=== PATIENT | female | born 1945 ===

== ENCOUNTER 2019-10-17 18:56 | Emergency (ER) | payer SELFPAY ==
--- NOTE | 2019-10-17 21:25 | XRay Report ---
LEFT FOOT 2 VIEWS 2028 INDICATION: pain, fall 15-20 days ago with history of fracture COMPARISON: None available. FINDINGS: The fracture dislocation at the ankle described on the tibia fibula study is noted. No roseann tional foot fractures are identified. Soft tissue swelling is seen diffusely in the foot and ankle. T arsal and ankle degenerative changes are seen. Moderate posterior and mild inferior calcaneal spurrin g are noted. Arterial calcifications are seen. Signer Name: Nikolai Steele MD Signed: 10/17/2019 9:20 PM Workstation Name: [id number]
--- NOTE | 2019-10-17 21:44 | Emergency Department Report ---
ED General Adult HPI - General Chief complaint: Extremity Injury, Lower Stated complaint: SLIP AND FALL X3 WEEKS AGO PUI?: No Time Seen by Provider: 10/17/19 21:02 Source: butcher meat Mode of arrival: Ambulatory Limitations: Language Barrier - History of Present Illness Initial comments: This is a 74-year-old female presents the ED complaining of lower leg, ankle pain x3 weeks now. Patient states that she had a accidental slip and fall while cleaning her toilet some 3 weeks ago. Patient states that she was cleaning the toilet she accidentally fell and hit her left ankle against the toilet. patient states that she was seen at a clinic where she was told that she had a fracture but was not placed in the cast and was told to take Tylenol [id number]. She stated she may have been given a referral to orthopedic whom she saw today and was told to come to the ER evaluation. Patient states that she went to another clinic. Patient states she is been experiencing pain in her leg for the past 2 to 3 weeks. Patient states that she has been using a wheelchair to get around the past 2 to 3 weeks - Related Data Previous Rx's Medication Instructions Recorded Last Taken Type HYDROcodone/APAP 5-325 [[place] 1 each PO Q6HR PRN #12 tablet 10/17/19 Unknown Rx 5/325] Ibuprofen [Motrin] 800 mg PO Q8HR #30 tablet 10/17/19 Unknown Rx Allergies Allergy/AdvReac Type Severity Reaction Status Date / Time No Known Allergies Allergy Unverified 10/17/19 19:57 ED Review of Systems ROS: Stated complaint: SLIP AND FALL X3 WEEKS AGO Other details as noted in HPI Comment: All other systems reviewed and negative ED Past Medical Hx - Past Medical History Hx Hypertension: Yes Hx Diabetes: Yes Hx Asthma: Yes - Surgical History Past Surgical History?: Yes Additional Surgical History: left leg - Social History Smoking Status: Never Smoker Substance Use Type: None - Medications Home Medications: Home Medications Medication Instructions Recorded Confirmed Last Taken Type HYDROcodone/APAP 5-325 [[place] 1 each PO Q6HR PRN #12 tablet 10/17/19 Unknown Rx 5/325] Ibuprofen [Motrin] 800 mg PO Q8HR #30 tablet 10/17/19 Unknown Rx ED Physical Exam - General Limitations: Language Barrier General appearance: alert, in no apparent distress - Head Head exam: Present: atraumatic, normocephalic - Eye Eye exam: Present: normal appearance - ENT ENT exam: Present: mucous membranes moist - Neck Neck exam: Present: normal inspection - Respiratory Respiratory exam: Present: normal lung sounds bilaterally. Absent: respiratory distress - Cardiovascular Cardiovascular Exam: Present: regular rate, normal rhythm. Absent: systolic murmur, diastolic murmur, rubs, gallop - GI/Abdominal GI/Abdominal exam: Present: soft, normal bowel sounds - Extremities Exam Extremities exam: Present: normal inspection, full ROM - Expanded Lower Extremity Exam Left Hip exam: Present: full ROM Upper Leg exam: Present: normal inspection, full ROM Knee exam: Present: normal inspection, full ROM Lower Leg exam: Present: normal inspection, full ROM, tenderness (Mild tender to palpation) Ankle exam: Present: full ROM (2. Flex), tenderness (To the lateral anterior aspect of the ankle), swelling (Around the ankle, nonpitting), deformity (Mild deformity to the left). Absent: crepidus Foot/Toe exam: Present: full ROM, tenderness (At the anterior aspect of the foot), swelling. Absent: abrasion, laceration Neuro vascular tendon exam: Present: no vascular compromise, abnormal cap refill. Absent: pulse deficit, sensory deficit Gait: Positive: unable to bear weight (Using a wheelchair) - Back Exam Back exam: Present: normal inspection - Neurological Exam Neurological exam: Present: alert, oriented X3 - Psychiatric Psychiatric exam: Present: normal affect, normal mood - Skin Skin exam: Present: warm, dry, intact, normal color. Absent: rash ED Course Vital Signs 10/17/19 19:32 Temperature 98.6 F Pulse Rate 108 H Respiratory 18 Rate Blood Pressure 105/55 O2 Sat by Pulse 98 Oximetry ED Medical Decision Making - Radiology Data Radiology results: report reviewed, image reviewed Fluoro Time In Minutes: LEFT TIBIA FIBULA 2 VIEWS 2033 INDICATION: pain, swelling, fell 15-20 days ago, history of fracture COMPARISON: None available. FINDINGS: A fracture dislocation at the ankle is noted. Comminuted oblique fracture of the distal fibula is seen from the distal diaphysis through the metaphysis with posterior angulation noted. A vertical fracture of the posterior malleolus of the tibia is seen with proximal displacement and posterior angulation. I do not clearly see a medial malleolar fracture on these images. The tibia is dislocated anteriorly with respect to the talus. No proximal acute fractures are identified. Surgical changes are seen in the femur. Degenerative changes are seen at the knee. Signer Name: Nikolai Steele MD Signed: 10/17/2019 10:40 PM Workstation Name: [id number] Transcribed By: GJ Dictated By: Nikolai Steele MD Electronically Authenticated By: Nikolai Steele MD Signed Date/Time: 10/17/19 0020 - Medical Decision Making This 74-year-old female who presented with fracture of the distal fibula. This initial fracture happened about 2 to 3 weeks ago. Pain medication given in ED. X-rays performed x-ray shows report as above Due to fracture already started healing patient needs to follow-up with the orthopedic doctor. As posterior Mckinley splint was placed in today and follow-up referrals for the orthopedic was given. Discussed with patient importance of following up with orthopedic as she may need to have screws placed. Patient understands instructions given to her. Florentin Cabezas acted as a rug cutter as the antiquer line was not working. All questions were answered patient showed understanding. Discussed case with Dr. Li orthopedic doctor application processor who states patient can be seen in office outpatient and schedule surgery as needed. Critical care attestation.: If time is entered above; I have spent that time in minutes in the direct care of this critically ill patient, excluding procedure time. ED Disposition Clinical Impression: Fracture of distal end of fibula, Ankle fracture, left, Tibia/fibula fracture Disposition: DC- TO HOME OR SELFCARE Is pt being admited?: No Does the pt Need Aspirin: No Condition: Stable Instructions: Ankle Fracture (ED), Leg Fracture (ED), Ankle Dislocation (ED) Additional Instructions: Make sure to follow up with the orthopedic doctor n as discussed. Take all your medications as you've been prescribed. If you have any worsening symptoms or develop new symptoms please return to ED immediately. Prescriptions: Ibuprofen [Motrin] 800 mg PO Q8HR #30 tablet HYDROcodone/APAP 5-325 [[place] 5/325] 1 each PO Q6HR PRN #12 tablet PRN Reason: Pain Referrals: POWER LI MD [Staff Physician] - 3-5 Days [facility] [Provider Group] - 3-5 Days [facility] [Provider Group] - 3-5 Days Forms: Accompanied Note, Work/School Release Form Time of Disposition: 22:49 Print Language: FAROESE
[2019-10-17] MEDS ORDERED: HYDROcodone/ACETAMINOPHEN 5-325 MG TAB PO ONE (21:48)
--- NOTE | 2019-10-17 22:45 | XRay Report ---
LEFT TIBIA FIBULA 2 VIEWS 2033 INDICATION: pain, swelling, fell 15-20 days ago, history of fracture COMPARISON: None available. FINDINGS: A fracture dislocation at the ankle is noted. Comminuted oblique fracture of the distal fib yuliana is seen from the distal diaphysis through the metaphysis with posterior angulation noted. A verti ap fracture of the posterior malleolus of the tibia is seen with proximal displacement and posterior angulation. I do not clearly see a medial malleolar fracture on these images. The tibia is dislocate d anteriorly with respect to the talus. No proximal acute fractures are identified. Surgical changes are seen in the femur. Degenerative changes are seen at the knee. Signer Name: Nikolai Steele MD Signed: 10/17/2019 10:40 PM Workstation Name: [id number]
[2019-10-17 23:56] VITALS: BP 104/59
== END 2019-10-18 00:21 | disposition home or self-care (01) ==
LOC: ED 18:56
DX: S82.892A Other fracture of left lower leg, initial encounter for closed fracture (principal); S82.202A Unspecified fracture of shaft of left tibia, initial encounter for closed fracture; S82.832A Other fracture of upper and lower end of left fibula, initial encounter for closed fracture; E11.9 Type 2 diabetes mellitus without complications; J45.909 Unspecified asthma, uncomplicated; Z79.899 Other long term (current) drug therapy; Z98.890 Other specified postprocedural states; W01.0XXA Fall on same level from slipping, tripping and stumbling without subsequent striking against object, initial encounter; Y93.89 Activity, other specified; Y92.89 Other specified places as the place of occurrence of the external cause; Y99.8 Other external cause status
CPT/HCPCS: 99283

== ENCOUNTER 2019-10-21 10:26 | Inpatient (IN) | payer OTHER ==
[2019-10-21] MEDS ORDERED: MORPHINE 4 MG/1 ML INJ IV ONE (11:21)
[2019-10-21] MEDS ORDERED: ONDANSETRON 4 MG/2 ML INJ IV ONE (11:21)
[2019-10-21] MEDS ORDERED: SODIUM CHLORIDE 0.9% 500 ML 500 ML IV ONE (11:21)
--- NOTE | 2019-10-21 11:22 | Emergency Department Report ---
ED General Adult HPI - General Chief complaint: Abdominal Pain Stated complaint: ABD PAIN PUI?: No Time Seen by Provider: 10/21/19 11:11 Source: patient, EMS ( EMS documentation not available at time of chart dictation ), RN notes reviewed, old records reviewed Mode of arrival: Stretcher Limitations: Language Barrier, Physical Limitation - History of Present Illness Initial comments: fabrication and assembly supervisor: Pamela Zuniga The patient is a 74-year-old female who is not known to myself previously. She does not have a local primary care doctor. She is visiting from [facility]. She endorses a history of diabetes, and only takes insulin. She presents to the ER with a complaint of lower abdominal pain. It started this morning. It is primarily in the left lower quadrant. It does not radiate anywhere. It increases with palpation. It decreases with rest. She denies fever, cough, headache, chest pain, urinary symptoms, she denies focal extremity weakness and or numbness. She has chronic left lower extremity pain from a mechanical fall a few days ago. -: Gradual, hour(s) Location: abdomen Radiation: non-radiation Quality: other Consistency: other Improves with: other Worsens with: other Associated Symptoms: other - Related Data Previous Rx's Medication Instructions Recorded Last Taken Type HYDROcodone/APAP 5-325 [[place] 1 each PO Q6HR PRN #12 tablet 10/17/19 Unknown Rx 5/325] Ibuprofen [Motrin] 800 mg PO Q8HR #30 tablet 10/17/19 Unknown Rx Allergies Allergy/AdvReac Type Severity Reaction Status Date / Time No Known Allergies Allergy Unverified 10/17/19 19:57 ED Review of Systems ROS: Stated complaint: ABD PAIN Other details as noted in HPI Constitutional: malaise. denies: fever Eyes: denies: eye discharge ENT: denies: congestion Respiratory: denies: wheezing Cardiovascular: denies: chest pain Gastrointestinal: abdominal pain. denies: vomiting Genitourinary: denies: dysuria Musculoskeletal: arthralgia Skin: as per HPI Neurological: weakness Psychiatric: as per HPI Hematological/Lymphatic: as per HPI ED Past Medical Hx - Past Medical History Hx Hypertension: Yes Hx Diabetes: Yes Hx Asthma: Yes - Surgical History Additional Surgical History: left leg - Social History Smoking Status: Never Smoker Substance Use Type: None - Medications Home Medications: Home Medications Medication Instructions Recorded Confirmed Last Taken Type HYDROcodone/APAP 5-325 [[place] 1 each PO Q6HR PRN #12 tablet 10/17/19 Unknown Rx 5/325] Ibuprofen [Motrin] 800 mg PO Q8HR #30 tablet 10/17/19 Unknown Rx ED Physical Exam - General Limitations: Language Barrier, Physical Limitation General appearance: alert, anxious, obese - Head Head exam: Present: atraumatic, normocephalic - Eye Eye exam: Present: normal appearance, EOMI. Absent: nystagmus - ENT ENT exam: Present: normal exam, mucous membranes dry, normal external ear exam - Neck Neck exam: Present: normal inspection, full ROM. Absent: tenderness, meningismus - Respiratory Respiratory exam: Present: normal lung sounds bilaterally. Absent: respiratory distress - Cardiovascular Cardiovascular Exam: Present: regular rate, normal rhythm, normal heart sounds. Absent: bradycardia, tachycardia, irregular rhythm, systolic murmur, diastolic murmur, rubs, gallop - GI/Abdominal GI/Abdominal exam: Present: soft, distended, tenderness, hernia (Reducible umbilical hernia noted). Absent: guarding, rebound, rigid, pulsatile mass - Extremities Exam Extremities exam: Present: normal inspection, full ROM, other (2+ pulses noted in the bilateral upper extremities and right lower extremity. Muscular compartments are soft. The pelvis is stable. Moving 4 extremities spontaneously. Left lower extremity in a splint.). Absent: calf tenderness - Back Exam Back exam: Present: normal inspection. Absent: tenderness, CVA tenderness (L), paraspinal tenderness - Neurological Exam Neurological exam: Present: alert, other (No facial droop. Tongue midline. Extraocular movements intact bilaterally. Facial sensation intact to light touch in V1, V2, V3 distribution bilaterally. 5 and a 5 strength in 4 extremities. Sensation intact to light touch in 4 extremities.) - Psychiatric Psychiatric exam: Present: anxious - Skin Skin exam: Present: warm, dry, intact, normal color. Absent: rash ED Course Vital Signs 10/21/19 10/21/19 10/21/19 12:15 13:00 13:01 Temperature 98.0 F Pulse Rate 86 92 H 91 H Respiratory 17 17 16 Rate Blood Pressure Blood Pressure 75/53 58/38 82/26 [Left] O2 Sat by Pulse 97 97 97 Oximetry 10/21/19 10/21/19 10/21/19 16:00 16:05 16:10 Temperature 96.6 F L Pulse Rate 84 85 83 Respiratory Rate Blood Pressure 80/54 101/34 109/68 Blood Pressure [Left] O2 Sat by Pulse 100 100 100 Oximetry 10/21/19 10/21/19 16:15 16:30 Temperature 96.6 F L Pulse Rate 80 80 Respiratory Rate Blood Pressure 112/60 61/35 Blood Pressure [Left] O2 Sat by Pulse 100 100 Oximetry - Reevaluation(s) Reevaluation #1: 10/21/19 12:08 Differential diagnosis, including but not limited to: Colitis, diverticulitis, renal colic, urinary tract infection, obstruction, perforated viscus Assessment and plan: 74-year-old female, diabetic, tender, with dry mucous membranes, with abdominal pain. Emergent laboratory studies ordered, emergent CT scan abdomen pelvis ordered, IV fluids ordered, pain medication ordered, we will reassess after data points have resulted. Reevaluation #2: 10/21/19 12:31 Patient found to be in acute renal insufficiency/failure, with lactic acidosis, metabolic acidosis. She is also found to be hypotensive. Additional IV fluids ordered. Code sepsis called overhead. Empiric antibiotics ordered. Hyperkalemia cocktail ordered. Nephrology consultation requested. I also contacted the CT scan department, and instructed them to emergently bring the patient over for CT scan of the abdomen pelvis noncontrast. I have also verbally instructed the patient's nurse to place another large-bore IV, for additional fluid resuscitation. We will withhold Kayexalate at this time, given concern for possible intra-abdominal process. Kayexalate is known to cause colonic perforation and concretions. Reevaluation #3: 10/21/19 13:47 Patient was given more than the recommended 30 cc/kg bolus of IV fluids, given hypotension, and renal insufficiency as well as lactic acidosis. Patient found to have perforated viscus. Emergent surgical consultation requested. Dr. Arambula of general surgery is at the bedside, and has consented the patient for emergent intervention. Dr. Borden of nephrology has called back, I have discussed the patient's history, physical, renal insufficiency, and hyperkalemia with him, we agree with administering hyperkalemia cocktail, oral and holding Kayexalate at this time. I have also requested emergent evaluation from nephrology. Discussed with critical care physician, Dr. Simpson, who will follow in consultation and agrees with placement into the intensive care unit. I have placed a page out to the hospital physician, and we are awaiting a call back to arrange admission. Nursing team only able to establish one IV in the right upper extremity, given obvious acuity, need for adequate IV access, anticipation for need for vasopressor support, patient gave verbal informed consent using the aforementioned fabrication and assembly supervisor for central line placement. A sterile ultraso und-guided right-sided internal jugular central line was placed with 1 attempt, with no obvious complications, and the patient tolerated the procedure adequately. Repeat lactic acid, repeat potassium/basic metabolic panel are ordered. Reevaluation #4: 10/21/19 14:38 Dr Janice Newman to admit - Central Line Placement Right IJ Consent Obtained: verbal consent, emergent situation Patient Placed on Monitor/Pulse Ox: Yes Prep: mask, gown, gloves Central Line Prep: Povidone-Iodine 1%, sterile drapes applied Local Anesthesia Used: Lidocaine 2%, with Epi Amount of Anesthesia Used (mls): 6 Ultrasound Used for Placement: Yes Central Line Lumen Inserted: triple Bloods Obtained for Lab: Yes Central Line Position: good blood return, all ports aspirated, flus, sutured in place with 2-0 Dressing Applied: Tegaderm Post Procedure X-Ray: tip of catheter in good p Patient Tolerated Procedure: well Complications: none ED Medical Decision Making - Lab Data Result diagrams: 10/21/19 17:09 10/21/19 17:09 Lab Results 10/21/19 10/21/19 Range/Units 11:33 11:33 WBC 14.8 H (4.5-11.0) K/mm3 RBC 3.05 L (3.65-5.03) M/mm3 Hgb 10.3 (10.1-14.3) gm/dl Hct 31.5 (30.3-42.9) % MCV 103 H (79-97) fl MCH 34 H (28-32) pg MCHC 33 (30-34) % RDW 16.7 H (13.2-15.2) % Plt Count 322 (140-440) K/mm3 PT 16.6 H (12.2-14.9) Sec. INR 1.33 H (0.87-1.13) Lab Results 10/21/19 10/21/19 Range/Units 11:33 11:33 WBC 14.8 H (4.5-11.0) K/mm3 RBC 3.05 L (3.65-5.03) M/mm3 Hgb 10.3 (10.1-14.3) gm/dl Hct 31.5 (30.3-42.9) % MCV 103 H (79-97) fl MCH 34 H (28-32) pg MCHC 33 (30-34) % RDW 16.7 H (13.2-15.2) % Plt Count 322 (140-440) K/mm3 PT 16.6 H (12.2-14.9) Sec. INR 1.33 H (0.87-1.13) Lab Results 10/21/19 10/21/19 10/21/19 Range/Units 11:33 11:33 11:33 WBC 14.8 H (4.5-11.0) K/mm3 RBC 3.05 L (3.65-5.03) M/mm3 Hgb 10.3 (10.1-14.3) gm/dl Hct 31.5 (30.3-42.9) % MCV 103 H (79-97) fl MCH 34 H (28-32) pg MCHC 33 (30-34) % RDW 16.7 H (13.2-15.2) % Plt Count 322 (140-440) K/mm3 PT 16.6 H (12.2-14.9) Sec. INR 1.33 H (0.87-1.13) Sodium 129 L (137-145) mmol/L Potassium 6.8 H* (3.6-5.0) mmol/L Chloride 89.4 L (98-107) mmol/L Carbon Dioxide 19 L (22-30) mmol/L Anion Gap 27 mmol/L BUN 56 H (7-17) mg/dL Creatinine 3.0 H (0.7-1.2) mg/dL Estimated GFR 15 ml/min BUN/Creatinine Ratio 19 % Glucose 69 (65-100) mg/dL Lactic Acid (0.7-2.0) mmol/L Calcium 8.2 L (8.4-10.2) mg/dL Magnesium 2.20 (1.7-2.3) mg/dL Total Bilirubin 0.70 (0.1-1.2) mg/dL Direct Bilirubin 0.3 H (0-0.2) mg/dL Indirect Bilirubin 0.4 mg/dL AST 40 (5-40) units/L ALT 21 (7-56) units/L Alkaline Phosphatase 159 H (35-129) units/L Total Protein 7.8 (6.3-8.2) g/dL Albumin 2.4 L (3.9-5) g/dL Albumin/Globulin Ratio 0.4 % Lipase 15 (13-60) units/L // Range/Units 11:33 WBC (4.5-11.0) K/mm3 RBC (3.65-5.03) M/mm3 Hgb (10.1-14.3) gm/dl Hct (30.3-42.9) % MCV (79-97) fl MCH (28-32) pg MCHC (30-34) % RDW (13.2-15.2) % Plt Count (140-440) K/mm3 PT (12.2-14.9) Sec. INR (0.87-1.13) Sodium (137-145) mmol/L Potassium (3.6-5.0) mmol/L Chloride (98-107) mmol/L Carbon Dioxide (22-30) mmol/L Anion Gap mmol/L BUN (7-17) mg/dL Creatinine (0.7-1.2) mg/dL Estimated GFR ml/min BUN/Creatinine Ratio % Glucose (65-100) mg/dL Lactic Acid 8.20 H* (0.7-2.0) mmol/L Calcium (8.4-10.2) mg/dL Magnesium (1.7-2.3) mg/dL Total Bilirubin (0.1-1.2) mg/dL Direct Bilirubin (0-0.2) mg/dL Indirect Bilirubin mg/dL AST (5-40) units/L ALT (7-56) units/L Alkaline Phosphatase (35-129) units/L Total Protein (6.3-8.2) g/dL Albumin (3.9-5) g/dL Albumin/Globulin Ratio % Lipase (13-60) units/L - EKG Data -: EKG Interpreted by Oh EKG shows normal: sinus rhythm Rate: normal - EKG Data When compared to previous EKG there are: previous EKG unavailable 10/21/19 12:05 Sinus rhythm, 86 bpm, left axis deviation, first-degree AV block, motion artifa ct, incomplete right bundle branch block, the EKG is abnormal, there is no prior for comparison, this EKG is not morphologically consistent with a STEMI - Radiology Data Radiology results: pending, report reviewed, image reviewed CT ABDOMEN AND PELVIS WITHOUT CONTRAST HISTORY: Left lower quadrant abdominal pain, sepsis. COMPARISON: None. TECHNIQUE: Helical CT images of the abdomen and pelvis were obtained without administration of intravenous contrast. Sagittal and coronal reformatted images were reviewed. All CT scans at this location are performed using CT dose reduction for ALARA by means of automated exposure control. FINDINGS: Abdomen/pelvis: A large amount of free air is identified along the anterior abdominal wall. To a lesser extent there are flecks of free air in the mesentery and lisha hepatis. Moderate indeterminant fluid in the abdomen as well. These findings are highly consistent with a visceral perforation although the site of perforation is not clearly evident on this exam. There is no evidence for bowel obstruction or focal bowel inflammation. I believe I see the appendix in the right lower quadrant which is unremarkable. The liver has a slightly nodular appearance consistent with mild cirrhosis. No obvious liver mass. The spleen is normal size and contour. The biliary system, pancreas, adrenal glands and left kidney are unremarkable. The right kidney is low lying and contains numerous small and large renal stones. A large staghorn calculus is also identified. There is no associated hydronephrosis. Hysterectomy changes are suspected. The bladder and distal ureters are unremarkable. Lungs/bones: The visualized lung bases are clear. Heart size is borderline. Moderate thoracolumbar spondylosis is noted. IMPRESSION: Large free air is essentially fluid in the abdomen is identified consistent with visceral perforation. The site of perforation is not clearly evident on this exam. Mild cirrhotic changes in the liver. Right nephrolithiasis as described. These findings were discussed with Dr. Marycarmen faye in the emergency department at the CT scanner at 1238 hours. These findings were also reviewed with Dr. Arambula of surgery at 1317 hours. Signer Name: Timothy Gilliam Jr, MD Signed: 10/21/2019 12:17 PM Workstation Name: [id number] CHEST 1 VIEW INDICATION: cv placement. COMPARISON: None FINDINGS: Support devices: A right IJ central line terminates in the mid to lower SVC. Heart: Within normal limits. Lungs/Pleura: No acute air space or interstitial disease. No pneumothorax. Additional findings: None. IMPRESSION: Right IJ central line as described. No pneumothorax. Signer Name: Timothy Gilliam Jr, MD Signed: 10/21/2019 12:50 PM Workstation Name: [id number] Critical Care Time: Yes Critical care time in (mins) excluding proc time.: 120 Critical care attestation.: If time is entered above; I have spent that time in minutes in the direct care of this critically ill patient, excluding procedure time. ED Disposition Clinical Impression: SIRS (systemic inflammatory response syndrome), KORY (acute kidney injury), Hyperkalemia, Metabolic acidosis, Perforated viscus Disposition: OP ADMIT IP TO THIS HOSP Is pt being admited?: Yes Condition: Critical
[2019-10-21 11:47] LABS: Hematocrit 31.5 % (30.3-42.9); Hemoglobin 10.3 gm/dl (10.1-14.3); Mean Corpuscular HGB Conc 33 % (30-34); Mean Corpuscular Volume 103 fl (79-97); Platelet Count 322 K/mm3 (140-440); Red Blood Count 3.05 M/mm3 (3.65-5.03); Red Cell Distribution Width 16.7 % (13.2-15.2)
[2019-10-21 12:02] LABS: INR 1.33 (0.87-1.13)
[2019-10-21 12:10] LABS: Albumin 2.4 g/dL (3.9-5); Bilirubin,Direct 0.3 mg/dL (0-0.2); Calcium 8.2 mg/dL (8.4-10.2)
[2019-10-21] MEDS ORDERED: PIPERACIL/TAZOBACTA 4.5/NS 100 4.5 GM/100 ML VIAL IV ONE (12:27)
[2019-10-21] MEDS ORDERED: SODIUM CHLORIDE 0.9% 1000 ML 1,000 ML IV ONE ×3 (12:27→14:13)
[2019-10-21] MEDS ORDERED: ALBUTEROL 2.5 MG/3 ML NEBU IH ONE (12:29)
[2019-10-21] MEDS ORDERED: DEXTROSE 50% IN WATER (25GM) 50 ML SYRINGE IV ONE ×2 (12:30→15:06)
[2019-10-21] MEDS ORDERED: SODIUM BICARB 8.4% 50 MEQ/50 ML SYRINGE IV ONE (12:30)
[2019-10-21] MEDS ORDERED: INSULIN REGULAR, HUMAN 100 UNITS/1 ML IV ONE (12:30)
[2019-10-21] MEDS ORDERED: CALCIUM GLUCONATE 1,000 MG in SODIUM CHLORIDE 0.9% 100 ML IV ONE (12:30)
[2019-10-21] MEDS ORDERED: metroNIDAZOLE/NS 500 MG/100 ML 500 MG/100 ML BAG IV ONE (13:04)
[2019-10-21] MEDS ORDERED: LIDOCAINE 1%/EPINEPHRINE 1:100,000 VIAL (20 ML) INFILTRATI ONE (13:09)
[2019-10-21] MEDS ORDERED: fentaNYL 100 MCG/2 ML INJ ONE ×2 (13:29→14:28)
[2019-10-21] MEDS ORDERED: fentaNYL 100 MCG/2 ML INJ IV ONE (13:31)
--- NOTE | 2019-10-21 13:38 | Consultation ---
History of Present Illness Consult date: 10/21/19 Reason for consult: abdominal pain Requesting physician: LAURYN MUNOZ Chief complaint: abdominal pain - History of present illness History of present illness: 74yo F, [place] speaking, who presents with acute onset of abdominal pain since last night. Pt found to be hypotensive in ED. Rapid work-up including CT scan showed evidence of pneumoperitoneum. General surgery was called urgently. Pt unable to give much information. Other than saying that the she is in pain, she would keep telling us to do what we think is right to help her. Past History Past Medical History: arthritis, diabetes, hypertension, other (asthma) Past Surgical History: Other (left leg) Social history: denies: smoking, alcohol abuse Family history: no significant family history Medications and Allergies Allergies Allergy/AdvReac Type Severity Reaction Status Date / Time No Known Allergies Allergy Unverified 10/17/19 19:57 Home Medications Medication Instructions Recorded Confirmed Last Taken Type HYDROcodone/APAP 5-325 [[place] 1 each PO Q6HR PRN #12 tablet 10/17/19 Unknown Rx 5/325] Ibuprofen [Motrin] 800 mg PO Q8HR #30 tablet 10/17/19 Unknown Rx Review of Systems ROS unobtainable: due to mental status Exam Vital Signs Temp Pulse Resp BP Pulse Ox 98.0 F 86 17 75/53 97 10/21/19 12:15 10/21/19 12:15 10/21/19 12:15 10/21/19 12:15 10/21/19 12:15 - General physical appearance Positive: moderate distress, obese - Eyes Positive: normal occular movement - Respiratory Positive: normal expansion, normal respiratory effort - Cardiovascular Rhythm: other (tachy) - Abdomen Abdomen: Present: soft, tender (diffusely), bowel sounds hypoactive, distended. Absent: rigid, surgical scars Hernia: umbilical - Integumentary no rash, no growths, no abnormal pigmentation - Psychiatric Psychiatric: cooperative Results - Labs 10/21/19 11:33 10/21/19 13:30 Abnormal lab results 10/21/19 10/21/19 10/21/19 Range/Units 11:33 11:33 11:33 WBC 14.8 H (4.5-11.0) K/mm3 RBC 3.05 L (3.65-5.03) M/mm3 MCV 103 H (79-97) fl MCH 34 H (28-32) pg RDW 16.7 H (13.2-15.2) % PT 16.6 H (12.2-14.9) Sec. INR 1.33 H (0.87-1.13) Sodium 129 L (137-145) mmol/L Potassium 6.8 H* (3.6-5.0) mmol/L Chloride 89.4 L (98-107) mmol/L Carbon Dioxide 19 L (22-30) mmol/L BUN 56 H (7-17) mg/dL Creatinine 3.0 H (0.7-1.2) mg/dL Lactic Acid (0.7-2.0) mmol/L Calcium 8.2 L (8.4-10.2) mg/dL Direct Bilirubin 0.3 H (0-0.2) mg/dL Alkaline Phosphatase 159 H (35-129) units/L Total Creatine Kinase 233 H (30-135) units/L Albumin 2.4 L (3.9-5) g/dL 10/21/19 Range/Units 11:33 WBC (4.5-11.0) K/mm3 RBC (3.65-5.03) M/mm3 MCV (79-97) fl MCH (28-32) pg RDW (13.2-15.2) % PT (12.2-14.9) Sec. INR (0.87-1.13) Sodium (137-145) mmol/L Potassium (3.6-5.0) mmol/L Chloride (98-107) mmol/L Carbon Dioxide (22-30) mmol/L BUN (7-17) mg/dL Creatinine (0.7-1.2) mg/dL Lactic Acid 8.20 H* (0.7-2.0) mmol/L Calcium (8.4-10.2) mg/dL Direct Bilirubin (0-0.2) mg/dL Alkaline Phosphatase (35-129) units/L Total Creatine Kinase (30-135) units/L Albumin (3.9-5) g/dL Diabetes panel 10/21/19 Range/Units 11:33 Sodium 129 L (137-145) mmol/L Potassium 6.8 H* (3.6-5.0) mmol/L Chloride 89.4 L (98-107) mmol/L Carbon Dioxide 19 L (22-30) mmol/L BUN 56 H (7-17) mg/dL Creatinine 3.0 H (0.7-1.2) mg/dL Glucose 69 (65-100) mg/dL Calcium 8.2 L (8.4-10.2) mg/dL AST 40 (5-40) units/L ALT 21 (7-56) units/L Alkaline Phosphatase 159 H (35-129) units/L Total Protein 7.8 (6.3-8.2) g/dL Albumin 2.4 L (3.9-5) g/dL Calcium panel 10/21/19 Range/Units 11:33 Calcium 8.2 L (8.4-10.2) mg/dL Albumin 2.4 L (3.9-5) g/dL Pituitary panel 10/21/19 Range/Units 11:33 Sodium 129 L (137-145) mmol/L Potassium 6.8 H* (3.6-5.0) mmol/L Chloride 89.4 L (98-107) mmol/L Carbon Dioxide 19 L (22-30) mmol/L BUN 56 H (7-17) mg/dL Creatinine 3.0 H (0.7-1.2) mg/dL Glucose 69 (65-100) mg/dL Calcium 8.2 L (8.4-10.2) mg/dL Adrenal panel 10/21/19 Range/Units 11:33 Sodium 129 L (137-145) mmol/L Potassium 6.8 H* (3.6-5.0) mmol/L Chloride 89.4 L (98-107) mmol/L Carbon Dioxide 19 L (22-30) mmol/L BUN 56 H (7-17) mg/dL Creatinine 3.0 H (0.7-1.2) mg/dL Glucose 69 (65-100) mg/dL Calcium 8.2 L (8.4-10.2) mg/dL Total Bilirubin 0.70 (0.1-1.2) mg/dL AST 40 (5-40) units/L ALT 21 (7-56) units/L Alkaline Phosphatase 159 H (35-129) units/L Total Protein 7.8 (6.3-8.2) g/dL Albumin 2.4 L (3.9-5) g/dL - Imaging CT scan - abdomen: report reviewed, image reviewed CT scan - pelvis: report reviewed, image reviewed Assessment and Plan - Patient Problems (1) Perforated viscus Current Visit: Yes Status: Acute Plan to address problem: Patient in critical condition. Has evidence of bowel perforation by CT scan. I reviewed the CT scan with Dr. Gilliam from radiology. There is a moderate amount of free air and fluid, but the source is unclear. Patient is septic with renal insufficiency. Preparations need to be made for emergent exploratory laparotomy. Procedure and rationale discussed with patient. Verbal consent was obtained. Witnessed by 5 staff members in the room. She kept repeating that we should do what ever we needed to in order to help her. She understood that we were going to surgery and she would get an exploratory laparotomy. Consent was obtained. This was done via a title insurance examiner. Recheck potassium stat Proceed to OR emergently. time=30min
[2019-10-21] MEDS ORDERED: LIDOCAINE 2%/EPINEPHRINE 1:100,000 VIAL (20 ML) INFILTRATI ONE (14:00)
[2019-10-21] MEDS ORDERED: HYDROmorphone 1 MG/1 ML INJ IV PRN ×2 (14:19→20:49)
[2019-10-21] MEDS ORDERED: ONDANSETRON 4 MG/2 ML INJ IV PRN (14:19)
--- NOTE | 2019-10-21 14:20 | Anesthesia Day of Surgery ---
Anesthesia Day of Surgery - Day of Surgery Patient Examined: Yes Patient H&P Reviewed: Yes Patient is NPO: Yes
--- NOTE | 2019-10-21 14:23 | Anesthesia Consultation ---
Anesthesia Consult and Med Hx Date of service: 10/21/19 - Airway Anesthetic Teeth Evaluation: Chipped ROM Head & Neck: Adequate Mental/Hyoid Distance: Adequate Mallampati Class: Class II Intubation Access Assessment: Good - Pre-Operative Health Status ASA Pre-Surgery Classification: ASA4, Emergency Proposed Anesthetic Plan: General - Pulmonary Hx Asthma: Yes - Cardiovascular System Hx Hypertension: Yes - Endocrine Hx Renal Disease: Yes Hx Non-Insulin Dependent Diabetes: Yes - Additional Comments Anesthesia Medical History Comments: Septic. k-6.8, Cr 3.0. hypotensive
[2019-10-21] MEDS ORDERED: LIDOCAINE (1%) 10 MG/1 ML VIAL 20 ML MDV ONE (14:25)
[2019-10-21] MEDS ORDERED: BUPIVACAINE/PF (0.25%) 2.5 MG/ML 30 ML VIAL INFILTRATI ONE (14:25)
[2019-10-21] MEDS ORDERED: ROCURONIUM 50 MG/5 ML INJ IV ONE (14:26)
[2019-10-21] MEDS ORDERED: ETOMIDATE 20 MG/10 ML INJ IV ONE (14:26)
[2019-10-21] MEDS ORDERED: LIDOCAINE MPF (2%) 20 MG/1 ML VIAL 5 ML ONE (14:27)
[2019-10-21 14:35] LABS: Band Neutrophils # (Manual) 6.2 K/mm3; Basophils % (Manual) 0 % (0.0-1.8); Eosinophils % (Manual) 0 % (0.0-4.3); Total Cells Counted 100
[2019-10-21] MEDS ORDERED: PHENYLEPHRINE/NS 1,000 MCG/10 ML SYRINGE (OR USE) IV ONE ×3 (14:35→16:43)
[2019-10-21 14:36] LABS: Anisocytosis 1+; Macrocytosis 1+; Platelet Clumps Rare; Platelet Estimate Consistent w Auto
[2019-10-21] MEDS ORDERED: CALCIUM CHLORIDE 1,000 MG/10 ML SYRINGE IV ONE (14:48)
[2019-10-21] MEDS ORDERED: ALBUMIN HUMAN 25% (25 GM/100 ML) INJ IV ONE ×2 (14:48→15:09)
[2019-10-21] MEDS ORDERED: SODIUM CHLORIDE 0.9% 1000 ML 1,000 ML ONE ×3 (14:54→15:55)
[2019-10-21] MEDS ORDERED: SODIUM CHLORIDE 0.9% IRR 1,500 ML BOTTLE IR ONE (15:00)
--- NOTE | 2019-10-21 15:26 | Event Note ---
Date: 10/21/19 Patient presented with bowel perforation, Hypotension, KORY and hyperkalemia. Came to see this pt, she was taken to the OR.
[2019-10-21] MEDS ORDERED: ePHEDrine SULFATE 50 MG/1 ML INJ ONE (15:39)
--- NOTE | 2019-10-21 15:43 | Post Operative Note ---
Date of procedure: 10/21/19 (dictation:[id number]) Pre-op diagnosis: abdominal free air Post-op diagnosis: other (as above. perforated peptic ulcer) Findings: 1cm hole in pyloric region. large amount of contamination Procedure: Ex Lap Taco Patch repair of perforated peptic ulcer IVF 2L 200cc 5% albumin UOP 120cc EBl ~100cc Anesthesia: GETA Surgeon: RADHA YE Art Therapy Specialist: ANAHI ANAYA Estimated blood loss: 50-100ml Pathology: none Condition: critical Disposition: PACU
[2019-10-21] MEDS ORDERED: SODIUM CHLORIDE 0.9% 1000 ML 1,000 ML IV SCH (15:45)
[2019-10-21] MEDS ORDERED: PHENYLEPHRINE 10 MG/1 ML INJ SDV ONE (16:41)
[2019-10-21] MEDS ORDERED: methylPREDNISolone Sod Succinate 40 MG/1 ML INJ ONE (16:42)
[2019-10-21] MEDS ORDERED: SODIUM CHLORIDE 0.9% 100 ML ONE (16:44)
[2019-10-21] MEDS: PHENYLEPHRINE 100 MG in SODIUM CHLORIDE 0.9% 90 ML IV SCH ×2 (17:05→21:43)
[2019-10-21] MEDS: HYDROmorphone 1 MG/1 ML INJ IV PRN ×2 (17:12→17:56)
[2019-10-21 17:24] LABS: Hematocrit 24.9 % (30.3-42.9); Hemoglobin 7.9 gm/dl (10.1-14.3); Mean Corpuscular HGB Conc 32 % (30-34); Mean Corpuscular Volume 107 fl (79-97); Platelet Count 235 K/mm3 (140-440); Red Blood Count 2.32 M/mm3 (3.65-5.03); Red Cell Distribution Width 17.2 % (13.2-15.2)
[2019-10-21 18:03] LABS: Albumin 2.6 g/dL (3.9-5); Calcium 7.2 mg/dL (8.4-10.2)
[2019-10-21] MEDS ORDERED: MIDAZOLAM 2 MG/2 ML INJ IV ONE (18:10)
--- NOTE | 2019-10-21 18:51 | Operative Report ---
PREOPERATIVE DIAGNOSIS: Pneumoperitoneum. POSTOPERATIVE DIAGNOSIS: Pneumoperitoneum, perforated peptic ulcer. ATTENDING PHYSICIAN: Celeste Arambula MD [employer] FR[employer] DESK ATTENDANT: Dr. Lema. ANESTHESIA: General. ESTIMATED BLOOD LOSS: Approximately, 100 mL. FLUIDS: 2 liters crystalloid, 200 mL 5% albumin. URINE OUTPUT: Approximately, 120 mL. FINDINGS: A 1-cm hole in the pyloric region. Large amount of contamination in the abdomen that was consistent with gastric fluid. Mild adhesions noted in the inferior midline. SPECIMEN: None. DRAINS: A 19-Latvian LOUIE drain. COMPLICATIONS: None. DISPOSITION: Stable to transport to PACU. INDICATIONS FOR PROCEDURE: This is a 74-year-old female who presented with a less than 24-hour history of sudden onset of severe abdominal pain that progressively worsened. In the Emergency Room, the patient was found to be septic. General Surgery consult was called immediately. Assessment was done. The patient assessed to be in need for exploratory laparotomy. CT scan was consistent with pneumoperitoneum and free fluid. Discussed situation with the patient. The patient acknowledged that we should do whatever we need to in order to help her. She was too weak to sign consent; however, the procedure was explained to her. She gave us verbal consent. This was witnessed by 5 other people in the room. Everybody was in agreement that she was giving us verbal consent to proceed. Plan was for exploratory laparotomy. OPERATIVE NOTE: The patient was brought to the operating room and placed on the table in supine position. After adequate general anesthesia was established, the patient was prepped and draped in usual sterile fashion. Antibiotics had already been started in the Emergency Room. SCDs were in place. The patient was hypotensive at the beginning of the case. My suspicion based on CT scan was that she may have some upper abdominal processes and we saw some dots of free air around the stomach. Upper midline incision was made. We entered the peritoneal cavity safely. We immediately encountered a large amount of fluid that appeared to be consistent with upper GI fluid. This was suctioned out. The liver was seen having cirrhotic type changes. I was able to quickly identify a 1-cm hole at the pylorus. We used 2-0 and 3-0 silk sutures to do a Taco patch repair. There was not a lot of omentum that was available; however, we did have some that was attached to the transverse colon that easily covered the hole. We used interrupted sutures taking bites of the omentum as well as bites of the edges of the ulcers so that we could hold the Taco patch down as well as close the perforation. The patch appeared to lay very well without any tension. Abdomen was thoroughly irrigated. A 19-Latvian drain was placed. The patient was noted to have a small umbilical fascial defect that we incorporated into our closure with a #1 looped PDS suture. Wound was irrigated, iodine strips were placed in the wound and the skin was closed with mattie. Skin was cleaned and dried, dressings were placed. The patient tolerated the procedure well. We brought a 19-Latvian drain out from the right side of the abdomen. I spoke with the grandson by phone. He spoke some [place] and we explained it as best as I could in simple terms. He seemed to understand when we repeated it. He asked that I call the other grandchild, Roland, as they would be better able to communicate with us. He was appreciative of the call. JOB# [id number] CLARICE/MADISON GASTON
--- NOTE | 2019-10-21 18:52 | Cat Scan Report ---
CT ABDOMEN AND PELVIS WITHOUT CONTRAST HISTORY: Left lower quadrant abdominal pain, sepsis. COMPARISON: None. TECHNIQUE: Helical CT images of the abdomen and pelvis were obtained without administration of intrav enous contrast. Sagittal and coronal reformatted images were reviewed. All CT scans at this location are performed using CT dose reduction for ALARA by means of automated exposure control. FINDINGS: Abdomen/pelvis: A large amount of free air is identified along the anterior abdominal wall. To a les ser extent there are flecks of free air in the mesentery and lisha hepatis. Moderate indeterminant fl uid in the abdomen as well. These findings are highly consistent with a visceral perforation although the site of perforation is not clearly evident on this exam. There is no evidence for bowel obstruct ion or focal bowel inflammation. I believe I see the appendix in the right lower quadrant which is un remarkable. The liver has a slightly nodular appearance consistent with mild cirrhosis. No obvious liver mass. Th e spleen is normal size and contour. The biliary system, pancreas, adrenal glands and left kidney are unremarkable. The right kidney is low lying and contains numerous small and large renal stones. A la rge staghorn calculus is also identified. There is no associated hydronephrosis. Hysterectomy changes are suspected. The bladder and distal ureters are unremarkable. Lungs/bones: The visualized lung bases are clear. Heart size is borderline. Moderate thoracolumbar s pondylosis is noted. IMPRESSION: Large free air is essentially fluid in the abdomen is identified consistent with visceral perforation . The site of perforation is not clearly evident on this exam. Mild cirrhotic changes in the liver. Right nephrolithiasis as described. These findings were discussed with Dr. Marycarmen faye in the emergency department at the CT scanner a t 1238 hours. These findings were also reviewed with Dr. Arambula of surgery at 1317 hours. Signer Name: Timothy Gilliam Jr, MD Signed: 10/21/2019 1:17 PM Workstation Name: [id number]
--- NOTE | 2019-10-21 18:52 | XRay Report ---
CHEST 1 VIEW INDICATION: cv placement. COMPARISON: None FINDINGS: Support devices: A right IJ central line terminates in the mid to lower SVC. Heart: Within normal limits. Lungs/Pleura: No acute air space or interstitial disease. No pneumothorax. Additional findings: None. IMPRESSION: Right IJ central line as described. No pneumothorax. Signer Name: Timothy Gilliam Jr, MD Signed: 10/21/2019 1:50 PM Workstation Name: [id number]
--- NOTE | 2019-10-21 18:53 | XRay Report ---
CHEST 1 VIEW INDICATION / CLINICAL INFORMATION: ET TUBE, NG TUBE. COMPARISON: 1342 hours FINDINGS: SUPPORT DEVICES: Central line remains on the right. Endotracheal tube is now been placed with the tip in good position above the mehrdad. NG tube is seen extending into the stomach. HEART / MEDIASTINUM: No significant abnormality. LUNGS / PLEURA: Right lung remains clear. There is now slight consolidation at the left base. No erick a or effusion. No pneumothorax. ADDITIONAL FINDINGS: No significant additional findings. IMPRESSION: 1 Endotracheal tube in good position. Signer Name: Jonas Trevizo MD Signed: 10/21/2019 6:07 PM Workstation Name: [id number]
--- NOTE | 2019-10-21 19:04 | Post Anesthesia Evaluation ---
- Post Anesthesia Evaluation Patient Participated: No Airway Patent: Yes Stable Respiratory Function: Yes Nausea/Vomiting: No Temp > 96.8F: Yes Pain Manageable: Yes Adequeate Hydration: Yes Anesthesia Complications: No Block Receding Appropriately: Not Applicable Patient on Ventilator: Yes
--- NOTE | 2019-10-21 19:51 | History and Physical Report ---
History of Present Illness Date of examination: 10/21/19 Date of admission: 10/21/19 13:52 Chief complaint: Abd pain 1 day History of present illness: 74-year-old female visiting from [facility] with Hx of diabetes on insulin presents to the ER with a complaint of lower abdominal pain. It started this morning. It is primarily in the left lower quadrant. It does not radiate anywhere. It increases with palpation. It decreases with rest. She denies fever, cough, headache, chest pain, urinary symptoms, she denies focal extremity weakness and or numbness. She has chronic left lower extremity pain from a mechanical fall a few days ago.Pain is 10/10. Nausea present.Pain is all over abdomen.No Nsaid intake or goody powder - Past Medical History Hypertension: Yes Diabetes: Yes Asthma: Yes - Surgical History Additional Surgical History: left leg - Social History Smoking Status: Never Smoker Substance Use Type: None - Medications Home Medications: Home Medications Medication Instructions Recorded Confirmed Last Taken Type HYDROcodone/APAP 5-325 [[place] 1 each PO Q6HR PRN #12 tablet 10/17/19 Unknown Rx 5/325] Ibuprofen [Motrin] 800 mg PO Q8HR #30 tablet 10/17/19 Unknown Rx Review of Systems ROS: Stated complaint: ABD PAIN Other details as noted in HPI Constitutional: malaise. denies: fever Eyes: denies: eye discharge ENT: denies: congestion Respiratory: denies: wheezing Cardiovascular: denies: chest pain Gastrointestinal: abdominal pain. denies: vomiting Genitourinary: denies: dysuria Musculoskeletal: arthralgia Skin: as per HPI Neurological: weakness Psychiatric: as per HPI Hematological/Lymphatic: as per HPI 0 [id number] Past History Past Medical History: arthritis, diabetes, hypertension, other (asthma) Past Surgical History: Other (left leg) Social history: denies: smoking, alcohol abuse Family history: no significant family history Medications and Allergies Allergies Allergy/AdvReac Type Severity Reaction Status Date / Time No Known Allergies Allergy Unverified 10/17/19 19:57 Home Medications Medication Instructions Recorded Confirmed Last Taken Type HYDROcodone/APAP 5-325 [[place] 1 each PO Q6HR PRN #12 tablet 10/17/19 Unknown Rx 5/325] Ibuprofen [Motrin] 800 mg PO Q8HR #30 tablet 10/17/19 Unknown Rx Active Meds: Active Medications Hydromorphone HCl (Dilaudid) 0.5 mg IV Q10MIN PRN PRN Reason: Pain , Severe (7-10) Hydromorphone HCl (Dilaudid) 0.25 mg IV Q10MIN PRN PRN Reason: Pain, Moderate (4-6) Stop: 10/22/19 17:12 Last Admin: 10/21/19 17:56 Dose: 0.25 mg Documented by: Sodium Chloride (Nacl 0.9% 1000 Ml) 1,000 mls @ 125 mls/hr IV DIRECT MICHI Piperacillin Sod/Tazobactam Sod (Zosyn/Ns 2.25 Gm/50ml) 2.25 gm in 50 mls @ 100 mls/hr IV Q8HR MICHI Phenylephrine HCl 100 mg/ (Sodium Chloride) 100 mls @ 3 mls/hr IV TITR MICHI; Protocol Last Titration: 10/21/19 17:30 Dose: 10 mcg/min, 0.6 mls/hr Documented by: Ondansetron HCl (Zofran) 4 mg IV ONCE PRN PRN Reason: Nausea And Vomiting Exam - Constitutional Vitals: Temp Pulse Resp BP Pulse Ox 98.2 F 81 16 102/85 100 10/21/19 18:45 10/21/19 19:45 10/21/19 13:01 10/21/19 19:45 10/21/19 19:45 General appearance: Present: severe distress, well-nourished - EENT Eyes: Present: PERRL ENT: hearing intact, clear oral mucosa - Neck Neck: Present: supple, normal ROM - Respiratory Respiratory effort: normal Respiratory: bilateral: CTA - Cardiovascular Heart rate: 98 Rhythm: regular Heart Sounds: Present: S1 & S2. Absent: rub, click - Extremities Extremities: no ischemia, pulses intact, pulses symmetrical, No edema Peripheral Pulses: within normal limits - Abdominal General gastrointestinal: Present: tender, non-distended, distended, hypoactive bowel sounds Localized gastrointestinal: tender: diffuse, guarding: diffuse, rebound: diffuse Female genitourinary: Present: normal - Rectal Rectal Exam: deferred - Integumentary Integumentary: Present: clear, warm, dry - Musculoskeletal Musculoskeletal: gait normal, strength equal bilaterally - Psychiatric Psychiatric: appropriate mood/affect, intact judgment & insight - Neurologic Neurologic: CNII-XII intact, moves all extremities - Allied Health Allied health notes reviewed: nursing, case management Results - Labs CBC & Chem 7: 10/22/19 05:10 10/22/19 05:10 Labs: Laboratory Last Values WBC 12.4 K/mm3 (4.5-11.0) H 10/21/19 17:09 RBC 2.32 M/mm3 (3.65-5.03) L 10/21/19 17:09 Hgb 7.9 gm/dl (10.1-14.3) L 10/21/19 17:09 Hct 24.9 % (30.3-42.9) L D 10/21/19 17:09 MCV 107 fl (79-97) H 10/21/19 17:09 MCH 34 pg (28-32) H 10/21/19 17:09 MCHC 32 % (30-34) 10/21/19 17:09 RDW 17.2 % (13.2-15.2) H 10/21/19 17:09 Plt Count 235 K/mm3 (140-440) 10/21/19 17:09 Add Manual Diff Complete 10/21/19 11:33 Total Counted 100 10/21/19 11:33 Seg Neuts % (Manual) 50.0 % (40.0-70.0) 10/21/19 11:33 Band Neutrophils % 42.0 % 10/21/19 11:33 Lymphocytes % (Manual) 3.0 % (13.4-35.0) L 10/21/19 11:33 Reactive Lymphs % (Man) 0 % 10/21/19 11:33 Monocytes % (Manual) 3.0 % (0.0-7.3) 10/21/19 11:33 Eosinophils % (Manual) 0 % (0.0-4.3) 10/21/19 11:33 Basophils % (Manual) 0 % (0.0-1.8) 10/21/19 11:33 Metamyelocytes % 2.0 % 10/21/19 11:33 Myelocytes % 0 % 10/21/19 11:33 Promyelocytes % 0 % 10/21/19 11:33 Blast Cells % 0 % 10/21/19 11:33 Nucleated RBC % Not Reportable 10/21/19 11:33 Seg Neutrophils # Man 7.4 K/mm3 (1.8-7.7) 10/21/19 11:33 Band Neutrophils # 6.2 K/mm3 10/21/19 11:33 Lymphocytes # (Manual) 0.4 K/mm3 (1.2-5.4) L 10/21/19 11:33 Abs React Lymphs (Man) 0.0 K/mm3 10/21/19 11:33 Monocytes # (Manual) 0.4 K/mm3 (0.0-0.8) 10/21/19 11:33 Eosinophils # (Manual) 0.0 K/mm3 (0.0-0.4) 10/21/19 11:33 Basophils # (Manual) 0.0 K/mm3 (0.0-0.1) 10/21/19 11:33 Metamyelocytes # 0.3 K/mm3 10/21/19 11:33 Myelocytes # 0.0 K/mm3 10/21/19 11:33 Promyelocytes # 0.0 K/mm3 10/21/19 11:33 Blast Cells # 0.0 K/mm3 10/21/19 11:33 WBC Morphology Not Reportable 10/21/19 11:33 Hypersegmented Neuts Not Reportable 10/21/19 11:33 Hyposegmented Neuts Not Reportable 10/21/19 11:33 Hypogranular Neuts Not Reportable 10/21/19 11:33 Smudge Cells Not Reportable 10/21/19 11:33 Toxic Granulation Not Reportable 10/21/19 11:33 Toxic Vacuolation Not Reportable 10/21/19 11:33 Dohle Bodies Not Reportable 10/21/19 11:33 Pelger-Huet Anomaly Not Reportable 10/21/19 11:33 Amanda Rods Not Reportable 10/21/19 11:33 Platelet Estimate Consistent w auto 10/21/19 11:33 Clumped Platelets Rare 10/21/19 11:33 Plt Clumps, EDTA Not Reportable 10/21/19 11:33 Large Platelets Not Reportable 10/21/19 11:33 Giant Platelets Not Reportable 10/21/19 11:33 Platelet Satelliting Not Reportable 10/21/19 11:33 Plt Morphology Comment Not Reportable 10/21/19 11:33 RBC Morphology Not Reportable 10/21/19 11:33 Dimorphic RBCs Not Reportable 10/21/19 11:33 Polychromasia Not Reportable 10/21/19 11:33 Hypochromasia Not Reportable 10/21/19 11:33 Poikilocytosis Not Reportable 10/21/19 11:33 Anisocytosis 1+ 10/21/19 11:33 Microcytosis Not Reportable 10/21/19 11:33 Macrocytosis 1+ 10/21/19 11:33 Spherocytes Not Reportable 10/21/19 11:33 Pappenheimer Bodies Not Reportable 10/21/19 11:33 Sickle Cells Not Reportable 10/21/19 11:33 Target Cells Not Reportable 10/21/19 11:33 Tear Drop Cells Not Reportable 10/21/19 11:33 Ovalocytes Not Reportable 10/21/19 11:33 Helmet Cells Not Reportable 10/21/19 11:33 [place] Bodies Not Reportable 10/21/19 11:33 Avery Rings Not Reportable 10/21/19 11:33 [place] Cells Not Reportable 10/21/19 11:33 Bite Cells Not Reportable 10/21/19 11:33 Crenated Cell Not Reportable 10/21/19 11:33 Elliptocytes Not Reportable 10/21/19 11:33 Acanthocytes (Spur) Not Reportable 10/21/19 11:33 Rouleaux Not Reportable 10/21/19 11:33 Hemoglobin C Crystals Not Reportable 10/21/19 11:33 Schistocytes Not Reportable 10/21/19 11:33 Malaria parasites Not Reportable 10/21/19 11:33 Ciro Bodies Not Reportable 10/21/19 11:33 Hem Pathologist Commnt No 10/21/19 11:33 PT 16.6 Sec. (12.2-14.9) H 10/21/19 11:33 INR 1.33 (0.87-1.13) H 10/21/19 11:33 Sodium 135 mmol/L (137-145) L 10/21/19 17:09 Potassium 5.0 mmol/L (3.6-5.0) D 10/21/19 17:09 Chloride 101.5 mmol/L (98-107) 10/21/19 17:09 Carbon Dioxide 15 mmol/L (22-30) L 10/21/19 17:09 Anion Gap 24 mmol/L 10/21/19 17:09 BUN 47 mg/dL (7-17) H 10/21/19 17:09 Creatinine 2.6 mg/dL (0.7-1.2) H 10/21/19 17:09 Estimated GFR 18 ml/min 10/21/19 17:09 BUN/Creatinine Ratio 18 % 10/21/19 17:09 Glucose 106 mg/dL (65-100) H 10/21/19 17:09 POC Glucose 131 (70-105) H 10/21/19 16:15 Lactic Acid 6.40 mmol/L (0.7-2.0) H* 10/21/19 17:09 Calcium 7.2 mg/dL (8.4-10.2) L 10/21/19 17:09 Magnesium 2.20 mg/dL (1.7-2.3) 10/21/19 11:33 Total Bilirubin 0.60 mg/dL (0.1-1.2) 10/21/19 17:09 Direct Bilirubin 0.3 mg/dL (0-0.2) H 10/21/19 11:33 Indirect Bilirubin 0.4 mg/dL 10/21/19 11:33 AST 53 units/L (5-40) H 10/21/19 17:09 ALT 24 units/L (7-56) 10/21/19 17:09 Alkaline Phosphatase 93 units/L (35-129) 10/21/19 17:09 Total Creatine Kinase 233 units/L (30-135) H 10/21/19 11:33 Total Protein 6.0 g/dL (6.3-8.2) L D 10/21/19 17:09 Albumin 2.6 g/dL (3.9-5) L 10/21/19 17:09 Albumin/Globulin Ratio 0.8 % 10/21/19 17:09 Lipase 15 units/L (13-60) 10/21/19 11:33 Short CBC 10/21/19 10/21/19 10/22/19 Range/Units 11:33 17:09 05:10 WBC 14.8 H 12.4 H 15.8 H (4.5-11.0) K/mm3 Hgb 10.3 7.9 L 8.5 L (10.1-14.3) gm/dl Hct 31.5 24.9 L D 27.0 L (30.3-42.9) % Plt Count 322 235 303 (140-440) K/mm3 BMP 10/21/19 10/21/19 10/21/19 11:33 13:30 17:09 Sodium 129 L 135 L Potassium 6.8 H* 6.3 H* 5.0 D Chloride 89.4 L 101.5 Carbon Dioxide 19 L 15 L BUN 56 H 47 H Creatinine 3.0 H 2.6 H Glucose 69 106 H Calcium 8.2 L 7.2 L 10/22/19 05:10 Sodium 138 Potassium 7.1 H* D Chloride 105.8 Carbon Dioxide 11 L BUN 47 H Creatinine 2.8 H Glucose 8 L* Calcium 6.7 L Cardiac Enzymes 10/21/19 Range/Units 11:33 Total Creatine Kinase 233 H (30-135) units/L Liver Function 10/21/19 10/21/19 10/22/19 Range/Units 11:33 17:09 05:10 Total Bilirubin 0.70 0.60 1.00 (0.1-1.2) mg/dL Direct Bilirubin 0.3 H (0-0.2) mg/dL AST 40 53 H 851 H (5-40) units/L ALT 21 24 350 H (7-56) units/L Alkaline Phosphatase 159 H 93 93 (35-129) units/L Albumin 2.4 L 2.6 L 2.5 L (3.9-5) g/dL Microbiology: Microbiology 10/21/19 13:30 Peripheral/Venous Blood Culture - Preliminary Culture in Progress 10/21/19 13:45 Peripheral/Venous Blood Culture - Preliminary Culture in Progress - Imaging and Cardiology EKG: report reviewed Chest x-ray: report reviewed Imaging and Cardiology: CT ABD IMPRESSION: Large free air is essentially fluid in the abdomen is identified consistent with visceral perforation. The site of perforation is not clearly evident on this exam. Mild cirrhotic changes in the liver. Right nephrolithiasis as described. These findings were discussed with Dr. Marycarmen faye in the emergency department at the CT scanner at 1238 hours. These findings were also reviewed with Dr. Arambula of surgery at 1317 hours. Assessment and Plan Assessment and plan: The high probability OF a clinically significant sudden or life-threatening deterioration of the cardiorespiratory system and endocrine system required my full and direct attention, intervention and postoperative management. The aggregate critical care time was 40 minutes. The time is in addition to time spent performing reported procedures but includes the followin: Data review and interpretation 2: Patient assessment and monitoring of vital signs 3: Documentation 4:: Medication orders and management Advance Directives: Yes (Full code) VTE prophylaxis?: Mechanical Plan of care discussed with patient/family: Yes - Patient Problems (1) Perforated viscus Current Visit: Yes Status: Acute Plan to address problem: Bewing taken to OR for emergent surgery Surgery help appreciated (2) Sepsis associated hypotension Current Visit: Yes Status: Acute Plan to address problem: Sec to abd perforation--PUD with 1 cm large perforatio IV Fluids Pressors as necessary IV abx Zosyn and Flagyl (3) KORY (acute kidney injury) Current Visit: Yes Status: Acute Plan to address problem: IV fluids for now (4) Hyperkalemia Current Visit: Yes Status: Acute Plan to address problem: Treat agressively Nephrology consult HD ifnecessary (5) T2DM (type 2 diabetes mellitus) Current Visit: Yes Status: Chronic Qualifiers: Diabetes mellitus intermodal owner operator truck driver insulin use: unspecified half-way insulin use status Plan to address problem: Coverage for now (6) DVT prophylaxis Current Visit: Yes Status: Acute Plan to address problem: On SCD's
[2019-10-21 21:18] LABS: ABG Base Excess -13.7 mmol/L (-2.0-3.0); ABG HCO3 14.8 mmol/L (20.0-26.0); ABG Methemoglobin 0.6 % (0.0-1.5); ABG Oxygen Saturation 99.6 % (95.0-99.0); ABG PCO2 46.6 mm Hg
[2019-10-21 21:21] LABS: ABG PH 7.121 pH Units (7.350-7.450); ABG PO2 481.5 mm Hg (80.0-90.0)
[2019-10-21] MEDS ORDERED: PIPERACIL/TAZOBACTA 4.5/NS 100 4.5 GM/100 ML VIAL IV SCH (22:00)
[2019-10-21] MEDS: metroNIDAZOLE/NS 500 MG/100 ML 500 MG/100 ML BAG IV SCH (22:27)
[2019-10-21] MEDS: PIPERACIL-TAZO 2.25 GM/50 ML 2.25 GM/50 ML BAG IV SCH (22:27)
[2019-10-22] MEDS: INSULIN LISPRO 100 UNIT/ML SUB-Q SCH ×4 (00:37→18:12)
[2019-10-22] MEDS: PHENYLEPHRINE 100 MG in SODIUM CHLORIDE 0.9% 90 ML IV SCH ×6 (01:46→22:51)
[2019-10-22] MEDS: PIPERACIL-TAZO 2.25 GM/50 ML 2.25 GM/50 ML BAG IV SCH (05:20)
[2019-10-22] MEDS: metroNIDAZOLE/NS 500 MG/100 ML 500 MG/100 ML BAG IV SCH (05:20)
[2019-10-22] MEDS ORDERED: DEXTROSE 50% IN WATER (25GM) 50 ML SYRINGE IV ONE ×6 (05:27→20:00)
[2019-10-22 05:38] LABS: Hemoglobin 8.5 gm/dl (10.1-14.3); Mean Corpuscular HGB Conc 32 % (30-34); Mean Corpuscular Volume 109 fl (79-97); Platelet Count 303 K/mm3 (140-440); Red Blood Count 2.49 M/mm3 (3.65-5.03); Red Cell Distribution Width 17.7 % (13.2-15.2)
[2019-10-22 05:58] LABS: Albumin 2.5 g/dL (3.9-5); Calcium 6.7 mg/dL (8.4-10.2)
[2019-10-22 06:16] LABS: ABG HCO3 10.3 mmol/L (20.0-26.0); ABG Methemoglobin 0.6 % (0.0-1.5); ABG Oxygen Saturation 97.4 % (95.0-99.0); ABG PCO2 34.3 mm Hg; ABG PO2 116.6 mm Hg (80.0-90.0)
[2019-10-22 06:19] LABS: ABG PH 7.096 pH Units (7.350-7.450)
[2019-10-22] MEDS ORDERED: CALCIUM CHLORIDE 1,000 MG/10 ML SDV IVP ONE (06:23)
[2019-10-22] MEDS ORDERED: SODIUM BICARB 8.4% 50 MEQ/50 ML SYRINGE IV ONE ×5 (06:25→13:00)
[2019-10-22 06:28] LABS: Band Neutrophils # (Manual) 6.2 K/mm3; Basophils % (Manual) 0 % (0.0-1.8); Eosinophils % (Manual) 0 % (0.0-4.3); Total Cells Counted 100
[2019-10-22 06:29] LABS: Burr Cells Rare; Ovalocytes Rare
[2019-10-22 06:30] LABS: Platelet Estimate Consistent w Auto
[2019-10-22] MEDS ORDERED: SODIUM CHLORIDE 0.9% 1000 ML 1,000 ML IV ONE ×2 (06:34→06:35)
[2019-10-22] MEDS ORDERED: CALCIUM CHLORIDE 1,000 MG/10 ML SYRINGE IV ONE (07:00)
[2019-10-22] MEDS: SODIUM BICARBONATE 75 MEQ in DEXTROSE 5% IN WATER 1,000 ML IV SCH ×3 (07:30→22:27)
[2019-10-22] MEDS: VASOPRESSIN 20 UNIT in SODIUM CHLORIDE 0.9% 100 ML IV SCH ×2 (07:49→17:59)
[2019-10-22] MEDS ORDERED: CALCIUM GLUCONATE 2,000 MG in SODIUM CHLORIDE 0.9% 100 ML IV ONE (08:30)
--- NOTE | 2019-10-22 09:08 | Consultation ---
History of Present Illness Consult date: 10/22/19 Requesting physician: LAURYN MUNOZ Reason for consult: other (Perforated Viscous) History of present illness: Patient intubated and so all history from chart. patient visiting her from [facility] and developed abdominal pain. Found to have perforated viscous and lactic acidosis with renal failure presumed acute and hypotension. Patient was taken to the OR, perforation repaired and transitioned to the unit. Currently on 40% but hypotensive. Renal failure has worsened and urine out put is minimal. Past History Past Medical History: arthritis, diabetes, hypertension, other (asthma) Past Surgical History: Other (left leg) Social history: denies: smoking, alcohol abuse Family history: no significant family history Medications and Allergies Allergies Allergy/AdvReac Type Severity Reaction Status Date / Time No Known Allergies Allergy Unverified 10/17/19 19:57 Home Medications Medication Instructions Recorded Confirmed Last Taken Type HYDROcodone/APAP 5-325 [[place] 1 each PO Q6HR PRN #12 tablet 10/17/19 Unknown Rx 5/325] Ibuprofen [Motrin] 800 mg PO Q8HR #30 tablet 10/17/19 Unknown Rx Active Meds: Active Medications Hydromorphone HCl (Dilaudid) 0.25 mg IV Q10MIN PRN PRN Reason: Pain, Moderate (4-6) Stop: 10/22/19 17:12 Last Admin: 10/21/19 17:56 Dose: 0.25 mg Documented by: Hydromorphone HCl (Dilaudid) 0.5 mg IV Q3H PRN PRN Reason: Pain , Severe (7-10) Last Admin: 10/21/19 23:05 Dose: 0.5 mg Documented by: Sodium Chloride (Nacl 0.9% 1000 Ml) 1,000 mls @ 125 mls/hr IV DIRECT MICHI Last Admin: 10/22/19 03:22 Dose: 125 mls/hr Documented by: Piperacillin Sod/Tazobactam Sod (Zosyn/Ns 2.25 Gm/50ml) 2.25 gm in 50 mls @ 100 mls/hr IV Q8HR MICHI Last Admin: 10/22/19 05:20 Dose: 100 mls/hr Documented by: Phenylephrine HCl 100 mg/ (Sodium Chloride) 100 mls @ 3 mls/hr IV TITR MICHI; Protocol Last Titration: 10/22/19 08:24 Dose: 400 mcg/min, 24 mls/hr Documented by: Sodium Bicarbonate 75 meq/ (Dextrose) 1,075 mls @ 150 mls/hr IV DIRECT MICHI Last Admin: 10/22/19 07:30 Dose: 150 mls/hr Documented by: Vasopressin 20 unit/ Sodium (Chloride) 101 mls @ 9.09 mls/hr IV TITR [facility]; Protocol Last Admin: 10/22/19 07:49 Dose: 0.03 units/min, 9.09 mls/hr Documented by: Insulin Human Lispro (Humalog) 0 unit SUB-Q Q6HR MICHI; Protocol Last Admin: 10/22/19 05:26 Dose: Not Given Documented by: Ondansetron HCl (Zofran) 4 mg IV ONCE PRN PRN Reason: Nausea And Vomiting Review of Systems ROS unobtainable: due to endotracheal tube Physical Examination Vital signs: Vital Signs Temp Pulse Resp BP Pulse Ox 98.0 F 86 17 75/53 97 10/21/19 12:15 10/21/19 12:15 10/21/19 12:15 10/21/19 12:15 10/21/19 12:15 General appearance: other (morbidly morbdily obese) Eyes: non-icteric ENT: other (orally intubated) Neck: supple, other (large in circumference) Effort: mildly labored Ascultation: Bilateral: diminished breath sounds (secondary to body habitus) Results - Laboratory Findings CBC and BMP: 10/23/19 04:00 10/23/19 04:00 ABG ABG pH 7.096 pH Units (7.350-7.450) L* 10/22/19 06:09 ABG pCO2 34.3 mm Hg 10/22/19 06:09 ABG pO2 116.6 mm Hg (80.0-90.0) H 10/22/19 06:09 ABG O2 Saturation 97.4 % (95.0-99.0) 10/22/19 06:09 PT/INR, D-dimer PT 16.6 Sec. (12.2-14.9) H 10/21/19 11:33 INR 1.33 (0.87-1.13) H 10/21/19 11:33 Abnormal lab findings: Abnormal Labs 10/21/19 10/21/19 10/21/19 05:10 11:33 11:33 WBC 14.8 H RBC 3.05 L Hgb Hct MCV 103 H MCH 34 H RDW 16.7 H Lymphocytes % (Manual) 3.0 L Monocytes % (Manual) Lymphocytes # (Manual) 0.4 L Monocytes # (Manual) PT 16.6 H INR 1.33 H ABG pH ABG pO2 ABG HCO3 ABG O2 Saturation ABG Base Excess ABG Hemoglobin Sodium Potassium Chloride Carbon Dioxide BUN Creatinine Glucose POC Glucose Lactic Acid 8.50 H* Calcium Phosphorus Direct Bilirubin AST ALT Alkaline Phosphatase Total Creatine Kinase Total Protein Albumin 10/21/19 10/21/19 10/21/19 11:33 11:33 13:30 WBC RBC Hgb Hct MCV MCH RDW Lymphocytes % (Manual) Monocytes % (Manual) Lymphocytes # (Manual) Monocytes # (Manual) PT INR ABG pH ABG pO2 ABG HCO3 ABG O2 Saturation ABG Base Excess ABG Hemoglobin Sodium 129 L Potassium 6.8 H* Chloride 89.4 L Carbon Dioxide 19 L BUN 56 H Creatinine 3.0 H Glucose POC Glucose Lactic Acid 8.20 H* 7.50 H* Calcium 8.2 L Phosphorus Direct Bilirubin 0.3 H AST ALT Alkaline Phosphatase 159 H Total Creatine Kinase 233 H Total Protein Albumin 2.4 L 10/21/19 10/21/19 10/21/19 13:30 15:05 16:15 WBC RBC Hgb Hct MCV MCH RDW Lymphocytes % (Manual) Monocytes % (Manual) Lymphocytes # (Manual) Monocytes # (Manual) PT INR ABG pH ABG pO2 ABG HCO3 ABG O2 Saturation ABG Base Excess ABG Hemoglobin Sodium Potassium 6.3 H* Chloride Carbon Dioxide BUN Creatinine Glucose POC Glucose 52 L 131 H Lactic Acid Calcium Phosphorus Direct Bilirubin AST ALT Alkaline Phosphatase Total Creatine Kinase Total Protein Albumin 10/21/19 10/21/19 10/21/19 17:09 17:09 17:09 WBC 12.4 H RBC 2.32 L Hgb 7.9 L Hct 24.9 L D MCV 107 H MCH 34 H RDW 17.2 H Lymphocytes % (Manual) Monocytes % (Manual) Lymphocytes # (Manual) Monocytes # (Manual) PT INR ABG pH ABG pO2 ABG HCO3 ABG O2 Saturation ABG Base Excess ABG Hemoglobin Sodium 135 L Potassium Chloride Carbon Dioxide 15 L BUN 47 H Creatinine 2.6 H Glucose 106 H POC Glucose Lactic Acid 6.40 H* Calcium 7.2 L Phosphorus Direct Bilirubin AST 53 H ALT Alkaline Phosphatase Total Creatine Kinase Total Protein 6.0 L D Albumin 2.6 L 10/21/19 10/22/19 10/22/19 21:05 05:10 05:10 WBC 15.8 H RBC 2.49 L Hgb 8.5 L Hct 27.0 L MCV 109 H MCH 34 H RDW 17.7 H Lymphocytes % (Manual) 6.0 L Monocytes % (Manual) 9.0 H Lymphocytes # (Manual) 0.9 L Monocytes # (Manual) 1.4 H PT INR ABG pH 7.121 L* ABG pO2 481.5 H ABG HCO3 14.8 L ABG O2 Saturation 99.6 H ABG Base Excess -13.7 L ABG Hemoglobin 8.4 L Sodium Potassium 7.1 H* D Chloride Carbon Dioxide 11 L BUN 47 H Creatinine 2.8 H Glucose 8 L* POC Glucose Lactic Acid Calcium 6.7 L Phosphorus 6.20 H Direct Bilirubin AST 851 H ALT 350 H Alkaline Phosphatase Total Creatine Kinase Total Protein Albumin 2.5 L 10/22/19 10/22/19 10/22/19 05:37 06:09 06:22 WBC RBC Hgb Hct MCV MCH RDW Lymphocytes % (Manual) Monocytes % (Manual) Lymphocytes # (Manual) Monocytes # (Manual) PT INR ABG pH 7.096 L* ABG pO2 116.6 H ABG HCO3 10.3 L ABG O2 Saturation ABG Base Excess -18.0 L ABG Hemoglobin 8.1 L Sodium Potassium Chloride Carbon Dioxide BUN Creatinine Glucose POC Glucose < 40 L 63 L Lactic Acid Calcium Phosphorus Direct Bilirubin AST ALT Alkaline Phosphatase Total Creatine Kinase Total Protein Albumin 10/22/19 08:11 WBC RBC Hgb Hct MCV MCH RDW Lymphocytes % (Manual) Monocytes % (Manual) Lymphocytes # (Manual) Monocytes # (Manual) PT INR ABG pH ABG pO2 ABG HCO3 ABG O2 Saturation ABG Base Excess ABG Hemoglobin Sodium Potassium Chloride Carbon Dioxide BUN Creatinine Glucose POC Glucose 155 H Lactic Acid Calcium Phosphorus Direct Bilirubin AST ALT Alkaline Phosphatase Total Creatine Kinase Total Protein Albumin - Diagnostic Findings Chest x-ray: image reviewed Additional studies: Reviewed reports of CT of abdomen/pelvis Assessment and Plan 74 y/o female with perforated viscous and presumed acute renal failure, now intubated with severe sepsis with shock and volume depletion. 1. Changed abx to Merrem Fluconazole after discussing with Pharmacy 2. Currently on Levophed, Vasopression and Neosynephrine 3. Will give several more boluses of saline, lactated ringer 4. Will give albumin as well 5. Most likely will need Dialysis given lack of urine output overnight and this am 6. No sedation, only PRN pain medication
[2019-10-22 09:30] LABS: Albumin 2.5 g/dL (3.9-5); Calcium 7.1 mg/dL (8.4-10.2)
--- NOTE | 2019-10-22 09:46 | Consultation ---
History of Present Illness - Reason for Consult Consult date: 10/22/19 acute renal failure, hyperkalemia, metabolic acidosis - History of Present Illness This is a 74 year old female patient who is visiting from [facility] who presented to the ER with complaints of lower abdominal pain with some nausea. She has pmh significant for arthritis, diabetes, hypertension, and asthma. Patient does not speak Mongolian and at time of consultation patient was also intubated. HPI derived from prior provider notes. She denied chest pain, fever, cough, shortness of breath, rash, chills, at time of ER visit. Also reported left lower extremity pain from recent fall with left leg wrapped in dressing and LYNDA bandage at time of consultation. Patient was ultimately diagnosed with perforated peptic ulcer. She underwent exploratory laparotomy with repair of perforated peptic ulcer upon admission with LOUIE drain now present to right side of abdomen post surgery. Unfortunately, patient suffered respiratory distress and was intubated and admitted to the ICU for close monitoring. At time of consultation, pt on multiple pressors, brewer catheter present, LOUIE drain, and intubated on vent. Despite multiple pressors pt remains hypotensive. Labs on admission significant for sodium 129, potassium 6.8, bicarb 19, BUN 56, creatinine 3.0, lactic acid 8.5, calcium 8.2, albumin 2.4. Labs at time of consultation significant for hgb 8.5, potassium 6.0, bicarb 12, BUN 43, creatinine 2.8, calcium 7.1, albumin 2.5, lactic acid 10.10, AST 2445, ALT 898. Nephrology consulted for further evaluation and treatment. Past History Past Medical History: arthritis, diabetes, hypertension, other (asthma) Past Surgical History: Other (left leg) Social history: denies: smoking, alcohol abuse Family history: no significant family history Medications and Allergies Allergies Allergy/AdvReac Type Severity Reaction Status Date / Time No Known Allergies Allergy Unverified 10/17/19 19:57 Home Medications Medication Instructions Recorded Confirmed Last Taken Type HYDROcodone/APAP 5-325 [[place] 1 each PO Q6HR PRN #12 tablet 10/17/19 Unknown Rx 5/325] Ibuprofen [Motrin] 800 mg PO Q8HR #30 tablet 10/17/19 Unknown Rx Active Meds: Active Medications Fentanyl (Sublimaze) 25 mcg IV Q2H PRN PRN Reason: Pain , Severe (7-10) Hydromorphone HCl (Dilaudid) 0.25 mg IV Q10MIN PRN PRN Reason: Pain, Moderate (4-6) Stop: 10/22/19 17:12 Last Admin: 10/21/19 17:56 Dose: 0.25 mg Documented by: Hydromorphone HCl (Dilaudid) 0.5 mg IV Q3H PRN PRN Reason: Pain , Severe (7-10) Last Admin: 10/21/19 23:05 Dose: 0.5 mg Documented by: Sodium Chloride (Nacl 0.9% 1000 Ml) 1,000 mls @ 125 mls/hr IV DIRECT MICHI Last Admin: 10/22/19 03:22 Dose: 125 mls/hr Documented by: Piperacillin Sod/Tazobactam Sod (Zosyn/Ns 2.25 Gm/50ml) 2.25 gm in 50 mls @ 100 mls/hr IV Q8HR MICHI Last Admin: 10/22/19 05:20 Dose: 100 mls/hr Documented by: Phenylephrine HCl 100 mg/ (Sodium Chloride) 100 mls @ 3 mls/hr IV TITR MICHI; Protocol Last Titration: 10/22/19 08:24 Dose: 400 mcg/min, 24 mls/hr Documented by: Sodium Bicarbonate 75 meq/ (Dextrose) 1,075 mls @ 150 mls/hr IV DIRECT MICHI Last Admin: 10/22/19 07:30 Dose: 150 mls/hr Documented by: Vasopressin 20 unit/ Sodium (Chloride) 101 mls @ 9.09 mls/hr IV TITR MICHI; Protocol Last Admin: 10/22/19 07:49 Dose: 0.03 units/min, 9.09 mls/hr Documented by: Norepinephrine (Levophed Drip 4 Mg/Ns 250 Ml) 4 mg in 250 mls @ 7.5 mls/hr IV T ITR MICHI; Protocol Insulin Human Lispro (Humalog) 0 unit SUB-Q Q6HR MICHI; Protocol Last Admin: 10/22/19 05:26 Dose: Not Given Documented by: Ondansetron HCl (Zofran) 4 mg IV ONCE PRN PRN Reason: Nausea And Vomiting Review of Systems ROS unobtainable: due to endotracheal tube, due to mental status Exam - Vital Signs Vital signs: Vital Signs Temp Pulse Resp BP Pulse Ox 98.0 F 86 17 75/53 97 10/21/19 12:15 10/21/19 12:15 10/21/19 12:15 10/21/19 12:15 10/21/19 12:15 - General Appearance General appearance: well-developed, appears stated age, obese, intubated, other (brewer catheter, LOUIE drain to R abdomen, OGT) EENT: PERRL, mucous membranes dry Neck: Present: neck supple, trachea midline Respiratory: Clear to Ascultation Heart: regular, tachycardia, S1S2, no murmurs Gastrointestinal: Present: normal, normoactive bowel sounds, distended (mildly), obese Integumentary: no rash, warm and dry Neurologic: other (unable to assess, intubated on vent) Musculoskeletal: Present: other (L lower extremity wrapped in dressing and LYNDA bandage) Psychiatric: other (unable to assess) Results - Lab Results 10/22/19 17:33 10/22/19 17:33 Most recent lab results ABG pH 7.096 pH Units (7.350-7.450) L* 10/22/19 06:09 ABG pCO2 34.3 mm Hg 10/22/19 06:09 ABG pO2 116.6 mm Hg (80.0-90.0) H 10/22/19 06:09 ABG HCO3 10.3 mmol/L (20.0-26.0) L 10/22/19 06:09 ABG O2 Saturation 97.4 % (95.0-99.0) 10/22/19 06:09 Calcium 7.1 mg/dL (8.4-10.2) L 10/22/19 09:00 Phosphorus 6.20 mg/dL (2.5-4.5) H 10/22/19 05:10 Magnesium 2.20 mg/dL (1.7-2.3) 10/21/19 11:33 Assessment and Plan 1. Acute kidney injury: Likely vasomotor KORY in the setting of septic shock. Unclear what patient baseline creatinine is. Creatinine was 3.0 on admission, now 2.8. CT abd/pelvis revealed low lying right kidney with multiple stones of varying sizes and a large staghorn calculus, negative for hydro. Continue IV fluids. Poor UOP, has brewer catheter. Monitor renal function. Avoid nephrotoxic agents. Meds dosage based on GFR. Dr. Borden spoke with family regarding need for HD when appropriate (see event note). 2. FEN: Hyperkalemia, multiple cocktails given remains elevated, HD needed, monitor K. Metabolic acidosis, s/p sodium bicarb, monitor. Hypocalcemia, monitor. Monitor lytes and volume status. 3. Perforated viscus: S/p emergency exploratory lap w/ repair. LOUIE drain to right side with serosanginous drainage. Large amount of contamination in abdomen. Concern now for generalized third spacing leaking into peritoneal cavity. Surgery following. 4. Septic shock: 2/2 peptic ulcer perforation. On IV abx. On IV fluids. S/p albumin. Persistent hypotension despite multiple pressors. Concern for shock liver 2/2 hypotension. 5. Acute respiratory failure: Currently intubated on vent. No sedation currently. Pulmonology following. 6. Type 2 diabetes: Monitor blood glucose. 7. H/o asthma: 8. Recent surgery to LLE:
[2019-10-22] MEDS ORDERED: NORepinephrine/NS 4 MG-250 ML 4 MG/250 ML BAG IV SCH (10:00)
[2019-10-22] MEDS ORDERED: LACTATED RINGERS 1,000 ML IV ONE ×3 (10:06→10:07)
--- NOTE | 2019-10-22 11:02 | Progress Note ---
Assessment and Plan - Patient Problems (1) Perforated viscus Current Visit: Yes Status: Acute Plan to address problem: Pt in critical condition. s/p ex lap and repair of perforated peptic ulcer - (10/20) - POD#1. Patient appears not fully resuscitated at this time. She is expected to lose a lot of volume from third spacing and peritoneal inflammation. She had a large amount of contamination in the abdomen. The appearance of the drainage fluid would suggest that she is no longer leaking from the perforation but from generalized third spacing into the peritoneal cavity. She will require a large volume resuscitation in order to try and stabilize her. Of note, the liver had a cirrhotic appearance when we are in the operating room. The significant elevations in LFTs may be reflective of a shock liver from her prolonged hypotension. Discussed case with Dr. Simpson. We will follow along. Please call with any questions. Time=15min Subjective Date of service: 10/22/19 Patient Reports: Positive: other (had blood pressure issues o/n.) Objective Vital Signs - 12hr 10/21/19 10/21/19 10/21/19 23:15 23:30 23:40 Temperature Pulse Rate 97 H 93 H 93 H Respiratory 14 11 L Rate Blood Pressure 148/126 148/126 146/119 O2 Sat by Pulse 100 100 100 Oximetry 10/21/19 10/21/19 10/22/19 23:42 23:46 00:00 Temperature 97.3 F L Pulse Rate 93 H 94 H 94 H Respiratory 9 L 9 L 18 Rate Blood Pressure 146/119 146/119 146/119 O2 Sat by Pulse 100 100 100 Oximetry 10/22/19 10/22/19 10/22/19 00:16 00:30 00:38 Temperature Pulse Rate 94 H 97 H Respiratory 10 L 18 16 Rate Blood Pressure 63/18 47/28 O2 Sat by Pulse 99 100 100 Oximetry 10/22/19 10/22/19 10/22/19 00:46 01:00 01:16 Temperature Pulse Rate 96 H 95 H 96 H Respiratory 10 L 9 L 10 L Rate Blood Pressure 137/100 137/100 120/98 O2 Sat by Pulse 100 100 100 Oximetry 10/22/19 10/22/19 10/22/19 01:30 01:45 02:00 Temperature Pulse Rate 95 H 96 H 97 H Respiratory 10 L 11 L 10 L Rate Blood Pressure 120/98 93/73 93/73 O2 Sat by Pulse 99 97 97 Oximetry 05/20/20 05/20/20 05/20/20 02:30 02:46 03:00 Temperature Pulse Rate 98 H 96 H 96 H Respiratory 13 12 11 L Rate Blood Pressure 108/78 108/78 126/102 O2 Sat by Pulse 98 98 97 Oximetry 05/20/20 05/20/20 05/20/20 03:16 03:30 03:46 Temperature Pulse Rate 96 H 95 H 93 H Respiratory 12 11 L 12 Rate Blood Pressure 67/20 107/33 90/35 O2 Sat by Pulse 100 100 100 Oximetry 05/20/20 05/20/20 05/20/20 04:00 04:05 04:16 Temperature Pulse Rate 92 H 92 H 92 H Respiratory 16 13 Rate Blood Pressure 105/33 90/35 96/31 O2 Sat by Pulse 100 100 100 Oximetry 05/20/20 05/20/20 05/20/20 04:30 04:31 04:46 Temperature Pulse Rate 93 H 92 H Respiratory 12 16 12 Rate Blood Pressure 96/31 94/28 O2 Sat by Pulse 100 100 100 Oximetry 05/20/20 05/20/20 05/20/20 05:00 05:15 05:30 Temperature Pulse Rate 92 H 91 H 91 H Respiratory 13 12 12 Rate Blood Pressure 97/37 80/35 100/39 O2 Sat by Pulse 100 100 100 Oximetry 05/20/20 05/20/20 05/20/20 05:45 06:00 06:16 Temperature Pulse Rate 86 80 81 Respiratory 12 12 12 Rate Blood Pressure 93/41 93/37 84/42 O2 Sat by Pulse 100 100 99 Oximetry 05/20/20 05/20/20 05/20/20 06:30 06:46 07:00 Temperature Pulse Rate 82 93 H 93 H Respiratory 12 14 12 Rate Blood Pressure 79/37 97/72 97/72 O2 Sat by Pulse 100 94 99 Oximetry 05/20/20 05/20/20 05/20/20 07:16 07:30 07:46 Temperature Pulse Rate 92 H 92 H 90 Respiratory 12 12 13 Rate Blood Pressure 112/51 108/61 108/61 O2 Sat by Pulse 95 95 99 Oximetry 05/20/20 05/20/20 05/20/20 08:00 08:16 08:40 Temperature 97.1 F L Pulse Rate 91 H 90 88 Respiratory 16 11 L Rate Blood Pressure 65/34 82/42 98/58 O2 Sat by Pulse 86 100 93 Oximetry - General physical appearance obese, other (intubated and sedated) - Abdomen soft, distended (mild), not rigid, surgical scars (dressing dry), other (LOUIE with serous drainage) - Integumentary no rash, no growths, no abnormal pigmentation - Labs 10/22/19 05:10 10/22/19 09:00 Diabetes panel 10/21/19 10/21/19 10/21/19 Range/Units 11:33 13:30 17:09 Sodium 129 L 135 L (137-145) mmol/L Potassium 6.8 H* 6.3 H* 5.0 D (3.6-5.0) mmol/L Chloride 89.4 L 101.5 (98-107) mmol/L Carbon Dioxide 19 L 15 L (22-30) mmol/L BUN 56 H 47 H (7-17) mg/dL Creatinine 3.0 H 2.6 H (0.7-1.2) mg/dL Glucose 69 106 H (65-100) mg/dL Calcium 8.2 L 7.2 L (8.4-10.2) mg/dL AST 40 53 H (5-40) units/L ALT 21 24 (7-56) units/L Alkaline Phosphatase 159 H 93 (35-129) units/L Total Protein 7.8 6.0 L D (6.3-8.2) g/dL Albumin 2.4 L 2.6 L (3.9-5) g/dL 10/22/19 10/22/19 Range/Units 05:10 09:00 Sodium 138 138 (137-145) mmol/L Potassium 7.1 H* D 6.0 H (3.6-5.0) mmol/L Chloride 105.8 106.8 (98-107) mmol/L Carbon Dioxide 11 L 12 L (22-30) mmol/L BUN 47 H 43 H (7-17) mg/dL Creatinine 2.8 H 2.8 H (0.7-1.2) mg/dL Glucose 8 L* 148 H (65-100) mg/dL Calcium 6.7 L 7.1 L (8.4-10.2) mg/dL AST 851 H 2445 H (5-40) units/L ALT 350 H 898 H (7-56) units/L Alkaline Phosphatase 93 94 (35-129) units/L Total Protein 6.3 5.3 L (6.3-8.2) g/dL Albumin 2.5 L 2.5 L (3.9-5) g/dL Calcium panel 10/21/19 10/21/19 10/22/19 Range/Units 11:33 17:09 05:10 Calcium 8.2 L 7.2 L 6.7 L (8.4-10.2) mg/dL Phosphorus 6.20 H (2.5-4.5) mg/dL Albumin 2.4 L 2.6 L 2.5 L (3.9-5) g/dL 10/22/19 Range/Units 09:00 Calcium 7.1 L (8.4-10.2) mg/dL Phosphorus (2.5-4.5) mg/dL Albumin 2.5 L (3.9-5) g/dL Pituitary panel 10/21/19 10/21/19 10/21/19 Range/Units 11:33 13:30 17:09 Sodium 129 L 135 L (137-145) mmol/L Potassium 6.8 H* 6.3 H* 5.0 D (3.6-5.0) mmol/L Chloride 89.4 L 101.5 (98-107) mmol/L Carbon Dioxide 19 L 15 L (22-30) mmol/L BUN 56 H 47 H (7-17) mg/dL Creatinine 3.0 H 2.6 H (0.7-1.2) mg/dL Glucose 69 106 H (65-100) mg/dL Calcium 8.2 L 7.2 L (8.4-10.2) mg/dL 10/22/19 10/22/19 Range/Units 05:10 09:00 Sodium 138 138 (137-145) mmol/L Potassium 7.1 H* D 6.0 H (3.6-5.0) mmol/L Chloride 105.8 106.8 (98-107) mmol/L Carbon Dioxide 11 L 12 L (22-30) mmol/L BUN 47 H 43 H (7-17) mg/dL Creatinine 2.8 H 2.8 H (0.7-1.2) mg/dL Glucose 8 L* 148 H (65-100) mg/dL Calcium 6.7 L 7.1 L (8.4-10.2) mg/dL Adrenal panel 10/21/19 10/21/19 10/21/19 Range/Units 11:33 13:30 17:09 Sodium 129 L 135 L (137-145) mmol/L Potassium 6.8 H* 6.3 H* 5.0 D (3.6-5.0) mmol/L Chloride 89.4 L 101.5 (98-107) mmol/L Carbon Dioxide 19 L 15 L (22-30) mmol/L BUN 56 H 47 H (7-17) mg/dL Creatinine 3.0 H 2.6 H (0.7-1.2) mg/dL Glucose 69 106 H (65-100) mg/dL Calcium 8.2 L 7.2 L (8.4-10.2) mg/dL Total Bilirubin 0.70 0.60 (0.1-1.2) mg/dL AST 40 53 H (5-40) units/L ALT 21 24 (7-56) units/L Alkaline Phosphatase 159 H 93 (35-129) units/L Total Protein 7.8 6.0 L D (6.3-8.2) g/dL Albumin 2.4 L 2.6 L (3.9-5) g/dL 10/22/19 10/22/19 Range/Units 05:10 09:00 Sodium 138 138 (137-145) mmol/L Potassium 7.1 H* D 6.0 H (3.6-5.0) mmol/L Chloride 105.8 106.8 (98-107) mmol/L Carbon Dioxide 11 L 12 L (22-30) mmol/L BUN 47 H 43 H (7-17) mg/dL Creatinine 2.8 H 2.8 H (0.7-1.2) mg/dL Glucose 8 L* 148 H (65-100) mg/dL Calcium 6.7 L 7.1 L (8.4-10.2) mg/dL Total Bilirubin 1.00 0.90 (0.1-1.2) mg/dL AST 851 H 2445 H (5-40) units/L ALT 350 H 898 H (7-56) units/L Alkaline Phosphatase 93 94 (35-129) units/L Total Protein 6.3 5.3 L (6.3-8.2) g/dL Albumin 2.5 L 2.5 L (3.9-5) g/dL
[2019-10-22] MEDS ORDERED: SODIUM CHLORIDE 0.9% 500 ML 500 ML IV ONE (12:00)
[2019-10-22] MEDS: NORepinephrine 8 MG in SODIUM CHLORIDE 0.9% 250ML 242 ML IV SCH ×3 (12:15→22:11)
[2019-10-22 12:57] LABS: Calcium 7.6 mg/dL (8.4-10.2)
[2019-10-22] MEDS: PANTOPRAZOLE 40 MG INJ IV SCH (13:00)
[2019-10-22] MEDS ORDERED: FLUCONAZOLE 400 MG 200 ML IV ONE (13:30)
[2019-10-22] MEDS: ALBUMIN HUMAN 25% (25 GM/100 ML) INJ IV SCH ×2 (13:44→22:53)
--- NOTE | 2019-10-22 14:06 | Progress Note ---
Assessment and Plan /Acute respiratory failure -Patient remained on ventilator following surgery -Continue to monitor at ICU, critical care consulted -Nebs and respiratory therapy as scheduled / Perforated peptic ulcer Status post emergent exploratory laparotomy and repair of perforated peptic ulcer by general surgeon POD 1, continue postop care by general surgery /Severe sepsis associated with bowel perforation Sec to GI perforation--PUD with 1 cm large perforation IV Fluids, continue pressors as necessary IV abx Zosyn and Flagyl / KORY (acute kidney injury) Likely due to ATN from severe hypotension IV fluids for now, follow electrolytes, renally dose medications Nephrology following, vascular consulted for Vas-Cath placement / Hyperkalemia Treat agressively with medications: Bicarbonate, insulin with D50, calcium gluconate Nephrology consulted, continue to monitor BMP / T2DM (type 2 diabetes mellitus) SSI coverage for now /History of asthma, nebs as needed and scheduled / DVT prophylaxis On SCD's -Full CODE STATUS -Very poor prognosis The high probability of a clinically significant, sudden or life threatening deterioration of the [respiratory, CVS, GI, renal] system(s) required my full and direct attention, intervention and personal management. The aggregate critical care time was [32] minutes. This time is in addition to time spent performing reported procedures but includes the following: [x] Data Review and interpretation [x] Patient assessment and monitoring of vital signs [x] Documentation [x] Medication orders and management Physical exam: General appearance: well-developed, appears stated age, obese, intubated, other (brewer catheter, LOUIE drain to R abdomen, OGT) EENT: PERRL, mucous membranes dry Neck: Present: neck supple, trachea midline Respiratory: Clear to Ascultation Heart: regular, tachycardia, S1S2, no murmurs Gastrointestinal: Present: normal, normoactive bowel sounds, distended (mildly), obese Integumentary: no rash, warm and dry Neurologic: other (unable to assess, intubated on vent) Musculoskeletal: Present: other (L lower extremity wrapped in dressing and LYNDA bandage) Psychiatric: other (unable to assess) Subjective Date of service: 10/22/19 Interval history: Patient seen and examined Patient remains on ventilator support and on 3 pressors Discussed with RN at the bedside also spoke with Dr. Borden Family was updated by Dr. Simpson with plant production manager Objective - Constitutional Vitals: Vital Signs - 12hr 05/20/20 05/20/20 05/20/20 02:30 02:46 03:00 Temperature Pulse Rate 98 H 96 H 96 H Pulse Rate [ From Monitor] Respiratory 13 12 11 L Rate Blood Pressure 108/78 108/78 126/102 O2 Sat by Pulse 98 98 97 Oximetry 05/20/20 05/20/20 05/20/20 03:16 03:30 03:46 Temperature Pulse Rate 96 H 95 H 93 H Pulse Rate [ From Monitor] Respiratory 12 11 L 12 Rate Blood Pressure 67/20 107/33 90/35 O2 Sat by Pulse 100 100 100 Oximetry 0520/20 05/20/20 05/20/20 04:00 04:05 04:16 Temperature Pulse Rate 92 H 92 H 92 H Pulse Rate [ From Monitor] Respiratory 16 13 Rate Blood Pressure 105/33 90/35 96/31 O2 Sat by Pulse 100 100 100 Oximetry 20/20 05/20/20 05/20/20 04:30 04:31 04:46 Temperature Pulse Rate 93 H 92 H Pulse Rate [ From Monitor] Respiratory 12 16 12 Rate Blood Pressure 96/31 94/28 O2 Sat by Pulse 100 100 100 Oximetry 0520/20 05/20/20 05/20/20 05:00 05:15 05:30 Temperature Pulse Rate 92 H 91 H 91 H Pulse Rate [ From Monitor] Respiratory 13 12 12 Rate Blood Pressure 97/37 80/35 100/39 O2 Sat by Pulse 100 100 100 Oximetry 0520/20 05/20/20 05/20/20 05:45 06:00 06:16 Temperature Pulse Rate 86 80 81 Pulse Rate [ From Monitor] Respiratory 12 12 12 Rate Blood Pressure 93/41 93/37 84/42 O2 Sat by Pulse 100 100 99 Oximetry 05/20/20 05/20/20 05/20/20 06:30 06:46 07:00 Temperature Pulse Rate 82 93 H 93 H Pulse Rate [ From Monitor] Respiratory 12 14 12 Rate Blood Pressure 79/37 97/72 97/72 O2 Sat by Pulse 100 94 99 Oximetry 05/20/20 05/20/20 05/20/20 07:16 07:30 07:46 Temperature Pulse Rate 92 H 92 H 90 Pulse Rate [ From Monitor] Respiratory 12 12 13 Rate Blood Pressure 112/51 108/61 108/61 O2 Sat by Pulse 95 95 99 Oximetry 05/20/20 05/20/20 05/20/20 08:00 08:16 08:30 Temperature 97.1 F L Pulse Rate 91 H 90 89 Pulse Rate [ 96 H From Monitor] Respiratory 16 11 L 14 Rate Blood Pressure 65/34 82/42 82/42 O2 Sat by Pulse 100 100 83 L Oximetry 10/22/19 10/22/19 10/22/19 08:40 08:45 09:00 Temperature Pulse Rate 88 88 86 Pulse Rate [ From Monitor] Respiratory 15 11 L Rate Blood Pressure 98/58 98/11 98/11 O2 Sat by Pulse 93 70 L 91 Oximetry 10/22/19 10/22/19 10/22/19 09:15 09:30 09:45 Temperature Pulse Rate 86 86 86 Pulse Rate [ From Monitor] Respiratory 17 19 20 Rate Blood Pressure 87/66 64/45 111/69 O2 Sat by Pulse 84 68 L 70 L Oximetry 10/22/19 10/22/19 10/22/19 10:00 10:16 10:30 Temperature Pulse Rate 85 87 85 Pulse Rate [ From Monitor] Respiratory 21 17 16 Rate Blood Pressure 111/69 111/69 119/101 O2 Sat by Pulse Oximetry 10/22/19 10/22/19 10/22/19 10:46 11:00 11:16 Temperature Pulse Rate 85 83 89 Pulse Rate [ From Monitor] Respiratory 20 14 13 Rate Blood Pressure 119/101 119/101 115/87 O2 Sat by Pulse 60 L 45 L Oximetry 10/22/19 10/22/19 10/22/19 11:30 11:46 12:00 Temperature Pulse Rate 95 H 97 H 102 H Pulse Rate [ 95 H From Monitor] Respiratory 12 12 14 Rate Blood Pressure 115/87 108/50 108/50 O2 Sat by Pulse 99 86 97 Oximetry 10/22/19 10/22/19 12:16 12:30 Temperature Pulse Rate 96 H 101 H Pulse Rate [ From Monitor] Respiratory 18 14 Rate Blood Pressure 70/49 70/49 O2 Sat by Pulse 94 Oximetry - Labs CBC & Chem 7: 10/23/19 04:00 10/23/19 04:00 Labs: Abnormal lab results 10/21/19 10/21/19 10/21/19 Range/Units 05:10 11:33 13:30 WBC (4.5-11.0) K/mm3 RBC (3.65-5.03) M/mm3 Hgb (10.1-14.3) gm/dl Hct (30.3-42.9) % MCV (79-97) fl MCH (28-32) pg RDW (13.2-15.2) % Lymphocytes % (Manual) 3.0 L (13.4-35.0) % Monocytes % (Manual) (0.0-7.3) % Lymphocytes # (Manual) 0.4 L (1.2-5.4) K/mm3 Monocytes # (Manual) (0.0-0.8) K/mm3 ABG pH (7.350-7.450) pH Units ABG pO2 (80.0-90.0) mm Hg ABG HCO3 (20.0-26.0) mmol/L ABG O2 Saturation (95.0-99.0) % ABG Base Excess (-2.0-3.0) mmol/L ABG Hemoglobin (12.0-16.0) gm/dl Sodium (137-145) mmol/L Potassium (3.6-5.0) mmol/L Carbon Dioxide (22-30) mmol/L BUN (7-17) mg/dL Creatinine (0.7-1.2) mg/dL Glucose (65-100) mg/dL POC Glucose (70-105) Lactic Acid 8.50 H* 7.50 H* (0.7-2.0) mmol/L Calcium (8.4-10.2) mg/dL Phosphorus (2.5-4.5) mg/dL AST (5-40) units/L ALT (7-56) units/L Total Protein (6.3-8.2) g/dL Albumin (3.9-5) g/dL Crossmatch 10/21/19 10/21/19 10/21/19 Range/Units 13:30 15:05 16:15 WBC (4.5-11.0) K/mm3 RBC (3.65-5.03) M/mm3 Hgb (10.1-14.3) gm/dl Hct (30.3-42.9) % MCV (79-97) fl MCH (28-32) pg RDW (13.2-15.2) % Lymphocytes % (Manual) (13.4-35.0) % Monocytes % (Manual) (0.0-7.3) % Lymphocytes # (Manual) (1.2-5.4) K/mm3 Monocytes # (Manual) (0.0-0.8) K/mm3 ABG pH (7.350-7.450) pH Units ABG pO2 (80.0-90.0) mm Hg ABG HCO3 (20.0-26.0) mmol/L ABG O2 Saturation (95.0-99.0) % ABG Base Excess (-2.0-3.0) mmol/L ABG Hemoglobin (12.0-16.0) gm/dl Sodium (137-145) mmol/L Potassium 6.3 H* (3.6-5.0) mmol/L Carbon Dioxide (22-30) mmol/L BUN (7-17) mg/dL Creatinine (0.7-1.2) mg/dL Glucose (65-100) mg/dL POC Glucose 52 L 131 H (70-105) Lactic Acid (0.7-2.0) mmol/L Calcium (8.4-10.2) mg/dL Phosphorus (2.5-4.5) mg/dL AST (5-40) units/L ALT (7-56) units/L Total Protein (6.3-8.2) g/dL Albumin (3.9-5) g/dL Crossmatch 10/21/19 10/21/19 10/21/19 Range/Units 17:09 17:09 17:09 WBC 12.4 H (4.5-11.0) K/mm3 RBC 2.32 L (3.65-5.03) M/mm3 Hgb 7.9 L (10.1-14.3) gm/dl Hct 24.9 L D (30.3-42.9) % MCV 107 H (79-97) fl MCH 34 H (28-32) pg RDW 17.2 H (13.2-15.2) % Lymphocytes % (Manual) (13.4-35.0) % Monocytes % (Manual) (0.0-7.3) % Lymphocytes # (Manual) (1.2-5.4) K/mm3 Monocytes # (Manual) (0.0-0.8) K/mm3 ABG pH (7.350-7.450) pH Units ABG pO2 (80.0-90.0) mm Hg ABG HCO3 (20.0-26.0) mmol/L ABG O2 Saturation (95.0-99.0) % ABG Base Excess (-2.0-3.0) mmol/L ABG Hemoglobin (12.0-16.0) gm/dl Sodium 135 L (137-145) mmol/L Potassium (3.6-5.0) mmol/L Carbon Dioxide 15 L (22-30) mmol/L BUN 47 H (7-17) mg/dL Creatinine 2.6 H (0.7-1.2) mg/dL Glucose 106 H (65-100) mg/dL POC Glucose (70-105) Lactic Acid 6.40 H* (0.7-2.0) mmol/L Calcium 7.2 L (8.4-10.2) mg/dL Phosphorus (2.5-4.5) mg/dL AST 53 H (5-40) units/L ALT (7-56) units/L Total Protein 6.0 L D (6.3-8.2) g/dL Albumin 2.6 L (3.9-5) g/dL Crossmatch 10/21/19 10/22/19 10/22/19 Range/Units 21:05 05:10 05:10 WBC 15.8 H (4.5-11.0) K/mm3 RBC 2.49 L (3.65-5.03) M/mm3 Hgb 8.5 L (10.1-14.3) gm/dl Hct 27.0 L (30.3-42.9) % MCV 109 H (79-97) fl MCH 34 H (28-32) pg RDW 17.7 H (13.2-15.2) % Lymphocytes % (Manual) 6.0 L (13.4-35.0) % Monocytes % (Manual) 9.0 H (0.0-7.3) % Lymphocytes # (Manual) 0.9 L (1.2-5.4) K/mm3 Monocytes # (Manual) 1.4 H (0.0-0.8) K/mm3 ABG pH 7.121 L* (7.350-7.450) pH Units ABG pO2 481.5 H (80.0-90.0) mm Hg ABG HCO3 14.8 L (20.0-26.0) mmol/L ABG O2 Saturation 99.6 H (95.0-99.0) % ABG Base Excess -13.7 L (-2.0-3.0) mmol/L ABG Hemoglobin 8.4 L (12.0-16.0) gm/dl Sodium (137-145) mmol/L Potassium 7.1 H* D (3.6-5.0) mmol/L Carbon Dioxide 11 L (22-30) mmol/L BUN 47 H (7-17) mg/dL Creatinine 2.8 H (0.7-1.2) mg/dL Glucose 8 L* (65-100) mg/dL POC Glucose (70-105) Lactic Acid (0.7-2.0) mmol/L Calcium 6.7 L (8.4-10.2) mg/dL Phosphorus 6.20 H (2.5-4.5) mg/dL AST 851 H (5-40) units/L ALT 350 H (7-56) units/L Total Protein (6.3-8.2) g/dL Albumin 2.5 L (3.9-5) g/dL Crossmatch 10/22/19 10/22/19 10/22/19 Range/Units 05:37 06:09 06:22 WBC (4.5-11.0) K/mm3 RBC (3.65-5.03) M/mm3 Hgb (10.1-14.3) gm/dl Hct (30.3-42.9) % MCV (79-97) fl MCH (28-32) pg RDW (13.2-15.2) % Lymphocytes % (Manual) (13.4-35.0) % Monocytes % (Manual) (0.0-7.3) % Lymphocytes # (Manual) (1.2-5.4) K/mm3 Monocytes # (Manual) (0.0-0.8) K/mm3 ABG pH 7.096 L* (7.350-7.450) pH Units ABG pO2 116.6 H (80.0-90.0) mm Hg ABG HCO3 10.3 L (20.0-26.0) mmol/L ABG O2 Saturation (95.0-99.0) % ABG Base Excess -18.0 L (-2.0-3.0) mmol/L ABG Hemoglobin 8.1 L (12.0-16.0) gm/dl Sodium (137-145) mmol/L Potassium (3.6-5.0) mmol/L Carbon Dioxide (22-30) mmol/L BUN (7-17) mg/dL Creatinine (0.7-1.2) mg/dL Glucose (65-100) mg/dL POC Glucose < 40 L 63 L (70-105) Lactic Acid (0.7-2.0) mmol/L Calcium (8.4-10.2) mg/dL Phosphorus (2.5-4.5) mg/dL AST (5-40) units/L ALT (7-56) units/L Total Protein (6.3-8.2) g/dL Albumin (3.9-5) g/dL Crossmatch 10/22/19 10/22/19 10/22/19 Range/Units 08:11 09:00 09:00 WBC (4.5-11.0) K/mm3 RBC (3.65-5.03) M/mm3 Hgb (10.1-14.3) gm/dl Hct (30.3-42.9) % MCV (79-97) fl MCH (28-32) pg RDW (13.2-15.2) % Lymphocytes % (Manual) (13.4-35.0) % Monocytes % (Manual) (0.0-7.3) % Lymphocytes # (Manual) (1.2-5.4) K/mm3 Monocytes # (Manual) (0.0-0.8) K/mm3 ABG pH (7.350-7.450) pH Units ABG pO2 (80.0-90.0) mm Hg ABG HCO3 (20.0-26.0) mmol/L ABG O2 Saturation (95.0-99.0) % ABG Base Excess (-2.0-3.0) mmol/L ABG Hemoglobin (12.0-16.0) gm/dl Sodium (137-145) mmol/L Potassium 6.0 H (3.6-5.0) mmol/L Carbon Dioxide 12 L (22-30) mmol/L BUN 43 H (7-17) mg/dL Creatinine 2.8 H (0.7-1.2) mg/dL Glucose 148 H (65-100) mg/dL POC Glucose 155 H (70-105) Lactic Acid 10.10 H* (0.7-2.0) mmol/L Calcium 7.1 L (8.4-10.2) mg/dL Phosphorus (2.5-4.5) mg/dL AST 2445 H (5-40) units/L ALT 898 H (7-56) units/L Total Protein 5.3 L (6.3-8.2) g/dL Albumin 2.5 L (3.9-5) g/dL Crossmatch 10/22/19 10/22/19 10/22/19 Range/Units 12:00 12:17 12:30 WBC (4.5-11.0) K/mm3 RBC (3.65-5.03) M/mm3 Hgb (10.1-14.3) gm/dl Hct (30.3-42.9) % MCV (79-97) fl MCH (28-32) pg RDW (13.2-15.2) % Lymphocytes % (Manual) (13.4-35.0) % Monocytes % (Manual) (0.0-7.3) % Lymphocytes # (Manual) (1.2-5.4) K/mm3 Monocytes # (Manual) (0.0-0.8) K/mm3 ABG pH (7.350-7.450) pH Units ABG pO2 (80.0-90.0) mm Hg ABG HCO3 (20.0-26.0) mmol/L ABG O2 Saturation (95.0-99.0) % ABG Base Excess (-2.0-3.0) mmol/L ABG Hemoglobin (12.0-16.0) gm/dl Sodium 136 L (137-145) mmol/L Potassium 6.3 H* (3.6-5.0) mmol/L Carbon Dioxide 11 L (22-30) mmol/L BUN 42 H (7-17) mg/dL Creatinine 2.8 H (0.7-1.2) mg/dL Glucose 116 H (65-100) mg/dL POC Glucose 115 H (70-105) Lactic Acid (0.7-2.0) mmol/L Calcium 7.6 L (8.4-10.2) mg/dL Phosphorus (2.5-4.5) mg/dL AST (5-40) units/L ALT (7-56) units/L Total Protein (6.3-8.2) g/dL Albumin (3.9-5) g/dL Crossmatch See Detail
[2019-10-22] MEDS ORDERED: HYDROCORTISONE SOD SUCC 100 MG/2 ML VIAL IV ONE (14:17)
--- NOTE | 2019-10-22 14:17 | Event Note ---
Date: 10/22/19 Spoke with Roland Haddad who states that she is the patient's Granddaughter. Her and Victoria Cornejo are sharing this phone number [phone]. They both speak good Vietnamese and the family has established them as the points of contacts. This just happened at about 1400 today. I also gave them the number of another family member who states that she is a granddaughter whom Victoria and Roland state that they do no know this person. For future consents, updates and changes in clinical condition, please call the above number.
[2019-10-22] MEDS: EPINEPHrine 1 MG/1 ML 16 MG in SODIUM CHLORIDE 0.9% 250ML 234 ML IV SCH (14:36)
[2019-10-22] MEDS: MEROPENEM/NS 1 GRAM/100 ML 1 GRAM/100 ML BAG IV SCH (14:50)
[2019-10-22] MEDS ORDERED: INSULIN REGULAR, HUMAN 100 UNITS/1 ML SUB-Q ONE (15:00)
[2019-10-22] MEDS ORDERED: CALCIUM GLUCONATE 1,000 MG in SODIUM CHLORIDE 0.9% 100 ML IV ONE ×2 (15:05→20:29)
[2019-10-22 16:09] LABS: Calcium 7.5 mg/dL (8.4-10.2)
--- NOTE | 2019-10-22 16:18 | Event Note ---
Date: 10/22/19 Patient remain intubated on vent. On multiple pressors currently 4 and remain hypotensive. S/p multiple IV fluid boluses. Condition remain critical. Spoke to her Grand daughter (POA) over the phone ([phone]). Explained that patient is not stable enough to do conventional hemodialysis at this time. Will consider hemodialysis if the BP improves. She voiced understanding. Gave consent to do hemodialysis when stable.
--- NOTE | 2019-10-22 17:37 | Operative Report ---
Operative Report Operative Report: Date of Procedure: 10/22/2019 Pre-operative Diagnosis: Acute Renal Failure With Hyperkalemia And Hypotension o n Multiple Pressors Post-operative Diagnosis: Same Procedure(s): 1. Ultrasound-Guided Access Right Internal Jugular Vein 2. Placement of 15 cm Pre-curved Vas-Cath 3. Ultrasound-Guided Access Right Radial Artery 4. Placement of 4 Irish Micropuncture Sheath and Right Radial Artery Surgeon: Adán Maya M.D. Park Landscape Architect: None Anesthesia: 1% Lidocaine EBL: Minimal Counts: Correct Complications: None Condition: Stable Findings: Both ports of Vas-Cath easily aspirated and flushed. Specimen: None Indication: The patient is a 74-year-old female with a history of a perforated viscus who underwent emergent exploratory laparotomy with repair who is now septic and in acute renal failure with hyperkalemia. She has been medically managed up to this point however she is now fluid overloaded with continued hyperkalemia and will likely require dialysis. In addition to the need for access for dialysis she is also on multiple pressors to support her blood pressure and because of her body habitus they are using a blood pressure cuff on her wrist that is far from reliable. She is in need of an invasive arterial pressure to assist with management of the pressors. Her granddaughter was given the risk, benefits, and alternative procedures and consented to the procedure. Description of Procedure: The procedure was performed at the patient's bedside in the intensive care unit. After informed consent was obtained ultrasound was used to identify the right internal jugular vein and confirm patency. Once patency was confirmed the patient's right neck and chest were prepped and draped in normal sterile fashion. 1% lidocaine was used to anesthetize the skin and overlying soft tissue. An 11 blade was used to make a small stab incision and an 18-gauge access needle was used with ultrasound guidance to enter the right internal jugular vein and a 0.038 J-wire was advanced through the needle and after removing the needle the tract was dilated and the Vas-Cath was advanced into the vein by Seldinger technique. Both ports were then aspirated and flushed with saline and then the catheter was primed with the appropriate amount of heparin. The catheter was secured to the neck and chest with 3-0 silk suture and then dressed with a sterile dressing. A portable chest x-ray is pending confirm position as well as rule out pneumothorax. I then turned my attention to placement of the arterial line. Ultrasound was used to identify the right radial artery and confirm patency. Once patency was confirmed the right wrist was prepped and draped in normal sterile fashion. 1% lidocaine was then used to anesthetize overlying skin and soft tissue. A 21- gauge micropuncture needle was used with ultrasound guidance to access the right radial artery and a 0.018 micropuncture wire was advanced into the artery. The needle was removed and a 4 Irish micropuncture sheath was advanced to the artery by Seldinger technique. The wire and inner cannula were removed and the micropuncture sheath was connected to the A-line set up for use of a continuous invasive arterial monitoring. The A-line was then secured in position with a Tegaderm. The patient tolerated the procedure well. All sponge, needle, and instrument counts were correct. The patient remained in the intensive care unit in critical but stable condition.
[2019-10-22 17:44] LABS: Hematocrit 24.8 % (30.3-42.9); Hemoglobin 7.6 gm/dl (10.1-14.3); Mean Corpuscular HGB Conc 31 % (30-34); Platelet Count 242 K/mm3 (140-440); Red Blood Count 2.21 M/mm3 (3.65-5.03); Red Cell Distribution Width 17.5 % (13.2-15.2)
[2019-10-22 17:45] LABS: Mean Corpuscular Volume 112 fl (79-97)
--- NOTE | 2019-10-22 17:57 | Event Note ---
Date: 10/29/19 pCXR was reviewed and Right Internal Jugular Vascath is in adequate position with distal tip at the cavoatrial junction without evidence of a pneumothorax.
[2019-10-22 18:01] LABS: Calcium 7.3 mg/dL (8.4-10.2)
--- NOTE | 2019-10-22 18:03 | XRay Report ---
CHEST 1 VIEW INDICATION / CLINICAL INFORMATION: s/p Right IJ Vascath Placement. COMPARISON: 10/21/2019 FINDINGS: SUPPORT DEVICES: Endotracheal tube, central line and NG tube all remain in place unchanged. A Vascath has been placed from a right jugular approach with the tip in the region of the superior vena cava a ppearing to be in good position. HEART / MEDIASTINUM: Minimally enlarged but stable. LUNGS / PLEURA: Only slight left basilar density is seen with the lungs otherwise clear No pneumothor ax. ADDITIONAL FINDINGS: No significant additional findings. IMPRESSION: 1 Vas-Cath placement without pneumothorax Signer Name: Jonas Trevizo MD Signed: 10/22/2019 5:58 PM Workstation Name: [id number]
[2019-10-22 18:14] LABS: Band Neutrophils # (Manual) 1.8 K/mm3; Basophils % (Manual) 0 % (0.0-1.8); Eosinophils % (Manual) 0 % (0.0-4.3); Total Cells Counted 100
[2019-10-22 18:15] LABS: Anisocytosis 1+; Macrocytosis 1+; Platelet Estimate Consistent w Auto
[2019-10-22] MEDS ORDERED: INSULIN REGULAR, HUMAN 100 UNITS/1 ML IV ONE (19:29)
[2019-10-22] MEDS ORDERED: LACTATED RINGERS 3,000 ML IV ONE (20:30)
[2019-10-22] MEDS: HYDROCORTISONE SOD SUCC 100 MG/2 ML VIAL IV SCH (21:15)
[2019-10-22] MEDS: fentaNYL 100 MCG/2 ML INJ IV PRN (22:22)
[2019-10-23] MEDS: fentaNYL 100 MCG/2 ML INJ IV PRN ×2 (01:50→03:51)
[2019-10-23 02:20] LABS: ABG HCO3 10.7 mmol/L (20.0-26.0); ABG Oxygen Saturation 98.4 % (95.0-99.0); ABG PCO2 41.4 mm Hg; ABG PO2 155.2 mm Hg (80.0-90.0)
[2019-10-23 02:21] LABS: ABG Methemoglobin 0.7 % (0.0-1.5)
[2019-10-23 02:23] LABS: ABG PH 7.028 pH Units (7.350-7.450)
[2019-10-23] MEDS: PHENYLEPHRINE 100 MG in SODIUM CHLORIDE 0.9% 90 ML IV SCH ×7 (02:46→22:59)
[2019-10-23] MEDS: NORepinephrine 8 MG in SODIUM CHLORIDE 0.9% 250ML 242 ML IV SCH ×6 (02:49→20:45)
[2019-10-23] MEDS: VASOPRESSIN 20 UNIT in SODIUM CHLORIDE 0.9% 100 ML IV SCH ×2 (03:33→12:20)
[2019-10-23] MEDS: INSULIN LISPRO 100 UNIT/ML SUB-Q SCH ×5 (04:20→18:33)
[2019-10-23] MEDS: MEROPENEM/NS 1 GRAM/100 ML 1 GRAM/100 ML BAG IV SCH ×2 (04:53→13:04)
[2019-10-23 05:09] LABS: Hematocrit 33.9 % (30.3-42.9); Hemoglobin 10.3 gm/dl (10.1-14.3); Mean Corpuscular HGB Conc 31 % (30-34); Mean Corpuscular Volume 103 fl (79-97); Platelet Count 195 K/mm3 (140-440); Red Blood Count 3.29 M/mm3 (3.65-5.03)
[2019-10-23 05:16] LABS: Red Cell Distribution Width 23.6 % (13.2-15.2)
[2019-10-23 05:26] LABS: Albumin 3.2 g/dL (3.9-5); Calcium 7.2 mg/dL (8.4-10.2)
[2019-10-23] MEDS ORDERED: SODIUM BICARB 8.4% 50 MEQ/50 ML SYRINGE IV ONE ×3 (05:35→06:05)
[2019-10-23] MEDS: SODIUM BICARBONATE 75 MEQ in DEXTROSE 5% IN WATER 1,000 ML IV SCH ×3 (05:53→18:31)
[2019-10-23] MEDS ORDERED: CALCIUM CHLORIDE 1,000 MG in SODIUM CHLORIDE 0.9% 100 ML IV ONE (06:06)
[2019-10-23] MEDS ORDERED: INSULIN REGULAR, HUMAN 100 UNITS/1 ML IV ONE ×2 (06:09→08:25)
[2019-10-23] MEDS ORDERED: SODIUM CHLORIDE 0.9% 1000 ML 1,000 ML IV ONE (06:10)
[2019-10-23] MEDS: HYDROCORTISONE SOD SUCC 100 MG/2 ML VIAL IV SCH ×3 (06:19→21:39)
[2019-10-23 06:36] LABS: Anisocytosis 2+; Band Neutrophils # (Manual) 6.6 K/mm3; Basophils % (Manual) 0 % (0.0-1.8); Burr Cells 1+; Eosinophils % (Manual) 0 % (0.0-4.3); Macrocytosis 1+; Total Cells Counted 100
[2019-10-23 06:37] LABS: Platelet Estimate Consistent w Auto
[2019-10-23] MEDS: ALBUMIN HUMAN 25% (25 GM/100 ML) INJ IV SCH ×3 (06:45→21:39)
[2019-10-23] MEDS ORDERED: DEXTROSE 50% IN WATER (25GM) 50 ML SYRINGE IV ONE ×2 (07:00→10:00)
[2019-10-23] MEDS ORDERED: DEXTROSE 50% IN WATER (25GM) 50 ML VIAL IV PRN (08:25)
--- NOTE | 2019-10-23 08:54 | Progress Note ---
Assessment and Plan - Patient Problems (1) Perforated viscus Current Visit: Yes Status: Acute Plan to address problem: Pt in critical condition. s/p ex lap and repair of perforated peptic ulcer - (10/20) - POD#2. Patient appears to be in multisystem organ failure. She is requiring increased pressors. Liver shock seems to have worsened. She has jamie al insufficiency. Her overall prognosis is grave at this point. She probably had chronic issues with multiple organs prior to this emergency. She may not have had the physiologic reserve needed to overcome such an emergency. Discussed case with Dr. Simpson. We will follow along. Please call with any questions. Time=10min Subjective Date of service: 10/23/19 Patient Reports: Positive: other (Patient is clinically deteriorating per the staff.) Objective Vital Signs - 12hr 10/22/19 10/22/19 10/22/19 21:00 21:16 21:30 Temperature Pulse Rate 99 H 100 H 99 H Respiratory 14 20 28 H Rate Blood Pressure 55/37 112/60 112/60 O2 Sat by Pulse 63 L 65 L Oximetry 10/22/19 10/22/19 10/22/19 21:40 21:46 22:00 Temperature 97.9 F Pulse Rate 95 H 95 H 98 H Respiratory 23 24 11 L Rate Blood Pressure 88/62 112/60 O2 Sat by Pulse 76 L 73 L 76 L Oximetry 10/22/19 10/22/19 10/22/19 22:16 22:30 22:46 Temperature Pulse Rate 95 H 90 98 H Respiratory 15 8 L 11 L Rate Blood Pressure O2 Sat by Pulse 91 Oximetry 10/22/19 10/22/19 10/22/19 22:58 23:00 23:16 Temperature Pulse Rate 95 H 93 H 94 H Respiratory 13 11 L 14 Rate Blood Pressure 98/81 98/81 O2 Sat by Pulse 91 Oximetry 10/22/19 10/22/19 10/23/19 23:30 23:46 00:00 Temperature Pulse Rate 91 H 95 H 97 H Respiratory 12 12 13 Rate Blood Pressure O2 Sat by Pulse Oximetry 10/23/19 10/23/19 10/23/19 00:16 00:30 00:46 Temperature Pulse Rate 97 H 98 H 95 H Respiratory 12 13 12 Rate Blood Pressure 89/71 O2 Sat by Pulse Oximetry 10/23/19 10/23/19 10/23/19 00:59 01:00 01:02 Temperature 94.5 F L Pulse Rate 97 H 98 H Respiratory 12 Rate Blood Pressure O2 Sat by Pulse 100 Oximetry 10/23/19 10/23/19 10/23/19 01:16 01:19 01:20 Temperature 97.7 F 94.3 F L Pulse Rate 98 H Respiratory 13 Rate Blood Pressure 89/71 O2 Sat by Pulse 94 Oximetry 10/23/19 10/23/19 10/23/19 01:30 01:46 02:00 Temperature Pulse Rate 101 H 102 H 94 H Respiratory 13 14 8 L Rate Blood Pressure 124/100 O2 Sat by Pulse 100 Oximetry 10/23/19 10/23/19 10/23/19 02:16 02:23 02:30 Temperature Pulse Rate 91 H 94 H 98 H Respiratory 8 L 11 L Rate Blood Pressure 132/96 O2 Sat by Pulse 62 L Oximetry 10/23/19 10/23/19 10/23/19 02:46 03:00 03:16 Temperature Pulse Rate 103 H 94 H 97 H Respiratory 9 L 8 L 16 Rate Blood Pressure O2 Sat by Pulse 60 L Oximetry 10/23/19 10/23/19 10/23/19 03:30 03:46 04:00 Temperature Pulse Rate 104 H 106 H 102 H Respiratory 15 13 15 Rate Blood Pressure 98/77 98/77 O2 Sat by Pulse 81 L 91 Oximetry 10/23/19 10/23/19 10/23/19 04:16 04:30 04:46 Temperature Pulse Rate 99 H 98 H 105 H Respiratory 16 22 12 Rate Blood Pressure 98/77 98/77 103/83 O2 Sat by Pulse 100 68 L Oximetry 10/23/19 10/23/19 10/23/19 05:00 05:16 05:30 Temperature 97.7 F Pulse Rate 108 H 106 H 108 H Respiratory 18 14 17 Rate Blood Pressure 103/83 115/94 115/94 O2 Sat by Pulse 87 100 Oximetry 10/23/19 10/23/19 10/23/19 05:46 06:00 06:16 Temperature Pulse Rate 115 H 108 H 114 H Respiratory 21 16 9 L Rate Blood Pressure 158/46 158/46 113/22 O2 Sat by Pulse 100 89 Oximetry 10/23/19 10/23/19 10/23/19 06:30 06:46 07:00 Temperature Pulse Rate 113 H 120 H 115 H Respiratory 12 14 13 Rate Blood Pressure 113/22 113/22 83/61 O2 Sat by Pulse 88 Oximetry 10/23/19 10/23/19 10/23/19 07:16 07:30 07:46 Temperature Pulse Rate 113 H 120 H 121 H Respiratory 12 14 14 Rate Blood Pressure 97/84 97/84 97/84 O2 Sat by Pulse 100 100 99 Oximetry 10/23/19 08:45 Temperature Pulse Rate 117 H Respiratory Rate Blood Pressure O2 Sat by Pulse 92 Oximetry - General physical appearance obese, other (markedly swollen. intubated, sedated) - ENT other (ETT in place. bilious drainage from NGT) - Respiratory normal expansion, normal respiratory effort - Abdomen soft, distended (mild), other (LOUIE with serous drainage) - Labs 10/23/19 04:00 10/23/19 04:00 Diabetes panel 10/22/19 10/22/19 10/22/19 Range/Units 09:00 12:00 15:00 Sodium 138 136 L 138 (137-145) mmol/L Potassium 6.0 H 6.3 H* 5.9 H (3.6-5.0) mmol/L Chloride 106.8 104.7 101.3 (98-107) mmol/L Carbon Dioxide 12 L 11 L 13 L (22-30) mmol/L BUN 43 H 42 H 42 H (7-17) mg/dL Creatinine 2.8 H 2.8 H 2.7 H (0.7-1.2) mg/dL Glucose 148 H 116 H 303 H (65-100) mg/dL Calcium 7.1 L 7.6 L 7.5 L (8.4-10.2) mg/dL AST 2445 H (5-40) units/L ALT 898 H (7-56) units/L Alkaline Phosphatase 94 (35-129) units/L Total Protein 5.3 L (6.3-8.2) g/dL Albumin 2.5 L (3.9-5) g/dL 10/22/19 10/23/19 Range/Units 17:33 04:00 Sodium 138 134 L (137-145) mmol/L Potassium 6.0 H 6.3 H* (3.6-5.0) mmol/L Chloride 101.0 95.8 L (98-107) mmol/L Carbon Dioxide 13 L 8 L* (22-30) mmol/L BUN 41 H 38 H (7-17) mg/dL Creatinine 2.9 H 2.6 H (0.7-1.2) mg/dL Glucose 239 H 288 H (65-100) mg/dL Calcium 7.3 L 7.2 L (8.4-10.2) mg/dL AST 64588 H (5-40) units/L ALT 2979 H (7-56) units/L Alkaline Phosphatase 425 H (35-129) units/L Total Protein 6.3 (6.3-8.2) g/dL Albumin 3.2 L (3.9-5) g/dL Calcium panel 10/22/19 10/22/19 10/22/19 Range/Units 09:00 12:00 15:00 Calcium 7.1 L 7.6 L 7.5 L (8.4-10.2) mg/dL Albumin 2.5 L (3.9-5) g/dL 10/22/19 10/23/19 Range/Units 17:33 04:00 Calcium 7.3 L 7.2 L (8.4-10.2) mg/dL Albumin 3.2 L (3.9-5) g/dL Pituitary panel 10/22/19 10/22/19 10/22/19 Range/Units 09:00 12:00 15:00 Sodium 138 136 L 138 (137-145) mmol/L Potassium 6.0 H 6.3 H* 5.9 H (3.6-5.0) mmol/L Chloride 106.8 104.7 101.3 (98-107) mmol/L Carbon Dioxide 12 L 11 L 13 L (22-30) mmol/L BUN 43 H 42 H 42 H (7-17) mg/dL Creatinine 2.8 H 2.8 H 2.7 H (0.7-1.2) mg/dL Glucose 148 H 116 H 303 H (65-100) mg/dL Calcium 7.1 L 7.6 L 7.5 L (8.4-10.2) mg/dL 10/22/19 10/23/19 Range/Units 17:33 04:00 Sodium 138 134 L (137-145) mmol/L Potassium 6.0 H 6.3 H* (3.6-5.0) mmol/L Chloride 101.0 95.8 L (98-107) mmol/L Carbon Dioxide 13 L 8 L* (22-30) mmol/L BUN 41 H 38 H (7-17) mg/dL Creatinine 2.9 H 2.6 H (0.7-1.2) mg/dL Glucose 239 H 288 H (65-100) mg/dL Calcium 7.3 L 7.2 L (8.4-10.2) mg/dL Adrenal panel 10/22/19 10/22/19 10/22/19 Range/Units 09:00 12:00 15:00 Sodium 138 136 L 138 (137-145) mmol/L Potassium 6.0 H 6.3 H* 5.9 H (3.6-5.0) mmol/L Chloride 106.8 104.7 101.3 (98-107) mmol/L Carbon Dioxide 12 L 11 L 13 L (22-30) mmol/L BUN 43 H 42 H 42 H (7-17) mg/dL Creatinine 2.8 H 2.8 H 2.7 H (0.7-1.2) mg/dL Glucose 148 H 116 H 303 H (65-100) mg/dL Calcium 7.1 L 7.6 L 7.5 L (8.4-10.2) mg/dL Total Bilirubin 0.90 (0.1-1.2) mg/dL AST 2445 H (5-40) units/L ALT 898 H (7-56) units/L Alkaline Phosphatase 94 (35-129) units/L Total Protein 5.3 L (6.3-8.2) g/dL Albumin 2.5 L (3.9-5) g/dL 10/22/19 10/23/19 Range/Units 17:33 04:00 Sodium 138 134 L (137-145) mmol/L Potassium 6.0 H 6.3 H* (3.6-5.0) mmol/L Chloride 101.0 95.8 L (98-107) mmol/L Carbon Dioxide 13 L 8 L* (22-30) mmol/L BUN 41 H 38 H (7-17) mg/dL Creatinine 2.9 H 2.6 H (0.7-1.2) mg/dL Glucose 239 H 288 H (65-100) mg/dL Calcium 7.3 L 7.2 L (8.4-10.2) mg/dL Total Bilirubin 3.10 H (0.1-1.2) mg/dL AST 22394 H (5-40) units/L ALT 2979 H (7-56) units/L Alkaline Phosphatase 425 H (35-129) units/L Total Protein 6.3 (6.3-8.2) g/dL Albumin 3.2 L (3.9-5) g/dL
[2019-10-23] MEDS ORDERED: INSULIN LISPRO 100 UNIT/ML SUB-Q ONE ×2 (09:00→11:00)
[2019-10-23] MEDS ORDERED: CALCIUM GLUCONATE 2,000 MG in SODIUM CHLORIDE 0.9% 100 ML IV ONE (09:00)
[2019-10-23] MEDS: PANTOPRAZOLE 40 MG INJ IV SCH (09:05)
--- NOTE | 2019-10-23 09:14 | Progress Note ---
Assessment and Plan 1. Acute kidney injury: Likely vasomotor KORY in the setting of septic shock. Unclear what patient baseline creatinine is. Creatinine was 3.0 on admission, now 2.[address] abd/pelvis revealed low lying right kidney with multiple stones of varying sizes and a large staghorn calculus, negative for hydro. Continue IV fluids. Poor UOP, has brewer catheter. Monitor renal function. Avoid nephrotoxic agents. Meds dosage based on GFR. Family is aware pt's condition is quite grave and we are currently unable to safely initiate HD at this time. 2. FEN: Hyperkalemia, multiple cocktails given remains elevated, unable to do HD due to severe shock (4 pressors), cocktail given again for 6.3 this am. Metabolic acidosis, s/p sodium bicarb, monitor. Hypocalcemia, monitor. Monitor lytes and volume status. 3. Perforated viscus: S/p emergency exploratory lap w/ repair. LOUIE drain to right side with serosanginous drainage. Large amount of contamination in abdomen. Concern now for generalized third spacing leaking into peritoneal cavity. Surgery following. 4. Septic shock: 2/2 peptic ulcer perforation. On IV abx. On IV fluids. S/p albumin. Persistent hypotension despite multiple pressors. Concern for shock liver 2/2 hypotension. 5. Acute respiratory failure: Currently intubated on vent. No sedation currently. Pulmonology following. 6. Type 2 diabetes: Monitor blood glucose. 7. H/o asthma: 8. Recent surgery to LLE: Subjective Date of service: 10/23/19 Interval history: Patient was seen and examined at the bedside. She remains in very critical condition. Still on 4 pressors with persistent hypotension. Objective - Exam Narrative Exam: General appearance: well-developed, appears stated age, obese, intubated, other (brewer catheter, LOUIE drain to R abdomen, OGT), significant increase in generalized swelling EENT: PERRL, mucous membranes dry Neck: Present: neck supple, trachea midline Respiratory: Clear to Ascultation Heart: regular, tachycardia, S1S2, no murmurs Gastrointestinal: Present: normal, normoactive bowel sounds, distended (mildly), obese Integumentary: no rash, warm and dry Neurologic: other (unable to assess, intubated on vent) Musculoskeletal: Present: other (L lower extremity wrapped in dressing and LYNDA bandage) Psychiatric: other (unable to assess) - Vital Signs Vital signs: Vital Signs - 12hr 10/22/19 10/22/19 10/22/19 21:16 21:30 21:40 Temperature 97.9 F Pulse Rate 100 H 99 H 95 H Respiratory 20 28 H 23 Rate Blood Pressure 112/60 112/60 88/62 O2 Sat by Pulse 65 L 76 L Oximetry 10/22/19 10/22/19 10/22/19 21:46 22:00 22:16 Temperature Pulse Rate 95 H 98 H 95 H Respiratory 24 11 L 15 Rate Blood Pressure 112/60 O2 Sat by Pulse 73 L 76 L Oximetry 10/22/19 10/22/19 10/22/19 22:30 22:46 22:58 Temperature Pulse Rate 90 98 H 95 H Respiratory 8 L 11 L 13 Rate Blood Pressure 98/81 O2 Sat by Pulse 91 Oximetry 10/22/19 10/22/19 10/22/19 23:00 23:16 23:30 Temperature Pulse Rate 93 H 94 H 91 H Respiratory 11 L 14 12 Rate Blood Pressure 98/81 O2 Sat by Pulse 91 Oximetry 10/22/19 10/23/19 10/23/19 23:46 00:00 00:16 Temperature Pulse Rate 95 H 97 H 97 H Respiratory 12 13 12 Rate Blood Pressure 89/71 O2 Sat by Pulse Oximetry 10/23/19 10/23/19 10/23/19 00:30 00:46 00:59 Temperature Pulse Rate 98 H 95 H 97 H Respiratory 13 12 Rate Blood Pressure O2 Sat by Pulse 100 Oximetry 10/23/19 10/23/19 10/23/19 01:00 01:02 01:16 Temperature 94.5 F L Pulse Rate 98 H 98 H Respiratory 12 13 Rate Blood Pressure 89/71 O2 Sat by Pulse 94 Oximetry 10/23/19 10/23/19 10/23/19 01:19 01:20 01:30 Temperature 97.7 F 94.3 F L Pulse Rate 101 H Respiratory 13 Rate Blood Pressure 124/100 O2 Sat by Pulse Oximetry 10/23/19 10/23/19 10/23/19 01:46 02:00 02:16 Temperature Pulse Rate 102 H 94 H 91 H Respiratory 14 8 L 8 L Rate Blood Pressure O2 Sat by Pulse 100 62 L Oximetry 10/23/19 10/23/19 10/23/19 02:23 02:30 02:46 Temperature Pulse Rate 94 H 98 H 103 H Respiratory 11 L 9 L Rate Blood Pressure 132/96 O2 Sat by Pulse Oximetry 10/23/19 10/23/19 10/23/19 03:00 03:16 03:30 Temperature Pulse Rate 94 H 97 H 104 H Respiratory 8 L 16 15 Rate Blood Pressure 98/77 O2 Sat by Pulse 60 L 81 L Oximetry 10/23/19 10/23/19 10/23/19 03:46 04:00 04:16 Temperature Pulse Rate 106 H 102 H 99 H Respiratory 13 15 16 Rate Blood Pressure 98/77 98/77 O2 Sat by Pulse 91 Oximetry 10/23/19 10/23/19 10/23/19 04:30 04:46 05:00 Temperature 97.7 F Pulse Rate 98 H 105 H 108 H Respiratory 22 12 18 Rate Blood Pressure 98/77 103/83 103/83 O2 Sat by Pulse 100 68 L 87 Oximetry 10/23/19 10/23/19 10/23/19 05:16 05:30 05:46 Temperature Pulse Rate 106 H 108 H 115 H Respiratory 14 17 21 Rate Blood Pressure 115/94 115/94 158/46 O2 Sat by Pulse 100 100 Oximetry 10/23/19 10/23/19 10/23/19 06:00 06:16 06:30 Temperature Pulse Rate 108 H 114 H 113 H Respiratory 16 9 L 12 Rate Blood Pressure 158/46 113/22 113/22 O2 Sat by Pulse 89 Oximetry 10/23/19 10/23/19 10/23/19 06:46 07:00 07:16 Temperature Pulse Rate 120 H 115 H 113 H Respiratory 14 13 12 Rate Blood Pressure 113/22 83/61 97/84 O2 Sat by Pulse 88 100 Oximetry 10/23/19 10/23/19 10/23/19 07:30 07:46 08:45 Temperature Pulse Rate 120 H 121 H 117 H Respiratory 14 14 Rate Blood Pressure 97/84 97/84 O2 Sat by Pulse 100 99 92 Oximetry - Lab 10/23/19 04:00 10/23/19 04:00 Most recent lab results ABG pH 7.028 pH Units (7.350-7.450) L* 10/23/19 01:55 ABG pCO2 41.4 mm Hg 10/23/19 01:55 ABG pO2 155.2 mm Hg (80.0-90.0) H 10/23/19 01:55 ABG HCO3 10.7 mmol/L (20.0-26.0) L 10/23/19 01:55 ABG O2 Saturation 98.4 % (95.0-99.0) 10/23/19 01:55 Calcium 7.2 mg/dL (8.4-10.2) L 10/23/19 04:00 Phosphorus 6.20 mg/dL (2.5-4.5) H 10/22/19 05:10 Magnesium 2.20 mg/dL (1.7-2.3) 10/21/19 11:33 Medications & Allergies - Medications Allergies/Adverse Reactions: Allergies No Known Allergies Allergy (Unverified 10/17/19 19:57) Home Medications: Home Medications Medication Instructions Recorded Confirmed Last Taken Type HYDROcodone/APAP 5-325 [[place] 1 each PO Q6HR PRN #12 tablet 10/17/19 Unknown Rx 5/325] Ibuprofen [Motrin] 800 mg PO Q8HR #30 tablet 10/17/19 Unknown Rx Active Medications: Generic Name Dose Route Start Last Admin Trade Name Freq PRN Reason Stop Dose Admin Albumin Human 25 gm 10/22/19 14:00 10/23/19 06:45 Alburx 25% (Albumin) IV 25 gm Q8HR MICHI Administration Dextrose 50 gm 10/23/19 08:25 D50w (25gm) Vial IV Q30MIN PRN Hypoglycemia Protocol Dextrose 50 gm 10/23/19 09:11 D50w (25gm) Vial IV 10/23/19 09:12 ONCE ONE Protocol Fentanyl 25 mcg 10/22/19 09:18 10/23/19 03:51 Sublimaze IV 25 mcg Q2H PRN Administration Pain , Severe (7-10) Hydrocortisone Sodium Succinate 100 mg 10/22/19 22:00 10/23/19 06:19 Solu-Cortef IV 100 mg Q8H MICHI Administration Sodium Chloride 1,000 mls @ 125 mls/hr 10/21/19 15:45 10/22/19 03:22 Nacl 0.9% 1000 Ml IV 125 mls/hr DIRECT MICHI Administration Phenylephrine HCl 100 mg/ 100 mls @ 3 mls/hr 10/21/19 17:00 10/23/19 06:26 Sodium Chloride IV 400 mcg/min TITR MICHI 24 mls/hr Administration Protocol 50 MCG/MIN Vasopressin 20 unit/ Sodium 101 mls @ 9.09 mls/hr 10/22/19 07:00 10/23/19 03:33 Chloride IV 0.03 units/min TITR MICHI 9.09 mls/hr Administration Protocol 0.03 UNITS/MIN Norepinephrine 8 mg/ Sodium 250 mls @ 3.75 mls/hr 10/22/19 12:00 10/23/19 07:23 Chloride IV 30 mcg/min TITR MICHI 56.25 mls/hr Administration Protocol 2 MCG/MIN Fluconazole 200 mg in 100 mls @ 100 mls/hr 10/23/19 10:00 10/23/19 09:05 Diflucan IV 100 mls/hr Q24HR MICHI Administration Protocol MEROPENEM/NS 1 GRAM/100 ML 1 gram in 100 mls @ 100 mls/hr 10/22/19 14:00 10/23/19 04:53 Merrem/Ns 1 Gram/100 Ml IV 100 mls/hr Q12H MICHI Administration Epinephrine 16 mg/ Sodium 250 mls @ 1.875 mls/hr 10/22/19 15:00 10/23/19 07:19 Chloride IV 10 mcg/min TITR MICHI 9.375 mls/hr Titration Protocol 2 MCG/MIN Sodium Bicarbonate 75 meq/ 1,075 mls @ 200 mls/hr 10/22/19 20:39 10/23/19 05:53 Dextrose IV 200 mls/hr DIRECT MICHI Administration Insulin Human Lispro 0 unit 10/22/19 18:00 10/23/19 06:31 Humalog SUB-Q 2 unit Q6HR MICHI Administration Protocol Ondansetron HCl 4 mg 10/21/19 14:19 Zofran IV ONCE PRN Nausea And Vomiting Pantoprazole Sodium 40 mg 10/22/19 12:00 10/23/19 09:05 Protonix IV 40 mg QDAY MICHI Administration
[2019-10-23] MEDS ORDERED: FLUCONAZOLE 200 MG 200 MG/100 ML BAG IV SCH (10:00)
--- NOTE | 2019-10-23 12:31 | Progress Note ---
Assessment and Plan 74 y/o female with perforated viscous and presumed acute renal failure, now intubated with severe sepsis with shock and volume depletion, now in cardiovascular collapse 1. Overall prognosis is poor. Patient will likely have cardiac arrest today and given the amount of current support, she will likely not be able to achieve ROSC. We will continue all supportive measures as previously discussed. Family aware of worsening clinical state. CCT 31 minutes. Subjective Date of service: 10/23/19 Interval history: Unfortunately, clinical status worsened. Got HD catheter but became too unstable to have. No urine output despite liters and liters of fluid, albumin a nd blood. Bicarb is 8 this AM on bicarb drip. Started on stress dose steroids as well, which have not helped. Mental status now is unresponsive but still with some involuntary movements. Objective Vital Signs - 12hr 10/23/19 10/23/19 10/23/19 00:30 00:46 00:59 Temperature Pulse Rate 98 H 95 H 97 H Respiratory 13 12 Rate Blood Pressure O2 Sat by Pulse 100 Oximetry 10/23/19 10/23/19 10/23/19 01:00 01:02 01:16 Temperature 94.5 F L Pulse Rate 98 H 98 H Respiratory 12 13 Rate Blood Pressure 89/71 O2 Sat by Pulse 94 Oximetry 10/23/19 10/23/19 10/23/19 01:19 01:20 01:30 Temperature 97.7 F 94.3 F L Pulse Rate 101 H Respiratory 13 Rate Blood Pressure 124/100 O2 Sat by Pulse Oximetry 10/23/19 10/23/19 10/23/19 01:46 02:00 02:16 Temperature Pulse Rate 102 H 94 H 91 H Respiratory 14 8 L 8 L Rate Blood Pressure O2 Sat by Pulse 100 62 L Oximetry 10/23/19 10/23/19 10/23/19 02:23 02:30 02:46 Temperature Pulse Rate 94 H 98 H 103 H Respiratory 11 L 9 L Rate Blood Pressure 132/96 O2 Sat by Pulse Oximetry 10/23/19 10/23/19 10/23/19 03:00 03:16 03:30 Temperature Pulse Rate 94 H 97 H 104 H Respiratory 8 L 16 15 Rate Blood Pressure 98/77 O2 Sat by Pulse 60 L 81 L Oximetry 10/23/19 10/23/19 10/23/19 03:46 04:00 04:16 Temperature Pulse Rate 106 H 102 H 99 H Respiratory 13 15 16 Rate Blood Pressure 98/77 98/77 O2 Sat by Pulse 91 Oximetry 10/23/19 10/23/19 10/23/19 04:30 04:46 05:00 Temperature 97.7 F Pulse Rate 98 H 105 H 108 H Respiratory 22 12 18 Rate Blood Pressure 98/77 103/83 103/83 O2 Sat by Pulse 100 68 L 87 Oximetry 10/23/19 10/23/19 10/23/19 05:16 05:30 05:46 Temperature Pulse Rate 106 H 108 H 115 H Respiratory 14 17 21 Rate Blood Pressure 115/94 115/94 158/46 O2 Sat by Pulse 100 100 Oximetry 10/23/19 10/23/19 10/23/19 06:00 06:16 06:30 Temperature Pulse Rate 108 H 114 H 113 H Respiratory 16 9 L 12 Rate Blood Pressure 158/46 113/22 113/22 O2 Sat by Pulse 89 Oximetry 10/23/19 10/23/19 10/23/19 06:46 07:00 07:16 Temperature Pulse Rate 120 H 115 H 113 H Respiratory 14 13 12 Rate Blood Pressure 113/22 83/61 97/84 O2 Sat by Pulse 88 100 Oximetry 10/23/19 10/23/19 10/23/19 07:30 07:46 08:00 Temperature Pulse Rate 120 H 121 H 121 H Respiratory 14 14 15 Rate Blood Pressure 97/84 97/84 97/84 O2 Sat by Pulse 100 99 92 Oximetry 10/23/19 10/23/19 10/23/19 08:16 08:30 08:45 Temperature Pulse Rate 114 H 119 H 117 H Respiratory 14 14 Rate Blood Pressure 97/84 97/84 O2 Sat by Pulse 99 92 92 Oximetry 10/23/19 10/23/19 10/23/19 08:46 09:00 09:16 Temperature Pulse Rate 117 H 117 H 115 H Respiratory 14 16 13 Rate Blood Pressure 97/84 97/84 97/84 O2 Sat by Pulse 65 L Oximetry 10/23/19 10/23/19 10/23/19 09:30 09:46 10:00 Temperature Pulse Rate 112 H 111 H 112 H Respiratory 14 15 14 Rate Blood Pressure 114/87 115/76 115/76 O2 Sat by Pulse 96 Oximetry 10/23/19 10/23/19 10/23/19 10:16 10:30 10:46 Temperature Pulse Rate 111 H 113 H 114 H Respiratory 14 15 12 Rate Blood Pressure 115/76 115/76 52/33 O2 Sat by Pulse 41 L Oximetry 10/23/19 10/23/19 11:00 11:22 Temperature Pulse Rate 110 H 111 H Respiratory 15 Rate Blood Pressure 52/33 O2 Sat by Pulse 100 Oximetry Constitutional: other (morbidly morbdily obese) Eyes: non-icteric ENT: other (orally intubated) Neck: supple, other (large in circumference) Effort: mildly labored Ascultation: Bilateral: diminished breath sounds (secondary to body habitus) CBC and BMP: 10/23/19 04:00 10/23/19 04:00 ABG, PT/INR, D-dimer: ABG ABG pH 7.028 pH Units (7.350-7.450) L* 10/23/19 01:55 ABG pCO2 41.4 mm Hg 10/23/19 01:55 ABG pO2 155.2 mm Hg (80.0-90.0) H 10/23/19 01:55 ABG O2 Saturation 98.4 % (95.0-99.0) 10/23/19 01:55 PT/INR, D-dimer PT 16.6 Sec. (12.2-14.9) H 10/21/19 11:33 INR 1.33 (0.87-1.13) H 10/21/19 11:33 Abnormal lab findings: Abnormal Labs 10/21/19 10/21/19 10/21/19 05:10 11:33 11:33 WBC 14.8 H RBC 3.05 L Hgb Hct MCV 103 H MCH 34 H RDW 16.7 H Seg Neuts % (Manual) Lymphocytes % (Manual) 3.0 L Monocytes % (Manual) Nucleated RBC % Seg Neutrophils # Man Lymphocytes # (Manual) 0.4 L Monocytes # (Manual) PT 16.6 H INR 1.33 H ABG pH ABG pO2 ABG HCO3 ABG O2 Saturation ABG Base Excess ABG Hemoglobin Sodium Potassium Chloride Carbon Dioxide BUN Creatinine Glucose POC Glucose Lactic Acid 8.50 H* Calcium Phosphorus Total Bilirubin Direct Bilirubin AST ALT Alkaline Phosphatase Total Creatine Kinase Total Protein Albumin Crossmatch 10/21/19 10/21/19 10/21/19 11:33 11:33 13:30 WBC RBC Hgb Hct MCV MCH RDW Seg Neuts % (Manual) Lymphocytes % (Manual) Monocytes % (Manual) Nucleated RBC % Seg Neutrophils # Man Lymphocytes # (Manual) Monocytes # (Manual) PT INR ABG pH ABG pO2 ABG HCO3 ABG O2 Saturation ABG Base Excess ABG Hemoglobin Sodium 129 L Potassium 6.8 H* Chloride 89.4 L Carbon Dioxide 19 L BUN 56 H Creatinine 3.0 H Glucose POC Glucose Lactic Acid 8.20 H* 7.50 H* Calcium 8.2 L Phosphorus Total Bilirubin Direct Bilirubin 0.3 H AST ALT Alkaline Phosphatase 159 H Total Creatine Kinase 233 H Total Protein Albumin 2.4 L Crossmatch 10/21/19 10/21/19 10/21/19 13:30 15:05 16:15 WBC RBC Hgb Hct MCV MCH RDW Seg Neuts % (Manual) Lymphocytes % (Manual) Monocytes % (Manual) Nucleated RBC % Seg Neutrophils # Man Lymphocytes # (Manual) Monocytes # (Manual) PT INR ABG pH ABG pO2 ABG HCO3 ABG O2 Saturation ABG Base Excess ABG Hemoglobin Sodium Potassium 6.3 H* Chloride Carbon Dioxide BUN Creatinine Glucose POC Glucose 52 L 131 H Lactic Acid Calcium Phosphorus Total Bilirubin Direct Bilirubin AST ALT Alkaline Phosphatase Total Creatine Kinase Total Protein Albumin Crossmatch 10/21/19 10/21/19 10/21/19 17:09 17:09 17:09 WBC 12.4 H RBC 2.32 L Hgb 7.9 L Hct 24.9 L D MCV 107 H MCH 34 H RDW 17.2 H Seg Neuts % (Manual) Lymphocytes % (Manual) Monocytes % (Manual) Nucleated RBC % Seg Neutrophils # Man Lymphocytes # (Manual) Monocytes # (Manual) PT INR ABG pH ABG pO2 ABG HCO3 ABG O2 Saturation ABG Base Excess ABG Hemoglobin Sodium 135 L Potassium Chloride Carbon Dioxide 15 L BUN 47 H Creatinine 2.6 H Glucose 106 H POC Glucose Lactic Acid 6.40 H* Calcium 7.2 L Phosphorus Total Bilirubin Direct Bilirubin AST 53 H ALT Alkaline Phosphatase Total Creatine Kinase Total Protein 6.0 L D Albumin 2.6 L Crossmatch 10/21/19 10/22/19 10/22/19 21:05 05:10 05:10 WBC 15.8 H RBC 2.49 L Hgb 8.5 L Hct 27.0 L MCV 109 H MCH 34 H RDW 17.7 H Seg Neuts % (Manual) Lymphocytes % (Manual) 6.0 L Monocytes % (Manual) 9.0 H Nucleated RBC % Seg Neutrophils # Man Lymphocytes # (Manual) 0.9 L Monocytes # (Manual) 1.4 H PT INR ABG pH 7.121 L* ABG pO2 481.5 H ABG HCO3 14.8 L ABG O2 Saturation 99.6 H ABG Base Excess -13.7 L ABG Hemoglobin 8.4 L Sodium Potassium 7.1 H* D Chloride Carbon Dioxide 11 L BUN 47 H Creatinine 2.8 H Glucose 8 L* POC Glucose Lactic Acid Calcium 6.7 L Phosphorus 6.20 H Total Bilirubin Direct Bilirubin AST 851 H ALT 350 H Alkaline Phosphatase Total Creatine Kinase Total Protein Albumin 2.5 L Crossmatch 10/22/19 10/22/19 10/22/19 05:37 06:09 06:22 WBC RBC Hgb Hct MCV MCH RDW Seg Neuts % (Manual) Lymphocytes % (Manual) Monocytes % (Manual) Nucleated RBC % Seg Neutrophils # Man Lymphocytes # (Manual) Monocytes # (Manual) PT INR ABG pH 7.096 L* ABG pO2 116.6 H ABG HCO3 10.3 L ABG O2 Saturation ABG Base Excess -18.0 L ABG Hemoglobin 8.1 L Sodium Potassium Chloride Carbon Dioxide BUN Creatinine Glucose POC Glucose < 40 L 63 L Lactic Acid Calcium Phosphorus Total Bilirubin Direct Bilirubin AST ALT Alkaline Phosphatase Total Creatine Kinase Total Protein Albumin Crossmatch 10/22/19 10/22/19 10/22/19 08:11 09:00 09:00 WBC RBC Hgb Hct MCV MCH RDW Seg Neuts % (Manual) Lymphocytes % (Manual) Monocytes % (Manual) Nucleated RBC % Seg Neutrophils # Man Lymphocytes # (Manual) Monocytes # (Manual) PT INR ABG pH ABG pO2 ABG HCO3 ABG O2 Saturation ABG Base Excess ABG Hemoglobin Sodium Potassium 6.0 H Chloride Carbon Dioxide 12 L BUN 43 H Creatinine 2.8 H Glucose 148 H POC Glucose 155 H Lactic Acid 10.10 H* Calcium 7.1 L Phosphorus Total Bilirubin Direct Bilirubin AST 2445 H ALT 898 H Alkaline Phosphatase Total Creatine Kinase Total Protein 5.3 L Albumin 2.5 L Crossmatch 10/22/19 10/22/19 10/22/19 12:00 12:17 12:30 WBC RBC Hgb Hct MCV MCH RDW Seg Neuts % (Manual) Lymphocytes % (Manual) Monocytes % (Manual) Nucleated RBC % Seg Neutrophils # Man Lymphocytes # (Manual) Monocytes # (Manual) PT INR ABG pH ABG pO2 ABG HCO3 ABG O2 Saturation ABG Base Excess ABG Hemoglobin Sodium 136 L Potassium 6.3 H* Chloride Carbon Dioxide 11 L BUN 42 H Creatinine 2.8 H Glucose 116 H POC Glucose 115 H Lactic Acid Calcium 7.6 L Phosphorus Total Bilirubin Direct Bilirubin AST ALT Alkaline Phosphatase Total Creatine Kinase Total Protein Albumin Crossmatch See Detail 10/22/19 10/22/19 10/22/19 15:00 15:00 17:12 WBC RBC Hgb Hct MCV MCH RDW Seg Neuts % (Manual) Lymphocytes % (Manual) Monocytes % (Manual) Nucleated RBC % Seg Neutrophils # Man Lymphocytes # (Manual) Monocytes # (Manual) PT INR ABG pH ABG pO2 ABG HCO3 ABG O2 Saturation ABG Base Excess ABG Hemoglobin Sodium Potassium 5.9 H Chloride Carbon Dioxide 13 L BUN 42 H Creatinine 2.7 H Glucose 303 H POC Glucose 224 H Lactic Acid 12.80 H* Calcium 7.5 L Phosphorus Total Bilirubin Direct Bilirubin AST ALT Alkaline Phosphatase Total Creatine Kinase Total Protein Albumin Crossmatch 10/22/19 10/22/19 10/22/19 17:33 17:33 21:40 WBC 18.2 H RBC 2.21 L Hgb 7.6 L Hct 24.8 L MCV 112 H MCH 34 H RDW 17.5 H Seg Neuts % (Manual) 72.0 H Lymphocytes % (Manual) 4.0 L Monocytes % (Manual) 14.0 H Nucleated RBC % Seg Neutrophils # Man 13.1 H Lymphocytes # (Manual) 0.7 L Monocytes # (Manual) 2.5 H PT INR ABG pH ABG pO2 ABG HCO3 ABG O2 Saturation ABG Base Excess ABG Hemoglobin Sodium Potassium 6.0 H Chloride Carbon Dioxide 13 L BUN 41 H Creatinine 2.9 H Glucose 239 H POC Glucose 284 H Lactic Acid Calcium 7.3 L Phosphorus Total Bilirubin Direct Bilirubin AST ALT Alkaline Phosphatase Total Creatine Kinase Total Protein Albumin Crossmatch 10/23/19 10/23/19 10/23/19 01:55 04:00 04:00 WBC 17.4 H RBC 3.29 L Hgb Hct MCV 103 H MCH RDW 23.6 H Seg Neuts % (Manual) Lymphocytes % (Manual) 1.0 L Monocytes % (Manual) Nucleated RBC % 1.0 H Seg Neutrophils # Man 9.6 H Lymphocytes # (Manual) 0.2 L Monocytes # (Manual) 1.0 H PT INR ABG pH 7.028 L* ABG pO2 155.2 H ABG HCO3 10.7 L ABG O2 Saturation ABG Base Excess -19.0 L ABG Hemoglobin 8.7 L Sodium 134 L Potassium 6.3 H* Chloride 95.8 L Carbon Dioxide 8 L* BUN 38 H Creatinine 2.6 H Glucose 288 H POC Glucose Lactic Acid Calcium 7.2 L Phosphorus Total Bilirubin 3.10 H Direct Bilirubin AST 17905 H ALT 2979 H Alkaline Phosphatase 425 H Total Creatine Kinase Total Protein Albumin 3.2 L Crossmatch 10/23/19 10/23/19 10/23/19 05:55 08:15 11:02 WBC RBC Hgb Hct MCV MCH RDW Seg Neuts % (Manual) Lymphocytes % (Manual) Monocytes % (Manual) Nucleated RBC % Seg Neutrophils # Man Lymphocytes # (Manual) Monocytes # (Manual) PT INR ABG pH ABG pO2 ABG HCO3 ABG O2 Saturation ABG Base Excess ABG Hemoglobin Sodium Potassium Chloride Carbon Dioxide BUN Creatinine Glucose POC Glucose 241 H 310 H 294 H Lactic Acid Calcium Phosphorus Total Bilirubin Direct Bilirubin AST ALT Alkaline Phosphatase Total Creatine Kinase Total Protein Albumin Crossmatch 10/23/19 11:58 WBC RBC Hgb Hct MCV MCH RDW Seg Neuts % (Manual) Lymphocytes % (Manual) Monocytes % (Manual) Nucleated RBC % Seg Neutrophils # Man Lymphocytes # (Manual) Monocytes # (Manual) PT INR ABG pH ABG pO2 ABG HCO3 ABG O2 Saturation ABG Base Excess ABG Hemoglobin Sodium Potassium Chloride Carbon Dioxide BUN Creatinine Glucose POC Glucose 332 H Lactic Acid Calcium Phosphorus Total Bilirubin Direct Bilirubin AST ALT Alkaline Phosphatase Total Creatine Kinase Total Protein Albumin Crossmatch
--- NOTE | 2019-10-23 14:40 | Progress Note ---
Assessment and Plan /Acute respiratory failure -Patient remained on ventilator following surgery -Continue to monitor at ICU, critical care consulted -Nebs and respiratory therapy as scheduled / Perforated peptic ulcer Status post emergent exploratory laparotomy and repair of perforated peptic ulcer by general surgeon POD 2, continue postop care by general surgery /Severe sepsis associated with bowel perforation Sec to GI perforation--PUD with 1 cm large perforation IV Fluids, continue pressors as necessary IV abx Zosyn and Flagyl /Severe septic shock - on 4 pressors, wean off pressors as tolerated / KORY (acute kidney injury) Likely due to ATN from severe hypotension IV fluids for now, follow electrolytes, renally dose medications Nephrology following, vascular consulted for Vas-Cath placement /Severe metabolic acidosis, from renal failure - cont bicarbonate drip, follow bmp / Hyperkalemia Treat agressively with medications: Bicarbonate, insulin with D50, calcium gluconate Nephrology consulted, continue to monitor BMP / T2DM (type 2 diabetes mellitus) SSI coverage for now /History of asthma, nebs as needed and scheduled / DVT prophylaxis On SCD's -Full CODE STATUS -Very poor prognosis, discussed with family at bedside with six sigma project manager The high probability of a clinically significant, sudden or life threatening deterioration of the [respiratory, CVS, GI, renal] system(s) required my full and direct attention, intervention and personal management. The aggregate critical care time was [32] minutes. This time is in addition to time spent performing reported procedures but includes the following: [x] Data Review and interpretation [x] Patient assessment and monitoring of vital signs [x] Documentation [x] Medication orders and management Physical exam: General appearance: well-developed, appears stated age, obese, intubated, other (brewer catheter, LOUIE drain to R abdomen, OGT) EENT: PERRL, mucous membranes dry Neck: Present: neck supple, trachea midline Respiratory: Clear to Ascultation Heart: regular, tachycardia, S1S2, no murmurs Gastrointestinal: Present: normal, normoactive bowel sounds, distended (mildly), obese Integumentary: no rash, warm and dry Neurologic: other (unable to assess, intubated on vent) Musculoskeletal: Present: other (L lower extremity wrapped in dressing and LYNDA bandage) Psychiatric: other (unable to assess) Subjective Date of service: 10/23/19 Interval history: Patient seen and examined Patient remains on ventilator support and on 4 pressors Discussed with RN at the bedside, also spoke with family Family was updated at bedside with broke beater Objective - Constitutional Vitals: Vital Signs - 12hr 10/23/19 10/23/19 10/23/19 02:46 03:00 03:16 Temperature Pulse Rate 103 H 94 H 97 H Pulse Rate [ From Monitor] Respiratory 9 L 8 L 16 Rate Blood Pressure O2 Sat by Pulse 60 L Oximetry 10/23/19 10/23/19 10/23/19 03:30 03:46 04:00 Temperature Pulse Rate 104 H 106 H 102 H Pulse Rate [ From Monitor] Respiratory 15 13 15 Rate Blood Pressure 98/77 98/77 O2 Sat by Pulse 81 L 91 Oximetry 10/23/19 10/23/19 10/23/19 04:16 04:30 04:46 Temperature Pulse Rate 99 H 98 H 105 H Pulse Rate [ From Monitor] Respiratory 16 22 12 Rate Blood Pressure 98/77 98/77 103/83 O2 Sat by Pulse 100 68 L Oximetry 10/23/19 10/23/19 10/23/19 05:00 05:16 05:30 Temperature 97.7 F Pulse Rate 108 H 106 H 108 H Pulse Rate [ From Monitor] Respiratory 18 14 17 Rate Blood Pressure 103/83 115/94 115/94 O2 Sat by Pulse 87 100 Oximetry 10/23/19 10/23/19 10/23/19 05:46 06:00 06:16 Temperature Pulse Rate 115 H 108 H 114 H Pulse Rate [ From Monitor] Respiratory 21 16 9 L Rate Blood Pressure 158/46 158/46 113/22 O2 Sat by Pulse 100 89 Oximetry 10/23/19 10/23/19 10/23/19 06:30 06:46 07:00 Temperature Pulse Rate 113 H 120 H 115 H Pulse Rate [ From Monitor] Respiratory 12 14 13 Rate Blood Pressure 113/22 113/22 83/61 O2 Sat by Pulse 88 Oximetry 10/23/19 10/23/19 10/23/19 07:16 07:30 07:46 Temperature Pulse Rate 113 H 120 H 121 H Pulse Rate [ From Monitor] Respiratory 12 14 14 Rate Blood Pressure 97/84 97/84 97/84 O2 Sat by Pulse 100 100 99 Oximetry 10/23/19 10/23/19 10/23/19 08:00 08:16 08:30 Temperature Pulse Rate 121 H 114 H 119 H Pulse Rate [ From Monitor] Respiratory 15 14 14 Rate Blood Pressure 97/84 97/84 97/84 O2 Sat by Pulse 92 99 92 Oximetry 10/23/19 10/23/19 10/23/19 08:45 08:46 09:00 Temperature Pulse Rate 117 H 117 H 117 H Pulse Rate [ From Monitor] Respiratory 14 16 Rate Blood Pressure 97/84 97/84 O2 Sat by Pulse 92 65 L Oximetry 10/23/19 10/23/19 10/23/19 09:16 09:30 09:46 Temperature Pulse Rate 115 H 112 H 111 H Pulse Rate [ From Monitor] Respiratory 13 14 15 Rate Blood Pressure 97/84 114/87 115/76 O2 Sat by Pulse 96 Oximetry 10/23/19 10/23/19 10/23/19 10:00 10:16 10:30 Temperature Pulse Rate 112 H 111 H 113 H Pulse Rate [ From Monitor] Respiratory 14 14 15 Rate Blood Pressure 115/76 115/76 115/76 O2 Sat by Pulse 41 L Oximetry 10/23/19 10/23/19 10/23/19 10:46 11:00 11:16 Temperature Pulse Rate 114 H 110 H 111 H Pulse Rate [ From Monitor] Respiratory 12 15 17 Rate Blood Pressure 52/33 52/33 106/24 O2 Sat by Pulse 94 Oximetry 10/23/19 10/23/19 10/23/19 11:22 11:30 11:46 Temperature Pulse Rate 111 H 111 H 113 H Pulse Rate [ From Monitor] Respiratory 19 19 Rate Blood Pressure 106/24 83/54 O2 Sat by Pulse 100 84 Oximetry 10/23/19 10/23/19 10/23/19 12:00 12:16 12:30 Temperature Pulse Rate 110 H 110 H 111 H Pulse Rate [ 111 H From Monitor] Respiratory 14 13 16 Rate Blood Pressure 117/98 104/76 83/54 O2 Sat by Pulse 17 L 100 Oximetry 10/23/19 10/23/19 10/23/19 12:45 13:00 13:16 Temperature Pulse Rate 112 H 112 H 105 H Pulse Rate [ From Monitor] Respiratory 15 17 14 Rate Blood Pressure 102/48 118/67 109/55 O2 Sat by Pulse 88 91 Oximetry - Labs CBC & Chem 7: 10/23/19 04:00 10/23/19 15:30 Labs: Abnormal lab results 10/22/19 10/22/19 10/22/19 Range/Units 12:30 15:00 15:00 WBC (4.5-11.0) K/mm3 RBC (3.65-5.03) M/mm3 Hgb (10.1-14.3) gm/dl Hct (30.3-42.9) % MCV (79-97) fl MCH (28-32) pg RDW (13.2-15.2) % Seg Neuts % (Manual) (40.0-70.0) % Lymphocytes % (Manual) (13.4-35.0) % Monocytes % (Manual) (0.0-7.3) % Nucleated RBC % (0.0-0.9) % Seg Neutrophils # Man (1.8-7.7) K/mm3 Lymphocytes # (Manual) (1.2-5.4) K/mm3 Monocytes # (Manual) (0.0-0.8) K/mm3 ABG pH (7.350-7.450) pH Units ABG pO2 (80.0-90.0) mm Hg ABG HCO3 (20.0-26.0) mmol/L ABG Base Excess (-2.0-3.0) mmol/L ABG Hemoglobin (12.0-16.0) gm/dl Sodium (137-145) mmol/L Potassium 5.9 H (3.6-5.0) mmol/L Chloride (98-107) mmol/L Carbon Dioxide 13 L (22-30) mmol/L BUN 42 H (7-17) mg/dL Creatinine 2.7 H (0.7-1.2) mg/dL Glucose 303 H (65-100) mg/dL POC Glucose (70-105) Lactic Acid 12.80 H* (0.7-2.0) mmol/L Calcium 7.5 L (8.4-10.2) mg/dL Total Bilirubin (0.1-1.2) mg/dL AST (5-40) units/L ALT (7-56) units/L Alkaline Phosphatase (35-129) units/L Albumin (3.9-5) g/dL Crossmatch See Detail 10/22/19 10/22/19 10/22/19 Range/Units 17:12 17:33 17:33 WBC 18.2 H (4.5-11.0) K/mm3 RBC 2.21 L (3.65-5.03) M/mm3 Hgb 7.6 L (10.1-14.3) gm/dl Hct 24.8 L (30.3-42.9) % MCV 112 H (79-97) fl MCH 34 H (28-32) pg RDW 17.5 H (13.2-15.2) % Seg Neuts % (Manual) 72.0 H (40.0-70.0) % Lymphocytes % (Manual) 4.0 L (13.4-35.0) % Monocytes % (Manual) 14.0 H (0.0-7.3) % Nucleated RBC % (0.0-0.9) % Seg Neutrophils # Man 13.1 H (1.8-7.7) K/mm3 Lymphocytes # (Manual) 0.7 L (1.2-5.4) K/mm3 Monocytes # (Manual) 2.5 H (0.0-0.8) K/mm3 ABG pH (7.350-7.450) pH Units ABG pO2 (80.0-90.0) mm Hg ABG HCO3 (20.0-26.0) mmol/L ABG Base Excess (-2.0-3.0) mmol/L ABG Hemoglobin (12.0-16.0) gm/dl Sodium (137-145) mmol/L Potassium 6.0 H (3.6-5.0) mmol/L Chloride (98-107) mmol/L Carbon Dioxide 13 L (22-30) mmol/L BUN 41 H (7-17) mg/dL Creatinine 2.9 H (0.7-1.2) mg/dL Glucose 239 H (65-100) mg/dL POC Glucose 224 H (70-105) Lactic Acid (0.7-2.0) mmol/L Calcium 7.3 L (8.4-10.2) mg/dL Total Bilirubin (0.1-1.2) mg/dL AST (5-40) units/L ALT (7-56) units/L Alkaline Phosphatase (35-129) units/L Albumin (3.9-5) g/dL Crossmatch 10/22/19 10/23/19 10/23/19 Range/Units 21:40 01:55 04:00 WBC 17.4 H (4.5-11.0) K/mm3 RBC 3.29 L (3.65-5.03) M/mm3 Hgb (10.1-14.3) gm/dl Hct (30.3-42.9) % MCV 103 H (79-97) fl MCH (28-32) pg RDW 23.6 H (13.2-15.2) % Seg Neuts % (Manual) (40.0-70.0) % Lymphocytes % (Manual) 1.0 L (13.4-35.0) % Monocytes % (Manual) (0.0-7.3) % Nucleated RBC % 1.0 H (0.0-0.9) % Seg Neutrophils # Man 9.6 H (1.8-7.7) K/mm3 Lymphocytes # (Manual) 0.2 L (1.2-5.4) K/mm3 Monocytes # (Manual) 1.0 H (0.0-0.8) K/mm3 ABG pH 7.028 L* (7.350-7.450) pH Units ABG pO2 155.2 H (80.0-90.0) mm Hg ABG HCO3 10.7 L (20.0-26.0) mmol/L ABG Base Excess -19.0 L (-2.0-3.0) mmol/L ABG Hemoglobin 8.7 L (12.0-16.0) gm/dl Sodium (137-145) mmol/L Potassium (3.6-5.0) mmol/L Chloride (98-107) mmol/L Carbon Dioxide (22-30) mmol/L BUN (7-17) mg/dL Creatinine (0.7-1.2) mg/dL Glucose (65-100) mg/dL POC Glucose 284 H (70-105) Lactic Acid (0.7-2.0) mmol/L Calcium (8.4-10.2) mg/dL Total Bilirubin (0.1-1.2) mg/dL AST (5-40) units/L ALT (7-56) units/L Alkaline Phosphatase (35-129) units/L Albumin (3.9-5) g/dL Crossmatch 10/23/19 10/23/19 10/23/19 Range/Units 04:00 05:55 08:15 WBC (4.5-11.0) K/mm3 RBC (3.65-5.03) M/mm3 Hgb (10.1-14.3) gm/dl Hct (30.3-42.9) % MCV (79-97) fl MCH (28-32) pg RDW (13.2-15.2) % Seg Neuts % (Manual) (40.0-70.0) % Lymphocytes % (Manual) (13.4-35.0) % Monocytes % (Manual) (0.0-7.3) % Nucleated RBC % (0.0-0.9) % Seg Neutrophils # Man (1.8-7.7) K/mm3 Lymphocytes # (Manual) (1.2-5.4) K/mm3 Monocytes # (Manual) (0.0-0.8) K/mm3 ABG pH (7.350-7.450) pH Units ABG pO2 (80.0-90.0) mm Hg ABG HCO3 (20.0-26.0) mmol/L ABG Base Excess (-2.0-3.0) mmol/L ABG Hemoglobin (12.0-16.0) gm/dl Sodium 134 L (137-145) mmol/L Potassium 6.3 H* (3.6-5.0) mmol/L Chloride 95.8 L (98-107) mmol/L Carbon Dioxide 8 L* (22-30) mmol/L BUN 38 H (7-17) mg/dL Creatinine 2.6 H (0.7-1.2) mg/dL Glucose 288 H (65-100) mg/dL POC Glucose 241 H 310 H (70-105) Lactic Acid (0.7-2.0) mmol/L Calcium 7.2 L (8.4-10.2) mg/dL Total Bilirubin 3.10 H (0.1-1.2) mg/dL AST 08366 H (5-40) units/L ALT 2979 H (7-56) units/L Alkaline Phosphatase 425 H (35-129) units/L Albumin 3.2 L (3.9-5) g/dL Crossmatch 10/23/19 10/23/19 Range/Units 11:02 11:58 WBC (4.5-11.0) K/mm3 RBC (3.65-5.03) M/mm3 Hgb (10.1-14.3) gm/dl Hct (30.3-42.9) % MCV (79-97) fl MCH (28-32) pg RDW (13.2-15.2) % Seg Neuts % (Manual) (40.0-70.0) % Lymphocytes % (Manual) (13.4-35.0) % Monocytes % (Manual) (0.0-7.3) % Nucleated RBC % (0.0-0.9) % Seg Neutrophils # Man (1.8-7.7) K/mm3 Lymphocytes # (Manual) (1.2-5.4) K/mm3 Monocytes # (Manual) (0.0-0.8) K/mm3 ABG pH (7.350-7.450) pH Units ABG pO2 (80.0-90.0) mm Hg ABG HCO3 (20.0-26.0) mmol/L ABG Base Excess (-2.0-3.0) mmol/L ABG Hemoglobin (12.0-16.0) gm/dl Sodium (137-145) mmol/L Potassium (3.6-5.0) mmol/L Chloride (98-107) mmol/L Carbon Dioxide (22-30) mmol/L BUN (7-17) mg/dL Creatinine (0.7-1.2) mg/dL Glucose (65-100) mg/dL POC Glucose 294 H 332 H (70-105) Lactic Acid (0.7-2.0) mmol/L Calcium (8.4-10.2) mg/dL Total Bilirubin (0.1-1.2) mg/dL AST (5-40) units/L ALT (7-56) units/L Alkaline Phosphatase (35-129) units/L Albumin (3.9-5) g/dL Crossmatch
[2019-10-23 16:08] LABS: Calcium 7.7 mg/dL (8.4-10.2)
[2019-10-23] MEDS: EPINEPHrine 1 MG/1 ML 16 MG in SODIUM CHLORIDE 0.9% 250ML 234 ML IV SCH (20:50)
[2019-10-23] MEDS ORDERED: INSULIN REGULAR, HUMAN 100 UNITS/1 ML SUB-Q ONE (21:24)
[2019-10-24] MEDS: SODIUM BICARBONATE 75 MEQ in DEXTROSE 5% IN WATER 1,000 ML IV SCH ×4 (00:46→18:39)
[2019-10-24] MEDS: NORepinephrine 8 MG in SODIUM CHLORIDE 0.9% 250ML 242 ML IV SCH ×3 (00:46→23:14)
[2019-10-24] MEDS: INSULIN LISPRO 100 UNIT/ML SUB-Q SCH ×4 (00:51→18:40)
[2019-10-24] MEDS ORDERED: SODIUM CHLORIDE 0.9% P/F 10 ML VIAL ONE (01:24)
[2019-10-24] MEDS ORDERED: HEPARIN 10,000 UNIT/1 ML VIAL ONE (01:24)
[2019-10-24] MEDS ORDERED: LIDOCAINE (1%) 10 MG/1 ML VIAL 20 ML MDV ONE (01:24)
[2019-10-24] MEDS: MEROPENEM/NS 1 GRAM/100 ML 1 GRAM/100 ML BAG IV SCH ×2 (02:38→13:34)
[2019-10-24] MEDS: VASOPRESSIN 20 UNIT in SODIUM CHLORIDE 0.9% 100 ML IV SCH ×2 (03:09→12:23)
[2019-10-24] MEDS: PHENYLEPHRINE 100 MG in SODIUM CHLORIDE 0.9% 90 ML IV SCH ×2 (03:53→12:00)
[2019-10-24 05:17] LABS: Hematocrit 27.4 % (30.3-42.9); Hemoglobin 8.8 gm/dl (10.1-14.3); Mean Corpuscular HGB Conc 32 % (30-34); Mean Corpuscular Volume 98 fl (79-97); Platelet Count 100 K/mm3 (140-440); Red Blood Count 2.79 M/mm3 (3.65-5.03)
[2019-10-24 05:22] LABS: Red Cell Distribution Width 23.7 % (13.2-15.2)
[2019-10-24] MEDS: ALBUMIN HUMAN 25% (25 GM/100 ML) INJ IV SCH ×3 (05:35→22:20)
[2019-10-24] MEDS: HYDROCORTISONE SOD SUCC 100 MG/2 ML VIAL IV SCH ×3 (05:36→22:20)
[2019-10-24 05:45] LABS: Albumin 3.3 g/dL (3.9-5); Calcium 7.1 mg/dL (8.4-10.2)
[2019-10-24 06:11] LABS: Bilirubin,Urine NEG (Negative); Blood,Urine LG (Negative); Color,Urine Amber (Yellow); Urobilinogen,Urine < 2.0 mg/dL (<2.0)
[2019-10-24 06:12] LABS: Protein,Urine >500 mg/dL (Negative); RBC,Urine > 182.0 /HPF (0.0-6.0); WBC,Urine > 182.0 /HPF (0.0-6.0)
[2019-10-24 06:30] LABS: Band Neutrophils # (Manual) 0.5 K/mm3; Basophils % (Manual) 0 % (0.0-1.8); Eosinophils % (Manual) 0 % (0.0-4.3); Total Cells Counted 100
[2019-10-24 06:31] LABS: Anisocytosis 2+; Burr Cells 1+; Macrocytosis 1+; Ovalocytes Few
[2019-10-24 06:32] LABS: Platelet Estimate Consistent w Auto
--- NOTE | 2019-10-24 08:46 | Progress Note ---
Assessment and Plan 1. Acute kidney injury: Likely vasomotor KORY in the setting of septic shock. Unclear what patient baseline creatinine is. Creatinine was 3.0 on admission, now 2.9 from [address] abd/pelvis revealed low lying right kidney with multiple stones of varying sizes and a large staghorn calculus, negative for hydro. Continue IV fluids. Poor UOP, has brewer catheter. Monitor renal function. Avoid nephrotoxic agents. Meds dosage based on GFR. Given improvement in electrolytes on recent lab, currently no definitive indication for conventional HD at this time. Will continue to monitor pt condition and recent labs. 2. FEN: Hyperkalemia, most recent value 5.0, improving with cocktails, monitor. Metabolic acidosis, s/p sodium bicarb, monitor. Hypocalcemia, replete ap, monitor. Monitor lytes and volume status. 3. Perforated viscus: S/p emergency exploratory lap w/ repair. LOUIE drain to right side with serosanginous drainage. Large amount of contamination in abdomen. Large amount of generalized swelling. Surgery following. 4. Septic shock: 2/2 peptic ulcer perforation. On IV abx. On IV fluids. S/p albumin. Hypotension is showing improvement and pressors being weaned today. Concern for shock liver 2/2 hypotension. 5. Acute respiratory failure: Currently intubated on vent. No sedation currently. Pulmonology following. 6. Type 2 diabetes: Monitor blood glucose. 7. H/o asthma: 8. Recent surgery to LLE: Subjective Date of service: 10/24/19 Interval history: Patient was seen and examined at the bedside. She remains in very critical condition. She has had some small improvements overnight as evidenced by BP and labs. Plan of care discussed with primary RN. Objective - Exam Narrative Exam: General appearance: well-developed, appears stated age, obese, intubated, other (brewer catheter, LOUIE drain to R abdomen, OGT), significant increase in generalize d swelling EENT: PERRL, mucous membranes dry Neck: Present: neck supple, trachea midline Respiratory: expiratory wheezes noted upper lung butterfield bilaterally, other lung butterfield clear to auscultation Heart: regular, tachycardia, S1S2, no murmurs Gastrointestinal: Present: normal, normoactive bowel sounds, distended (mildly), obese Integumentary: no rash, warm and dry, vascath present R chest Neurologic: other (unable to assess, intubated on vent) Musculoskeletal: Present: other (L lower extremity wrapped in dressing and LYNDA bandage) Psychiatric: other (unable to assess) - Vital Signs Vital signs: Vital Signs - 12hr 10/23/19 10/23/19 10/23/19 21:00 21:15 21:30 Temperature Pulse Rate 111 H 112 H 110 H Pulse Rate [ From Monitor] Respiratory 23 23 21 Rate Blood Pressure 127/20 120/33 124/38 O2 Sat by Pulse 100 99 85 Oximetry 10/23/19 10/23/19 10/23/19 21:46 22:00 22:16 Temperature Pulse Rate 111 H 111 H 112 H Pulse Rate [ From Monitor] Respiratory 18 22 20 Rate Blood Pressure 145/75 137/36 135/30 O2 Sat by Pulse 100 Oximetry 10/23/19 10/23/19 10/23/19 22:30 22:46 23:00 Temperature Pulse Rate 111 H 113 H 111 H Pulse Rate [ From Monitor] Respiratory 20 25 H 21 Rate Blood Pressure 159/45 139/21 135/28 O2 Sat by Pulse 100 99 100 Oximetry 10/23/19 10/23/19 10/23/19 23:15 23:18 23:30 Temperature 99.9 F H Pulse Rate 110 H 112 H Pulse Rate [ From Monitor] Respiratory 22 26 H Rate Blood Pressure 152/39 146/54 O2 Sat by Pulse 100 86 Oximetry 10/23/19 10/24/19 10/24/19 23:45 00:00 00:15 Temperature Pulse Rate 109 H 113 H 105 H Pulse Rate [ 112 H From Monitor] Respiratory 25 H 29 H 15 Rate Blood Pressure 148/51 149/46 167/36 O2 Sat by Pulse 99 100 100 Oximetry 10/24/19 10/24/19 10/24/19 00:30 00:46 01:00 Temperature Pulse Rate 102 H 103 H 105 H Pulse Rate [ From Monitor] Respiratory 22 21 19 Rate Blood Pressure 167/36 124/16 216/54 O2 Sat by Pulse 95 100 Oximetry 10/24/19 10/24/19 10/24/19 01:15 01:30 01:46 Temperature Pulse Rate 112 H 113 H 111 H Pulse Rate [ From Monitor] Respiratory 21 22 23 Rate Blood Pressure 227/152 227/152 253/31 O2 Sat by Pulse 42 L 99 100 Oximetry 10/24/19 10/24/19 10/24/19 02:00 02:15 02:30 Temperature Pulse Rate 112 H 108 H 110 H Pulse Rate [ From Monitor] Respiratory 27 H 18 24 Rate Blood Pressure 253/31 183/67 183/67 O2 Sat by Pulse 100 100 100 Oximetry 10/24/19 10/24/19 10/24/19 02:46 03:00 03:15 Temperature Pulse Rate 112 H 112 H 111 H Pulse Rate [ From Monitor] Respiratory 17 22 20 Rate Blood Pressure 151/58 142/59 133/77 O2 Sat by Pulse 99 99 83 L Oximetry 10/24/19 10/24/19 10/24/19 03:30 03:38 03:45 Temperature 98.8 F Pulse Rate 111 H 110 H Pulse Rate [ From Monitor] Respiratory 23 21 Rate Blood Pressure 133/77 138/69 O2 Sat by Pulse 100 Oximetry 10/24/19 10/24/19 10/24/19 04:00 04:16 04:30 Temperature Pulse Rate 107 H 112 H 109 H Pulse Rate [ 107 H From Monitor] Respiratory 23 23 14 Rate Blood Pressure 130/66 130/66 127/70 O2 Sat by Pulse 100 100 100 Oximetry 10/24/19 10/24/19 10/24/19 04:46 05:00 05:15 Temperature Pulse Rate 111 H 108 H 111 H Pulse Rate [ From Monitor] Respiratory 18 24 25 H Rate Blood Pressure 147/42 122/32 134/41 O2 Sat by Pulse 100 100 100 Oximetry 10/24/19 10/24/19 10/24/19 05:30 05:45 06:00 Temperature Pulse Rate 107 H 110 H 109 H Pulse Rate [ From Monitor] Respiratory 21 17 17 Rate Blood Pressure 148/49 146/52 146/52 O2 Sat by Pulse 100 100 100 Oximetry 10/24/19 10/24/19 10/24/19 06:16 06:30 06:45 Temperature Pulse Rate 107 H 111 H 110 H Pulse Rate [ From Monitor] Respiratory 21 13 15 Rate Blood Pressure 131/47 156/57 134/48 O2 Sat by Pulse 100 100 100 Oximetry 10/24/19 10/24/19 10/24/19 07:00 07:15 07:30 Temperature Pulse Rate 107 H 109 H 110 H Pulse Rate [ From Monitor] Respiratory 16 13 16 Rate Blood Pressure 153/33 156/32 140/35 O2 Sat by Pulse 100 100 100 Oximetry 10/24/19 10/24/19 10/24/19 07:46 08:00 08:10 Temperature 98.6 F Pulse Rate 111 H 108 H 108 H Pulse Rate [ From Monitor] Respiratory 21 16 Rate Blood Pressure 129/33 154/62 154/62 O2 Sat by Pulse 100 100 100 Oximetry - Lab 10/24/19 04:50 10/24/19 04:50 Most recent lab results ABG pH 7.028 pH Units (7.350-7.450) L* 10/23/19 01:55 ABG pCO2 41.4 mm Hg 10/23/19 01:55 ABG pO2 155.2 mm Hg (80.0-90.0) H 10/23/19 01:55 ABG HCO3 10.7 mmol/L (20.0-26.0) L 10/23/19 01:55 ABG O2 Saturation 98.4 % (95.0-99.0) 10/23/19 01:55 Calcium 7.1 mg/dL (8.4-10.2) L 10/24/19 04:50 Phosphorus 6.20 mg/dL (2.5-4.5) H 10/22/19 05:10 Magnesium 2.20 mg/dL (1.7-2.3) 10/21/19 11:33 Urine Creatinine 15.0 mg/dL (0.1-20.0) 10/24/19 05:40 Urine Sodium 124 mmol/L 10/24/19 05:40 Medications & Allergies - Medications Allergies/Adverse Reactions: Allergies No Known Allergies Allergy (Unverified 10/17/19 19:57) Home Medications: Home Medications Medication Instructions Recorded Confirmed Last Taken Type HYDROcodone/APAP 5-325 [Mexia 1 each PO Q6HR PRN #12 tablet 10/17/19 Unknown Rx 5/325] Ibuprofen [Motrin] 800 mg PO Q8HR #30 tablet 10/17/19 Unknown Rx Active Medications: Generic Name Dose Route Start Last Admin Trade Name Freq PRN Reason Stop Dose Admin Albumin Human 25 gm 10/22/19 14:00 10/24/19 05:35 Alburx 25% (Albumin) IV 25 gm Q8HR MICHI Administration Dextrose 50 gm 05/21/20 08:25 D50w (25gm) Vial IV Q30MIN PRN Hypoglycemia Protocol Fentanyl 25 mcg 10/22/19 09:18 10/23/19 03:51 Sublimaze IV 25 mcg Q2H PRN Administration Pain , Severe (7-10) Heparin Sodium (Porcine) 5,000 unit 10/24/19 10:00 Heparin SUB-Q Q12HR MICHI Hydrocortisone Sodium Succinate 100 mg 10/22/19 22:00 10/24/19 05:36 Solu-Cortef IV 100 mg Q8H MICHI Administration Sodium Chloride 1,000 mls @ 125 mls/hr 10/21/19 15:45 10/22/19 03:22 Nacl 0.9% 1000 Ml IV 125 mls/hr DIRECT MICHI Administration Phenylephrine HCl 100 mg/ 100 mls @ 3 mls/hr 10/21/19 17:00 10/24/19 07:30 Sodium Chloride IV 200 mcg/min TITR MICHI 12 mls/hr Titration Protocol 50 MCG/MIN Vasopressin 20 unit/ Sodium 101 mls @ 9.09 mls/hr 10/22/19 07:00 10/24/19 03:09 Chloride IV 0.03 units/min TITR MICHI 9.09 mls/hr Administration Protocol 0.03 UNITS/MIN Norepinephrine 8 mg/ Sodium 250 mls @ 3.75 mls/hr 10/22/19 12:00 10/24/19 07:27 Chloride IV Infused TITR MICHI Titration Protocol 2 MCG/MIN MEROPENEM/NS 1 GRAM/100 ML 1 gram in 100 mls @ 100 mls/hr 10/22/19 14:00 10/24/19 02:38 Merrem/Ns 1 Gram/100 Ml IV 100 mls/hr Q12H MICHI Administration Epinephrine 16 mg/ Sodium 250 mls @ 1.875 mls/hr 10/22/19 15:00 10/24/19 07:28 Chloride IV 4 mcg/min TITR MICHI 3.75 mls/hr Titration Protocol 2 MCG/MIN Sodium Bicarbonate 75 meq/ 1,075 mls @ 200 mls/hr 10/22/19 20:39 10/24/19 06:19 Dextrose IV 200 mls/hr DIRECT MICHI Administration Insulin Human Lispro 0 unit 10/22/19 18:00 10/24/19 06:10 Humalog SUB-Q 4 unit Q6HR MICHI Administration Protocol Ondansetron HCl 4 mg 10/21/19 14:19 Zofran IV ONCE PRN Nausea And Vomiting Pantoprazole Sodium 40 mg 10/22/19 12:00 10/23/19 09:05 Protonix IV 40 mg QDAY MICHI Administration
[2019-10-24] MEDS ORDERED: CALCIUM GLUCONATE 2,000 MG in SODIUM CHLORIDE 0.9% 100 ML IV ONE (10:00)
[2019-10-24] MEDS: PANTOPRAZOLE 40 MG INJ IV SCH (10:18)
[2019-10-24] MEDS: HEPARIN 5,000 UNIT/1 ML VIAL SUB-Q SCH ×2 (10:18→22:20)
--- NOTE | 2019-10-24 11:07 | Progress Note ---
Assessment and Plan 74 y/o female with perforated viscous and presumed acute renal failure, now intubated with severe sepsis with shock and volume depletion, now in cardiovascular collapse 1. Continue abx. stopped antifungal given liver disease, although numbers improving today 2. Wean Epi off first for MAPs> 65. Maybe if pressor requirement goes down, can get HD, but doesn't necessarily need volume off, just help with acidemia 3. Prognosis is still very guarded to poor. Continue all supportive measures. Patient remains full code. CCT 31 minutes. Subjective Date of service: 10/24/19 Interval history: Patient still with adequate BP. 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 Mental status is unchanged. Objective Vital Signs - 12hr 10/23/19 10/23/19 10/23/19 23:15 23:18 23:30 Temperature 99.9 F H Pulse Rate 110 H 112 H Pulse Rate [ From Monitor] Respiratory 22 26 H Rate Blood Pressure 152/39 146/54 O2 Sat by Pulse 100 86 Oximetry 10/23/19 10/24/19 10/24/19 23:45 00:00 00:15 Temperature Pulse Rate 109 H 113 H 105 H Pulse Rate [ 112 H From Monitor] Respiratory 25 H 29 H 15 Rate Blood Pressure 148/51 149/46 167/36 O2 Sat by Pulse 99 100 100 Oximetry 10/24/19 10/24/19 10/24/19 00:30 00:46 01:00 Temperature Pulse Rate 102 H 103 H 105 H Pulse Rate [ From Monitor] Respiratory 22 21 19 Rate Blood Pressure 167/36 124/16 216/54 O2 Sat by Pulse 95 100 Oximetry 10/24/19 10/24/19 10/24/19 01:15 01:30 01:46 Temperature Pulse Rate 112 H 113 H 111 H Pulse Rate [ From Monitor] Respiratory 21 22 23 Rate Blood Pressure 227/152 227/152 253/31 O2 Sat by Pulse 42 L 99 100 Oximetry 10/24/19 10/24/19 10/24/19 02:00 02:15 02:30 Temperature Pulse Rate 112 H 108 H 110 H Pulse Rate [ From Monitor] Respiratory 27 H 18 24 Rate Blood Pressure 253/31 183/67 183/67 O2 Sat by Pulse 100 100 100 Oximetry 10/24/19 10/24/19 10/24/19 02:46 03:00 03:15 Temperature Pulse Rate 112 H 112 H 111 H Pulse Rate [ From Monitor] Respiratory 17 22 20 Rate Blood Pressure 151/58 142/59 133/77 O2 Sat by Pulse 99 99 83 L Oximetry 10/24/19 10/24/19 10/24/19 03:30 03:38 03:45 Temperature 98.8 F Pulse Rate 111 H 110 H Pulse Rate [ From Monitor] Respiratory 23 21 Rate Blood Pressure 133/77 138/69 O2 Sat by Pulse 100 Oximetry 10/24/19 10/24/19 10/24/19 04:00 04:16 04:30 Temperature Pulse Rate 107 H 112 H 109 H Pulse Rate [ 107 H From Monitor] Respiratory 23 23 14 Rate Blood Pressure 130/66 130/66 127/70 O2 Sat by Pulse 100 100 100 Oximetry 10/24/19 10/24/19 10/24/19 04:46 05:00 05:15 Temperature Pulse Rate 111 H 108 H 111 H Pulse Rate [ From Monitor] Respiratory 18 24 25 H Rate Blood Pressure 147/42 122/32 134/41 O2 Sat by Pulse 100 100 100 Oximetry 10/24/19 10/24/19 10/24/19 05:30 05:45 06:00 Temperature Pulse Rate 107 H 110 H 109 H Pulse Rate [ From Monitor] Respiratory 21 17 17 Rate Blood Pressure 148/49 146/52 146/52 O2 Sat by Pulse 100 100 100 Oximetry 10/24/19 10/24/19 10/24/19 06:16 06:30 06:45 Temperature Pulse Rate 107 H 111 H 110 H Pulse Rate [ From Monitor] Respiratory 21 13 15 Rate Blood Pressure 131/47 156/57 134/48 O2 Sat by Pulse 100 100 100 Oximetry 10/24/19 10/24/19 10/24/19 07:00 07:15 07:30 Temperature Pulse Rate 107 H 109 H 110 H Pulse Rate [ From Monitor] Respiratory 16 13 16 Rate Blood Pressure 153/33 156/32 140/35 O2 Sat by Pulse 100 100 100 Oximetry 10/24/19 10/24/19 10/24/19 07:46 08:00 08:10 Temperature 98.6 F Pulse Rate 111 H 108 H 108 H Pulse Rate [ From Monitor] Respiratory 21 16 Rate Blood Pressure 129/33 154/62 154/62 O2 Sat by Pulse 100 100 100 Oximetry 10/24/19 10/24/19 10/24/19 08:16 08:30 08:45 Temperature Pulse Rate 108 H 111 H 107 H Pulse Rate [ From Monitor] Respiratory 21 17 13 Rate Blood Pressure 139/66 139/66 164/41 O2 Sat by Pulse 98 100 99 Oximetry 10/24/19 10/24/19 10/24/19 09:00 09:15 09:30 Temperature Pulse Rate 106 H 108 H 102 H Pulse Rate [ From Monitor] Respiratory 12 16 15 Rate Blood Pressure 164/41 140/114 166/46 O2 Sat by Pulse 100 100 100 Oximetry Constitutional: other (morbidly morbdily obese) Eyes: non-icteric ENT: other (orally intubated) Neck: supple, other (large in circumference) Effort: mildly labored Ascultation: Bilateral: diminished breath sounds (secondary to body habitus) CBC and BMP: 10/24/19 04:50 10/24/19 04:50 ABG, PT/INR, D-dimer: ABG ABG pH 7.028 pH Units (7.350-7.450) L* 10/23/19 01:55 ABG pCO2 41.4 mm Hg 10/23/19 01:55 ABG pO2 155.2 mm Hg (80.0-90.0) H 10/23/19 01:55 ABG O2 Saturation 98.4 % (95.0-99.0) 10/23/19 01:55 PT/INR, D-dimer PT 16.6 Sec. (12.2-14.9) H 10/21/19 11:33 INR 1.33 (0.87-1.13) H 10/21/19 11:33 Abnormal lab findings: Abnormal Labs 10/21/19 10/21/19 10/21/19 05:10 11:33 11:33 WBC 14.8 H RBC 3.05 L Hgb Hct MCV 103 H MCH 34 H RDW 16.7 H Plt Count Seg Neuts % (Manual) Lymphocytes % (Manual) 3.0 L Monocytes % (Manual) Nucleated RBC % Seg Neutrophils # Man Lymphocytes # (Manual) 0.4 L Monocytes # (Manual) PT 16.6 H INR 1.33 H ABG pH ABG pO2 ABG HCO3 ABG O2 Saturation ABG Base Excess ABG Hemoglobin Sodium Potassium Chloride Carbon Dioxide BUN Creatinine Glucose POC Glucose Lactic Acid 8.50 H* Calcium Phosphorus Total Bilirubin Direct Bilirubin AST ALT Alkaline Phosphatase Total Creatine Kinase Total Protein Albumin Urine WBC (Auto) Crossmatch 10/21/19 10/21/19 10/21/19 11:33 11:33 13:30 WBC RBC Hgb Hct MCV MCH RDW Plt Count Seg Neuts % (Manual) Lymphocytes % (Manual) Monocytes % (Manual) Nucleated RBC % Seg Neutrophils # Man Lymphocytes # (Manual) Monocytes # (Manual) PT INR ABG pH ABG pO2 ABG HCO3 ABG O2 Saturation ABG Base Excess ABG Hemoglobin Sodium 129 L Potassium 6.8 H* Chloride 89.4 L Carbon Dioxide 19 L BUN 56 H Creatinine 3.0 H Glucose POC Glucose Lactic Acid 8.20 H* 7.50 H* Calcium 8.2 L Phosphorus Total Bilirubin Direct Bilirubin 0.3 H AST ALT Alkaline Phosphatase 159 H Total Creatine Kinase 233 H Total Protein Albumin 2.4 L Urine WBC (Auto) Crossmatch 10/21/19 10/21/19 10/21/19 13:30 15:05 16:15 WBC RBC Hgb Hct MCV MCH RDW Plt Count Seg Neuts % (Manual) Lymphocytes % (Manual) Monocytes % (Manual) Nucleated RBC % Seg Neutrophils # Man Lymphocytes # (Manual) Monocytes # (Manual) PT INR ABG pH ABG pO2 ABG HCO3 ABG O2 Saturation ABG Base Excess ABG Hemoglobin Sodium Potassium 6.3 H* Chloride Carbon Dioxide BUN Creatinine Glucose POC Glucose 52 L 131 H Lactic Acid Calcium Phosphorus Total Bilirubin Direct Bilirubin AST ALT Alkaline Phosphatase Total Creatine Kinase Total Protein Albumin Urine WBC (Auto) Crossmatch 10/21/19 10/21/19 10/21/19 17:09 17:09 17:09 WBC 12.4 H RBC 2.32 L Hgb 7.9 L Hct 24.9 L D MCV 107 H MCH 34 H RDW 17.2 H Plt Count Seg Neuts % (Manual) Lymphocytes % (Manual) Monocytes % (Manual) Nucleated RBC % Seg Neutrophils # Man Lymphocytes # (Manual) Monocytes # (Manual) PT INR ABG pH ABG pO2 ABG HCO3 ABG O2 Saturation ABG Base Excess ABG Hemoglobin Sodium 135 L Potassium Chloride Carbon Dioxide 15 L BUN 47 H Creatinine 2.6 H Glucose 106 H POC Glucose Lactic Acid 6.40 H* Calcium 7.2 L Phosphorus Total Bilirubin Direct Bilirubin AST 53 H ALT Alkaline Phosphatase Total Creatine Kinase Total Protein 6.0 L D Albumin 2.6 L Urine WBC (Auto) Crossmatch 10/21/19 10/22/19 10/22/19 21:05 05:10 05:10 WBC 15.8 H RBC 2.49 L Hgb 8.5 L Hct 27.0 L MCV 109 H MCH 34 H RDW 17.7 H Plt Count Seg Neuts % (Manual) Lymphocytes % (Manual) 6.0 L Monocytes % (Manual) 9.0 H Nucleated RBC % Seg Neutrophils # Man Lymphocytes # (Manual) 0.9 L Monocytes # (Manual) 1.4 H PT INR ABG pH 7.121 L* ABG pO2 481.5 H ABG HCO3 14.8 L ABG O2 Saturation 99.6 H ABG Base Excess -13.7 L ABG Hemoglobin 8.4 L Sodium Potassium 7.1 H* D Chloride Carbon Dioxide 11 L BUN 47 H Creatinine 2.8 H Glucose 8 L* POC Glucose Lactic Acid Calcium 6.7 L Phosphorus 6.20 H Total Bilirubin Direct Bilirubin AST 851 H ALT 350 H Alkaline Phosphatase Total Creatine Kinase Total Protein Albumin 2.5 L Urine WBC (Auto) Crossmatch 10/22/19 10/22/19 10/22/19 05:37 06:09 06:22 WBC RBC Hgb Hct MCV MCH RDW Plt Count Seg Neuts % (Manual) Lymphocytes % (Manual) Monocytes % (Manual) Nucleated RBC % Seg Neutrophils # Man Lymphocytes # (Manual) Monocytes # (Manual) PT INR ABG pH 7.096 L* ABG pO2 116.6 H ABG HCO3 10.3 L ABG O2 Saturation ABG Base Excess -18.0 L ABG Hemoglobin 8.1 L Sodium Potassium Chloride Carbon Dioxide BUN Creatinine Glucose POC Glucose < 40 L 63 L Lactic Acid Calcium Phosphorus Total Bilirubin Direct Bilirubin AST ALT Alkaline Phosphatase Total Creatine Kinase Total Protein Albumin Urine WBC (Auto) Crossmatch 10/22/19 10/22/19 10/22/19 08:11 09:00 09:00 WBC RBC Hgb Hct MCV MCH RDW Plt Count Seg Neuts % (Manual) Lymphocytes % (Manual) Monocytes % (Manual) Nucleated RBC % Seg Neutrophils # Man Lymphocytes # (Manual) Monocytes # (Manual) PT INR ABG pH ABG pO2 ABG HCO3 ABG O2 Saturation ABG Base Excess ABG Hemoglobin Sodium Potassium 6.0 H Chloride Carbon Dioxide 12 L BUN 43 H Creatinine 2.8 H Glucose 148 H POC Glucose 155 H Lactic Acid 10.10 H* Calcium 7.1 L Phosphorus Total Bilirubin Direct Bilirubin AST 2445 H ALT 898 H Alkaline Phosphatase Total Creatine Kinase Total Protein 5.3 L Albumin 2.5 L Urine WBC (Auto) Crossmatch 10/22/19 10/22/19 10/22/19 12:00 12:17 12:30 WBC RBC Hgb Hct MCV MCH RDW Plt Count Seg Neuts % (Manual) Lymphocytes % (Manual) Monocytes % (Manual) Nucleated RBC % Seg Neutrophils # Man Lymphocytes # (Manual) Monocytes # (Manual) PT INR ABG pH ABG pO2 ABG HCO3 ABG O2 Saturation ABG Base Excess ABG Hemoglobin Sodium 136 L Potassium 6.3 H* Chloride Carbon Dioxide 11 L BUN 42 H Creatinine 2.8 H Glucose 116 H POC Glucose 115 H Lactic Acid Calcium 7.6 L Phosphorus Total Bilirubin Direct Bilirubin AST ALT Alkaline Phosphatase Total Creatine Kinase Total Protein Albumin Urine WBC (Auto) Crossmatch See Detail 10/22/19 10/22/19 10/22/19 15:00 15:00 17:12 WBC RBC Hgb Hct MCV MCH RDW Plt Count Seg Neuts % (Manual) Lymphocytes % (Manual) Monocytes % (Manual) Nucleated RBC % Seg Neutrophils # Man Lymphocytes # (Manual) Monocytes # (Manual) PT INR ABG pH ABG pO2 ABG HCO3 ABG O2 Saturation ABG Base Excess ABG Hemoglobin Sodium Potassium 5.9 H Chloride Carbon Dioxide 13 L BUN 42 H Creatinine 2.7 H Glucose 303 H POC Glucose 224 H Lactic Acid 12.80 H* Calcium 7.5 L Phosphorus Total Bilirubin Direct Bilirubin AST ALT Alkaline Phosphatase Total Creatine Kinase Total Protein Albumin Urine WBC (Auto) Crossmatch 10/22/19 10/22/19 10/22/19 17:33 17:33 21:40 WBC 18.2 H RBC 2.21 L Hgb 7.6 L Hct 24.8 L MCV 112 H MCH 34 H RDW 17.5 H Plt Count Seg Neuts % (Manual) 72.0 H Lymphocytes % (Manual) 4.0 L Monocytes % (Manual) 14.0 H Nucleated RBC % Seg Neutrophils # Man 13.1 H Lymphocytes # (Manual) 0.7 L Monocytes # (Manual) 2.5 H PT INR ABG pH ABG pO2 ABG HCO3 ABG O2 Saturation ABG Base Excess ABG Hemoglobin Sodium Potassium 6.0 H Chloride Carbon Dioxide 13 L BUN 41 H Creatinine 2.9 H Glucose 239 H POC Glucose 284 H Lactic Acid Calcium 7.3 L Phosphorus Total Bilirubin Direct Bilirubin AST ALT Alkaline Phosphatase Total Creatine Kinase Total Protein Albumin Urine WBC (Auto) Crossmatch 10/23/19 10/23/19 10/23/19 01:55 04:00 04:00 WBC 17.4 H RBC 3.29 L Hgb Hct MCV 103 H MCH RDW 23.6 H Plt Count Seg Neuts % (Manual) Lymphocytes % (Manual) 1.0 L Monocytes % (Manual) Nucleated RBC % 1.0 H Seg Neutrophils # Man 9.6 H Lymphocytes # (Manual) 0.2 L Monocytes # (Manual) 1.0 H PT INR ABG pH 7.028 L* ABG pO2 155.2 H ABG HCO3 10.7 L ABG O2 Saturation ABG Base Excess -19.0 L ABG Hemoglobin 8.7 L Sodium 134 L Potassium 6.3 H* Chloride 95.8 L Carbon Dioxide 8 L* BUN 38 H Creatinine 2.6 H Glucose 288 H POC Glucose Lactic Acid Calcium 7.2 L Phosphorus Total Bilirubin 3.10 H Direct Bilirubin AST 64261 H ALT 2979 H Alkaline Phosphatase 425 H Total Creatine Kinase Total Protein Albumin 3.2 L Urine WBC (Auto) Crossmatch 10/23/19 10/23/19 10/23/19 05:55 08:15 11:02 WBC RBC Hgb Hct MCV MCH RDW Plt Count Seg Neuts % (Manual) Lymphocytes % (Manual) Monocytes % (Manual) Nucleated RBC % Seg Neutrophils # Man Lymphocytes # (Manual) Monocytes # (Manual) PT INR ABG pH ABG pO2 ABG HCO3 ABG O2 Saturation ABG Base Excess ABG Hemoglobin Sodium Potassium Chloride Carbon Dioxide BUN Creatinine Glucose POC Glucose 241 H 310 H 294 H Lactic Acid Calcium Phosphorus Total Bilirubin Direct Bilirubin AST ALT Alkaline Phosphatase Total Creatine Kinase Total Protein Albumin Urine WBC (Auto) Crossmatch 10/23/19 10/23/19 10/23/19 11:58 15:30 18:03 WBC RBC Hgb Hct MCV MCH RDW Plt Count Seg Neuts % (Manual) Lymphocytes % (Manual) Monocytes % (Manual) Nucleated RBC % Seg Neutrophils # Man Lymphocytes # (Manual) Monocytes # (Manual) PT INR ABG pH ABG pO2 ABG HCO3 ABG O2 Saturation ABG Base Excess ABG Hemoglobin Sodium Potassium 5.6 H Chloride 96.6 L Carbon Dioxide 15 L D BUN 36 H Creatinine 3.0 H Glucose 331 H POC Glucose 332 H 313 H Lactic Acid Calcium 7.7 L Phosphorus Total Bilirubin Direct Bilirubin AST ALT Alkaline Phosphatase Total Creatine Kinase Total Protein Albumin Urine WBC (Auto) Crossmatch 10/23/19 10/24/19 10/24/19 22:06 00:22 04:50 WBC 16.8 H RBC 2.79 L Hgb 8.8 L Hct 27.4 L D MCV 98 H MCH RDW 23.7 H Plt Count 100 L Seg Neuts % (Manual) 82.0 H Lymphocytes % (Manual) 7.0 L Monocytes % (Manual) 8.0 H Nucleated RBC % Seg Neutrophils # Man 13.8 H Lymphocytes # (Manual) Monocytes # (Manual) 1.3 H PT INR ABG pH ABG pO2 ABG HCO3 ABG O2 Saturation ABG Base Excess ABG Hemoglobin Sodium Potassium Chloride Carbon Dioxide BUN Creatinine Glucose POC Glucose 344 H 307 H Lactic Acid Calcium Phosphorus Total Bilirubin Direct Bilirubin AST ALT Alkaline Phosphatase Total Creatine Kinase Total Protein Albumin Urine WBC (Auto) Crossmatch 10/24/19 10/24/19 10/24/19 04:50 05:40 06:01 WBC RBC Hgb Hct MCV MCH RDW Plt Count Seg Neuts % (Manual) Lymphocytes % (Manual) Monocytes % (Manual) Nucleated RBC % Seg Neutrophils # Man Lymphocytes # (Manual) Monocytes # (Manual) PT INR ABG pH ABG pO2 ABG HCO3 ABG O2 Saturation ABG Base Excess ABG Hemoglobin Sodium Potassium Chloride 94.8 L Carbon Dioxide 16 L BUN 36 H Creatinine 2.9 H Glucose 298 H POC Glucose 318 H Lactic Acid Calcium 7.1 L Phosphorus Total Bilirubin 5.60 H Direct Bilirubin AST 5223 H ALT 2211 H Alkaline Phosphatase 477 H Total Creatine Kinase Total Protein 5.6 L Albumin 3.3 L Urine WBC (Auto) > 182.0 H Crossmatch
--- NOTE | 2019-10-24 11:41 | Progress Note ---
Assessment and Plan - Patient Problems (1) Perforated viscus Current Visit: Yes Status: Acute Plan to address problem: Pt in critical condition. s/p ex lap and repair of perforated peptic ulcer - (10/20) - POD#3. Patient appears to be in multisystem organ failure. Seems to be showing some small improvements. Her overall prognosis is still grave at this point. She probably had chronic issues with multiple organs prior to this emergency. She may not have had the physiologic reserve needed to overcome such an emergency. The question of compartment syndrome has been brought up. It is reasonable consideration. In general, issues of renal insufficiency/failure, worsening pulmonary status, hypotension generally begin after the abdominal compartment syndrome develops. In this case, she had all of these issues prior to surgery. She is definitely at risk for compartment syndrome based on the needed resuscitation. It is difficult by exam to determine the true extent of her abdominal distention. Part of it is affected by the generalized edema of the abdominal wall. If we wanted to pursue and rule out this diagnosis, I would recommend that we do the followin. Temporarily paralyze the patient 2. Evaluate for changes in airway pressures 3. Check bladder pressures. If after the patient is adequately paralyzed the bladder pressure is above 12 (area of intra-abdominal hypertension), then it may be worthwhile to consider opening the abdomen. We have to keep in mind that there is a fair amount of morbidity in keeping the abdomen open. We will follow along. Please call with any questions. Time=10min Subjective Date of service: 10/24/19 Patient Reports: Positive: other (showing some signs of improvement) Objective Vital Signs - 12hr 10/23/19 10/24/19 10/24/19 23:45 00:00 00:15 Temperature Pulse Rate 109 H 113 H 105 H Pulse Rate [ 112 H From Monitor] Respiratory 25 H 29 H 15 Rate Blood Pressure 148/51 149/46 167/36 O2 Sat by Pulse 99 100 100 Oximetry 10/24/19 10/24/19 10/24/19 00:30 00:46 01:00 Temperature Pulse Rate 102 H 103 H 105 H Pulse Rate [ From Monitor] Respiratory 22 21 19 Rate Blood Pressure 167/36 124/16 216/54 O2 Sat by Pulse 95 100 Oximetry 10/24/19 10/24/19 10/24/19 01:15 01:30 01:46 Temperature Pulse Rate 112 H 113 H 111 H Pulse Rate [ From Monitor] Respiratory 21 22 23 Rate Blood Pressure 227/152 227/152 253/31 O2 Sat by Pulse 42 L 99 100 Oximetry 10/24/19 10/24/19 10/24/19 02:00 02:15 02:30 Temperature Pulse Rate 112 H 108 H 110 H Pulse Rate [ From Monitor] Respiratory 27 H 18 24 Rate Blood Pressure 253/31 183/67 183/67 O2 Sat by Pulse 100 100 100 Oximetry 10/24/19 10/24/19 10/24/19 02:46 03:00 03:15 Temperature Pulse Rate 112 H 112 H 111 H Pulse Rate [ From Monitor] Respiratory 17 22 20 Rate Blood Pressure 151/58 142/59 133/77 O2 Sat by Pulse 99 99 83 L Oximetry 10/24/19 10/24/19 10/24/19 03:30 03:38 03:45 Temperature 98.8 F Pulse Rate 111 H 110 H Pulse Rate [ From Monitor] Respiratory 23 21 Rate Blood Pressure 133/77 138/69 O2 Sat by Pulse 100 Oximetry 10/24/19 10/24/19 10/24/19 04:00 04:16 04:30 Temperature Pulse Rate 107 H 112 H 109 H Pulse Rate [ 107 H From Monitor] Respiratory 23 23 14 Rate Blood Pressure 130/66 130/66 127/70 O2 Sat by Pulse 100 100 100 Oximetry 10/24/19 10/24/19 10/24/19 04:46 05:00 05:15 Temperature Pulse Rate 111 H 108 H 111 H Pulse Rate [ From Monitor] Respiratory 18 24 25 H Rate Blood Pressure 147/42 122/32 134/41 O2 Sat by Pulse 100 100 100 Oximetry 10/24/19 10/24/19 10/24/19 05:30 05:45 06:00 Temperature Pulse Rate 107 H 110 H 109 H Pulse Rate [ From Monitor] Respiratory 21 17 17 Rate Blood Pressure 148/49 146/52 146/52 O2 Sat by Pulse 100 100 100 Oximetry 10/24/19 10/24/19 10/24/19 06:16 06:30 06:45 Temperature Pulse Rate 107 H 111 H 110 H Pulse Rate [ From Monitor] Respiratory 21 13 15 Rate Blood Pressure 131/47 156/57 134/48 O2 Sat by Pulse 100 100 100 Oximetry 10/24/19 10/24/19 10/24/19 07:00 07:15 07:30 Temperature Pulse Rate 107 H 109 H 110 H Pulse Rate [ From Monitor] Respiratory 16 13 16 Rate Blood Pressure 153/33 156/32 140/35 O2 Sat by Pulse 100 100 100 Oximetry 10/24/19 10/24/19 10/24/19 07:46 08:00 08:10 Temperature 98.6 F Pulse Rate 111 H 111 H 108 H Pulse Rate [ From Monitor] Respiratory 21 16 Rate Blood Pressure 129/33 154/62 154/62 O2 Sat by Pulse 100 100 100 Oximetry 10/24/19 10/24/19 10/24/19 08:16 08:30 08:45 Temperature Pulse Rate 108 H 111 H 107 H Pulse Rate [ From Monitor] Respiratory 21 17 13 Rate Blood Pressure 139/66 139/66 164/41 O2 Sat by Pulse 98 100 99 Oximetry 10/24/19 10/24/19 10/24/19 09:00 09:15 09:30 Temperature Pulse Rate 106 H 108 H 102 H Pulse Rate [ From Monitor] Respiratory 12 16 15 Rate Blood Pressure 164/41 140/114 166/46 O2 Sat by Pulse 100 100 100 Oximetry 10/24/19 10/24/19 10/24/19 09:46 10:00 10:15 Temperature Pulse Rate 109 H 110 H 107 H Pulse Rate [ From Monitor] Respiratory 18 20 14 Rate Blood Pressure 169/37 158/92 164/47 O2 Sat by Pulse 99 100 100 Oximetry 10/24/19 10/24/19 10/24/19 10:30 10:45 11:00 Temperature Pulse Rate 105 H 108 H 110 H Pulse Rate [ From Monitor] Respiratory 16 12 14 Rate Blood Pressure 180/42 157/29 157/29 O2 Sat by Pulse 100 99 100 Oximetry 10/24/19 11:16 Temperature Pulse Rate 108 H Pulse Rate [ From Monitor] Respiratory 13 Rate Blood Pressure 159/27 O2 Sat by Pulse 98 Oximetry - General physical appearance no distress, no pain, obese, other (edematous. mild agitation) - ENT other (ETT in place) - Respiratory normal expansion - Abdomen soft, other (swollen abdomen. Incision is clean. Drain with serous fluid) - Integumentary no rash, no growths, no abnormal pigmentation - Labs 10/24/19 04:50 10/24/19 04:50 Diabetes panel 10/23/19 10/24/19 Range/Units 15:30 04:50 Sodium 137 138 (137-145) mmol/L Potassium 5.6 H 5.0 (3.6-5.0) mmol/L Chloride 96.6 L 94.8 L (98-107) mmol/L Carbon Dioxide 15 L D 16 L (22-30) mmol/L BUN 36 H 36 H (7-17) mg/dL Creatinine 3.0 H 2.9 H (0.7-1.2) mg/dL Glucose 331 H 298 H (65-100) mg/dL Calcium 7.7 L 7.1 L (8.4-10.2) mg/dL AST 5223 H (5-40) units/L ALT 2211 H (7-56) units/L Alkaline Phosphatase 477 H (35-129) units/L Total Protein 5.6 L (6.3-8.2) g/dL Albumin 3.3 L (3.9-5) g/dL Calcium panel 10/23/19 10/24/19 Range/Units 15:30 04:50 Calcium 7.7 L 7.1 L (8.4-10.2) mg/dL Albumin 3.3 L (3.9-5) g/dL Pituitary panel 10/23/19 10/24/19 Range/Units 15:30 04:50 Sodium 137 138 (137-145) mmol/L Potassium 5.6 H 5.0 (3.6-5.0) mmol/L Chloride 96.6 L 94.8 L (98-107) mmol/L Carbon Dioxide 15 L D 16 L (22-30) mmol/L BUN 36 H 36 H (7-17) mg/dL Creatinine 3.0 H 2.9 H (0.7-1.2) mg/dL Glucose 331 H 298 H (65-100) mg/dL Calcium 7.7 L 7.1 L (8.4-10.2) mg/dL Adrenal panel 10/23/19 10/24/19 Range/Units 15:30 04:50 Sodium 137 138 (137-145) mmol/L Potassium 5.6 H 5.0 (3.6-5.0) mmol/L Chloride 96.6 L 94.8 L (98-107) mmol/L Carbon Dioxide 15 L D 16 L (22-30) mmol/L BUN 36 H 36 H (7-17) mg/dL Creatinine 3.0 H 2.9 H (0.7-1.2) mg/dL Glucose 331 H 298 H (65-100) mg/dL Calcium 7.7 L 7.1 L (8.4-10.2) mg/dL Total Bilirubin 5.60 H (0.1-1.2) mg/dL AST 5223 H (5-40) units/L ALT 2211 H (7-56) units/L Alkaline Phosphatase 477 H (35-129) units/L Total Protein 5.6 L (6.3-8.2) g/dL Albumin 3.3 L (3.9-5) g/dL
--- NOTE | 2019-10-24 18:34 | Progress Note ---
Assessment and Plan Assessment and plan: The high probability of a clinically significant, sudden or life threatening deterioration of the [] system(s) required my full and direct attention, intervention and personal management. The aggregate critical care time was [] minutes. This time is in addition to time spent performing reported procedures but includes the following: [x] Data Review and interpretation [x] Patient assessment and monitoring of vital signs [x]x Documentation [x] Medication orders and management Total Time Spent with Patient (Minutes): 31 - Patient Problems (1) Acute respiratory failure Current Visit: Yes Status: Acute Plan to address problem: Patient remains vent dependent weaning parameters per pulmonology. Remains intubated unresponsive. Continue nebs prednisone. (2) Perforated viscus Current Visit: Yes Status: Acute Plan to address problem: Perforated viscus status post exploratory lap postop day 3. Surgery following. No new changes. Continue electrolyte supportive care. (3) SIRS (systemic inflammatory response syndrome) Current Visit: Yes Status: Acute Plan to address problem: Patient septic secondary to bowel perforation. Supportive care continue Zosyn Flagyl. (4) T2DM (type 2 diabetes mellitus) Current Visit: Yes Status: Chronic Qualifiers: Diabetes mellitus chcf insulin use: unspecified chcf insulin use status Plan to address problem: Continue alternate means of nutrition cover with sliding scale insulin only for now. History Interval history: Patient remains intubated remains critically ill today. Patient some improvement has wean from 4 pressors to 2 pressors. Otherwise hospital course essentially unchanged. Patient remains septic vent dependent. Unresponsive at this time. Hospitalist Physical - Constitutional Vitals: Temp Pulse Resp BP Pulse Ox 98.9 F 104 H 15 90/71 98 10/24/19 16:00 10/24/19 17:45 10/24/19 17:45 10/24/19 17:45 10/24/19 17:45 General appearance: Present: severe distress, well-nourished - Respiratory Respiratory: bilateral: diminished, rhonchi, wheezing - Cardiovascular Rhythm: other (Tachycardic) - Extremities Extremities: no ischemia, normal temperature, normal color Extremity abnormal: edema Peripheral Pulses: within normal limits - Abdominal General gastrointestinal: other (Patient banded status post perforated ulcer with exploratory lap postop day 3.) - Integumentary Integumentary: Present: clear, warm, dry Results - Labs CBC & Chem 7: 10/24/19 04:50 05/22/20 04:50 Labs: Laboratory Last Values WBC 16.8 K/mm3 (4.5-11.0) H 10/24/19 04:50 RBC 2.79 M/mm3 (3.65-5.03) L 10/24/19 04:50 Hgb 8.8 gm/dl (10.1-14.3) L 10/24/19 04:50 Hct 27.4 % (30.3-42.9) L D 10/24/19 04:50 MCV 98 fl (79-97) H 10/24/19 04:50 MCH 32 pg (28-32) 10/24/19 04:50 MCHC 32 % (30-34) 10/24/19 04:50 RDW 23.7 % (13.2-15.2) H 10/24/19 04:50 Plt Count 100 K/mm3 (140-440) L 10/24/19 04:50 Add Manual Diff Complete 10/24/19 04:50 Total Counted 100 10/24/19 04:50 Seg Neuts % (Manual) 82.0 % (40.0-70.0) H 10/24/19 04:50 Band Neutrophils % 3.0 % 10/24/19 04:50 Lymphocytes % (Manual) 7.0 % (13.4-35.0) L 10/24/19 04:50 Reactive Lymphs % (Man) 0 % 10/24/19 04:50 Monocytes % (Manual) 8.0 % (0.0-7.3) H 10/24/19 04:50 Eosinophils % (Manual) 0 % (0.0-4.3) 10/24/19 04:50 Basophils % (Manual) 0 % (0.0-1.8) 10/24/19 04:50 Metamyelocytes % 0 % 10/24/19 04:50 Myelocytes % 0 % 10/24/19 04:50 Promyelocytes % 0 % 10/24/19 04:50 Blast Cells % 0 % 10/24/19 04:50 Nucleated RBC % Not Reportable 10/24/19 04:50 Seg Neutrophils # Man 13.8 K/mm3 (1.8-7.7) H 10/24/19 04:50 Band Neutrophils # 0.5 K/mm3 10/24/19 04:50 Lymphocytes # (Manual) 1.2 K/mm3 (1.2-5.4) 10/24/19 04:50 Abs React Lymphs (Man) 0.0 K/mm3 10/24/19 04:50 Monocytes # (Manual) 1.3 K/mm3 (0.0-0.8) H 10/24/19 04:50 Eosinophils # (Manual) 0.0 K/mm3 (0.0-0.4) 10/24/19 04:50 Basophils # (Manual) 0.0 K/mm3 (0.0-0.1) 10/24/19 04:50 Metamyelocytes # 0.0 K/mm3 10/24/19 04:50 Myelocytes # 0.0 K/mm3 10/24/19 04:50 Promyelocytes # 0.0 K/mm3 10/24/19 04:50 Blast Cells # 0.0 K/mm3 10/24/19 04:50 WBC Morphology Not Reportable 10/24/19 04:50 Hypersegmented Neuts Not Reportable 10/24/19 04:50 Hyposegmented Neuts Not Reportable 10/24/19 04:50 Hypogranular Neuts Not Reportable 10/24/19 04:50 Smudge Cells Not Reportable 10/24/19 04:50 Toxic Granulation Not Reportable 10/24/19 04:50 Toxic Vacuolation Not Reportable 10/24/19 04:50 Dohle Bodies Not Reportable 10/24/19 04:50 Pelger-Huet Anomaly Not Reportable 10/24/19 04:50 Amanda Rods Not Reportable 10/24/19 04:50 Platelet Estimate Consistent w auto 10/24/19 04:50 Clumped Platelets Not Reportable 10/24/19 04:50 Plt Clumps, EDTA Not Reportable 10/24/19 04:50 Large Platelets Not Reportable 10/24/19 04:50 Giant Platelets Not Reportable 10/24/19 04:50 Platelet Satelliting Not Reportable 10/24/19 04:50 Plt Morphology Comment Not Reportable 10/24/19 04:50 RBC Morphology Not Reportable 10/24/19 04:50 Dimorphic RBCs Not Reportable 10/24/19 04:50 Polychromasia Not Reportable 10/24/19 04:50 Hypochromasia Not Reportable 10/24/19 04:50 Poikilocytosis Not Reportable 10/24/19 04:50 Anisocytosis 2+ 10/24/19 04:50 Microcytosis Not Reportable 10/24/19 04:50 Macrocytosis 1+ 10/24/19 04:50 Spherocytes Not Reportable 10/24/19 04:50 Pappenheimer Bodies Not Reportable 10/24/19 04:50 Sickle Cells Not Reportable 10/24/19 04:50 Target Cells Not Reportable 10/24/19 04:50 Tear Drop Cells Not Reportable 10/24/19 04:50 Ovalocytes Few 10/24/19 04:50 Helmet Cells Not Reportable 10/24/19 04:50 [place] Bodies Not Reportable 10/24/19 04:50 [place] Rings Not Reportable 10/24/19 04:50 Carisa Cells 1+ 10/24/19 04:50 Bite Cells Not Reportable 10/24/19 04:50 Crenated Cell Not Reportable 10/24/19 04:50 Elliptocytes Not Reportable 10/24/19 04:50 Acanthocytes (Spur) Not Reportable 10/24/19 04:50 Rouleaux Not Reportable 10/24/19 04:50 Hemoglobin C Crystals Not Reportable 10/24/19 04:50 Schistocytes Not Reportable 10/24/19 04:50 Malaria parasites Not Reportable 10/24/19 04:50 Ciro Bodies Not Reportable 10/24/19 04:50 Hem Pathologist Commnt No 10/24/19 04:50 PT 16.6 Sec. (12.2-14.9) H 10/21/19 11:33 INR 1.33 (0.87-1.13) H 10/21/19 11:33 ABG pH 7.028 pH Units (7.350-7.450) L* 10/23/19 01:55 ABG pCO2 41.4 mm Hg 10/23/19 01:55 ABG pO2 155.2 mm Hg (80.0-90.0) H 10/23/19 01:55 ABG HCO3 10.7 mmol/L (20.0-26.0) L 10/23/19 01:55 ABG O2 Saturation 98.4 % (95.0-99.0) 10/23/19 01:55 ABG O2 Content 11.1 (0.0-44) 10/22/19 06:09 ABG Base Excess -19.0 mmol/L (-2.0-3.0) L 10/23/19 01:55 ABG Hemoglobin 8.7 gm/dl (12.0-16.0) L 10/23/19 01:55 ABG Carboxyhemoglobin 1.7 % (0.0-5.0) 10/23/19 01:55 ABG Methemoglobin 0.7 % (0.0-1.5) 10/23/19 01:55 Oxyhemoglobin 96.1 % (95.0-99.0) 10/23/19 01:55 FiO2 50 % 10/23/19 01:55 Sodium 138 mmol/L (137-145) 10/24/19 04:50 Potassium 5.0 mmol/L (3.6-5.0) 10/24/19 04:50 Chloride 94.8 mmol/L (98-107) L 10/24/19 04:50 Carbon Dioxide 16 mmol/L (22-30) L 10/24/19 04:50 Anion Gap 32 mmol/L 10/24/19 04:50 BUN 36 mg/dL (7-17) H 10/24/19 04:50 Creatinine 2.9 mg/dL (0.7-1.2) H 10/24/19 04:50 Estimated GFR 16 ml/min 10/24/19 04:50 BUN/Creatinine Ratio 12 % 10/24/19 04:50 Glucose 298 mg/dL (65-100) H 10/24/19 04:50 POC Glucose 280 (70-105) H 10/24/19 17:36 Lactic Acid 12.80 mmol/L (0.7-2.0) H* 10/22/19 15:00 Calcium 7.1 mg/dL (8.4-10.2) L 10/24/19 04:50 Phosphorus 6.20 mg/dL (2.5-4.5) H 10/22/19 05:10 Magnesium 2.20 mg/dL (1.7-2.3) 10/21/19 11:33 Total Bilirubin 5.60 mg/dL (0.1-1.2) H 10/24/19 04:50 Direct Bilirubin 0.3 mg/dL (0-0.2) H 10/21/19 11:33 Indirect Bilirubin 0.4 mg/dL 10/21/19 11:33 AST 5223 units/L (5-40) H 10/24/19 04:50 ALT 2211 units/L (7-56) H 10/24/19 04:50 Alkaline Phosphatase 477 units/L (35-129) H 10/24/19 04:50 Total Creatine Kinase 233 units/L (30-135) H 10/21/19 11:33 Total Protein 5.6 g/dL (6.3-8.2) L 10/24/19 04:50 Albumin 3.3 g/dL (3.9-5) L 10/24/19 04:50 Albumin/Globulin Ratio 1.4 % 10/24/19 04:50 Lipase 15 units/L (13-60) 10/21/19 11:33 Urine Color Taya (Yellow) 10/24/19 05:40 Urine Turbidity Cloudy (Clear) 10/24/19 05:40 Urine pH 7.0 (5.0-7.0) 10/24/19 05:40 Ur Specific [place] 1.015 (1.003-1.030) 10/24/19 05:40 Urine Protein >500 mg/dL (Negative) 10/24/19 05:40 Urine Glucose (UA) >=500 mg/dL (Negative) 10/24/19 05:40 Urine Ketones Neg mg/dL (Negative) 10/24/19 05:40 Urine Blood Lg (Negative) 10/24/19 05:40 Urine Nitrite Neg (Negative) 10/24/19 05:40 Urine Bilirubin Neg (Negative) 10/24/19 05:40 Urine Urobilinogen < 2.0 mg/dL (<2.0) 10/24/19 05:40 Ur Leukocyte Esterase Lg (Negative) 10/24/19 05:40 Urine WBC (Auto) > 182.0 /HPF (0.0-6.0) H 10/24/19 05:40 Urine RBC (Auto) > 182.0 /HPF (0.0-6.0) 10/24/19 05:40 U Epithel Cells (Auto) 2.0 /HPF (0-13.0) 10/24/19 05:40 Urine WBC Clumps 3+ /HPF 10/24/19 05:40 Urine Eosinophils None seen (None Seen) 10/24/19 05:40 Urine Creatinine 15.0 mg/dL (0.1-20.0) 10/24/19 05:40 Urine Sodium 124 mmol/L 10/24/19 05:40 Blood Type A POSITIVE 10/24/19 03:44 Antibody Screen Negative 10/24/19 03:44 Crossmatch See Detail 10/22/19 12:30 Microbiology: Microbiology 10/22/19 Unknown Tracheal Aspirate Sputum Culture - Preliminary 10/21/19 13:30 Peripheral/Venous Blood Culture - Preliminary NO GROWTH AFTER 72 HOURS 10/21/19 13:45 Peripheral/Venous Blood Culture - Preliminary NO GROWTH AFTER 72 HOURS Gottlieb/IV: Voiding Method Indwelling Catheter IV Catheter Type [Right NECK] Triple Lumen Cath IV Catheter Type [Right INT / Saline Lock Antecubital] IV Catheter Type [Right VAS Cath Internal Jugular] Active Medications - Current Medications Current Medications: Generic Name Dose Route Start Last Admin Trade Name Freq PRN Reason Stop Dose Admin Albumin Human 25 gm 10/22/19 14:00 10/24/19 13:00 Alburx 25% (Albumin) IV 25 gm Q8HR MICHI Administration Dextrose 50 gm 10/23/19 08:25 D50w (25gm) Vial IV Q30MIN PRN Hypoglycemia Protocol Fentanyl 25 mcg 10/22/19 09:18 10/23/19 03:51 Sublimaze IV 25 mcg Q2H PRN Administration Pain , Severe (7-10) Heparin Sodium (Porcine) 5,000 unit 10/24/19 10:00 10/24/19 10:18 Heparin SUB-Q 5,000 unit Q12HR MICHI Administration Hydrocortisone Sodium Succinate 100 mg 10/22/19 22:00 10/24/19 13:00 Solu-Cortef IV 100 mg Q8H MICHI Administration Sodium Chloride 1,000 mls @ 125 mls/hr 10/21/19 15:45 10/22/19 03:22 Nacl 0.9% 1000 Ml IV 125 mls/hr DIRECT MICHI Administration Phenylephrine HCl 100 mg/ 100 mls @ 3 mls/hr 10/21/19 17:00 10/24/19 17:00 Sodium Chloride IV 40 mcg/min TITR MICHI 2.4 mls/hr Titration Protocol 50 MCG/MIN Vasopressin 20 unit/ Sodium 101 mls @ 9.09 mls/hr 10/22/19 07:00 10/24/19 12:23 Chloride IV 0.03 units/min TITR MICHI 9.09 mls/hr Administration Protocol 0.03 UNITS/MIN Norepinephrine 8 mg/ Sodium 250 mls @ 3.75 mls/hr 10/22/19 12:00 10/24/19 1 7:30 Chloride IV 12 mcg/min TITR MICHI 22.5 mls/hr Titration Protocol 2 MCG/MIN MEROPENEM/NS 1 GRAM/100 ML 1 gram in 100 mls @ 100 mls/hr 10/22/19 14:00 10/24/19 13:34 Merrem/Ns 1 Gram/100 Ml IV 100 mls/hr Q12H MICHI Administration Epinephrine 16 mg/ Sodium 250 mls @ 1.875 mls/hr 10/22/19 15:00 10/24/19 10:15 Chloride IV 0 mcg/min TITR MICHI 0 mls/hr Titration Protocol 2 MCG/MIN Sodium Bicarbonate 75 meq/ 1,075 mls @ 200 mls/hr 10/22/19 20:39 10/24/19 10:18 Dextrose IV 200 mls/hr DIRECT MICHI Administration Insulin Human Lispro 0 unit 10/22/19 18:00 10/24/19 12:59 Humalog SUB-Q 4 unit Q6HR MICHI Administration Protocol Ondansetron HCl 4 mg 10/21/19 14:19 Zofran IV ONCE PRN Nausea And Vomiting Pantoprazole Sodium 40 mg 10/22/19 12:00 10/24/19 10:18 Protonix IV 40 mg QDAY MICHI Administration
[2019-10-25] MEDS: SODIUM BICARBONATE 75 MEQ in DEXTROSE 5% IN WATER 1,000 ML IV SCH ×2 (01:37→06:04)
[2019-10-25] MEDS: MEROPENEM/NS 1 GRAM/100 ML 1 GRAM/100 ML BAG IV SCH ×2 (03:55→14:40)
[2019-10-25] MEDS: VASOPRESSIN 20 UNIT in SODIUM CHLORIDE 0.9% 100 ML IV SCH (03:55)
[2019-10-25 05:10] LABS: ABG HCO3 23.3 mmol/L (20.0-26.0); ABG Methemoglobin 0.6 % (0.0-1.5); ABG PCO2 47.8 mm Hg; ABG PH 7.306 pH Units (7.350-7.450); ABG PO2 118.1 mm Hg (80.0-90.0)
[2019-10-25] MEDS: HYDROCORTISONE SOD SUCC 100 MG/2 ML VIAL IV SCH ×3 (06:04→22:02)
[2019-10-25] MEDS: ALBUMIN HUMAN 25% (25 GM/100 ML) INJ IV SCH ×3 (06:04→22:02)
[2019-10-25] MEDS: INSULIN LISPRO 100 UNIT/ML SUB-Q SCH ×3 (06:06→18:33)
--- NOTE | 2019-10-25 07:47 | Progress Note ---
Assessment and Plan 1. Acute kidney injury: Likely vasomotor KORY in the setting of septic shock. Unclear what patient baseline creatinine is. Creatinine was 3.0 on admission, now 3.2 from 2.9 from 2[address] abd/pelvis revealed low lying right kidney with multiple stones of varying sizes and a large staghorn calculus, negative for hydro. Continue IV fluids. Poor UOP, has brewer catheter. Monitor renal function. Renal prognosis is guarded. Avoid nephrotoxic agents. Meds dosage based on GFR. Given improvement in electrolytes on recent lab, currently no acute indication for HD at this time. Will continue to monitor pt condition and recent labs. 2. FEN: Hyperkalemia, most recent value 4.6, monitor. Metabolic acidosis, on sodium bicarb drip, monitor. Hypocalcemia, replete ap as needed, monitor. Monitor lytes and volume status. 3. Perforated viscus: S/p emergency exploratory lap w/ repair. LOUIE drain to right side with serosanginous drainage. Large amount of contamination in abdomen. Large amount of generalized swelling. Surgery following. 4. Septic shock: On IV abx, IV fluids and IV pressors. S/p albumin. 5. Acute respiratory failure: Currently intubated on vent. Pulmonology following. 6. Shock Liver. 7. Type 2 diabetes: Monitor blood glucose. 8. Anemia, POA. 9. H/o asthma. 10. Recent surgery to LLE. Overall prognosis remains slim. Subjective Patient was seen and examined at the bedside. She remains in critical condition. No acute evnets reported overnight. Heart rate between 140 and 160 at the time of my evaluation. Objective - Exam Narrative Exam: General appearance: well-developed, appears stated age, obese, intubated, on vent, anasarca HEENT: facial plethora noted Neck: trachea midline Respiratory: mechanical vent sounds Heart: irrregular, tachycardia, S1S2, no murmurs Gastrointestinal: obese, distended, LOUIE drain, dressing noted Integumentary: no rash, warm and dry Neurologic: other (unable to assess, intubated on vent) Ext: L lower extremity wrapped in dressing and LYNDA bandage, bilateral LE edema noted : brewer catheter Hemodialysis access: R IJ temp catheter Psychiatric: unable to assess Subjective Date of service: 10/25/19 Objective - Vital Signs Vital signs: Vital Signs - 12hr 05/22/20 05/22/20 05/22/20 20:00 20:15 20:30 Temperature 98.6 F Pulse Rate 103 H 104 H 105 H Pulse Rate [ 105 H From Monitor] Respiratory 16 20 19 Rate Blood Pressure 127/52 152/63 141/57 O2 Sat by Pulse 99 100 100 Oximetry 10/24/19 10/24/19 10/24/19 20:45 21:00 21:15 Temperature Pulse Rate 103 H 104 H 103 H Pulse Rate [ From Monitor] Respiratory 16 13 15 Rate Blood Pressure 162/66 163/51 168/54 O2 Sat by Pulse 99 100 100 Oximetry 10/24/19 10/24/19 10/24/19 21:30 21:46 22:00 Temperature Pulse Rate 105 H 102 H 104 H Pulse Rate [ From Monitor] Respiratory 18 14 15 Rate Blood Pressure 188/53 149/47 140/56 O2 Sat by Pulse 100 100 99 Oximetry 10/24/19 10/24/19 10/24/19 22:15 22:30 22:46 Temperature Pulse Rate 102 H 106 H 106 H Pulse Rate [ From Monitor] Respiratory 19 18 14 Rate Blood Pressure 145/53 139/57 162/57 O2 Sat by Pulse 100 99 100 Oximetry 10/24/19 10/24/19 10/24/19 23:00 23:15 23:30 Temperature Pulse Rate 103 H 98 H 97 H Pulse Rate [ From Monitor] Respiratory 17 12 13 Rate Blood Pressure 164/62 141/51 110/41 O2 Sat by Pulse 100 100 100 Oximetry 10/24/19 10/25/19 10/25/19 23:45 00:00 00:15 Temperature Pulse Rate 94 H 94 H 88 Pulse Rate [ 91 H From Monitor] Respiratory 12 12 12 Rate Blood Pressure 112/41 112/42 111/45 O2 Sat by Pulse 100 100 100 Oximetry 10/25/19 10/25/19 10/25/19 00:30 00:33 00:45 Temperature 97.7 F Pulse Rate 88 88 Pulse Rate [ From Monitor] Respiratory 12 12 Rate Blood Pressure 115/48 125/54 O2 Sat by Pulse 100 100 Oximetry 10/25/19 10/25/19 10/25/19 01:00 01:16 01:30 Temperature Pulse Rate 88 95 H 94 H Pulse Rate [ From Monitor] Respiratory 12 13 15 Rate Blood Pressure 126/54 129/64 129/64 O2 Sat by Pulse 99 99 100 Oximetry 10/25/19 10/25/19 10/25/19 01:45 02:00 02:15 Temperature Pulse Rate 106 H 105 H 105 H Pulse Rate [ From Monitor] Respiratory 21 23 21 Rate Blood Pressure 134/68 152/57 131/63 O2 Sat by Pulse 99 100 Oximetry 10/25/19 10/25/19 10/25/19 02:30 02:45 03:00 Temperature Pulse Rate 102 H 106 H 105 H Pulse Rate [ From Monitor] Respiratory 18 22 22 Rate Blood Pressure 148/54 157/62 144/66 O2 Sat by Pulse 99 99 100 Oximetry 10/25/19 10/25/19 10/25/19 03:15 03:30 03:45 Temperature Pulse Rate 104 H 96 H 104 H Pulse Rate [ From Monitor] Respiratory 17 19 20 Rate Blood Pressure 158/68 150/61 149/68 O2 Sat by Pulse 99 99 99 Oximetry 10/25/19 10/25/19 10/25/19 04:00 04:15 04:30 Temperature 97.3 F L Pulse Rate 103 H 96 H 95 H Pulse Rate [ 92 H From Monitor] Respiratory 23 19 21 Rate Blood Pressure 154/72 152/77 147/62 O2 Sat by Pulse 100 99 99 Oximetry 10/25/19 10/25/19 10/25/19 04:45 04:47 05:00 Temperature Pulse Rate 95 H 97 H 107 H Pulse Rate [ From Monitor] Respiratory 18 19 Rate Blood Pressure 163/65 161/62 161/62 O2 Sat by Pulse 99 100 100 Oximetry 10/25/19 10/25/19 10/25/19 05:15 05:30 05:45 Temperature Pulse Rate 98 H 97 H 103 H Pulse Rate [ From Monitor] Respiratory 19 15 19 Rate Blood Pressure 156/60 143/62 150/66 O2 Sat by Pulse 98 98 97 Oximetry 10/25/19 06:00 Temperature Pulse Rate 96 H Pulse Rate [ From Monitor] Respiratory 16 Rate Blood Pressure 142/59 O2 Sat by Pulse 98 Oximetry - Lab 10/24/19 04:50 10/25/19 04:30 Most recent lab results ABG pH 7.306 pH Units (7.350-7.450) L 10/25/19 05:00 ABG pCO2 47.8 mm Hg 10/25/19 05:00 ABG pO2 118.1 mm Hg (80.0-90.0) H 10/25/19 05:00 ABG HCO3 23.3 mmol/L (20.0-26.0) 10/25/19 05:00 ABG O2 Saturation 98.0 % (95.0-99.0) 10/25/19 05:00 Calcium 7.0 mg/dL (8.4-10.2) L 10/25/19 04:30 Phosphorus 4.70 mg/dL (2.5-4.5) H 10/25/19 04:30 Magnesium 2.20 mg/dL (1.7-2.3) 10/21/19 11:33 Urine Creatinine 15.0 mg/dL (0.1-20.0) 10/24/19 05:40 Urine Sodium 124 mmol/L 10/24/19 05:40 Medications & Allergies - Medications Allergies/Adverse Reactions: Allergies No Known Allergies Allergy (Unverified 10/17/19 19:57) Home Medications: Home Medications Medication Instructions Recorded Confirmed Last Taken Type HYDROcodone/APAP 5-325 [[place] 1 each PO Q6HR PRN #12 tablet 10/17/19 Unknown Rx 5/325] Ibuprofen [Motrin] 800 mg PO Q8HR #30 tablet 10/17/19 Unknown Rx Active Medications: Generic Name Dose Route Start Last Admin Trade Name Freq PRN Reason Stop Dose Admin Albumin Human 25 gm 10/22/19 14:00 10/25/19 06:04 Alburx 25% (Albumin) IV 25 gm Q8HR MICHI Administration Dextrose 50 gm 10/23/19 08:25 D50w (25gm) Vial IV Q30MIN PRN Hypoglycemia Protocol Fentanyl 25 mcg 10/22/19 09:18 10/23/19 03:51 Sublimaze IV 25 mcg Q2H PRN Administration Pain , Severe (7-10) Heparin Sodium (Porcine) 5,000 unit 10/24/19 10:00 10/24/19 22:20 Heparin SUB-Q 5,000 unit Q12HR MICHI Administration Hydrocortisone Sodium Succinate 100 mg 10/22/19 22:00 10/25/19 06:04 Solu-Cortef IV 100 mg Q8H MICHI Administration Sodium Chloride 1,000 mls @ 125 mls/hr 10/21/19 15:45 10/22/19 03:22 Nacl 0.9% 1000 Ml IV 125 mls/hr DIRECT MICHI Administration Phenylephrine HCl 100 mg/ 100 mls @ 3 mls/hr 10/21/19 17:00 10/24/19 23:13 Sodium Chloride IV 0 mcg/min TITR MICHI 0 mls/hr Titration Protocol 50 MCG/MIN Vasopressin 20 unit/ Sodium 101 mls @ 9.09 mls/hr 10/22/19 07:00 10/25/19 06:11 Chloride IV 0 units/min TITR MICHI 0 mls/hr Titration Protocol 0.03 UNITS/MIN Norepinephrine 8 mg/ Sodium 250 mls @ 3.75 mls/hr 10/22/19 12:00 10/25/19 01:34 Chloride IV 5 mcg/min TITR MICHI 9.375 mls/hr Titration Protocol 2 MCG/MIN MEROPENEM/NS 1 GRAM/100 ML 1 gram in 100 mls @ 100 mls/hr 10/22/19 14:00 10/25/19 03:55 Merrem/Ns 1 Gram/100 Ml IV 100 mls/hr Q12H MICHI Administration Epinephrine 16 mg/ Sodium 250 mls @ 1.875 mls/hr 10/22/19 15:00 10/24/19 10:15 Chloride IV 0 mcg/min TITR MICHI 0 mls/hr Titration Protocol 2 MCG/MIN Sodium Bicarbonate 75 meq/ 1,075 mls @ 200 mls/hr 10/22/19 20:39 10/25/19 0 6:04 Dextrose IV 200 mls/hr DIRECT MICHI Administration Insulin Human Lispro 0 unit 10/22/19 18:00 10/25/19 06:06 Humalog SUB-Q 5 unit Q6HR MICHI Administration Protocol Ondansetron HCl 4 mg 10/21/19 14:19 Zofran IV ONCE PRN Nausea And Vomiting Pantoprazole Sodium 40 mg 10/22/19 12:00 10/24/19 10:18 Protonix IV 40 mg QDAY MICHI Administration
[2019-10-25] MEDS ORDERED: FUROSEMIDE 100 MG/10 ML INJ IV ONE (08:15)
--- NOTE | 2019-10-25 10:18 | XRay Report ---
CHEST 1 VIEW INDICATION / CLINICAL INFORMATION: R/O Pneumothorax/ett placement. COMPARISON: 10/22/2019 FINDINGS: SUPPORT DEVICES: Unchanged HEART / MEDIASTINUM: No significant abnormality. LUNGS / PLEURA: Mild interstitial pulmonary edema with bilateral pleural effusions No pneumothorax. ADDITIONAL FINDINGS: No significant additional findings. IMPRESSION: Mild interstitial pulmonary edema has developed with bilateral pleural effusions. Signer Name: Hardy Blake MD [email or web address] Signed: 10/25/2019 10:13 AM Workstation Name: [id number]
--- NOTE | 2019-10-25 10:19 | XRay Report ---
ABDOMEN ONE VIEW INDICATION / CLINICAL INFORMATION: Abdominal distention. COMPARISON: None available. FINDINGS: Nonspecific bowel gas pattern. No definite evidence of obstruction Signer Name: Hardy Blake MD FACR Signed: 10/25/2019 10:14 AM Workstation Name: [id number]
[2019-10-25] MEDS: PANTOPRAZOLE 40 MG INJ IV SCH (10:35)
[2019-10-25] MEDS: HEPARIN 5,000 UNIT/1 ML VIAL SUB-Q SCH ×2 (10:35→22:02)
[2019-10-25 10:53] LABS: ABG Base Excess -1.6 mmol/L (-2.0-3.0); ABG HCO3 23.4 mmol/L (20.0-26.0); ABG Methemoglobin 0.4 % (0.0-1.5); ABG Oxygen Saturation 97.3 % (95.0-99.0); ABG PCO2 40.8 mm Hg; ABG PH 7.376 pH Units (7.350-7.450); ABG PO2 94.9 mm Hg (80.0-90.0)
--- NOTE | 2019-10-25 11:00 | Progress Note ---
Assessment and Plan 74 y/o female with perforated viscous and presumed acute renal failure, now intubated with severe sepsis with shock and volume depletion, now in cardiovascular collapse 1. Agree with renal in trying to remove fluid. Hopeful lasix will work, but now that only on one pressor, may need to consider HD. Know this is risky but if lasix doesn't work, maybe our only option. Will defer to renal but can likely stop bicarb drip now. 2. Increase in PEAK pressures this am. I think this is more related to stiff lung and decrease compliance from pulmonary edema and volume overload. Patient's abdomen is large at baseline but even larger now given retained fluids from third spacing. Increased PEEP to see if this would help. Oxygenation is stable. 3. Prognosis is still very guarded to poor. Continue all supportive measures. Patient remains full code. CCT 31 minutes. Subjective Date of service: 10/25/19 Interval history: Had elevations in peak pressures this am. Abdomen is tight but patient is grossly volume overloaded and in renal failure. ABG was adequate. Objective Vital Signs - 12hr 10/24/19 10/24/19 10/24/19 23:00 23:15 23:30 Temperature Pulse Rate 103 H 98 H 97 H Pulse Rate [ From Monitor] Respiratory 17 12 13 Rate Blood Pressure 164/62 141/51 110/41 O2 Sat by Pulse 100 100 100 Oximetry 10/24/19 10/25/19 10/25/19 23:45 00:00 00:15 Temperature Pulse Rate 94 H 94 H 88 Pulse Rate [ 91 H From Monitor] Respiratory 12 12 12 Rate Blood Pressure 112/41 112/42 111/45 O2 Sat by Pulse 100 100 100 Oximetry 10/25/19 10/25/19 10/25/19 00:30 00:33 00:45 Temperature 97.7 F Pulse Rate 88 88 Pulse Rate [ From Monitor] Respiratory 12 12 Rate Blood Pressure 115/48 125/54 O2 Sat by Pulse 100 100 Oximetry 10/25/19 10/25/19 10/25/19 01:00 01:16 01:30 Temperature Pulse Rate 88 95 H 94 H Pulse Rate [ From Monitor] Respiratory 12 13 15 Rate Blood Pressure 126/54 129/64 129/64 O2 Sat by Pulse 99 99 100 Oximetry 10/25/19 10/25/19 10/25/19 01:45 02:00 02:15 Temperature Pulse Rate 106 H 105 H 105 H Pulse Rate [ From Monitor] Respiratory 21 23 21 Rate Blood Pressure 134/68 152/57 131/63 O2 Sat by Pulse 99 100 Oximetry 10/25/19 10/25/19 10/25/19 02:30 02:45 03:00 Temperature Pulse Rate 102 H 106 H 105 H Pulse Rate [ From Monitor] Respiratory 18 22 22 Rate Blood Pressure 148/54 157/62 144/66 O2 Sat by Pulse 99 99 100 Oximetry 10/25/19 10/25/19 10/25/19 03:15 03:30 03:45 Temperature Pulse Rate 104 H 96 H 104 H Pulse Rate [ From Monitor] Respiratory 17 19 20 Rate Blood Pressure 158/68 150/61 149/68 O2 Sat by Pulse 99 99 99 Oximetry 10/25/19 10/25/19 10/25/19 04:00 04:15 04:30 Temperature 97.3 F L Pulse Rate 103 H 96 H 95 H Pulse Rate [ 92 H From Monitor] Respiratory 23 19 21 Rate Blood Pressure 154/72 152/77 147/62 O2 Sat by Pulse 100 99 99 Oximetry 10/25/19 10/25/19 10/25/19 04:45 04:47 05:00 Temperature Pulse Rate 95 H 97 H 107 H Pulse Rate [ From Monitor] Respiratory 18 19 Rate Blood Pressure 163/65 161/62 161/62 O2 Sat by Pulse 99 100 100 Oximetry 10/25/19 10/25/19 10/25/19 05:15 05:30 05:45 Temperature Pulse Rate 98 H 97 H 103 H Pulse Rate [ From Monitor] Respiratory 19 15 19 Rate Blood Pressure 156/60 143/62 150/66 O2 Sat by Pulse 98 98 97 Oximetry 10/25/19 10/25/19 10/25/19 06:00 06:15 06:30 Temperature Pulse Rate 96 H 108 H 97 H Pulse Rate [ From Monitor] Respiratory 16 17 14 Rate Blood Pressure 142/59 155/63 138/53 O2 Sat by Pulse 98 96 98 Oximetry 10/25/19 10/25/19 10/25/19 06:45 07:00 07:15 Temperature Pulse Rate 105 H 105 H 100 H Pulse Rate [ From Monitor] Respiratory 20 19 21 Rate Blood Pressure 130/88 138/61 128/56 O2 Sat by Pulse 98 98 99 Oximetry 0510/25/19 10/25/19 07:30 07:45 08:00 Temperature 97.8 F Pulse Rate 104 H 151 H 149 H Pulse Rate [ From Monitor] Respiratory 18 18 25 H Rate Blood Pressure 134/53 125/59 123/68 O2 Sat by Pulse 98 99 100 Oximetry 10/25/19 10/25/19 10/25/19 08:16 08:30 08:46 Temperature Pulse Rate 164 H 147 H 158 H Pulse Rate [ From Monitor] Respiratory 13 16 19 Rate Blood Pressure 130/59 134/53 132/61 O2 Sat by Pulse 98 98 Oximetry 10/25/19 10/25/19 10/25/19 09:00 09:16 09:30 Temperature Pulse Rate 142 H 139 H 148 H Pulse Rate [ From Monitor] Respiratory 19 17 20 Rate Blood Pressure 155/51 132/51 132/51 O2 Sat by Pulse 95 96 96 Oximetry 10/25/19 10/25/19 10/25/19 09:45 10:00 10:16 Temperature Pulse Rate 140 H 128 H 128 H Pulse Rate [ From Monitor] Respiratory 18 25 H 24 Rate Blood Pressure 126/43 126/43 86/14 O2 Sat by Pulse 100 100 100 Oximetry 10/25/19 10:30 Temperature Pulse Rate 125 H Pulse Rate [ From Monitor] Respiratory 24 Rate Blood Pressure 86/14 O2 Sat by Pulse 100 Oximetry Constitutional: comatose, other (morbidly morbdily obese) Eyes: non-icteric ENT: other (orally intubated) Neck: supple, other (large in circumference) Effort: mildly labored Ascultation: Bilateral: diminished breath sounds (secondary to body habitus) CBC and BMP: 10/24/19 04:50 10/25/19 04:30 ABG, PT/INR, D-dimer: ABG ABG pH 7.376 pH Units (7.350-7.450) 10/25/19 10:30 ABG pCO2 40.8 mm Hg 10/25/19 10:30 ABG pO2 94.9 mm Hg (80.0-90.0) H 10/25/19 10:30 ABG O2 Saturation 97.3 % (95.0-99.0) 10/25/19 10:30 PT/INR, D-dimer PT 16.6 Sec. (12.2-14.9) H 10/21/19 11:33 INR 1.33 (0.87-1.13) H 10/21/19 11:33 Abnormal lab findings: Abnormal Labs 10/21/19 10/21/19 10/21/19 05:10 11:33 11:33 WBC 14.8 H RBC 3.05 L Hgb Hct MCV 103 H MCH 34 H RDW 16.7 H Plt Count Seg Neuts % (Manual) Lymphocytes % (Manual) 3.0 L Monocytes % (Manual) Nucleated RBC % Seg Neutrophils # Man Lymphocytes # (Manual) 0.4 L Monocytes # (Manual) PT 16.6 H INR 1.33 H ABG pH ABG pO2 ABG HCO3 ABG O2 Saturation ABG Base Excess ABG Hemoglobin Sodium Potassium Chloride Carbon Dioxide BUN Creatinine Glucose POC Glucose Lactic Acid 8.50 H* Calcium Phosphorus Total Bilirubin Direct Bilirubin AST ALT Alkaline Phosphatase Total Creatine Kinase Total Protein Albumin Urine WBC (Auto) Crossmatch 10/21/19 10/21/19 10/21/19 11:33 11:33 13:30 WBC RBC Hgb Hct MCV MCH RDW Plt Count Seg Neuts % (Manual) Lymphocytes % (Manual) Monocytes % (Manual) Nucleated RBC % Seg Neutrophils # Man Lymphocytes # (Manual) Monocytes # (Manual) PT INR ABG pH ABG pO2 ABG HCO3 ABG O2 Saturation ABG Base Excess ABG Hemoglobin Sodium 129 L Potassium 6.8 H* Chloride 89.4 L Carbon Dioxide 19 L BUN 56 H Creatinine 3.0 H Glucose POC Glucose Lactic Acid 8.20 H* 7.50 H* Calcium 8.2 L Phosphorus Total Bilirubin Direct Bilirubin 0.3 H AST ALT Alkaline Phosphatase 159 H Total Creatine Kinase 233 H Total Protein Albumin 2.4 L Urine WBC (Auto) Crossmatch 10/21/19 10/21/19 10/21/19 13:30 15:05 16:15 WBC RBC Hgb Hct MCV MCH RDW Plt Count Seg Neuts % (Manual) Lymphocytes % (Manual) Monocytes % (Manual) Nucleated RBC % Seg Neutrophils # Man Lymphocytes # (Manual) Monocytes # (Manual) PT INR ABG pH ABG pO2 ABG HCO3 ABG O2 Saturation ABG Base Excess ABG Hemoglobin Sodium Potassium 6.3 H* Chloride Carbon Dioxide BUN Creatinine Glucose POC Glucose 52 L 131 H Lactic Acid Calcium Phosphorus Total Bilirubin Direct Bilirubin AST ALT Alkaline Phosphatase Total Creatine Kinase Total Protein Albumin Urine WBC (Auto) Crossmatch 10/21/19 10/21/19 10/21/19 17:09 17:09 17:09 WBC 12.4 H RBC 2.32 L Hgb 7.9 L Hct 24.9 L D MCV 107 H MCH 34 H RDW 17.2 H Plt Count Seg Neuts % (Manual) Lymphocytes % (Manual) Monocytes % (Manual) Nucleated RBC % Seg Neutrophils # Man Lymphocytes # (Manual) Monocytes # (Manual) PT INR ABG pH ABG pO2 ABG HCO3 ABG O2 Saturation ABG Base Excess ABG Hemoglobin Sodium 135 L Potassium Chloride Carbon Dioxide 15 L BUN 47 H Creatinine 2.6 H Glucose 106 H POC Glucose Lactic Acid 6.40 H* Calcium 7.2 L Phosphorus Total Bilirubin Direct Bilirubin AST 53 H ALT Alkaline Phosphatase Total Creatine Kinase Total Protein 6.0 L D Albumin 2.6 L Urine WBC (Auto) Crossmatch 10/21/19 10/22/19 10/22/19 21:05 05:10 05:10 WBC 15.8 H RBC 2.49 L Hgb 8.5 L Hct 27.0 L MCV 109 H MCH 34 H RDW 17.7 H Plt Count Seg Neuts % (Manual) Lymphocytes % (Manual) 6.0 L Monocytes % (Manual) 9.0 H Nucleated RBC % Seg Neutrophils # Man Lymphocytes # (Manual) 0.9 L Monocytes # (Manual) 1.4 H PT INR ABG pH 7.121 L* ABG pO2 481.5 H ABG HCO3 14.8 L ABG O2 Saturation 99.6 H ABG Base Excess -13.7 L ABG Hemoglobin 8.4 L Sodium Potassium 7.1 H* D Chloride Carbon Dioxide 11 L BUN 47 H Creatinine 2.8 H Glucose 8 L* POC Glucose Lactic Acid Calcium 6.7 L Phosphorus 6.20 H Total Bilirubin Direct Bilirubin AST 851 H ALT 350 H Alkaline Phosphatase Total Creatine Kinase Total Protein Albumin 2.5 L Urine WBC (Auto) Crossmatch 10/22/19 10/22/19 10/22/19 05:37 06:09 06:22 WBC RBC Hgb Hct MCV MCH RDW Plt Count Seg Neuts % (Manual) Lymphocytes % (Manual) Monocytes % (Manual) Nucleated RBC % Seg Neutrophils # Man Lymphocytes # (Manual) Monocytes # (Manual) PT INR ABG pH 7.096 L* ABG pO2 116.6 H ABG HCO3 10.3 L ABG O2 Saturation ABG Base Excess -18.0 L ABG Hemoglobin 8.1 L Sodium Potassium Chloride Carbon Dioxide BUN Creatinine Glucose POC Glucose < 40 L 63 L Lactic Acid Calcium Phosphorus Total Bilirubin Direct Bilirubin AST ALT Alkaline Phosphatase Total Creatine Kinase Total Protein Albumin Urine WBC (Auto) Crossmatch 10/22/19 10/22/19 10/22/19 08:11 09:00 09:00 WBC RBC Hgb Hct MCV MCH RDW Plt Count Seg Neuts % (Manual) Lymphocytes % (Manual) Monocytes % (Manual) Nucleated RBC % Seg Neutrophils # Man Lymphocytes # (Manual) Monocytes # (Manual) PT INR ABG pH ABG pO2 ABG HCO3 ABG O2 Saturation ABG Base Excess ABG Hemoglobin Sodium Potassium 6.0 H Chloride Carbon Dioxide 12 L BUN 43 H Creatinine 2.8 H Glucose 148 H POC Glucose 155 H Lactic Acid 10.10 H* Calcium 7.1 L Phosphorus Total Bilirubin Direct Bilirubin AST 2445 H ALT 898 H Alkaline Phosphatase Total Creatine Kinase Total Protein 5.3 L Albumin 2.5 L Urine WBC (Auto) Crossmatch 10/22/19 10/22/19 10/22/19 12:00 12:17 12:30 WBC RBC Hgb Hct MCV MCH RDW Plt Count Seg Neuts % (Manual) Lymphocytes % (Manual) Monocytes % (Manual) Nucleated RBC % Seg Neutrophils # Man Lymphocytes # (Manual) Monocytes # (Manual) PT INR ABG pH ABG pO2 ABG HCO3 ABG O2 Saturation ABG Base Excess ABG Hemoglobin Sodium 136 L Potassium 6.3 H* Chloride Carbon Dioxide 11 L BUN 42 H Creatinine 2.8 H Glucose 116 H POC Glucose 115 H Lactic Acid Calcium 7.6 L Phosphorus Total Bilirubin Direct Bilirubin AST ALT Alkaline Phosphatase Total Creatine Kinase Total Protein Albumin Urine WBC (Auto) Crossmatch See Detail 10/22/19 10/22/19 10/22/19 15:00 15:00 17:12 WBC RBC Hgb Hct MCV MCH RDW Plt Count Seg Neuts % (Manual) Lymphocytes % (Manual) Monocytes % (Manual) Nucleated RBC % Seg Neutrophils # Man Lymphocytes # (Manual) Monocytes # (Manual) PT INR ABG pH ABG pO2 ABG HCO3 ABG O2 Saturation ABG Base Excess ABG Hemoglobin Sodium Potassium 5.9 H Chloride Carbon Dioxide 13 L BUN 42 H Creatinine 2.7 H Glucose 303 H POC Glucose 224 H Lactic Acid 12.80 H* Calcium 7.5 L Phosphorus Total Bilirubin Direct Bilirubin AST ALT Alkaline Phosphatase Total Creatine Kinase Total Protein Albumin Urine WBC (Auto) Crossmatch 10/22/19 10/22/19 10/22/19 17:33 17:33 21:40 WBC 18.2 H RBC 2.21 L Hgb 7.6 L Hct 24.8 L MCV 112 H MCH 34 H RDW 17.5 H Plt Count Seg Neuts % (Manual) 72.0 H Lymphocytes % (Manual) 4.0 L Monocytes % (Manual) 14.0 H Nucleated RBC % Seg Neutrophils # Man 13.1 H Lymphocytes # (Manual) 0.7 L Monocytes # (Manual) 2.5 H PT INR ABG pH ABG pO2 ABG HCO3 ABG O2 Saturation ABG Base Excess ABG Hemoglobin Sodium Potassium 6.0 H Chloride Carbon Dioxide 13 L BUN 41 H Creatinine 2.9 H Glucose 239 H POC Glucose 284 H Lactic Acid Calcium 7.3 L Phosphorus Total Bilirubin Direct Bilirubin AST ALT Alkaline Phosphatase Total Creatine Kinase Total Protein Albumin Urine WBC (Auto) Crossmatch 10/23/19 10/23/19 10/23/19 01:55 04:00 04:00 WBC 17.4 H RBC 3.29 L Hgb Hct MCV 103 H MCH RDW 23.6 H Plt Count Seg Neuts % (Manual) Lymphocytes % (Manual) 1.0 L Monocytes % (Manual) Nucleated RBC % 1.0 H Seg Neutrophils # Man 9.6 H Lymphocytes # (Manual) 0.2 L Monocytes # (Manual) 1.0 H PT INR ABG pH 7.028 L* ABG pO2 155.2 H ABG HCO3 10.7 L ABG O2 Saturation ABG Base Excess -19.0 L ABG Hemoglobin 8.7 L Sodium 134 L Potassium 6.3 H* Chloride 95.8 L Carbon Dioxide 8 L* BUN 38 H Creatinine 2.6 H Glucose 288 H POC Glucose Lactic Acid Calcium 7.2 L Phosphorus Total Bilirubin 3.10 H Direct Bilirubin AST 69272 H ALT 2979 H Alkaline Phosphatase 425 H Total Creatine Kinase Total Protein Albumin 3.2 L Urine WBC (Auto) Crossmatch 10/23/19 10/23/19 10/23/19 05:55 08:15 11:02 WBC RBC Hgb Hct MCV MCH RDW Plt Count Seg Neuts % (Manual) Lymphocytes % (Manual) Monocytes % (Manual) Nucleated RBC % Seg Neutrophils # Man Lymphocytes # (Manual) Monocytes # (Manual) PT INR ABG pH ABG pO2 ABG HCO3 ABG O2 Saturation ABG Base Excess ABG Hemoglobin Sodium Potassium Chloride Carbon Dioxide BUN Creatinine Glucose POC Glucose 241 H 310 H 294 H Lactic Acid Calcium Phosphorus Total Bilirubin Direct Bilirubin AST ALT Alkaline Phosphatase Total Creatine Kinase Total Protein Albumin Urine WBC (Auto) Crossmatch 10/23/19 10/23/19 10/23/19 11:58 15:30 18:03 WBC RBC Hgb Hct MCV MCH RDW Plt Count Seg Neuts % (Manual) Lymphocytes % (Manual) Monocytes % (Manual) Nucleated RBC % Seg Neutrophils # Man Lymphocytes # (Manual) Monocytes # (Manual) PT INR ABG pH ABG pO2 ABG HCO3 ABG O2 Saturation ABG Base Excess ABG Hemoglobin Sodium Potassium 5.6 H Chloride 96.6 L Carbon Dioxide 15 L D BUN 36 H Creatinine 3.0 H Glucose 331 H POC Glucose 332 H 313 H Lactic Acid Calcium 7.7 L Phosphorus Total Bilirubin Direct Bilirubin AST ALT Alkaline Phosphatase Total Creatine Kinase Total Protein Albumin Urine WBC (Auto) Crossmatch 10/23/19 10/24/19 10/24/19 22:06 00:22 04:50 WBC 16.8 H RBC 2.79 L Hgb 8.8 L Hct 27.4 L D MCV 98 H MCH RDW 23.7 H Plt Count 100 L Seg Neuts % (Manual) 82.0 H Lymphocytes % (Manual) 7.0 L Monocytes % (Manual) 8.0 H Nucleated RBC % Seg Neutrophils # Man 13.8 H Lymphocytes # (Manual) Monocytes # (Manual) 1.3 H PT INR ABG pH ABG pO2 ABG HCO3 ABG O2 Saturation ABG Base Excess ABG Hemoglobin Sodium Potassium Chloride Carbon Dioxide BUN Creatinine Glucose POC Glucose 344 H 307 H Lactic Acid Calcium Phosphorus Total Bilirubin Direct Bilirubin AST ALT Alkaline Phosphatase Total Creatine Kinase Total Protein Albumin Urine WBC (Auto) Crossmatch 10/24/19 10/24/19 10/24/19 04:50 05:40 06:01 WBC RBC Hgb Hct MCV MCH RDW Plt Count Seg Neuts % (Manual) Lymphocytes % (Manual) Monocytes % (Manual) Nucleated RBC % Seg Neutrophils # Man Lymphocytes # (Manual) Monocytes # (Manual) PT INR ABG pH ABG pO2 ABG HCO3 ABG O2 Saturation ABG Base Excess ABG Hemoglobin Sodium Potassium Chloride 94.8 L Carbon Dioxide 16 L BUN 36 H Creatinine 2.9 H Glucose 298 H POC Glucose 318 H Lactic Acid Calcium 7.1 L Phosphorus Total Bilirubin 5.60 H Direct Bilirubin AST 5223 H ALT 2211 H Alkaline Phosphatase 477 H Total Creatine Kinase Total Protein 5.6 L Albumin 3.3 L Urine WBC (Auto) > 182.0 H Crossmatch 10/24/19 10/24/19 10/25/19 11:37 17:36 00:10 WBC RBC Hgb Hct MCV MCH RDW Plt Count Seg Neuts % (Manual) Lymphocytes % (Manual) Monocytes % (Manual) Nucleated RBC % Seg Neutrophils # Man Lymphocytes # (Manual) Monocytes # (Manual) PT INR ABG pH ABG pO2 ABG HCO3 ABG O2 Saturation ABG Base Excess ABG Hemoglobin Sodium Potassium Chloride Carbon Dioxide BUN Creatinine Glucose POC Glucose 317 H 280 H 297 H Lactic Acid Calcium Phosphorus Total Bilirubin Direct Bilirubin AST ALT Alkaline Phosphatase Total Creatine Kinase Total Protein Albumin Urine WBC (Auto) Crossmatch 10/25/19 10/25/19 10/25/19 04:30 05:00 05:39 WBC RBC Hgb Hct MCV MCH RDW Plt Count Seg Neuts % (Manual) Lymphocytes % (Manual) Monocytes % (Manual) Nucleated RBC % Seg Neutrophils # Man Lymphocytes # (Manual) Monocytes # (Manual) PT INR ABG pH 7.306 L ABG pO2 118.1 H ABG HCO3 ABG O2 Saturation ABG Base Excess -3.0 L ABG Hemoglobin 8.3 L Sodium 131 L D Potassium Chloride 87.8 L Carbon Dioxide BUN 37 H Creatinine 3.2 H Glucose 303 H POC Glucose 374 H Lactic Acid Calcium 7.0 L Phosphorus 4.70 H Total Bilirubin Direct Bilirubin AST ALT Alkaline Phosphatase Total Creatine Kinase Total Protein Albumin Urine WBC (Auto) Crossmatch 10/25/19 10:30 WBC RBC Hgb Hct MCV MCH RDW Plt Count Seg Neuts % (Manual) Lymphocytes % (Manual) Monocytes % (Manual) Nucleated RBC % Seg Neutrophils # Man Lymphocytes # (Manual) Monocytes # (Manual) PT INR ABG pH ABG pO2 94.9 H ABG HCO3 ABG O2 Saturation ABG Base Excess ABG Hemoglobin 8.7 L Sodium Potassium Chloride Carbon Dioxide BUN Creatinine Glucose POC Glucose Lactic Acid Calcium Phosphorus Total Bilirubin Direct Bilirubin AST ALT Alkaline Phosphatase Total Creatine Kinase Total Protein Albumin Urine WBC (Auto) Crossmatch
--- NOTE | 2019-10-25 13:38 | Progress Note ---
Assessment and Plan - Patient Problems (1) Perforated viscus Current Visit: Yes Status: Acute Plan to address problem: Pt in critical condition. s/p ex lap and repair of perforated peptic ulcer - (10/20) - POD#4. Patient appears to be in multisystem organ failure. Patient is showing some improvement in that she is weaned down to 1 pressor. Her overall prognosis is still grave at this point. She probably had chronic issues with multiple organs prior to this emergency. She may not have had the physiologic reserve needed to overcome such an emergency. The question of compartment syndrome has been brought up. It is reasonable con sideration. In general, issues of renal insufficiency/failure, worsening pulmonary status, hypotension generally begin after the abdominal compartment syndrome develops. In this case, she had all of these issues prior to surgery. She is definitely at risk for compartment syndrome based on the needed resuscitation. It is difficult by exam to determine the true extent of her abdominal distention. Part of it is affected by the generalized edema of the abdominal wall. If we wanted to pursue and rule out this diagnosis, I would recommend that we do the followin. Temporarily paralyze the patient 2. Evaluate for changes in airway pressures 3. Check bladder pressures. If after the patient is adequately paralyzed the bladder pressure is above 12 (area of intra-abdominal hypertension), then it may be worthwhile to consider opening the abdomen. We have to keep in mind that there is a fair amount of morbidity in keeping the abdomen open. Today, it was noted that the fluid color on the dressing and in the drain is more yellowish and darker. We have to worry if this could be related to a leak at the repair site. However, I am more suspicious that this is bilirubin in her body fluid. Her last bilirubin level on the was 5.6. I have asked the nurse to go ahead and replace the NG tube to decompress the stomach in case there is any excess pressure on the repair site. If she was leaking from the repair site, I would not expect her to have an improved blood gas and decreasing pressor requirement. She should be getting worse. We will follow along. Please call with any questions. Time=10min Subjective Date of service: 10/25/19 Patient Reports: Positive: other (weaned down to 1 pressor) Objective Vital Signs - 12hr 10/25/19 10/25/19 10/25/19 01:45 02:00 02:15 Temperature Pulse Rate 106 H 105 H 105 H Pulse Rate [ From Monitor] Respiratory 21 23 21 Rate Blood Pressure 134/68 152/57 131/63 O2 Sat by Pulse 99 100 Oximetry 10/25/19 10/25/19 10/25/19 02:30 02:45 03:00 Temperature Pulse Rate 102 H 106 H 105 H Pulse Rate [ From Monitor] Respiratory 18 22 22 Rate Blood Pressure 148/54 157/62 144/66 O2 Sat by Pulse 99 99 100 Oximetry 10/25/19 10/25/19 10/25/19 03:15 03:30 03:45 Temperature Pulse Rate 104 H 96 H 104 H Pulse Rate [ From Monitor] Respiratory 17 19 20 Rate Blood Pressure 158/68 150/61 149/68 O2 Sat by Pulse 99 99 99 Oximetry 10/25/19 10/25/19 10/25/19 04:00 04:15 04:30 Temperature 97.3 F L Pulse Rate 103 H 96 H 95 H Pulse Rate [ 92 H From Monitor] Respiratory 23 19 21 Rate Blood Pressure 154/72 152/77 147/62 O2 Sat by Pulse 100 99 99 Oximetry 10/25/19 10/25/19 10/25/19 04:45 04:47 05:00 Temperature Pulse Rate 95 H 97 H 107 H Pulse Rate [ From Monitor] Respiratory 18 19 Rate Blood Pressure 163/65 161/62 161/62 O2 Sat by Pulse 99 100 100 Oximetry 10/25/19 10/25/19 10/25/19 05:15 05:30 05:45 Temperature Pulse Rate 98 H 97 H 103 H Pulse Rate [ From Monitor] Respiratory 19 15 19 Rate Blood Pressure 156/60 143/62 150/66 O2 Sat by Pulse 98 98 97 Oximetry 10/25/19 10/25/19 10/25/19 06:00 06:15 06:30 Temperature Pulse Rate 96 H 108 H 97 H Pulse Rate [ From Monitor] Respiratory 16 17 14 Rate Blood Pressure 142/59 155/63 138/53 O2 Sat by Pulse 98 96 98 Oximetry 10/25/19 10/25/19 10/25/19 06:45 07:00 07:15 Temperature Pulse Rate 105 H 105 H 100 H Pulse Rate [ From Monitor] Respiratory 20 19 21 Rate Blood Pressure 130/88 138/61 128/56 O2 Sat by Pulse 98 98 99 Oximetry 10/25/19 10/25/19 10/25/19 07:30 07:45 08:00 Temperature 97.8 F Pulse Rate 104 H 151 H 149 H Pulse Rate [ From Monitor] Respiratory 18 18 25 H Rate Blood Pressure 134/53 125/59 123/68 O2 Sat by Pulse 98 99 100 Oximetry 10/25/19 10/25/19 10/25/19 08:16 08:30 08:46 Temperature Pulse Rate 164 H 147 H 158 H Pulse Rate [ From Monitor] Respiratory 13 16 19 Rate Blood Pressure 130/59 134/53 132/61 O2 Sat by Pulse 98 98 Oximetry 10/25/19 10/25/19 10/25/19 09:00 09:16 09:30 Temperature Pulse Rate 142 H 139 H 148 H Pulse Rate [ From Monitor] Respiratory 19 17 20 Rate Blood Pressure 155/51 132/51 132/51 O2 Sat by Pulse 95 96 96 Oximetry 10/25/19 10/25/19 10/25/19 09:45 10:00 10:16 Temperature Pulse Rate 140 H 128 H 128 H Pulse Rate [ From Monitor] Respiratory 18 25 H 24 Rate Blood Pressure 126/43 126/43 86/14 O2 Sat by Pulse 100 100 100 Oximetry 10/25/19 10/25/19 10:30 11:56 Temperature Pulse Rate 125 H 135 H Pulse Rate [ From Monitor] Respiratory 24 Rate Blood Pressure 86/14 131/46 O2 Sat by Pulse 100 100 Oximetry - General physical appearance no distress, no pain, obese, other (very swollen) - Abdomen soft, distended, other (yellow fluid on dressings. Slightly darker thin fluid in LOUIE. Abd wall and surrounding tissue markedly edematous) - Labs 10/24/19 04:50 10/25/19 04:30 Diabetes panel 10/25/19 Range/Units 04:30 Sodium 131 L D (137-145) mmol/L Potassium 4.6 (3.6-5.0) mmol/L Chloride 87.8 L (98-107) mmol/L Carbon Dioxide 24 D (22-30) mmol/L BUN 37 H (7-17) mg/dL Creatinine 3.2 H (0.7-1.2) mg/dL Glucose 303 H (65-100) mg/dL Calcium 7.0 L (8.4-10.2) mg/dL Calcium panel 10/25/19 Range/Units 04:30 Calcium 7.0 L (8.4-10.2) mg/dL Phosphorus 4.70 H (2.5-4.5) mg/dL Pituitary panel 10/25/19 Range/Units 04:30 Sodium 131 L D (137-145) mmol/L Potassium 4.6 (3.6-5.0) mmol/L Chloride 87.8 L (98-107) mmol/L Carbon Dioxide 24 D (22-30) mmol/L BUN 37 H (7-17) mg/dL Creatinine 3.2 H (0.7-1.2) mg/dL Glucose 303 H (65-100) mg/dL Calcium 7.0 L (8.4-10.2) mg/dL Adrenal panel 10/25/19 Range/Units 04:30 Sodium 131 L D (137-145) mmol/L Potassium 4.6 (3.6-5.0) mmol/L Chloride 87.8 L (98-107) mmol/L Carbon Dioxide 24 D (22-30) mmol/L BUN 37 H (7-17) mg/dL Creatinine 3.2 H (0.7-1.2) mg/dL Glucose 303 H (65-100) mg/dL Calcium 7.0 L (8.4-10.2) mg/dL
--- NOTE | 2019-10-25 14:40 | Progress Note ---
Assessment and Plan Assessment and plan: The high probability of a clinically significant, sudden or life threatening deterioration of the [] system(s) required my full and direct attention, intervention and personal management. The aggregate critical care time was [] minutes. This time is in addition to time spent performing reported procedures but includes the following: [x] Data Review and interpretation [x] Patient assessment and monitoring of vital signs [x]x Documentation [x] Medication orders and management - Patient Problems (1) Acute respiratory failure Current Visit: Yes Status: Acute Plan to address problem: Patient remains vent dependent weaning parameters per pulmonology. Remains intubated unresponsive. Continue nebs prednisone. Spoke with pulmonology plan explained in detail. (2) Perforated viscus Current Visit: Yes Status: Acute Plan to address problem: Perforated viscus status post exploratory lap postop day 3. Surgery following. No new changes. Continue electrolyte supportive care. Patient currently with LOUIE drain serosanguineous drainage. (3) SIRS (systemic inflammatory response syndrome) Current Visit: Yes Status: Acute Plan to address problem: Patient septic secondary to bowel perforation. Supportive care continue Zosyn Flagyl. 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 (5) Septic shock Current Visit: Yes Status: Acute Plan to address problem: Patient on epi and levo fed. Able to wean down to 2 pressors that is evidence of improvement however physically patient has marked ascites facial ascites lower extremity ascites with extensive abdominal wound. Continue present antibiotic coverage. Patient also has yeast will add Diflucan. History Interval history: Patient remains intubated remains critically ill today. Patient some improvement has wean pressor support otherwise hospital course essentially unchanged. Patient remains septic vent dependent. Unresponsive at this time. Patient overall prognosis remains poor Hospitalist Physical - Constitutional Vitals: Temp Pulse Resp BP Pulse Ox 97.8 F 155 H 18 125/78 96 10/25/19 08:00 10/25/19 13:46 10/25/19 13:46 10/25/19 13:46 10/25/19 13:46 General appearance: Present: mild distress, well-nourished, obese, other (Intubated) - EENT ENT: other (Ascites facial edema) - Respiratory Respiratory: bilateral: diminished, rhonchi - Cardiovascular Rhythm: other (Tachycardia) - Extremities Extremity abnormal: edema, pulses diminished Peripheral Pulses: within normal limits - Abdominal General gastrointestinal: soft, non-distended, other (Obese), no hepatomegaly, no splenomegaly - Psychiatric Psychiatric: other (Patient intubated sedated on pressor support.) Results - Labs CBC & Chem 7: 10/24/19 04:50 10/25/19 04:30 Labs: Laboratory Last Values WBC 16.8 K/mm3 (4.5-11.0) H 10/24/19 04:50 RBC 2.79 M/mm3 (3.65-5.03) L 10/24/19 04:50 Hgb 8.8 gm/dl (10.1-14.3) L 10/24/19 04:50 Hct 27.4 % (30.3-42.9) L D 10/24/19 04:50 MCV 98 fl (79-97) H 10/24/19 04:50 MCH 32 pg (28-32) 10/24/19 04:50 MCHC 32 % (30-34) 10/24/19 04:50 RDW 23.7 % (13.2-15.2) H 10/24/19 04:50 Plt Count 100 K/mm3 (140-440) L 10/24/19 04:50 Add Manual Diff Complete 10/24/19 04:50 Total Counted 100 10/24/19 04:50 Seg Neuts % (Manual) 82.0 % (40.0-70.0) H 10/24/19 04:50 Band Neutrophils % 3.0 % 10/24/19 04:50 Lymphocytes % (Manual) 7.0 % (13.4-35.0) L 10/24/19 04:50 Reactive Lymphs % (Man) 0 % 10/24/19 04:50 Monocytes % (Manual) 8.0 % (0.0-7.3) H 10/24/19 04:50 Eosinophils % (Manual) 0 % (0.0-4.3) 10/24/19 04:50 Basophils % (Manual) 0 % (0.0-1.8) 10/24/19 04:50 Metamyelocytes % 0 % 10/24/19 04:50 Myelocytes % 0 % 05/22/20 04:50 Promyelocytes % 0 % 10/24/19 04:50 Blast Cells % 0 % 10/24/19 04:50 Nucleated RBC % Not Reportable 10/24/19 04:50 Seg Neutrophils # Man 13.8 K/mm3 (1.8-7.7) H 10/24/19 04:50 Band Neutrophils # 0.5 K/mm3 10/24/19 04:50 Lymphocytes # (Manual) 1.2 K/mm3 (1.2-5.4) 10/24/19 04:50 Abs React Lymphs (Man) 0.0 K/mm3 10/24/19 04:50 Monocytes # (Manual) 1.3 K/mm3 (0.0-0.8) H 10/24/19 04:50 Eosinophils # (Manual) 0.0 K/mm3 (0.0-0.4) 10/24/19 04:50 Basophils # (Manual) 0.0 K/mm3 (0.0-0.1) 10/24/19 04:50 Metamyelocytes # 0.0 K/mm3 10/24/19 04:50 Myelocytes # 0.0 K/mm3 10/24/19 04:50 Promyelocytes # 0.0 K/mm3 10/24/19 04:50 Blast Cells # 0.0 K/mm3 10/24/19 04:50 WBC Morphology Not Reportable 10/24/19 04:50 Hypersegmented Neuts Not Reportable 10/24/19 04:50 Hyposegmented Neuts Not Reportable 10/24/19 04:50 Hypogranular Neuts Not Reportable 10/24/19 04:50 Smudge Cells Not Reportable 10/24/19 04:50 Toxic Granulation Not Reportable 10/24/19 04:50 Toxic Vacuolation Not Reportable 10/24/19 04:50 Dohle Bodies Not Reportable 10/24/19 04:50 Pelger-Huet Anomaly Not Reportable 10/24/19 04:50 Amanda Rods Not Reportable 10/24/19 04:50 Platelet Estimate Consistent w auto 10/24/19 04:50 Clumped Platelets Not Reportable 10/24/19 04:50 Plt Clumps, EDTA Not Reportable 10/24/19 04:50 Large Platelets Not Reportable 10/24/19 04:50 Giant Platelets Not Reportable 10/24/19 04:50 Platelet Satelliting Not Reportable 10/24/19 04:50 Plt Morphology Comment Not Reportable 10/24/19 04:50 RBC Morphology Not Reportable 10/24/19 04:50 Dimorphic RBCs Not Reportable 10/24/19 04:50 Polychromasia Not Reportable 10/24/19 04:50 Hypochromasia Not Reportable 10/24/19 04:50 Poikilocytosis Not Reportable 10/24/19 04:50 Anisocytosis 2+ 10/24/19 04:50 Microcytosis Not Reportable 10/24/19 04:50 Macrocytosis 1+ 10/24/19 04:50 Spherocytes Not Reportable 10/24/19 04:50 Pappenheimer Bodies Not Reportable 10/24/19 04:50 Sickle Cells Not Reportable 10/24/19 04:50 Target Cells Not Reportable 10/24/19 04:50 Tear Drop Cells Not Reportable 10/24/19 04:50 Ovalocytes Few 10/24/19 04:50 Helmet Cells Not Reportable 10/24/19 04:50 [place] Bodies Not Reportable 10/24/19 04:50 [place] Rings Not Reportable 10/24/19 04:50 Belle Cells 1+ 10/24/19 04:50 Bite Cells Not Reportable 10/24/19 04:50 Crenated Cell Not Reportable 10/24/19 04:50 Elliptocytes Not Reportable 10/24/19 04:50 Acanthocytes (Spur) Not Reportable 10/24/19 04:50 Rouleaux Not Reportable 10/24/19 04:50 Hemoglobin C Crystals Not Reportable 10/24/19 04:50 Schistocytes Not Reportable 10/24/19 04:50 Malaria parasites Not Reportable 10/24/19 04:50 Ciro Bodies Not Reportable 10/24/19 04:50 Hem Pathologist Commnt No 10/24/19 04:50 PT 16.6 Sec. (12.2-14.9) H 10/21/19 11:33 INR 1.33 (0.87-1.13) H 10/21/19 11:33 ABG pH 7.376 pH Units (7.350-7.450) 10/25/19 10:30 ABG pCO2 40.8 mm Hg 10/25/19 10:30 ABG pO2 94.9 mm Hg (80.0-90.0) H 10/25/19 10:30 ABG HCO3 23.4 mmol/L (20.0-26.0) 10/25/19 10:30 ABG O2 Saturation 97.3 % (95.0-99.0) 10/25/19 10:30 ABG O2 Content 11.8 (0.0-44) 10/25/19 10:30 ABG Base Excess -1.6 mmol/L (-2.0-3.0) 10/25/19 10:30 ABG Hemoglobin 8.7 gm/dl (12.0-16.0) L 10/25/19 10:30 ABG Carboxyhemoglobin 1.6 % (0.0-5.0) 10/25/19 10:30 ABG Methemoglobin 0.4 % (0.0-1.5) 10/25/19 10:30 Oxyhemoglobin 95.3 % (95.0-99.0) 10/25/19 10:30 FiO2 40 % 10/25/19 10:30 Sodium 131 mmol/L (137-145) L D 10/25/19 04:30 Potassium 4.6 mmol/L (3.6-5.0) 10/25/19 04:30 Chloride 87.8 mmol/L (98-107) L 10/25/19 04:30 Carbon Dioxide 24 mmol/L (22-30) D 10/25/19 04:30 Anion Gap 24 mmol/L 10/25/19 04:30 BUN 37 mg/dL (7-17) H 10/25/19 04:30 Creatinine 3.2 mg/dL (0.7-1.2) H 10/25/19 04:30 Estimated GFR 14 ml/min 10/25/19 04:30 BUN/Creatinine Ratio 12 % 10/25/19 04:30 Glucose 303 mg/dL (65-100) H 10/25/19 04:30 POC Glucose 374 (70-105) H 10/25/19 05:39 Lactic Acid 12.80 mmol/L (0.7-2.0) H* 10/22/19 15:00 Calcium 7.0 mg/dL (8.4-10.2) L 10/25/19 04:30 Phosphorus 4.70 mg/dL (2.5-4.5) H 10/25/19 04:30 Magnesium 2.20 mg/dL (1.7-2.3) 10/21/19 11:33 Total Bilirubin 5.60 mg/dL (0.1-1.2) H 10/24/19 04:50 Direct Bilirubin 0.3 mg/dL (0-0.2) H 10/21/19 11:33 Indirect Bilirubin 0.4 mg/dL 10/21/19 11:33 AST 5223 units/L (5-40) H 10/24/19 04:50 ALT 2211 units/L (7-56) H 10/24/19 04:50 Alkaline Phosphatase 477 units/L (35-129) H 10/24/19 04:50 Total Creatine Kinase 233 units/L (30-135) H 10/21/19 11:33 Total Protein 5.6 g/dL (6.3-8.2) L 10/24/19 04:50 Albumin 3.3 g/dL (3.9-5) L 10/24/19 04:50 Albumin/Globulin Ratio 1.4 % 10/24/19 04:50 Lipase 15 units/L (13-60) 10/21/19 11:33 Urine Color Taya (Yellow) 10/24/19 05:40 Urine Turbidity Cloudy (Clear) 10/24/19 05:40 Urine pH 7.0 (5.0-7.0) 10/24/19 05:40 Ur Specific [place] 1.015 (1.003-1.030) 10/24/19 05:40 Urine Protein >500 mg/dL (Negative) 10/24/19 05:40 Urine Glucose (UA) >=500 mg/dL (Negative) 10/24/19 05:40 Urine Ketones Neg mg/dL (Negative) 10/24/19 05:40 Urine Blood Lg (Negative) 10/24/19 05:40 Urine Nitrite Neg (Negative) 10/24/19 05:40 Urine Bilirubin Neg (Negative) 10/24/19 05:40 Urine Urobilinogen < 2.0 mg/dL (<2.0) 10/24/19 05:40 Ur Leukocyte Esterase Lg (Negative) 10/24/19 05:40 Urine WBC (Auto) > 182.0 /HPF (0.0-6.0) H 10/24/19 05:40 Urine RBC (Auto) > 182.0 /HPF (0.0-6.0) 10/24/19 05:40 U Epithel Cells (Auto) 2.0 /HPF (0-13.0) 10/24/19 05:40 Urine WBC Clumps 3+ /HPF 10/24/19 05:40 Urine Eosinophils None seen (None Seen) 10/24/19 05:40 Urine Creatinine 15.0 mg/dL (0.1-20.0) 10/24/19 05:40 Urine Sodium 124 mmol/L 10/24/19 05:40 Blood Type A POSITIVE 10/24/19 03:44 Antibody Screen Negative 10/24/19 03:44 Crossmatch See Detail 10/22/19 12:30 Microbiology: Microbiology 10/21/19 13:30 Peripheral/Venous Blood Culture - Preliminary NO GROWTH AFTER 4 DAYS 10/21/19 13:45 Peripheral/Venous Blood Culture - Preliminary NO GROWTH AFTER 4 DAYS 10/22/19 Unknown Tracheal Aspirate Sputum Culture - Final Monica Albicans Gottlieb/IV: Voiding Method Indwelling Catheter IV Catheter Type [Right NECK] Triple Lumen Cath IV Catheter Type [Right INT / Saline Lock Antecubital] IV Catheter Type [Right VAS Cath Internal Jugular] Active Medications - Current Medications Current Medications: Generic Name Dose Route Start Last Admin Trade Name Freq PRN Reason Stop Dose Admin Albumin Human 25 gm 10/22/19 14:00 10/25/19 06:04 Alburx 25% (Albumin) IV 25 gm Q8HR MICHI Administration Dextrose 50 gm 10/23/19 08:25 D50w (25gm) Vial IV Q30MIN PRN Hypoglycemia Protocol Fentanyl 25 mcg 10/22/19 09:18 10/23/19 03:51 Sublimaze IV 25 mcg Q2H PRN Administration Pain , Severe (7-10) Heparin Sodium (Porcine) 5,000 unit 10/24/19 10:00 10/25/19 10:35 Heparin SUB-Q 5,000 unit Q12HR MICHI Administration Hydrocortisone Sodium Succinate 100 mg 10/22/19 22:00 10/25/19 06:04 Solu-Cortef IV 100 mg Q8H MICHI Administration Sodium Chloride 1,000 mls @ 125 mls/hr 10/21/19 15:45 10/22/19 03:22 Nacl 0.9% 1000 Ml IV 125 mls/hr DIRECT MICHI Administration Phenylephrine HCl 100 mg/ 100 mls @ 3 mls/hr 10/21/19 17:00 10/24/19 23:13 Sodium Chloride IV 0 mcg/min TITR MICHI 0 mls/hr Titration Protocol 50 MCG/MIN Vasopressin 20 unit/ Sodium 101 mls @ 9.09 mls/hr 10/22/19 07:00 10/25/19 06:11 Chloride IV 0 units/min TITR MICHI 0 mls/hr Titration Protocol 0.03 UNITS/MIN Norepinephrine 8 mg/ Sodium 250 mls @ 3.75 mls/hr 10/22/19 12:00 10/25/19 11:45 Chloride IV 7 mcg/min TITR MICHI 13.125 mls/hr Titration Protocol 2 MCG/MIN MEROPENEM/NS 1 GRAM/100 ML 1 gram in 100 mls @ 100 mls/hr 10/22/19 14:00 10/25/19 03:55 Merrem/Ns 1 Gram/100 Ml IV 100 mls/hr Q12H MICHI Administration Epinephrine 16 mg/ Sodium 250 mls @ 1.875 mls/hr 10/22/19 15:00 10/24/19 10:15 Chloride IV 0 mcg/min TITR MICHI 0 mls/hr Titration Protocol 2 MCG/MIN Sodium Bicarbonate 75 meq/ 1,075 mls @ 50 mls/hr 10/22/19 20:39 10/25/19 06:04 Dextrose IV 200 mls/hr DIRECT MICHI Administration Insulin Human Lispro 0 unit 10/22/19 18:00 10/25/19 13:28 Humalog SUB-Q 4 unit Q6HR MICHI Administration Protocol Ondansetron HCl 4 mg 10/21/19 14:19 Zofran IV ONCE PRN Nausea And Vomiting Pantoprazole Sodium 40 mg 10/22/19 12:00 10/25/19 10:35 Protonix IV 40 mg QDAY MICHI Administration
[2019-10-25] MEDS ORDERED: FLUCONAZOLE 200 MG 200 MG/100 ML BAG IV ONE (14:41)
[2019-10-26] MEDS: MEROPENEM/NS 1 GRAM/100 ML 1 GRAM/100 ML BAG IV SCH (02:33)
[2019-10-26] MEDS: fentaNYL 100 MCG/2 ML INJ IV PRN ×4 (03:29→21:16)
[2019-10-26 04:21] LABS: Albumin 3.6 g/dL (3.9-5); Calcium 7.4 mg/dL (8.4-10.2)
[2019-10-26 04:58] LABS: ABG Base Excess -0.9 mmol/L (-2.0-3.0); ABG HCO3 23.9 mmol/L (20.0-26.0); ABG Methemoglobin 0.5 % (0.0-1.5); ABG Oxygen Saturation 94.9 % (95.0-99.0); ABG PCO2 40.2 mm Hg; ABG PH 7.393 pH Units (7.350-7.450); ABG PO2 69.6 mm Hg (80.0-90.0)
[2019-10-26] MEDS: ALBUMIN HUMAN 25% (25 GM/100 ML) INJ IV SCH ×2 (06:13→15:21)
[2019-10-26] MEDS: HYDROCORTISONE SOD SUCC 100 MG/2 ML VIAL IV SCH ×3 (06:13→21:15)
[2019-10-26 06:36] LABS: Hematocrit 26.7 % (30.3-42.9); Hemoglobin 8.8 gm/dl (10.1-14.3); Mean Corpuscular HGB Conc 33 % (30-34); Mean Corpuscular Volume 95 fl (79-97); Red Blood Count 2.82 M/mm3 (3.65-5.03)
[2019-10-26 06:42] LABS: Platelet Count 45 K/mm3 (140-440); Red Cell Distribution Width 20.5 % (13.2-15.2)
[2019-10-26] MEDS: PANTOPRAZOLE 40 MG INJ IV SCH (09:19)
[2019-10-26] MEDS ORDERED: DESMOPRESSIN 4 MCG/ML VIAL SUB-Q ONE (10:00)
[2019-10-26 10:49] LABS: Anisocytosis 1+; Band Neutrophils # (Manual) 0.1 K/mm3; Basophils % (Manual) 0 % (0.0-1.8); Eosinophils % (Manual) 0 % (0.0-4.3); Total Cells Counted 100
[2019-10-26 10:50] LABS: Macrocytosis 1+; Platelet Estimate Consistent w Auto
--- NOTE | 2019-10-26 11:15 | Progress Note ---
Assessment and Plan 74 y/o female with perforated viscous and presumed acute renal failure, now intubated with severe sepsis with shock and volume depletion, now in cardiovascular collapse 1. Off all pressors now. will speak with renal about possibility of dialysis 2. Continue vent at current settings 3. Gave a one time dose of DDAVP given lower platelets and oozing after sticks. Need to send HIT panel Guarded prognosis. CCT 31 minutes. Subjective Date of service: 10/26/19 Interval history: No acute events. Lasix did not improve urine output. EKG was done yesterday showing afib but looks like sinus this morning. Still with elevated peak pressures but slightly better with increased peep. Objective Vital Signs - 12hr 10/25/19 10/25/19 10/25/19 23:15 23:30 23:45 Temperature Pulse Rate 94 H 92 H 93 H Pulse Rate [ From Monitor] Respiratory 21 22 23 Rate Blood Pressure 151/65 155/71 162/62 O2 Sat by Pulse 96 96 96 Oximetry 10/25/19 10/26/19 10/26/19 23:56 00:00 00:15 Temperature 97.3 F L Pulse Rate 92 H 92 H Pulse Rate [ 90 From Monitor] Respiratory 18 19 Rate Blood Pressure 170/70 164/71 O2 Sat by Pulse 96 96 Oximetry 10/26/19 10/26/19 10/26/19 00:21 00:30 00:45 Temperature Pulse Rate 93 H 91 H 93 H Pulse Rate [ From Monitor] Respiratory 17 18 Rate Blood Pressure 164/71 140/74 160/67 O2 Sat by Pulse 96 96 96 Oximetry 10/26/19 10/26/19 10/26/19 01:00 01:15 01:30 Temperature Pulse Rate 92 H 93 H 89 Pulse Rate [ From Monitor] Respiratory 18 17 19 Rate Blood Pressure 143/55 139/54 142/67 O2 Sat by Pulse 96 96 96 Oximetry 10/26/19 10/26/19 10/26/19 01:45 02:00 02:15 Temperature Pulse Rate 90 89 91 H Pulse Rate [ From Monitor] Respiratory 12 21 21 Rate Blood Pressure 149/60 133/66 131/60 O2 Sat by Pulse 96 95 97 Oximetry 10/26/19 10/26/19 10/26/19 02:30 02:45 03:00 Temperature Pulse Rate 87 88 95 H Pulse Rate [ From Monitor] Respiratory 17 16 18 Rate Blood Pressure 120/57 112/55 112/55 O2 Sat by Pulse 96 97 97 Oximetry 10/26/19 10/26/19 10/26/19 03:16 03:29 03:30 Temperature Pulse Rate 94 H 88 Pulse Rate [ From Monitor] Respiratory 12 25 H 25 H Rate Blood Pressure 176/61 146/62 O2 Sat by Pulse 97 97 Oximetry 10/26/19 10/26/19 10/26/19 03:45 04:00 04:15 Temperature 97.3 F L Pulse Rate 90 88 89 Pulse Rate [ 92 H From Monitor] Respiratory 25 H 26 H 25 H Rate Blood Pressure 118/43 120/57 141/63 O2 Sat by Pulse 97 98 99 Oximetry 10/26/19 10/26/19 10/26/19 04:30 04:45 05:00 Temperature Pulse Rate 95 H 96 H 90 Pulse Rate [ From Monitor] Respiratory 22 17 23 Rate Blood Pressure 164/67 141/66 141/66 O2 Sat by Pulse 100 97 98 Oximetry 10/26/19 10/26/19 10/26/19 05:15 05:30 05:46 Temperature Pulse Rate 165 H 144 H 88 Pulse Rate [ From Monitor] Respiratory 15 19 13 Rate Blood Pressure 169/122 169/122 145/80 O2 Sat by Pulse 92 96 99 Oximetry 10/26/19 10/26/19 10/26/19 06:00 06:15 06:30 Temperature Pulse Rate 97 H 90 84 Pulse Rate [ From Monitor] Respiratory 20 22 21 Rate Blood Pressure 145/48 158/57 158/57 O2 Sat by Pulse 95 95 Oximetry 10/26/19 10/26/19 10/26/19 06:45 07:00 07:15 Temperature Pulse Rate 87 86 84 Pulse Rate [ From Monitor] Respiratory 19 21 18 Rate Blood Pressure 164/58 164/58 170/63 O2 Sat by Pulse 97 96 98 Oximetry 10/26/19 10/26/19 10/26/19 07:31 07:45 08:00 Temperature 97.4 F L Pulse Rate 84 84 86 Pulse Rate [ 86 From Monitor] Respiratory 13 18 21 Rate Blood Pressure 193/48 191/62 168/66 O2 Sat by Pulse 96 96 96 Oximetry 10/26/19 10/26/19 10/26/19 08:15 08:31 08:43 Temperature Pulse Rate 82 82 83 Pulse Rate [ From Monitor] Respiratory 17 14 Rate Blood Pressure 191/62 161/41 136/51 O2 Sat by Pulse 99 98 100 Oximetry 10/26/19 10/26/19 10/26/19 08:45 09:01 09:15 Temperature Pulse Rate 83 87 87 Pulse Rate [ From Monitor] Respiratory 15 26 H 16 Rate Blood Pressure 136/51 186/62 184/69 O2 Sat by Pulse 100 97 95 Oximetry 10/26/19 10/26/19 10/26/19 09:30 09:45 10:00 Temperature Pulse Rate 96 H 83 81 Pulse Rate [ From Monitor] Respiratory 22 25 H 20 Rate Blood Pressure 204/76 103/38 102/44 O2 Sat by Pulse 96 99 100 Oximetry 10/26/19 10:15 Temperature Pulse Rate 83 Pulse Rate [ From Monitor] Respiratory 26 H Rate Blood Pressure 115/51 O2 Sat by Pulse 99 Oximetry Constitutional: comatose, other (morbidly morbdily obese) Eyes: non-icteric ENT: other (orally intubated) Neck: supple, other (large in circumference) Effort: mildly labored Ascultation: Bilateral: diminished breath sounds (secondary to body habitus) CBC and BMP: 10/26/19 06:25 10/26/19 04:00 ABG, PT/INR, D-dimer: ABG ABG pH 7.393 pH Units (7.350-7.450) 10/26/19 04:33 ABG pCO2 40.2 mm Hg 10/26/19 04:33 ABG pO2 69.6 mm Hg (80.0-90.0) L 10/26/19 04:33 ABG O2 Saturation 94.9 % (95.0-99.0) L 10/26/19 04:33 PT/INR, D-dimer PT 16.6 Sec. (12.2-14.9) H 10/21/19 11:33 INR 1.33 (0.87-1.13) H 10/21/19 11:33 Abnormal lab findings: Abnormal Labs 10/21/19 10/21/19 10/21/19 05:10 11:33 11:33 WBC 14.8 H RBC 3.05 L Hgb Hct MCV 103 H MCH 34 H RDW 16.7 H Plt Count Seg Neuts % (Manual) Lymphocytes % (Manual) 3.0 L Monocytes % (Manual) Nucleated RBC % Seg Neutrophils # Man Lymphocytes # (Manual) 0.4 L Monocytes # (Manual) PT 16.6 H INR 1.33 H ABG pH ABG pO2 ABG HCO3 ABG O2 Saturation ABG Base Excess ABG Hemoglobin Oxyhemoglobin Sodium Potassium Chloride Carbon Dioxide BUN Creatinine Glucose POC Glucose Lactic Acid 8.50 H* Calcium Phosphorus Total Bilirubin Direct Bilirubin AST ALT Alkaline Phosphatase Total Creatine Kinase Total Protein Albumin Urine WBC (Auto) Crossmatch 10/21/19 10/21/19 10/21/19 11:33 11:33 13:30 WBC RBC Hgb Hct MCV MCH RDW Plt Count Seg Neuts % (Manual) Lymphocytes % (Manual) Monocytes % (Manual) Nucleated RBC % Seg Neutrophils # Man Lymphocytes # (Manual) Monocytes # (Manual) PT INR ABG pH ABG pO2 ABG HCO3 ABG O2 Saturation ABG Base Excess ABG Hemoglobin Oxyhemoglobin Sodium 129 L Potassium 6.8 H* Chloride 89.4 L Carbon Dioxide 19 L BUN 56 H Creatinine 3.0 H Glucose POC Glucose Lactic Acid 8.20 H* 7.50 H* Calcium 8.2 L Phosphorus Total Bilirubin Direct Bilirubin 0.3 H AST ALT Alkaline Phosphatase 159 H Total Creatine Kinase 233 H Total Protein Albumin 2.4 L Urine WBC (Auto) Crossmatch 10/21/19 10/21/19 10/21/19 13:30 15:05 16:15 WBC RBC Hgb Hct MCV MCH RDW Plt Count Seg Neuts % (Manual) Lymphocytes % (Manual) Monocytes % (Manual) Nucleated RBC % Seg Neutrophils # Man Lymphocytes # (Manual) Monocytes # (Manual) PT INR ABG pH ABG pO2 ABG HCO3 ABG O2 Saturation ABG Base Excess ABG Hemoglobin Oxyhemoglobin Sodium Potassium 6.3 H* Chloride Carbon Dioxide BUN Creatinine Glucose POC Glucose 52 L 131 H Lactic Acid Calcium Phosphorus Total Bilirubin Direct Bilirubin AST ALT Alkaline Phosphatase Total Creatine Kinase Total Protein Albumin Urine WBC (Auto) Crossmatch 10/21/19 10/21/19 10/21/19 17:09 17:09 17:09 WBC 12.4 H RBC 2.32 L Hgb 7.9 L Hct 24.9 L D MCV 107 H MCH 34 H RDW 17.2 H Plt Count Seg Neuts % (Manual) Lymphocytes % (Manual) Monocytes % (Manual) Nucleated RBC % Seg Neutrophils # Man Lymphocytes # (Manual) Monocytes # (Manual) PT INR ABG pH ABG pO2 ABG HCO3 ABG O2 Saturation ABG Base Excess ABG Hemoglobin Oxyhemoglobin Sodium 135 L Potassium Chloride Carbon Dioxide 15 L BUN 47 H Creatinine 2.6 H Glucose 106 H POC Glucose Lactic Acid 6.40 H* Calcium 7.2 L Phosphorus Total Bilirubin Direct Bilirubin AST 53 H ALT Alkaline Phosphatase Total Creatine Kinase Total Protein 6.0 L D Albumin 2.6 L Urine WBC (Auto) Crossmatch 10/21/19 10/22/19 10/22/19 21:05 05:10 05:10 WBC 15.8 H RBC 2.49 L Hgb 8.5 L Hct 27.0 L MCV 109 H MCH 34 H RDW 17.7 H Plt Count Seg Neuts % (Manual) Lymphocytes % (Manual) 6.0 L Monocytes % (Manual) 9.0 H Nucleated RBC % Seg Neutrophils # Man Lymphocytes # (Manual) 0.9 L Monocytes # (Manual) 1.4 H PT INR ABG pH 7.121 L* ABG pO2 481.5 H ABG HCO3 14.8 L ABG O2 Saturation 99.6 H ABG Base Excess -13.7 L ABG Hemoglobin 8.4 L Oxyhemoglobin Sodium Potassium 7.1 H* D Chloride Carbon Dioxide 11 L BUN 47 H Creatinine 2.8 H Glucose 8 L* POC Glucose Lactic Acid Calcium 6.7 L Phosphorus 6.20 H Total Bilirubin Direct Bilirubin AST 851 H ALT 350 H Alkaline Phosphatase Total Creatine Kinase Total Protein Albumin 2.5 L Urine WBC (Auto) Crossmatch 10/22/19 10/22/19 10/22/19 05:37 06:09 06:22 WBC RBC Hgb Hct MCV MCH RDW Plt Count Seg Neuts % (Manual) Lymphocytes % (Manual) Monocytes % (Manual) Nucleated RBC % Seg Neutrophils # Man Lymphocytes # (Manual) Monocytes # (Manual) PT INR ABG pH 7.096 L* ABG pO2 116.6 H ABG HCO3 10.3 L ABG O2 Saturation ABG Base Excess -18.0 L ABG Hemoglobin 8.1 L Oxyhemoglobin Sodium Potassium Chloride Carbon Dioxide BUN Creatinine Glucose POC Glucose < 40 L 63 L Lactic Acid Calcium Phosphorus Total Bilirubin Direct Bilirubin AST ALT Alkaline Phosphatase Total Creatine Kinase Total Protein Albumin Urine WBC (Auto) Crossmatch 10/22/19 10/22/1910/21/20 08:11 09:00 09:00 WBC RBC Hgb Hct MCV MCH RDW Plt Count Seg Neuts % (Manual) Lymphocytes % (Manual) Monocytes % (Manual) Nucleated RBC % Seg Neutrophils # Man Lymphocytes # (Manual) Monocytes # (Manual) PT INR ABG pH ABG pO2 ABG HCO3 ABG O2 Saturation ABG Base Excess ABG Hemoglobin Oxyhemoglobin Sodium Potassium 6.0 H Chloride Carbon Dioxide 12 L BUN 43 H Creatinine 2.8 H Glucose 148 H POC Glucose 155 H Lactic Acid 10.10 H* Calcium 7.1 L Phosphorus Total Bilirubin Direct Bilirubin AST 2445 H ALT 898 H Alkaline Phosphatase Total Creatine Kinase Total Protein 5.3 L Albumin 2.5 L Urine WBC (Auto) Crossmatch 10/22/19 10/22/19 10/22/19 12:00 12:17 12:30 WBC RBC Hgb Hct MCV MCH RDW Plt Count Seg Neuts % (Manual) Lymphocytes % (Manual) Monocytes % (Manual) Nucleated RBC % Seg Neutrophils # Man Lymphocytes # (Manual) Monocytes # (Manual) PT INR ABG pH ABG pO2 ABG HCO3 ABG O2 Saturation ABG Base Excess ABG Hemoglobin Oxyhemoglobin Sodium 136 L Potassium 6.3 H* Chloride Carbon Dioxide 11 L BUN 42 H Creatinine 2.8 H Glucose 116 H POC Glucose 115 H Lactic Acid Calcium 7.6 L Phosphorus Total Bilirubin Direct Bilirubin AST ALT Alkaline Phosphatase Total Creatine Kinase Total Protein Albumin Urine WBC (Auto) Crossmatch See Detail 10/22/19 10/22/19 10/22/19 15:00 15:00 17:12 WBC RBC Hgb Hct MCV MCH RDW Plt Count Seg Neuts % (Manual) Lymphocytes % (Manual) Monocytes % (Manual) Nucleated RBC % Seg Neutrophils # Man Lymphocytes # (Manual) Monocytes # (Manual) PT INR ABG pH ABG pO2 ABG HCO3 ABG O2 Saturation ABG Base Excess ABG Hemoglobin Oxyhemoglobin Sodium Potassium 5.9 H Chloride Carbon Dioxide 13 L BUN 42 H Creatinine 2.7 H Glucose 303 H POC Glucose 224 H Lactic Acid 12.80 H* Calcium 7.5 L Phosphorus Total Bilirubin Direct Bilirubin AST ALT Alkaline Phosphatase Total Creatine Kinase Total Protein Albumin Urine WBC (Auto) Crossmatch 10/22/19 10/22/19 10/22/19 17:33 17:33 21:40 WBC 18.2 H RBC 2.21 L Hgb 7.6 L Hct 24.8 L MCV 112 H MCH 34 H RDW 17.5 H Plt Count Seg Neuts % (Manual) 72.0 H Lymphocytes % (Manual) 4.0 L Monocytes % (Manual) 14.0 H Nucleated RBC % Seg Neutrophils # Man 13.1 H Lymphocytes # (Manual) 0.7 L Monocytes # (Manual) 2.5 H PT INR ABG pH ABG pO2 ABG HCO3 ABG O2 Saturation ABG Base Excess ABG Hemoglobin Oxyhemoglobin Sodium Potassium 6.0 H Chloride Carbon Dioxide 13 L BUN 41 H Creatinine 2.9 H Glucose 239 H POC Glucose 284 H Lactic Acid Calcium 7.3 L Phosphorus Total Bilirubin Direct Bilirubin AST ALT Alkaline Phosphatase Total Creatine Kinase Total Protein Albumin Urine WBC (Auto) Crossmatch 10/23/19 10/23/19 10/23/19 01:55 04:00 04:00 WBC 17.4 H RBC 3.29 L Hgb Hct MCV 103 H MCH RDW 23.6 H Plt Count Seg Neuts % (Manual) Lymphocytes % (Manual) 1.0 L Monocytes % (Manual) Nucleated RBC % 1.0 H Seg Neutrophils # Man 9.6 H Lymphocytes # (Manual) 0.2 L Monocytes # (Manual) 1.0 H PT INR ABG pH 7.028 L* ABG pO2 155.2 H ABG HCO3 10.7 L ABG O2 Saturation ABG Base Excess -19.0 L ABG Hemoglobin 8.7 L Oxyhemoglobin Sodium 134 L Potassium 6.3 H* Chloride 95.8 L Carbon Dioxide 8 L* BUN 38 H Creatinine 2.6 H Glucose 288 H POC Glucose Lactic Acid Calcium 7.2 L Phosphorus Total Bilirubin 3.10 H Direct Bilirubin AST 28169 H ALT 2979 H Alkaline Phosphatase 425 H Total Creatine Kinase Total Protein Albumin 3.2 L Urine WBC (Auto) Crossmatch 10/23/19 10/23/19 10/23/19 05:55 08:15 11:02 WBC RBC Hgb Hct MCV MCH RDW Plt Count Seg Neuts % (Manual) Lymphocytes % (Manual) Monocytes % (Manual) Nucleated RBC % Seg Neutrophils # Man Lymphocytes # (Manual) Monocytes # (Manual) PT INR ABG pH ABG pO2 ABG HCO3 ABG O2 Saturation ABG Base Excess ABG Hemoglobin Oxyhemoglobin Sodium Potassium Chloride Carbon Dioxide BUN Creatinine Glucose POC Glucose 241 H 310 H 294 H Lactic Acid Calcium Phosphorus Total Bilirubin Direct Bilirubin AST ALT Alkaline Phosphatase Total Creatine Kinase Total Protein Albumin Urine WBC (Auto) Crossmatch 10/23/19 10/23/19 10/23/19 11:58 15:30 18:03 WBC RBC Hgb Hct MCV MCH RDW Plt Count Seg Neuts % (Manual) Lymphocytes % (Manual) Monocytes % (Manual) Nucleated RBC % Seg Neutrophils # Man Lymphocytes # (Manual) Monocytes # (Manual) PT INR ABG pH ABG pO2 ABG HCO3 ABG O2 Saturation ABG Base Excess ABG Hemoglobin Oxyhemoglobin Sodium Potassium 5.6 H Chloride 96.6 L Carbon Dioxide 15 L D BUN 36 H Creatinine 3.0 H Glucose 331 H POC Glucose 332 H 313 H Lactic Acid Calcium 7.7 L Phosphorus Total Bilirubin Direct Bilirubin AST ALT Alkaline Phosphatase Total Creatine Kinase Total Protein Albumin Urine WBC (Auto) Crossmatch 10/23/19 10/24/19 10/24/19 22:06 00:22 04:50 WBC 16.8 H RBC 2.79 L Hgb 8.8 L Hct 27.4 L D MCV 98 H MCH RDW 23.7 H Plt Count 100 L Seg Neuts % (Manual) 82.0 H Lymphocytes % (Manual) 7.0 L Monocytes % (Manual) 8.0 H Nucleated RBC % Seg Neutrophils # Man 13.8 H Lymphocytes # (Manual) Monocytes # (Manual) 1.3 H PT INR ABG pH ABG pO2 ABG HCO3 ABG O2 Saturation ABG Base Excess ABG Hemoglobin Oxyhemoglobin Sodium Potassium Chloride Carbon Dioxide BUN Creatinine Glucose POC Glucose 344 H 307 H Lactic Acid Calcium Phosphorus Total Bilirubin Direct Bilirubin AST ALT Alkaline Phosphatase Total Creatine Kinase Total Protein Albumin Urine WBC (Auto) Crossmatch 10/24/19 10/24/19 10/24/19 04:50 05:40 06:01 WBC RBC Hgb Hct MCV MCH RDW Plt Count Seg Neuts % (Manual) Lymphocytes % (Manual) Monocytes % (Manual) Nucleated RBC % Seg Neutrophils # Man Lymphocytes # (Manual) Monocytes # (Manual) PT INR ABG pH ABG pO2 ABG HCO3 ABG O2 Saturation ABG Base Excess ABG Hemoglobin Oxyhemoglobin Sodium Potassium Chloride 94.8 L Carbon Dioxide 16 L BUN 36 H Creatinine 2.9 H Glucose 298 H POC Glucose 318 H Lactic Acid Calcium 7.1 L Phosphorus Total Bilirubin 5.60 H Direct Bilirubin AST 5223 H ALT 2211 H Alkaline Phosphatase 477 H Total Creatine Kinase Total Protein 5.6 L Albumin 3.3 L Urine WBC (Auto) > 182.0 H Crossmatch 10/24/19 10/24/19 10/25/19 11:37 17:36 00:10 WBC RBC Hgb Hct MCV MCH RDW Plt Count Seg Neuts % (Manual) Lymphocytes % (Manual) Monocytes % (Manual) Nucleated RBC % Seg Neutrophils # Man Lymphocytes # (Manual) Monocytes # (Manual) PT INR ABG pH ABG pO2 ABG HCO3 ABG O2 Saturation ABG Base Excess ABG Hemoglobin Oxyhemoglobin Sodium Potassium Chloride Carbon Dioxide BUN Creatinine Glucose POC Glucose 317 H 280 H 297 H Lactic Acid Calcium Phosphorus Total Bilirubin Direct Bilirubin AST ALT Alkaline Phosphatase Total Creatine Kinase Total Protein Albumin Urine WBC (Auto) Crossmatch 10/25/19 10/25/19 10/25/19 04:30 05:00 05:39 WBC RBC Hgb Hct MCV MCH RDW Plt Count Seg Neuts % (Manual) Lymphocytes % (Manual) Monocytes % (Manual) Nucleated RBC % Seg Neutrophils # Man Lymphocytes # (Manual) Monocytes # (Manual) PT INR ABG pH 7.306 L ABG pO2 118.1 H ABG HCO3 ABG O2 Saturation ABG Base Excess -3.0 L ABG Hemoglobin 8.3 L Oxyhemoglobin Sodium 131 L D Potassium Chloride 87.8 L Carbon Dioxide BUN 37 H Creatinine 3.2 H Glucose 303 H POC Glucose 374 H Lactic Acid Calcium 7.0 L Phosphorus 4.70 H Total Bilirubin Direct Bilirubin AST ALT Alkaline Phosphatase Total Creatine Kinase Total Protein Albumin Urine WBC (Auto) Crossmatch 10/25/19 10/25/19 10/25/19 10:30 12:04 18:01 WBC RBC Hgb Hct MCV MCH RDW Plt Count Seg Neuts % (Manual) Lymphocytes % (Manual) Monocytes % (Manual) Nucleated RBC % Seg Neutrophils # Man Lymphocytes # (Manual) Monocytes # (Manual) PT INR ABG pH ABG pO2 94.9 H ABG HCO3 ABG O2 Saturation ABG Base Excess ABG Hemoglobin 8.7 L Oxyhemoglobin Sodium Potassium Chloride Carbon Dioxide BUN Creatinine Glucose POC Glucose 316 H 254 H Lactic Acid Calcium Phosphorus Total Bilirubin Direct Bilirubin AST ALT Alkaline Phosphatase Total Creatine Kinase Total Protein Albumin Urine WBC (Auto) Crossmatch 10/25/19 10/26/19 10/26/19 23:34 04:00 04:33 WBC RBC Hgb Hct MCV MCH RDW Plt Count Seg Neuts % (Manual) Lymphocytes % (Manual) Monocytes % (Manual) Nucleated RBC % Seg Neutrophils # Man Lymphocytes # (Manual) Monocytes # (Manual) PT INR ABG pH ABG pO2 69.6 L ABG HCO3 ABG O2 Saturation 94.9 L ABG Base Excess ABG Hemoglobin 8.5 L Oxyhemoglobin 93.0 L Sodium 131 L Potassium Chloride 88.4 L Carbon Dioxide BUN 41 H Creatinine 3.9 H Glucose 186 H POC Glucose 207 H Lactic Acid Calcium 7.4 L Phosphorus Total Bilirubin 7.60 H Direct Bilirubin AST 660 H ALT 765 H Alkaline Phosphatase 314 H Total Creatine Kinase Total Protein 4.8 L Albumin 3.6 L Urine WBC (Auto) Crossmatch 10/26/19 10/26/19 06:25 06:33 WBC 12.1 H RBC 2.82 L Hgb 8.8 L Hct 26.7 L MCV MCH RDW 20.5 H Plt Count 45 L Seg Neuts % (Manual) 88.0 H Lymphocytes % (Manual) 4.0 L Monocytes % (Manual) Nucleated RBC % 1.0 H Seg Neutrophils # Man 10.6 H Lymphocytes # (Manual) 0.5 L Monocytes # (Manual) PT INR ABG pH ABG pO2 ABG HCO3 ABG O2 Saturation ABG Base Excess ABG Hemoglobin Oxyhemoglobin Sodium Potassium Chloride Carbon Dioxide BUN Creatinine Glucose POC Glucose 180 H Lactic Acid Calcium Phosphorus Total Bilirubin Direct Bilirubin AST ALT Alkaline Phosphatase Total Creatine Kinase Total Protein Albumin Urine WBC (Auto) Crossmatch
[2019-10-26] MEDS: MEROPENEM/NS 500 MG/50 ML 500 MG/50 ML BAG IV SCH ×2 (11:25→21:15)
--- NOTE | 2019-10-26 11:43 | Progress Note ---
Assessment and Plan 1. Acute kidney injury: Likely vasomotor KORY in the setting of septic shock. Unclear what patient baseline creatinine is. Creatinine is 3.9 from 3.2 from 2.9 from 2[address] abd/pelvis revealed low lying right kidney with multiple stones of varying sizes and a large staghorn calculus, negative for hydro. Continue IV fluids. Patient is anuric / oliguric. Monitor renal function. Renal prognosis is guarded. Avoid nephrotoxic agents. Meds dosage based on GFR. Plan for hemodialysis tomorrow. D/w . 2. FEN: Hyperkalemia, improved, monitor. Metabolic acidosis, on sodium bicarb drip, monitor. Hypocalcemia, replete ap as needed, monitor. Anasarca. Monitor lytes and volume status. 3. Perforated viscus: S/p emergency exploratory lap w/ repair. Large amount of contamination in abdomen. Surgery following. 4. Septic shock: On IV abx, IV fluids and IV pressors. S/p albumin. 5. Acute respiratory failure: Currently intubated on vent. Pulmonology following. 6. Shock Liver. 7. Type 2 diabetes: Monitor blood glucose. 8. Anemia, POA. 9. H/o asthma. 10. Recent surgery to LLE. Overall prognosis remains slim. Subjective Patient was seen and examined at the bedside. She remains in critical condition. Objective - Exam Narrative Exam: General appearance: well-developed, appears stated age, obese, intubated, on vent, anasarca HEENT: facial plethora noted Neck: trachea midline Respiratory: mechanical vent sounds Heart: regular, S1S2, no murmurs Gastrointestinal: obese, distended, LOUIE drain, dressing noted Integumentary: no rash, warm and dry Neurologic: sedated, intubated on vent) Ext: L lower extremity wrapped in dressing and LYNDA bandage, bilateral LE edema noted : brewer catheter Hemodialysis access: R IJ temp catheter Psychiatric: unable to assess Subjective Date of service: 10/26/19 Objective - Vital Signs Vital signs: Vital Signs - 12hr 10/25/19 10/25/19 10/26/19 23:45 23:56 00:00 Temperature 97.3 F L Pulse Rate 93 H 92 H Pulse Rate [ 90 From Monitor] Respiratory 23 18 Rate Blood Pressure 162/62 170/70 O2 Sat by Pulse 96 96 Oximetry 10/26/19 10/26/19 10/26/19 00:15 00:21 00:30 Temperature Pulse Rate 92 H 93 H 91 H Pulse Rate [ From Monitor] Respiratory 19 17 Rate Blood Pressure 164/71 164/71 140/74 O2 Sat by Pulse 96 96 96 Oximetry 10/26/19 10/26/19 10/26/19 00:45 01:00 01:15 Temperature Pulse Rate 93 H 92 H 93 H Pulse Rate [ From Monitor] Respiratory 18 18 17 Rate Blood Pressure 160/67 143/55 139/54 O2 Sat by Pulse 96 96 96 Oximetry 10/26/19 10/26/19 10/26/19 01:30 01:45 02:00 Temperature Pulse Rate 89 90 89 Pulse Rate [ From Monitor] Respiratory 19 12 21 Rate Blood Pressure 142/67 149/60 133/66 O2 Sat by Pulse 96 96 95 Oximetry 10/26/19 10/26/19 10/26/19 02:15 02:30 02:45 Temperature Pulse Rate 91 H 87 88 Pulse Rate [ From Monitor] Respiratory 21 17 16 Rate Blood Pressure 131/60 120/57 112/55 O2 Sat by Pulse 97 96 97 Oximetry 10/26/19 10/26/19 10/26/19 03:00 03:16 03:29 Temperature Pulse Rate 95 H 94 H Pulse Rate [ From Monitor] Respiratory 18 12 25 H Rate Blood Pressure 112/55 176/61 O2 Sat by Pulse 97 97 Oximetry 10/26/19 10/26/19 10/26/19 03:30 03:45 04:00 Temperature 97.3 F L Pulse Rate 88 90 88 Pulse Rate [ 92 H From Monitor] Respiratory 25 H 25 H 26 H Rate Blood Pressure 146/62 118/43 120/57 O2 Sat by Pulse 97 97 98 Oximetry 10/26/19 10/26/19 10/26/19 04:15 04:30 04:45 Temperature Pulse Rate 89 95 H 96 H Pulse Rate [ From Monitor] Respiratory 25 H 22 17 Rate Blood Pressure 141/63 164/67 141/66 O2 Sat by Pulse 99 100 97 Oximetry 10/26/19 10/26/19 10/26/19 05:00 05:15 05:30 Temperature Pulse Rate 90 165 H 144 H Pulse Rate [ From Monitor] Respiratory 23 15 19 Rate Blood Pressure 141/66 169/122 169/122 O2 Sat by Pulse 98 92 96 Oximetry 10/26/19 10/26/19 10/26/19 05:46 06:00 06:15 Temperature Pulse Rate 88 97 H 90 Pulse Rate [ From Monitor] Respiratory 13 20 22 Rate Blood Pressure 145/80 145/48 158/57 O2 Sat by Pulse 99 95 Oximetry 10/26/19 10/26/19 10/26/19 06:30 06:45 07:00 Temperature Pulse Rate 84 87 86 Pulse Rate [ From Monitor] Respiratory 21 19 21 Rate Blood Pressure 158/57 164/58 164/58 O2 Sat by Pulse 95 97 96 Oximetry 10/26/19 10/26/19 10/26/19 07:15 07:31 07:45 Temperature Pulse Rate 84 84 84 Pulse Rate [ From Monitor] Respiratory 18 13 18 Rate Blood Pressure 170/63 193/48 191/62 O2 Sat by Pulse 98 96 96 Oximetry 10/26/19 10/26/19 10/26/19 08:00 08:15 08:31 Temperature 97.4 F L Pulse Rate 86 82 82 Pulse Rate [ 86 From Monitor] Respiratory 21 17 14 Rate Blood Pressure 168/66 191/62 161/41 O2 Sat by Pulse 96 99 98 Oximetry 10/26/19 10/26/19 10/26/19 08:43 08:45 09:01 Temperature Pulse Rate 83 83 87 Pulse Rate [ From Monitor] Respiratory 15 26 H Rate Blood Pressure 136/51 136/51 186/62 O2 Sat by Pulse 100 100 97 Oximetry 10/26/19 10/26/19 10/26/19 09:15 09:30 09:45 Temperature Pulse Rate 87 96 H 83 Pulse Rate [ From Monitor] Respiratory 16 22 25 H Rate Blood Pressure 184/69 204/76 103/38 O2 Sat by Pulse 95 96 99 Oximetry 10/26/19 10/26/19 10:00 10:15 Temperature Pulse Rate 81 83 Pulse Rate [ From Monitor] Respiratory 20 26 H Rate Blood Pressure 102/44 115/51 O2 Sat by Pulse 100 99 Oximetry - Lab 10/26/19 16:30 10/26/19 04:00 Most recent lab results ABG pH 7.393 pH Units (7.350-7.450) 10/26/19 04:33 ABG pCO2 40.2 mm Hg 10/26/19 04:33 ABG pO2 69.6 mm Hg (80.0-90.0) L 10/26/19 04:33 ABG HCO3 23.9 mmol/L (20.0-26.0) 10/26/19 04:33 ABG O2 Saturation 94.9 % (95.0-99.0) L 10/26/19 04:33 Calcium 7.4 mg/dL (8.4-10.2) L 10/26/19 04:00 Phosphorus 4.70 mg/dL (2.5-4.5) H 10/25/19 04:30 Magnesium 2.20 mg/dL (1.7-2.3) 10/21/19 11:33 Urine Creatinine 15.0 mg/dL (0.1-20.0) 10/24/19 05:40 Urine Sodium 124 mmol/L 10/24/19 05:40 Medications & Allergies - Medications Allergies/Adverse Reactions: Allergies No Known Allergies Allergy (Unverified 10/17/19 19:57) Home Medications: Home Medications Medication Instructions Recorded Confirmed Last Taken Type HYDROcodone/APAP 5-325 [Lyman 1 each PO Q6HR PRN #12 tablet 10/17/19 Unknown Rx 5/325] Ibuprofen [Motrin] 800 mg PO Q8HR #30 tablet 10/17/19 Unknown Rx Active Medications: Generic Name Dose Route Start Last Admin Trade Name Freq PRN Reason Stop Dose Admin Albumin Human 25 gm 10/22/19 14:00 10/26/19 06:13 Alburx 25% (Albumin) IV 25 gm Q8HR MICHI Administration Dextrose 50 gm 10/23/19 08:25 D50w (25gm) Vial IV Q30MIN PRN Hypoglycemia Protocol Fentanyl 25 mcg 10/22/19 09:18 10/26/19 03:29 Sublimaze IV 25 mcg Q2H PRN Administration Pain , Severe (7-10) Hydrocortisone Sodium Succinate 100 mg 10/22/19 22:00 10/26/19 06:13 Solu-Cortef IV 100 mg Q8H MICHI Administration Sodium Chloride 1,000 mls @ 125 mls/hr 10/21/19 15:45 10/22/19 03:22 Nacl 0.9% 1000 Ml IV 125 mls/hr DIRECT MICHI Administration Phenylephrine HCl 100 mg/ 100 mls @ 3 mls/hr 10/21/19 17:00 10/24/19 23:13 Sodium Chloride IV 0 mcg/min TITR MICHI 0 mls/hr Titration Protocol 50 MCG/MIN Vasopressin 20 unit/ Sodium 101 mls @ 9.09 mls/hr 10/22/19 07:00 10/25/19 06:11 Chloride IV 0 units/min TITR MICHI 0 mls/hr Titration Protocol 0.03 UNITS/MIN Norepinephrine 8 mg/ Sodium 250 mls @ 3.75 mls/hr 10/22/19 12:00 10/25/19 15:30 Chloride IV 0 mcg/min TITR MICHI 0 mls/hr Titration Protocol 2 MCG/MIN Epinephrine 16 mg/ Sodium 250 mls @ 1.875 mls/hr 10/22/19 15:00 10/24/19 10:15 Chloride IV 0 mcg/min TITR MICHI 0 mls/hr Titration Protocol 2 MCG/MIN Sodium Bicarbonate 75 meq/ 1,075 mls @ 50 mls/hr 10/22/19 20:39 10/26/19 07:19 Dextrose IV Infused DIRECT MICHI Infusion Meropenem 500 mg in 50 mls @ 50 mls/hr 10/26/19 12:00 10/26/19 11:25 Merrem/Ns 500 Mg/50 Ml IV 50 mls/hr Q12HR MICHI Administration Insulin Human Lispro 0 unit 10/22/19 18:00 10/25/19 18:33 Humalog SUB-Q 3 unit Q6HR MICHI Administration Protocol Ondansetron HCl 4 mg 10/21/19 14:19 Zofran IV ONCE PRN Nausea And Vomiting Pantoprazole Sodium 40 mg 10/22/19 12:00 10/26/19 09:19 Protonix IV 40 mg QDAY MICHI Administration
--- NOTE | 2019-10-26 13:24 | Progress Note ---
Assessment and Plan Assessment and plan: The high probability of a clinically significant, sudden or life threatening deterioration of the [] system(s) required my full and direct attention, intervention and personal management. The aggregate critical care time was [] minutes. This time is in addition to time spent performing reported procedures but includes the following: [x] Data Review and interpretation [x] Patient assessment and monitoring of vital signs [x]x Documentation [x] Medication orders and management - Patient Problems (1) Acute respiratory failure Current Visit: Yes Status: Acute Plan to address problem: Patient remains vent dependent weaning parameters per pulmonology. Remains intubated unresponsive. Continue nebs prednisone. Spoke with pulmonology plan explained in detail. (2) Perforated viscus Current Visit: Yes Status: Acute Plan to address problem: Perforated viscus status post exploratory lap postop day 3. Surgery following. No new changes. Continue electrolyte supportive care. Patient currently with LOUIE drain serosanguineous drainage. (3) SIRS (systemic inflammatory response syndrome) Current Visit: Yes Status: Acute Plan to address problem: Patient septic secondary to bowel perforation. Supportive care continue Zosyn Flagyl. (4) T2DM (type 2 diabetes mellitus) Current Visit: Yes Status: Chronic Qualifiers: Diabetes mellitus emt intermediate insulin use: unspecified emt intermediate insulin use status Plan to address problem: Hyperglycemia most likely secondary to continue steroids. Patient requires them. Will treat with sliding scale insulin today. (5) Septic shock Current Visit: Yes Status: Acute Plan to address problem: Patient on epi and levo fed. Able to wean down to 2 pressors that is evidence of improvement however physically patient has marked ascites facial ascites lower extremity ascites with extensive abdominal wound. Continue present antibiotic coverage. Patient also has yeast will add Diflucan. (6) Thrombocytopenia Current Visit: Yes Status: Acute Plan to address problem: Platelets down to 45. No new episodes of bleeding at this time. Heparin disc ontinued yesterday. Patient received 1 dose DD VAP this a.m. Follow-up labs. History Interval history: 73 years old female with perforated viscus status post exploratory lap, sepsis septic shock now multiorgan failure. Patient remains intubated remains critically ill today. As showed some improvement although minimal pressor support has been weaned off.. Patient remains septic vent dependent. Unresponsive at this time. Patient overall prognosis remains poor Hospitalist Physical - Constitutional Vitals: Temp Pulse Resp BP Pulse Ox 98.1 F 85 26 H 135/54 99 10/26/19 11:57 10/26/19 12:02 10/26/19 10:15 10/26/19 12:02 10/26/19 12:02 General appearance: Present: mild distress, well-nourished, obese, other (Intubated) - Respiratory Respiratory: bilateral: diminished, rhonchi - Cardiovascular Rhythm: regular - Extremities Extremity abnormal: edema, other (Ascites) Peripheral Pulses: abnormal - Abdominal General gastrointestinal: other (Ascites surgical drainage serosanguineous fluid) - Psychiatric Psychiatric: other (Intubated sedated) Results - Labs CBC & Chem 7: 10/26/19 06:25 10/26/19 04:00 Labs: Laboratory Last Values WBC 12.1 K/mm3 (4.5-11.0) H 10/26/19 06:25 RBC 2.82 M/mm3 (3.65-5.03) L 10/26/19 06:25 Hgb 8.8 gm/dl (10.1-14.3) L 10/26/19 06:25 Hct 26.7 % (30.3-42.9) L 10/26/19 06:25 MCV 95 fl (79-97) 10/26/19 06:25 MCH 31 pg (28-32) 10/26/19 06:25 MCHC 33 % (30-34) 10/26/19 06:25 RDW 20.5 % (13.2-15.2) H 10/26/19 06:25 Plt Count 45 K/mm3 (140-440) L 10/26/19 06:25 Add Manual Diff Complete 10/26/19 06:25 Total Counted 100 10/26/19 06:25 Seg Neuts % (Manual) 88.0 % (40.0-70.0) H 10/26/19 06:25 Band Neutrophils % 1.0 % 10/26/19 06:25 Lymphocytes % (Manual) 4.0 % (13.4-35.0) L 10/26/19 06:25 Reactive Lymphs % (Man) 0 % 10/26/19 06:25 Monocytes % (Manual) 7.0 % (0.0-7.3) 10/26/19 06:25 Eosinophils % (Manual) 0 % (0.0-4.3) 10/26/19 06:25 Basophils % (Manual) 0 % (0.0-1.8) 10/26/19 06:25 Metamyelocytes % 0 % 10/26/19 06:25 Myelocytes % 0 % 10/26/19 06:25 Promyelocytes % 0 % 10/26/19 06:25 Blast Cells % 0 % 10/26/19 06:25 Nucleated RBC % 1.0 % (0.0-0.9) H 10/26/19 06:25 Seg Neutrophils # Man 10.6 K/mm3 (1.8-7.7) H 10/26/19 06:25 Band Neutrophils # 0.1 K/mm3 10/26/19 06:25 Lymphocytes # (Manual) 0.5 K/mm3 (1.2-5.4) L 10/26/19 06:25 Abs React Lymphs (Man) 0.0 K/mm3 10/26/19 06:25 Monocytes # (Manual) 0.8 K/mm3 (0.0-0.8) 10/26/19 06:25 Eosinophils # (Manual) 0.0 K/mm3 (0.0-0.4) 10/26/19 06:25 Basophils # (Manual) 0.0 K/mm3 (0.0-0.1) 10/26/19 06:25 Metamyelocytes # 0.0 K/mm3 10/26/19 06:25 Myelocytes # 0.0 K/mm3 10/26/19 06:25 Promyelocytes # 0.0 K/mm3 10/26/19 06:25 Blast Cells # 0.0 K/mm3 10/26/19 06:25 WBC Morphology Not Reportable 10/26/19 06:25 Hypersegmented Neuts Not Reportable 10/26/19 06:25 Hyposegmented Neuts Not Reportable 10/26/19 06:25 Hypogranular Neuts Not Reportable 10/26/19 06:25 Smudge Cells Not Reportable 10/26/19 06:25 Toxic Granulation Not Reportable 10/26/19 06:25 Toxic Vacuolation Not Reportable 10/26/19 06:25 Dohle Bodies Not Reportable 10/26/19 06:25 Pelger-Huet Anomaly Not Reportable 10/26/19 06:25 Amanda Rods Not Reportable 10/26/19 06:25 Platelet Estimate Consistent w auto 10/26/19 06:25 Clumped Platelets Not Reportable 10/26/19 06:25 Plt Clumps, EDTA Not Reportable 10/26/19 06:25 Large Platelets Not Reportable 10/26/19 06:25 Giant Platelets Not Reportable 10/26/19 06:25 Platelet Satelliting Not Reportable 10/26/19 06:25 Plt Morphology Comment Not Reportable 10/26/19 06:25 RBC Morphology Not Reportable 10/26/19 06:25 Dimorphic RBCs Not Reportable 10/26/19 06:25 Polychromasia Not Reportable 10/26/19 06:25 Hypochromasia Not Reportable 10/26/19 06:25 Poikilocytosis Not Reportable 10/26/19 06:25 Anisocytosis 1+ 10/26/19 06:25 Microcytosis Not Reportable 10/26/19 06:25 Macrocytosis 1+ 10/26/19 06:25 Spherocytes Not Reportable 10/26/19 06:25 Pappenheimer Bodies Not Reportable 10/26/19 06:25 Sickle Cells Not Reportable 10/26/19 06:25 Target Cells Not Reportable 10/26/19 06:25 Tear Drop Cells Not Reportable 10/26/19 06:25 Ovalocytes Not Reportable 10/26/19 06:25 Helmet Cells Not Reportable 10/26/19 06:25 [place] Bodies Not Reportable 10/26/19 06:25 [place] Rings Not Reportable 10/26/19 06:25 Carisa Cells Not Reportable 10/26/19 06:25 Bite Cells Not Reportable 10/26/19 06:25 Crenated Cell Not Reportable 10/26/19 06:25 Elliptocytes Not Reportable 10/26/19 06:25 Acanthocytes (Spur) Not Reportable 10/26/19 06:25 Rouleaux Not Reportable 10/26/19 06:25 Hemoglobin C Crystals Not Reportable 10/26/19 06:25 Schistocytes Not Reportable 10/26/19 06:25 Malaria parasites Not Reportable 10/26/19 06:25 Ciro Bodies Not Reportable 10/26/19 06:25 Hem Pathologist Commnt No 10/26/19 06:25 PT 16.6 Sec. (12.2-14.9) H 10/21/19 11:33 INR 1.33 (0.87-1.13) H 10/21/19 11:33 ABG pH 7.393 pH Units (7.350-7.450) 10/26/19 04:33 ABG pCO2 40.2 mm Hg 10/26/19 04:33 ABG pO2 69.6 mm Hg (80.0-90.0) L 10/26/19 04:33 ABG HCO3 23.9 mmol/L (20.0-26.0) 10/26/19 04:33 ABG O2 Saturation 94.9 % (95.0-99.0) L 10/26/19 04:33 ABG O2 Content 11.2 (0.0-44) 10/26/19 04:33 ABG Base Excess -0.9 mmol/L (-2.0-3.0) 10/26/19 04:33 ABG Hemoglobin 8.5 gm/dl (12.0-16.0) L 10/26/19 04:33 ABG Carboxyhemoglobin 1.6 % (0.0-5.0) 10/26/19 04:33 ABG Methemoglobin 0.5 % (0.0-1.5) 10/26/19 04:33 Oxyhemoglobin 93.0 % (95.0-99.0) L 10/26/19 04:33 FiO2 40 % 10/26/19 04:33 Sodium 131 mmol/L (137-145) L 10/26/19 04:00 Potassium 4.3 mmol/L (3.6-5.0) 10/26/19 04:00 Chloride 88.4 mmol/L (98-107) L 10/26/19 04:00 Carbon Dioxide 24 mmol/L (22-30) 10/26/19 04:00 Anion Gap 23 mmol/L 10/26/19 04:00 BUN 41 mg/dL (7-17) H 10/26/19 04:00 Creatinine 3.9 mg/dL (0.7-1.2) H 10/26/19 04:00 Estimated GFR 11 ml/min 10/26/19 04:00 BUN/Creatinine Ratio 11 % 10/26/19 04:00 Glucose 186 mg/dL (65-100) H 10/26/19 04:00 POC Glucose 180 (70-105) H 10/26/19 06:33 Lactic Acid 12.80 mmol/L (0.7-2.0) H* 10/22/19 15:00 Calcium 7.4 mg/dL (8.4-10.2) L 10/26/19 04:00 Phosphorus 4.70 mg/dL (2.5-4.5) H 10/25/19 04:30 Magnesium 2.20 mg/dL (1.7-2.3) 10/21/19 11:33 Total Bilirubin 7.60 mg/dL (0.1-1.2) H 10/26/19 04:00 Direct Bilirubin 0.3 mg/dL (0-0.2) H 10/21/19 11:33 Indirect Bilirubin 0.4 mg/dL 10/21/19 11:33 AST 660 units/L (5-40) H 10/26/19 04:00 ALT 765 units/L (7-56) H 10/26/19 04:00 Alkaline Phosphatase 314 units/L (35-129) H 10/26/19 04:00 Total Creatine Kinase 233 units/L (30-135) H 10/21/19 11:33 Total Protein 4.8 g/dL (6.3-8.2) L 10/26/19 04:00 Albumin 3.6 g/dL (3.9-5) L 10/26/19 04:00 Albumin/Globulin Ratio 3.0 % 10/26/19 04:00 Lipase 15 units/L (13-60) 10/21/19 11:33 Urine Color Taya (Yellow) 10/24/19 05:40 Urine Turbidity Cloudy (Clear) 10/24/19 05:40 Urine pH 7.0 (5.0-7.0) 10/24/19 05:40 Ur Specific [place] 1.015 (1.003-1.030) 10/24/19 05:40 Urine Protein >500 mg/dL (Negative) 10/24/19 05:40 Urine Glucose (UA) >=500 mg/dL (Negative) 10/24/19 05:40 Urine Ketones Neg mg/dL (Negative) 10/24/19 05:40 Urine Blood Lg (Negative) 10/24/19 05:40 Urine Nitrite Neg (Negative) 10/24/19 05:40 Urine Bilirubin Neg (Negative) 10/24/19 05:40 Urine Urobilinogen < 2.0 mg/dL (<2.0) 10/24/19 05:40 Ur Leukocyte Esterase Lg (Negative) 10/24/19 05:40 Urine WBC (Auto) > 182.0 /HPF (0.0-6.0) H 10/24/19 05:40 Urine RBC (Auto) > 182.0 /HPF (0.0-6.0) 10/24/19 05:40 U Epithel Cells (Auto) 2.0 /HPF (0-13.0) 10/24/19 05:40 Urine WBC Clumps 3+ /HPF 10/24/19 05:40 Urine Eosinophils None seen (None Seen) 10/24/19 05:40 Urine Creatinine 15.0 mg/dL (0.1-20.0) 10/24/19 05:40 Urine Sodium 124 mmol/L 10/24/19 05:40 Blood Type A POSITIVE 10/24/19 03:44 Antibody Screen Negative 10/24/19 03:44 Crossmatch See Detail 10/22/19 12:30 Microbiology: Microbiology 10/21/19 13:30 Peripheral/Venous Blood Culture - Preliminary NO GROWTH AFTER 4 DAYS 10/21/19 13:45 Peripheral/Venous Blood Culture - Preliminary NO GROWTH AFTER 4 DAYS 10/22/19 Unknown Tracheal Aspirate Sputum Culture - Final Monica Albicans Gottlieb/IV: Voiding Method Indwelling Catheter IV Catheter Type [Right NECK] Triple Lumen Cath IV Catheter Type [Right INT / Saline Lock Antecubital] IV Catheter Type [Right VAS Cath Internal Jugular] Active Medications - Current Medications Current Medications: Generic Name Dose Route Start Last Admin Trade Name Freq PRN Reason Stop Dose Admin Albumin Human 25 gm 10/22/19 14:00 10/26/19 06:13 Alburx 25% (Albumin) IV 25 gm Q8HR MICHI Administration Dextrose 50 gm 10/23/19 08:25 D50w (25gm) Vial IV Q30MIN PRN Hypoglycemia Protocol Fentanyl 25 mcg 10/22/19 09:18 10/26/19 03:29 Sublimaze IV 25 mcg Q2H PRN Administration Pain , Severe (7-10) Hydrocortisone Sodium Succinate 100 mg 10/22/19 22:00 10/26/19 06:13 Solu-Cortef IV 100 mg Q8H MICHI Administration Sodium Chloride 1,000 mls @ 125 mls/hr 10/21/19 15:45 10/22/19 03:22 Nacl 0.9% 1000 Ml IV 125 mls/hr DIRECT MICHI Administration Phenylephrine HCl 100 mg/ 100 mls @ 3 mls/hr 10/21/19 17:00 10/24/19 23:13 Sodium Chloride IV 0 mcg/min TITR MICHI 0 mls/hr Titration Protocol 50 MCG/MIN Vasopressin 20 unit/ Sodium 101 mls @ 9.09 mls/hr 10/22/19 07:00 10/25/19 06:11 Chloride IV 0 units/min TITR MICHI 0 mls/hr Titration Protocol 0.03 UNITS/MIN Norepinephrine 8 mg/ Sodium 250 mls @ 3.75 mls/hr 10/22/19 12:00 10/25/19 15:30 Chloride IV 0 mcg/min TITR MICHI 0 mls/hr Titration Protocol 2 MCG/MIN Epinephrine 16 mg/ Sodium 250 mls @ 1.875 mls/hr 10/22/19 15:00 10/24/19 10:15 Chloride IV 0 mcg/min TITR MICHI 0 mls/hr Titration Protocol 2 MCG/MIN Sodium Bicarbonate 75 meq/ 1,075 mls @ 50 mls/hr 10/22/19 20:39 10/26/19 07:19 Dextrose IV Infused DIRECT MICHI Infusion Meropenem 500 mg in 50 mls @ 50 mls/hr 10/26/19 12:00 10/26/19 11:25 Merrem/Ns 500 Mg/50 Ml IV 50 mls/hr Q12HR MICHI Administration Insulin Human Lispro 0 unit 10/22/19 18:00 10/25/19 18:33 Humalog SUB-Q 3 unit Q6HR MICHI Administration Protocol Ondansetron HCl 4 mg 10/21/19 14:19 Zofran IV ONCE PRN Nausea And Vomiting Pantoprazole Sodium 40 mg 10/22/19 12:00 10/26/19 09:19 Protonix IV 40 mg QDAY MICHI Administration
--- NOTE | 2019-10-26 13:44 | Progress Note ---
Assessment and Plan - Patient Problems (1) Perforated viscus Current Visit: Yes Status: Acute Plan to address problem: Pt in critical condition. s/p ex lap and repair of perforated peptic ulcer - (10/20) - POD#5. Patient appears to be in multisystem organ failure. Patient is showing some improvement in that she is weaned off pressors now. Her overall prognosis is still grave at this point. She probably had chronic issues with multiple organs prior to this emergency. She may not have had the physiologic reserve needed to overcome such an emergency. The question of compartment syndrome has been brought up. It is reasonable cons ideration. In general, issues of renal insufficiency/failure, worsening pulmonary status, hypotension generally begin after the abdominal compartment syndrome develops. In this case, she had all of these issues prior to surgery. She is definitely at risk for compartment syndrome based on the needed resuscitation. It is difficult by exam to determine the true extent of her abdominal distention. Part of it is affected by the generalized edema of the abdominal wall. If we wanted to pursue and rule out this diagnosis, I would recommend that we do the followin. Temporarily paralyze the patient 2. Evaluate for changes in airway pressures 3. Check bladder pressures. If after the patient is adequately paralyzed the bladder pressure is above 12 (area of intra-abdominal hypertension), then it may be worthwhile to consider opening the abdomen. We have to keep in mind that there is a fair amount of morbidity in keeping the abdomen open. Today, it was noted that the fluid color on the dressing and in the drain is more yellowish and darker. I still believe this is related to the markedly elevated bilirubin level in her serum. All the body fluids will be tainted with his elevated bilirubin. The shake test for the LOUIE drain does not show the expected foaming that we would see if bile were in the abdomen. Also, if the patient were leaking from the repair site, I would expect her clinical condition to be worsening, not improving. Discussed with Dr. Simpson. We will follow along. Please call with any questions. Time=10min Subjective Date of service: 10/26/19 Patient Reports: Positive: bowel movement (small), other (pressors weaned off!) Objective Vital Signs - 12hr 10/26/19 10/26/19 10/26/19 01:45 02:00 02:15 Temperature Pulse Rate 90 89 91 H Pulse Rate [ From Monitor] Respiratory 12 21 21 Rate Blood Pressure 149/60 133/66 131/60 O2 Sat by Pulse 96 95 97 Oximetry 10/26/19 10/26/19 10/26/19 02:30 02:45 03:00 Temperature Pulse Rate 87 88 95 H Pulse Rate [ From Monitor] Respiratory 17 16 18 Rate Blood Pressure 120/57 112/55 112/55 O2 Sat by Pulse 96 97 97 Oximetry 10/26/19 10/26/19 10/26/19 03:16 03:29 03:30 Temperature Pulse Rate 94 H 88 Pulse Rate [ From Monitor] Respiratory 12 25 H 25 H Rate Blood Pressure 176/61 146/62 O2 Sat by Pulse 97 97 Oximetry 10/26/19 10/26/19 10/26/19 03:45 04:00 04:15 Temperature 97.3 F L Pulse Rate 90 88 89 Pulse Rate [ 92 H From Monitor] Respiratory 25 H 26 H 25 H Rate Blood Pressure 118/43 120/57 141/63 O2 Sat by Pulse 97 98 99 Oximetry 10/26/19 10/26/19 10/26/19 04:30 04:45 05:00 Temperature Pulse Rate 95 H 96 H 90 Pulse Rate [ From Monitor] Respiratory 22 17 23 Rate Blood Pressure 164/67 141/66 141/66 O2 Sat by Pulse 100 97 98 Oximetry 10/26/19 10/26/19 10/26/19 05:15 05:30 05:46 Temperature Pulse Rate 165 H 144 H 88 Pulse Rate [ From Monitor] Respiratory 15 19 13 Rate Blood Pressure 169/122 169/122 145/80 O2 Sat by Pulse 92 96 99 Oximetry 10/26/19 10/26/19 10/26/19 06:00 06:15 06:30 Temperature Pulse Rate 97 H 90 84 Pulse Rate [ From Monitor] Respiratory 20 22 21 Rate Blood Pressure 145/48 158/57 158/57 O2 Sat by Pulse 95 95 Oximetry 10/26/19 10/26/19 10/26/19 06:45 07:00 07:15 Temperature Pulse Rate 87 86 84 Pulse Rate [ From Monitor] Respiratory 19 21 18 Rate Blood Pressure 164/58 164/58 170/63 O2 Sat by Pulse 97 96 98 Oximetry 10/26/19 10/26/19 10/26/19 07:31 07:45 08:00 Temperature 97.4 F L Pulse Rate 84 84 86 Pulse Rate [ 86 From Monitor] Respiratory 13 18 21 Rate Blood Pressure 193/48 191/62 168/66 O2 Sat by Pulse 96 96 96 Oximetry 10/26/19 10/26/19 10/26/19 08:15 08:31 08:43 Temperature Pulse Rate 82 82 83 Pulse Rate [ From Monitor] Respiratory 17 14 Rate Blood Pressure 191/62 161/41 136/51 O2 Sat by Pulse 99 98 100 Oximetry 10/26/19 10/26/19 10/26/19 08:45 09:01 09:15 Temperature Pulse Rate 83 87 87 Pulse Rate [ From Monitor] Respiratory 15 26 H 16 Rate Blood Pressure 136/51 186/62 184/69 O2 Sat by Pulse 100 97 95 Oximetry 10/26/19 10/26/19 10/26/19 09:30 09:45 10:00 Temperature Pulse Rate 96 H 83 81 Pulse Rate [ From Monitor] Respiratory 22 25 H 20 Rate Blood Pressure 204/76 103/38 102/44 O2 Sat by Pulse 96 99 100 Oximetry 10/26/19 10/26/19 10/26/19 10:15 11:57 12:02 Temperature 98.1 F Pulse Rate 83 85 Pulse Rate [ From Monitor] Respiratory 26 H Rate Blood Pressure 115/51 135/54 O2 Sat by Pulse 99 99 Oximetry - General physical appearance no distress, no pain, obese, other (markedly swollen) - Respiratory normal expansion, normal respiratory effort - Abdomen soft, distended, surgical scars (thin yellow drainage of fluid. LOUIE with yellow- brown drainage - also thin), other (very edematous. ) - Labs 10/26/19 06:25 10/26/19 04:00 Diabetes panel 10/26/19 Range/Units 04:00 Sodium 131 L (137-145) mmol/L Potassium 4.3 (3.6-5.0) mmol/L Chloride 88.4 L (98-107) mmol/L Carbon Dioxide 24 (22-30) mmol/L BUN 41 H (7-17) mg/dL Creatinine 3.9 H (0.7-1.2) mg/dL Glucose 186 H (65-100) mg/dL Calcium 7.4 L (8.4-10.2) mg/dL AST 660 H (5-40) units/L ALT 765 H (7-56) units/L Alkaline Phosphatase 314 H (35-129) units/L Total Protein 4.8 L (6.3-8.2) g/dL Albumin 3.6 L (3.9-5) g/dL Calcium panel 10/26/19 Range/Units 04:00 Calcium 7.4 L (8.4-10.2) mg/dL Albumin 3.6 L (3.9-5) g/dL Pituitary panel 10/26/19 Range/Units 04:00 Sodium 131 L (137-145) mmol/L Potassium 4.3 (3.6-5.0) mmol/L Chloride 88.4 L (98-107) mmol/L Carbon Dioxide 24 (22-30) mmol/L BUN 41 H (7-17) mg/dL Creatinine 3.9 H (0.7-1.2) mg/dL Glucose 186 H (65-100) mg/dL Calcium 7.4 L (8.4-10.2) mg/dL Adrenal panel 10/26/19 Range/Units 04:00 Sodium 131 L (137-145) mmol/L Potassium 4.3 (3.6-5.0) mmol/L Chloride 88.4 L (98-107) mmol/L Carbon Dioxide 24 (22-30) mmol/L BUN 41 H (7-17) mg/dL Creatinine 3.9 H (0.7-1.2) mg/dL Glucose 186 H (65-100) mg/dL Calcium 7.4 L (8.4-10.2) mg/dL Total Bilirubin 7.60 H (0.1-1.2) mg/dL AST 660 H (5-40) units/L ALT 765 H (7-56) units/L Alkaline Phosphatase 314 H (35-129) units/L Total Protein 4.8 L (6.3-8.2) g/dL Albumin 3.6 L (3.9-5) g/dL
[2019-10-26] MEDS: SODIUM BICARBONATE 75 MEQ in DEXTROSE 5% IN WATER 1,000 ML IV SCH ×2 (16:30→21:23)
[2019-10-26 16:42] LABS: Hematocrit 27.4 % (30.3-42.9); Hemoglobin 9.1 gm/dl (10.1-14.3); Mean Corpuscular HGB Conc 33 % (30-34); Mean Corpuscular Volume 95 fl (79-97)
[2019-10-26 16:44] LABS: Platelet Count 43 K/mm3 (140-440); Red Cell Distribution Width 20.3 % (13.2-15.2)
[2019-10-26] MEDS: INSULIN LISPRO 100 UNIT/ML SUB-Q SCH ×2 (18:04→21:42)
[2019-10-26] MEDS: ALBUMIN HUMAN 25% (12.5 GM/50 ML) INJ IV SCH (21:40)
[2019-10-26] MEDS ORDERED: BUMETANIDE 2.5 MG/10 ML VIAL IV ONE (21:59)
[2019-10-26] MEDS ORDERED: DESMOPRESSIN ACETATE 26 MCG in SODIUM CHLORIDE 0.9% 50 ML IV ONE (23:37)
[2019-10-26] MEDS ORDERED: METOPROLOL TARTRATE 5 MG/5 ML INJ IV ONE (23:46)
[2019-10-27] MEDS: INSULIN LISPRO 100 UNIT/ML SUB-Q SCH ×7 (00:30→17:22)
[2019-10-27 00:31] LABS: Hematocrit 25.9 % (30.3-42.9); Hemoglobin 8.6 gm/dl (10.1-14.3); Mean Corpuscular HGB Conc 33 % (30-34); Mean Corpuscular Volume 95 fl (79-97); Red Blood Count 2.72 M/mm3 (3.65-5.03)
[2019-10-27 00:35] LABS: Platelet Count 44 K/mm3 (140-440); Red Cell Distribution Width 20.2 % (13.2-15.2)
[2019-10-27 04:36] LABS: ABG Base Excess -4.1 mmol/L (-2.0-3.0); ABG HCO3 20.8 mmol/L (20.0-26.0); ABG Methemoglobin 0.5 % (0.0-1.5); ABG Oxygen Saturation 96.3 % (95.0-99.0); ABG PCO2 37.1 mm Hg; ABG PH 7.367 pH Units (7.350-7.450); ABG PO2 79.3 mm Hg (80.0-90.0)
[2019-10-27] MEDS: HYDROCORTISONE SOD SUCC 100 MG/2 ML VIAL IV SCH ×2 (05:57→13:35)
[2019-10-27] MEDS: ALBUMIN HUMAN 25% (12.5 GM/50 ML) INJ IV SCH ×3 (05:57→21:54)
[2019-10-27] MEDS: METOPROLOL TARTRATE 5 MG/5 ML INJ IV SCH ×3 (05:57→13:30)
[2019-10-27 07:18] LABS: Alanine Aminotransferase 24 units/L (7-56); Albumin 2.1 g/dL (3.9-5); BUN/Creatinine Ratio 18; Blood Urea Nitrogen 9 mg/dL (7-17); Calcium 8.1 mg/dL (8.4-10.2); Hemolysis Index 3
[2019-10-27 09:20] LABS: Calcium 7.5 mg/dL (8.4-10.2)
--- NOTE | 2019-10-27 09:31 | Progress Note ---
Assessment and Plan 1. Acute kidney injury: Likely vasomotor KORY in the setting of septic shock. Unclear what patient baseline creatinine is. Creatinine is 4.1 from 3.9 from 3.2 from 2.9 [address] abd/pelvis revealed low lying right kidney with multiple stones of varying sizes and a large staghorn calculus, negative for hydro. IV fluids d/c. Patient is anuric / oliguric. Monitor renal function. Renal prognosis is guarded. Avoid nephrotoxic agents. Meds dosage based on GFR. HD ordered today, pt has right chest vascath. Hemodialysis: 10/26. 2. FEN: Hyperkalemia, improved, monitor. Metabolic acidosis, s/p sodium bicarb drip, HD today, monitor. Hypocalcemia, replete ap as needed, monitor. Anasarca, HD today. Monitor lytes and volume status. 3. Perforated viscus: S/p emergency exploratory lap w/ repair. Large amount of contamination in abdomen. Surgery following. 4. Septic shock: On IV abx. Currently not on any pressors. S/p albumin. 5. Acute respiratory failure: Currently intubated on vent. Pulmonology following. 6. Shock Liver. 7. Type 2 diabetes: Monitor blood glucose. 8. Anemia, POA. Epogen with HD as needed. Monitor hgb. 9. H/o asthma. 10. Recent surgery to LLE. Subjective Date of service: 10/27/19 Interval history: Patient was seen and examined at the bedside. She was able to come off all pressors but remains intubated. She continues to have some small improvements as evidenced by BP and labs. Plan of care discussed with primary RN. HD planned today. Objective - Exam Narrative Exam: General appearance: well-developed, appears stated age, obese, intubated, on vent, anasarca HEENT: facial plethora noted Neck: trachea midline Respiratory: mechanical vent sounds Heart: regular, S1S2, no murmurs Gastrointestinal: obese, distended, LOUIE drain, dressing noted Integumentary: no rash, warm and dry Neurologic: sedated, intubated on vent, unable to assess Ext: L lower extremity wrapped in dressing and LYNDA bandage, bilateral LE edema noted : brewer catheter Hemodialysis access: R IJ temp catheter Psychiatric: unable to assess - Vital Signs Vital signs: Vital Signs - 12hr 10/26/19 10/26/19 10/26/19 21:45 22:00 22:15 Temperature Pulse Rate 138 H 132 H 132 H Respiratory 25 H 25 H 25 H Rate Blood Pressure 113/32 91/40 91/46 O2 Sat by Pulse 99 82 L 99 Oximetry 10/26/19 10/26/19 10/26/19 22:31 22:45 23:01 Temperature Pulse Rate 139 H 148 H 161 H Respiratory 13 28 H 31 H Rate Blood Pressure 89/41 89/41 110/44 O2 Sat by Pulse 76 L 100 100 Oximetry 10/26/19 10/26/19 10/26/19 23:15 23:30 23:45 Temperature Pulse Rate 145 H 140 H 139 H Respiratory 18 31 H 26 H Rate Blood Pressure 80/54 88/58 97/49 O2 Sat by Pulse 87 99 100 Oximetry 10/26/19 10/27/19 10/27/19 23:50 00:00 00:01 Temperature 97.6 F Pulse Rate 136 H 73 74 Respiratory 20 Rate Blood Pressure 97/49 90/31 O2 Sat by Pulse 99 75 L Oximetry 10/27/19 10/27/19 10/27/19 00:15 00:30 00:45 Temperature Pulse Rate 76 78 79 Respiratory 25 H 18 18 Rate Blood Pressure 110/51 108/44 101/47 O2 Sat by Pulse 99 99 98 Oximetry 10/27/19 10/27/19 10/27/19 01:00 01:15 01:30 Temperature Pulse Rate 78 78 78 Respiratory 21 15 24 Rate Blood Pressure 118/46 94/40 94/42 O2 Sat by Pulse 99 81 L 100 Oximetry 10/27/19 10/27/19 10/27/19 01:45 02:00 02:15 Temperature Pulse Rate 81 78 80 Respiratory 29 H 23 29 H Rate Blood Pressure 107/36 110/39 112/43 O2 Sat by Pulse 99 97 99 Oximetry 10/27/19 10/27/19 10/27/19 02:30 02:45 03:00 Temperature Pulse Rate 79 78 76 Respiratory 25 H 25 H 14 Rate Blood Pressure 111/33 108/24 111/31 O2 Sat by Pulse 99 96 70 L Oximetry 10/27/19 10/27/19 10/27/19 03:15 03:31 03:45 Temperature Pulse Rate 76 77 78 Respiratory 14 17 22 Rate Blood Pressure 100/31 100/31 128/52 O2 Sat by Pulse 96 99 99 Oximetry 10/27/19 10/27/19 10/27/19 04:00 04:15 04:30 Temperature 96.4 F L Pulse Rate 78 82 126 H Respiratory 31 H 20 29 H Rate Blood Pressure 112/39 106/40 117/48 O2 Sat by Pulse 99 99 98 Oximetry 10/27/19 10/27/19 10/27/19 04:42 04:45 05:00 Temperature Pulse Rate 130 H 126 H 131 H Respiratory 31 H 26 H Rate Blood Pressure 131/50 131/50 107/47 O2 Sat by Pulse 97 96 97 Oximetry 10/27/19 10/27/19 10/27/19 05:15 05:31 05:45 Temperature Pulse Rate 125 H 134 H 124 H Respiratory 26 H 25 H 20 Rate Blood Pressure 107/47 98/64 107/45 O2 Sat by Pulse 98 91 Oximetry 10/27/19 10/27/19 10/27/19 06:00 06:03 06:15 Temperature Pulse Rate 78 77 72 Respiratory 25 H 26 H Rate Blood Pressure 77/31 77/31 77/31 O2 Sat by Pulse 99 100 Oximetry 10/27/19 10/27/19 10/27/19 06:30 06:45 07:00 Temperature Pulse Rate 75 75 83 Respiratory 25 H 25 H 12 Rate Blood Pressure 92/42 82/32 100/32 O2 Sat by Pulse 98 100 100 Oximetry 10/27/19 10/27/19 10/27/19 07:15 07:31 07:45 Temperature Pulse Rate 74 82 87 Respiratory 14 16 29 H Rate Blood Pressure 95/34 98/46 115/64 O2 Sat by Pulse 100 98 100 Oximetry 10/27/19 10/27/19 10/27/19 08:00 08:13 08:15 Temperature 96.9 F L Pulse Rate 91 H 79 78 Respiratory 27 H 26 H Rate Blood Pressure 116/44 116/44 108/53 O2 Sat by Pulse 99 100 99 Oximetry 10/27/19 10/27/19 10/27/19 08:31 08:45 09:00 Temperature Pulse Rate 128 H 137 H 149 H Respiratory 23 29 H 21 Rate Blood Pressure 128/68 120/62 116/57 O2 Sat by Pulse 95 93 96 Oximetry 10/27/19 09:15 Temperature Pulse Rate 131 H Respiratory 19 Rate Blood Pressure 120/62 O2 Sat by Pulse 97 Oximetry - Lab 10/27/19 00:05 10/27/19 08:45 Most recent lab results ABG pH 7.367 pH Units (7.350-7.450) 10/27/19 03:21 ABG pCO2 37.1 mm Hg 10/27/19 03:21 ABG pO2 79.3 mm Hg (80.0-90.0) L 10/27/19 03:21 ABG HCO3 20.8 mmol/L (20.0-26.0) 10/27/19 03:21 ABG O2 Saturation 96.3 % (95.0-99.0) 10/27/19 03:21 Calcium 7.5 mg/dL (8.4-10.2) L 10/27/19 08:45 Phosphorus 4.70 mg/dL (2.5-4.5) H 10/25/19 04:30 Magnesium 2.20 mg/dL (1.7-2.3) 10/21/19 11:33 Urine Creatinine 15.0 mg/dL (0.1-20.0) 10/24/19 05:40 Urine Sodium 124 mmol/L 10/24/19 05:40 Medications & Allergies - Medications Allergies/Adverse Reactions: Allergies No Known Allergies Allergy (Unverified 10/17/19 19:57) Home Medications: Home Medications Medication Instructions Recorded Confirmed Last Taken Type HYDROcodone/APAP 5-325 [[place] 1 each PO Q6HR PRN #12 tablet 10/17/19 Unknown Rx 5/325] Ibuprofen [Motrin] 800 mg PO Q8HR #30 tablet 10/17/19 Unknown Rx Active Medications: Generic Name Dose Route Start Last Admin Trade Name Freq PRN Reason Stop Dose Admin Albumin Human 25 gm 10/26/19 22:00 10/27/19 05:57 Alburx 25% (Albumin) IV 25 gm Q8HR MICHI Administration Dextrose 50 ml 10/26/19 13:25 D50w (25gm) Syringe IV Q30MIN PRN Hypoglycemia Protocol Fentanyl 25 mcg 10/22/19 09:18 10/26/19 21:16 Sublimaze IV 25 mcg Q2H PRN Administration Pain , Severe (7-10) Hydrocortisone Sodium Succinate 100 mg 10/22/19 22:00 10/27/19 05:57 Solu-Cortef IV 100 mg Q8H MICHI Administration Phenylephrine HCl 100 mg/ 100 mls @ 3 mls/hr 10/21/19 17:00 10/24/19 23:13 Sodium Chloride IV 0 mcg/min TITR MICHI 0 mls/hr Titration Protocol 50 MCG/MIN Vasopressin 20 unit/ Sodium 101 mls @ 9.09 mls/hr 10/22/19 07:00 10/25/19 06:11 Chloride IV 0 units/min TITR MICIH 0 mls/hr Titration Protocol 0.03 UNITS/MIN Norepinephrine 8 mg/ Sodium 250 mls @ 3.75 mls/hr 10/22/19 12:00 10/25/19 15:30 Chloride IV 0 mcg/min TITR MICHI 0 mls/hr Titration Protocol 2 MCG/MIN Epinephrine 16 mg/ Sodium 250 mls @ 1.875 mls/hr 10/22/19 15:00 10/24/19 10:15 Chloride IV 0 mcg/min TITR MICHI 0 mls/hr Titration Protocol 2 MCG/MIN Sodium Bicarbonate 75 meq/ 1,075 mls @ 50 mls/hr 10/22/19 20:39 10/26/19 21:23 Dextrose IV 50 mls/hr DIRECT MICHI Administration Meropenem 500 mg in 50 mls @ 50 mls/hr 10/26/19 12:00 10/26/19 21:15 Merrem/Ns 500 Mg/50 Ml IV 50 mls/hr Q12HR MICHI Administration Insulin Human Lispro 0 unit 10/22/19 18:00 10/27/19 07:35 Humalog SUB-Q Not Given Q6HR MICHI Protocol Metoprolol Tartrate 5 mg 10/27/19 06:00 10/27/19 06:03 Metoprolol IV Not Given Q8HR MICHI Ondansetron HCl 4 mg 10/21/19 14:19 Zofran IV ONCE PRN Nausea And Vomiting Pantoprazole Sodium 40 mg 10/22/19 12:00 10/26/19 09:19 Protonix IV 40 mg QDAY MICHI Administration
[2019-10-27] MEDS ORDERED: SODIUM CHLORIDE 0.9% 100 ML IV PRN ×2 (09:55→10:18)
[2019-10-27] MEDS ORDERED: EPOETIN ALFA 10,000 UNIT/1 ML INJ SUB-Q PRN (09:55)
[2019-10-27] MEDS: PANTOPRAZOLE 40 MG INJ IV SCH (10:27)
[2019-10-27] MEDS: MEROPENEM/NS 500 MG/50 ML 500 MG/50 ML BAG IV SCH ×2 (10:28→23:00)
--- NOTE | 2019-10-27 12:38 | Progress Note ---
Assessment and Plan Assessment and plan: The high probability of a clinically significant, sudden or life threatening deterioration of the [] system(s) required my full and direct attention, intervention and personal management. The aggregate critical care time was [] minutes. This time is in addition to time spent performing reported procedures but includes the following: [x] Data Review and interpretation [x] Patient assessment and monitoring of vital signs [x]x Documentation [x] Medication orders and management - Patient Problems (1) Acute respiratory failure Current Visit: Yes Status: Acute Plan to address problem: Patient remains intubated septic multiorgan failure. Overall prognosis extremely poor. Difficult to wean patient from vent secondary to obesity sepsis unresponsiveness. Continue vent management wean as appropriate. Pulmonology following. (2) Perforated viscus Current Visit: Yes Status: Acute Plan to address problem: Perforated viscus status post exploratory lap postop day 3. Surgery following. No new changes. Continue electrolyte supportive care. Patient currently with LOUIE drain serosanguineous drainage. Did appreciate note about potential for compartment syndrome. Reintroduction of surgical option at this time will be very difficult. Given fluid shifts, sepsis oxygenation status surgery would be extremely high risk. Right now patient seems to have had minimal gains and although will most likely not affect the overall outcome will think more conservative approach. (3) SIRS (systemic inflammatory response syndrome) Current Visit: Yes Status: Acute Plan to address problem: Patient septic secondary to bowel perforation. Supportive care continue Zosyn Flagyl. (4) T2DM (type 2 diabetes mellitus) Current Visit: Yes Status: Chronic Qualifiers: Diabetes mellitus group home insulin use: unspecified group home insulin use status Plan to address problem: Patient currently not requiring any insulin coverage. We will continue to follow prevent hypoglycemia. Accu-Cheks remained stable. (5) Septic shock Current Visit: Yes Status: Acute Plan to address problem: Patient on epi and levo fed. Able to wean down to 2 pressors that is evidence of improvement however physically patient has marked ascites facial ascites lower extremity ascites with extensive abdominal wound. Continue present antibiotic coverage. Patient also has yeast will add Diflucan. (6) Thrombocytopenia Current Visit: Yes Status: Acute Plan to address problem: Platelets down to 45. No new episodes of bleeding at this time. Heparin discontinued yesterday. Patient received 1 dose DD VAP this a.m. Follow-up labs. Follow-up platelets in a.m. Bleeding seems to have stopped for now. History Interval history: Patient remains critical status post exploratory lap for perforated viscus and repair. Postop day 6. Continues with multiorgan failure. Still has extremely poor prognosis. Hospital course complicated by continued worsening of renal function. Renal to consider hemodialysis. Did also appreciate surgical note about potential for compartment syndrome. Hospitalist Physical - Constitutional Vitals: Temp Pulse Resp BP Pulse Ox 96.9 F L 130 H 34 H 150/98 99 10/27/19 08:00 10/27/19 12:00 10/27/19 12:00 10/27/19 12:00 10/27/19 12:00 General appearance: Present: no acute distress, well-nourished, obese, other (Intubated edematous with ascites face chest upper and lower extremities. Abdomen.) - EENT ENT: other (Edematous ) - Neck Neck: Present: other (Large neck) - Respiratory Respiratory: bilateral: diminished, rhonchi - Cardiovascular Rhythm: regular - Extremities Extremity abnormal: edema, pulses diminished - Abdominal General gastrointestinal: other (Abdomen with marked ascites. Surgical drain still with serosanguineous drainage agree with color changes noted. Hypoactive bowel sounds.) Results - Labs CBC & Chem 7: 10/27/19 00:05 10/27/19 08:45 Labs: Laboratory Last Values WBC 13.5 K/mm3 (4.5-11.0) H 10/27/19 00:05 RBC 2.72 M/mm3 (3.65-5.03) L 10/27/19 00:05 Hgb 8.6 gm/dl (10.1-14.3) L 10/27/19 00:05 Hct 25.9 % (30.3-42.9) L 10/27/19 00:05 MCV 95 fl (79-97) 10/27/19 00:05 MCH 32 pg (28-32) 10/27/19 00:05 MCHC 33 % (30-34) 10/27/19 00:05 RDW 20.2 % (13.2-15.2) H 10/27/19 00:05 Plt Count 44 K/mm3 (140-440) L 10/27/19 00:05 Add Manual Diff Complete 10/26/19 06:25 Total Counted 100 10/26/19 06:25 Seg Neuts % (Manual) 88.0 % (40.0-70.0) H 10/26/19 06:25 Band Neutrophils % 1.0 % 10/26/19 06:25 Lymphocytes % (Manual) 4.0 % (13.4-35.0) L 10/26/19 06:25 Reactive Lymphs % (Man) 0 % 10/26/19 06:25 Monocytes % (Manual) 7.0 % (0.0-7.3) 10/26/19 06:25 Eosinophils % (Manual) 0 % (0.0-4.3) 10/26/19 06:25 Basophils % (Manual) 0 % (0.0-1.8) 10/26/19 06:25 Metamyelocytes % 0 % 10/26/19 06:25 Myelocytes % 0 % 10/26/19 06:25 Promyelocytes % 0 % 10/26/19 06:25 Blast Cells % 0 % 10/26/19 06:25 Nucleated RBC % 1.0 % (0.0-0.9) H 10/26/19 06:25 Seg Neutrophils # Man 10.6 K/mm3 (1.8-7.7) H 10/26/19 06:25 Band Neutrophils # 0.1 K/mm3 10/26/19 06:25 Lymphocytes # (Manual) 0.5 K/mm3 (1.2-5.4) L 10/26/19 06:25 Abs React Lymphs (Man) 0.0 K/mm3 10/26/19 06:25 Monocytes # (Manual) 0.8 K/mm3 (0.0-0.8) 10/26/19 06:25 Eosinophils # (Manual) 0.0 K/mm3 (0.0-0.4) 10/26/19 06:25 Basophils # (Manual) 0.0 K/mm3 (0.0-0.1) 10/26/19 06:25 Metamyelocytes # 0.0 K/mm3 10/26/19 06:25 Myelocytes # 0.0 K/mm3 10/26/19 06:25 Promyelocytes # 0.0 K/mm3 10/26/19 06:25 Blast Cells # 0.0 K/mm3 10/26/19 06:25 WBC Morphology Not Reportable 10/26/19 06:25 Hypersegmented Neuts Not Reportable 10/26/19 06:25 Hyposegmented Neuts Not Reportable 10/26/19 06:25 Hypogranular Neuts Not Reportable 10/26/19 06:25 Smudge Cells Not Reportable 10/26/19 06:25 Toxic Granulation Not Reportable 10/26/19 06:25 Toxic Vacuolation Not Reportable 10/26/19 06:25 Dohle Bodies Not Reportable 10/26/19 06:25 Pelger-Huet Anomaly Not Reportable 10/26/19 06:25 Amanda Rods Not Reportable 10/26/19 06:25 Platelet Estimate Consistent w auto 10/26/19 06:25 Clumped Platelets Not Reportable 10/26/19 06:25 Plt Clumps, EDTA Not Reportable 10/26/19 06:25 Large Platelets Not Reportable 10/26/19 06:25 Giant Platelets Not Reportable 10/26/19 06:25 Platelet Satelliting Not Reportable 10/26/19 06:25 Plt Morphology Comment Not Reportable 10/26/19 06:25 RBC Morphology Not Reportable 10/26/19 06:25 Dimorphic RBCs Not Reportable 10/26/19 06:25 Polychromasia Not Reportable 10/26/19 06:25 Hypochromasia Not Reportable 10/26/19 06:25 Poikilocytosis Not Reportable 10/26/19 06:25 Anisocytosis 1+ 10/26/19 06:25 Microcytosis Not Reportable 10/26/19 06:25 Macrocytosis 1+ 10/26/19 06:25 Spherocytes Not Reportable 10/26/19 06:25 Pappenheimer Bodies Not Reportable 10/26/19 06:25 Sickle Cells Not Reportable 10/26/19 06:25 Target Cells Not Reportable 10/26/19 06:25 Tear Drop Cells Not Reportable 10/26/19 06:25 Ovalocytes Not Reportable 10/26/19 06:25 Helmet Cells Not Reportable 10/26/19 06:25 Gavin-[place] Bodies Not Reportable 10/26/19 06:25 Morris Rings Not Reportable 10/26/19 06:25 Carisa Cells Not Reportable 10/26/19 06:25 Bite Cells Not Reportable 10/26/19 06:25 Crenated Cell Not Reportable 10/26/19 06:25 Elliptocytes Not Reportable 10/26/19 06:25 Acanthocytes (Spur) Not Reportable 10/26/19 06:25 Rouleaux Not Reportable 10/26/19 06:25 Hemoglobin C Crystals Not Reportable 10/26/19 06:25 Schistocytes Not Reportable 10/26/19 06:25 Malaria parasites Not Reportable 10/26/19 06:25 Ciro Bodies Not Reportable 10/26/19 06:25 Hem Pathologist Commnt No 10/26/19 06:25 PT 16.6 Sec. (12.2-14.9) H 10/21/19 11:33 INR 1.33 (0.87-1.13) H 10/21/19 11:33 ABG pH 7.367 pH Units (7.350-7.450) 10/27/19 03:21 ABG pCO2 37.1 mm Hg 10/27/19 03:21 ABG pO2 79.3 mm Hg (80.0-90.0) L 10/27/19 03:21 ABG HCO3 20.8 mmol/L (20.0-26.0) 10/27/19 03:21 ABG O2 Saturation 96.3 % (95.0-99.0) 10/27/19 03:21 ABG O2 Content 10.2 (0.0-44) 10/27/19 03:21 ABG Base Excess -4.1 mmol/L (-2.0-3.0) L 10/27/19 03:21 ABG Hemoglobin 7.6 gm/dl (12.0-16.0) L 10/27/19 03:21 ABG Carboxyhemoglobin 1.5 % (0.0-5.0) 10/27/19 03:21 ABG Methemoglobin 0.5 % (0.0-1.5) 10/27/19 03:21 Oxyhemoglobin 94.4 % (95.0-99.0) L 10/27/19 03:21 FiO2 40 % 10/27/19 03:21 Sodium 131 mmol/L (137-145) L 10/27/19 08:45 Potassium 4.7 mmol/L (3.6-5.0) 10/27/19 08:45 Chloride 86.3 mmol/L (98-107) L 10/27/19 08:45 Carbon Dioxide 20 mmol/L (22-30) L D 10/27/19 08:45 Anion Gap 29 mmol/L 10/27/19 08:45 BUN 47 mg/dL (7-17) H 10/27/19 08:45 Creatinine 4.1 mg/dL (0.7-1.2) H D 10/27/19 08:45 Estimated GFR 11 ml/min 10/27/19 08:45 BUN/Creatinine Ratio 11 % 10/27/19 08:45 Glucose 135 mg/dL (65-100) H 10/27/19 08:45 POC Glucose 114 (70-105) H 10/27/19 05:53 Lactic Acid 12.80 mmol/L (0.7-2.0) H* 10/22/19 15:00 Calcium 7.5 mg/dL (8.4-10.2) L 10/27/19 08:45 Phosphorus 4.70 mg/dL (2.5-4.5) H 10/25/19 04:30 Magnesium 2.20 mg/dL (1.7-2.3) 10/21/19 11:33 Total Bilirubin 0.30 mg/dL (0.1-1.2) 10/27/19 06:25 Direct Bilirubin 0.3 mg/dL (0-0.2) H 10/21/19 11:33 Indirect Bilirubin 0.4 mg/dL 10/21/19 11:33 AST 68 units/L (5-40) H 10/27/19 06:25 ALT 24 units/L (7-56) 10/27/19 06:25 Alkaline Phosphatase 420 units/L (35-129) H 10/27/19 06:25 Total Creatine Kinase 233 units/L (30-135) H 10/21/19 11:33 Total Protein 6.1 g/dL (6.3-8.2) L D 10/27/19 06:25 Albumin 2.1 g/dL (3.9-5) L 10/27/19 06:25 Albumin/Globulin Ratio 0.5 % 10/27/19 06:25 Lipase 15 units/L (13-60) 10/21/19 11:33 Urine Color Taya (Yellow) 10/24/19 05:40 Urine Turbidity Cloudy (Clear) 10/24/19 05:40 Urine pH 7.0 (5.0-7.0) 10/24/19 05:40 Ur Specific Perry 1.015 (1.003-1.030) 10/24/19 05:40 Urine Protein >500 mg/dL (Negative) 10/24/19 05:40 Urine Glucose (UA) >=500 mg/dL (Negative) 10/24/19 05:40 Urine Ketones Neg mg/dL (Negative) 10/24/19 05:40 Urine Blood Lg (Negative) 10/24/19 05:40 Urine Nitrite Neg (Negative) 10/24/19 05:40 Urine Bilirubin Neg (Negative) 10/24/19 05:40 Urine Urobilinogen < 2.0 mg/dL (<2.0) 10/24/19 05:40 Ur Leukocyte Esterase Lg (Negative) 10/24/19 05:40 Urine WBC (Auto) > 182.0 /HPF (0.0-6.0) H 10/24/19 05:40 Urine RBC (Auto) > 182.0 /HPF (0.0-6.0) 10/24/19 05:40 U Epithel Cells (Auto) 2.0 /HPF (0-13.0) 10/24/19 05:40 Urine WBC Clumps 3+ /HPF 10/24/19 05:40 Urine Eosinophils None seen (None Seen) 10/24/19 05:40 Urine Creatinine 15.0 mg/dL (0.1-20.0) 10/24/19 05:40 Urine Sodium 124 mmol/L 10/24/19 05:40 Blood Type A POSITIVE 10/24/19 03:44 Antibody Screen Negative 10/24/19 03:44 Crossmatch See Detail 10/22/19 12:30 Microbiology: Microbiology 10/21/19 13:30 Peripheral/Venous Blood Culture - Final NO GROWTH AFTER 5 DAYS 10/21/19 13:45 Peripheral/Venous Blood Culture - Final NO GROWTH AFTER 5 DAYS Gottlieb/IV: Voiding Method Indwelling Catheter IV Catheter Type [Right NECK] Triple Lumen Cath IV Catheter Type [Right INT / Saline Lock Antecubital] IV Catheter Type [Right VAS Cath Internal Jugular] Active Medications - Current Medications Current Medications: Generic Name Dose Route Start Last Admin Trade Name Freq PRN Reason Stop Dose Admin Albumin Human 25 gm 10/26/19 22:00 10/27/19 05:57 Alburx 25% (Albumin) IV 10/27/19 21:59 25 gm Q8HR MICHI Administration Dextrose 50 ml 10/26/19 13:25 D50w (25gm) Syringe IV Q30MIN PRN Hypoglycemia Protocol Epoetin Mansoor 10,000 unit 10/27/19 09:55 Procrit SUB-Q CODIE PRN hemodialysis Fentanyl 25 mcg 10/22/19 09:18 10/26/19 21:16 Sublimaze IV 25 mcg Q2H PRN Administration Pain , Severe (7-10) Hydrocortisone Sodium Succinate 100 mg 10/22/19 22:00 10/27/19 05:57 Solu-Cortef IV 100 mg Q8H MICHI Administration Phenylephrine HCl 100 mg/ 100 mls @ 3 mls/hr 10/21/19 17:00 10/24/19 23:13 Sodium Chloride IV 0 mcg/min TITR MICHI 0 mls/hr Titration Protocol 50 MCG/MIN Vasopressin 20 unit/ Sodium 101 mls @ 9.09 mls/hr 10/22/19 07:00 10/25/19 06:11 Chloride IV 0 units/min TITR MICHI 0 mls/hr Titration Protocol 0.03 UNITS/MIN Norepinephrine 8 mg/ Sodium 250 mls @ 3.75 mls/hr 10/22/19 12:00 10/27/19 12:00 Chloride IV 6 mcg/min TITR MICHI 11.25 mls/hr Titration Protocol 2 MCG/MIN Epinephrine 16 mg/ Sodium 250 mls @ 1.875 mls/hr 10/22/19 15:00 10/24/19 10:15 Chloride IV 0 mcg/min TITR MICHI 0 mls/hr Titration Protocol 2 MCG/MIN Meropenem 500 mg in 50 mls @ 50 mls/hr 10/26/19 12:00 10/27/19 10:28 Merrem/Ns 500 Mg/50 Ml IV 50 mls/hr Q12HR MICHI Administration Sodium Chloride 100 mls @ 999 mls/hr 10/27/19 10:18 Nacl 0.9% IV CODIE PRN Hypotension Insulin Human Lispro 0 unit 10/22/19 18:00 10/27/19 07:35 Humalog SUB-Q Not Given Q6HR MICHI Protocol Metoprolol Tartrate 5 mg 10/27/19 06:00 10/27/19 06:03 Metoprolol IV Not Given Q8HR [facility] Ondansetron HCl 4 mg 10/21/19 14:19 Zofran IV ONCE PRN Nausea And Vomiting Pantoprazole Sodium 40 mg 10/22/19 12:00 10/27/19 10:27 Protonix IV 40 mg QDAY [facility] Administration
--- NOTE | 2019-10-27 13:42 | Progress Note ---
Assessment and Plan - Patient Problems (1) Perforated viscus Current Visit: Yes Status: Acute Plan to address problem: Pt in critical condition. s/p ex lap and repair of perforated peptic ulcer - (10/20) - POD#6. Patient appears to be in multisystem organ failure. Her overall prognosis is still grave at this point. She probably had chronic issues with multiple organs prior to this emergency. She may not have had the physiologic reserve needed to overcome such an emergency. I am worried about the appearance of the drainage today. Discussed with Drs. Simpson and Michi. Will proceed to OR for abdominal washout, recheck of repair s ite, AbThera placement. Discussed with son and grandson. Explained the concern with the drainage a ppearance. Procedure, risks, benefits explained. Consent obtained for today and return trip to OR for AbThera change and possible abdominal closure. We will follow along. Please call with any questions. Time=15min Subjective Date of service: 10/27/19 Patient Reports: Positive: other (had to restart pressor today. Scheduled for HD today) Objective Vital Signs - 12hr 10/27/19 10/27/19 10/27/19 01:45 02:00 02:15 Temperature Pulse Rate 81 78 80 Respiratory 29 H 23 29 H Rate Blood Pressure 107/36 110/39 112/43 O2 Sat by Pulse 99 97 99 Oximetry 10/27/19 10/27/19 10/27/19 02:30 02:45 03:00 Temperature Pulse Rate 79 78 76 Respiratory 25 H 25 H 14 Rate Blood Pressure 111/33 108/24 111/31 O2 Sat by Pulse 99 96 70 L Oximetry 10/27/19 10/27/19 10/27/19 03:15 03:31 03:45 Temperature Pulse Rate 76 77 78 Respiratory 14 17 22 Rate Blood Pressure 100/31 100/31 128/52 O2 Sat by Pulse 96 99 99 Oximetry 10/27/19 10/27/19 10/27/19 04:00 04:15 04:30 Temperature 96.4 F L Pulse Rate 78 82 126 H Respiratory 31 H 20 29 H Rate Blood Pressure 112/39 106/40 117/48 O2 Sat by Pulse 99 99 98 Oximetry 10/27/19 10/27/19 10/27/19 04:42 04:45 05:00 Temperature Pulse Rate 130 H 126 H 131 H Respiratory 31 H 26 H Rate Blood Pressure 131/50 131/50 107/47 O2 Sat by Pulse 97 96 97 Oximetry 10/27/19 10/27/19 10/27/19 05:15 05:31 05:45 Temperature Pulse Rate 125 H 134 H 124 H Respiratory 26 H 25 H 20 Rate Blood Pressure 107/47 98/64 107/45 O2 Sat by Pulse 98 91 Oximetry 10/27/19 10/27/19 10/27/19 06:00 06:03 06:15 Temperature Pulse Rate 78 77 72 Respiratory 25 H 26 H Rate Blood Pressure 77/31 77/31 77/31 O2 Sat by Pulse 99 100 Oximetry 10/27/19 10/27/19 10/27/19 06:30 06:45 07:00 Temperature Pulse Rate 75 75 83 Respiratory 25 H 25 H 12 Rate Blood Pressure 92/42 82/32 100/32 O2 Sat by Pulse 98 100 100 Oximetry 10/27/19 10/27/19 10/27/19 07:15 07:31 07:45 Temperature Pulse Rate 74 82 87 Respiratory 14 16 29 H Rate Blood Pressure 95/34 98/46 115/64 O2 Sat by Pulse 100 98 100 Oximetry 10/27/19 10/27/19 10/27/19 08:00 08:13 08:15 Temperature 96.9 F L Pulse Rate 91 H 79 78 Respiratory 27 H 26 H Rate Blood Pressure 116/44 116/44 108/53 O2 Sat by Pulse 99 100 99 Oximetry 10/27/19 10/27/19 10/27/19 08:31 08:45 09:00 Temperature Pulse Rate 128 H 137 H 149 H Respiratory 23 29 H 21 Rate Blood Pressure 128/68 120/62 116/57 O2 Sat by Pulse 95 93 96 Oximetry 10/27/19 10/27/19 10/27/19 09:15 09:30 09:45 Temperature Pulse Rate 131 H 134 H 133 H Respiratory 19 15 20 Rate Blood Pressure 120/62 103/59 107/38 O2 Sat by Pulse 97 94 82 L Oximetry 10/27/1910/26/10/27/19 10:00 10:16 10:30 Temperature Pulse Rate 123 H 130 H 84 Respiratory 22 25 H 24 Rate Blood Pressure 100/25 88/30 88/39 O2 Sat by Pulse 81 L 100 Oximetry 05/25/20 10/27/19 10/27/19 10:45 11:00 11:15 Temperature Pulse Rate 82 76 79 Respiratory 14 22 16 Rate Blood Pressure 114/42 104/35 108/45 O2 Sat by Pulse 98 100 100 Oximetry 10/27/19 10/27/19 10/27/19 11:30 11:41 11:45 Temperature Pulse Rate 78 79 77 Respiratory 21 23 Rate Blood Pressure 108/45 129/45 O2 Sat by Pulse 100 100 Oximetry 10/27/19 10/27/19 12:00 12:31 Temperature Pulse Rate 130 H 77 Respiratory 34 H Rate Blood Pressure 150/98 108/45 O2 Sat by Pulse 99 100 Oximetry - General physical appearance no distress, no pain, obese, other (Intubated. Face appears less swollen) - Respiratory normal expansion, normal respiratory effort - Abdomen soft, distended (less today), surgical scars (drainage appears to be bubbling in the top of the incision. ), other (LOUIE with thin yellow/brownish drainage) - Labs 10/27/19 00:05 10/27/19 08:45 Diabetes panel 10/27/19 10/27/19 Range/Units 06:25 08:45 Sodium 135 L 131 L (137-145) mmol/L Potassium 4.2 4.7 (3.6-5.0) mmol/L Chloride 91.7 L 86.3 L (98-107) mmol/L Carbon Dioxide 35 H D 20 L D (22-30) mmol/L BUN 9 47 H (7-17) mg/dL Creatinine 0.5 L D 4.1 H D (0.7-1.2) mg/dL Glucose 116 H 135 H (65-100) mg/dL Calcium 8.1 L 7.5 L (8.4-10.2) mg/dL AST 68 H (5-40) units/L ALT 24 (7-56) units/L Alkaline Phosphatase 420 H (35-129) units/L Total Protein 6.1 L D (6.3-8.2) g/dL Albumin 2.1 L (3.9-5) g/dL Calcium panel 10/27/19 10/27/19 Range/Units 06:25 08:45 Calcium 8.1 L 7.5 L (8.4-10.2) mg/dL Albumin 2.1 L (3.9-5) g/dL Pituitary panel 10/27/19 10/27/19 Range/Units 06:25 08:45 Sodium 135 L 131 L (137-145) mmol/L Potassium 4.2 4.7 (3.6-5.0) mmol/L Chloride 91.7 L 86.3 L (98-107) mmol/L Carbon Dioxide 35 H D 20 L D (22-30) mmol/L BUN 9 47 H (7-17) mg/dL Creatinine 0.5 L D 4.1 H D (0.7-1.2) mg/dL Glucose 116 H 135 H (65-100) mg/dL Calcium 8.1 L 7.5 L (8.4-10.2) mg/dL Adrenal panel 10/27/19 10/27/19 Range/Units 06:25 08:45 Sodium 135 L 131 L (137-145) mmol/L Potassium 4.2 4.7 (3.6-5.0) mmol/L Chloride 91.7 L 86.3 L (98-107) mmol/L Carbon Dioxide 35 H D 20 L D (22-30) mmol/L BUN 9 47 H (7-17) mg/dL Creatinine 0.5 L D 4.1 H D (0.7-1.2) mg/dL Glucose 116 H 135 H (65-100) mg/dL Calcium 8.1 L 7.5 L (8.4-10.2) mg/dL Total Bilirubin 0.30 (0.1-1.2) mg/dL AST 68 H (5-40) units/L ALT 24 (7-56) units/L Alkaline Phosphatase 420 H (35-129) units/L Total Protein 6.1 L D (6.3-8.2) g/dL Albumin 2.1 L (3.9-5) g/dL
[2019-10-27] MEDS ORDERED: HYDROmorphone 1 MG/1 ML INJ IV PRN (13:55)
[2019-10-27] MEDS ORDERED: ONDANSETRON 4 MG/2 ML INJ IV PRN (13:55)
[2019-10-27] MEDS ORDERED: ONDANSETRON 4 MG/2 ML INJ ONE (14:12)
[2019-10-27] MEDS ORDERED: ROCURONIUM 50 MG/5 ML INJ IV ONE (14:12)
[2019-10-27] MEDS ORDERED: LIDOCAINE MPF (2%) 20 MG/1 ML VIAL 5 ML ONE (14:12)
[2019-10-27] MEDS ORDERED: propofoL 200 MG/20 ML VIAL IV ONE (14:13)
[2019-10-27] MEDS ORDERED: fentaNYL 100 MCG/2 ML INJ ONE (14:13)
[2019-10-27] MEDS ORDERED: SUCCINYLCHOLINE CHLORIDE 200 MG/10 ML INJ MDV ONE (14:14)
[2019-10-27] MEDS ORDERED: SODIUM CHLORIDE 0.9% IRR 1,500 ML BOTTLE IR ONE (16:00)
--- NOTE | 2019-10-27 16:17 | Post Operative Note ---
Date of procedure: 10/27/19 Pre-op diagnosis: perforated peptic ulcer Post-op diagnosis: same Findings: No evidence of compartment syndrome. Repair was found to be intact. Area near the repair site had some liquefied fat. Rest of the abdomen was clean. Procedure: Re-exploration of abdomen Washout of abdomen Abthera Placement IVF 500cc EBL ~100cc Anesthesia: NATALI Surgeon: RADHA YE Estimated blood loss: 50-100ml Pathology: none Condition: stable Disposition: PACU
[2019-10-27] MEDS ORDERED: EPOETIN ALFA 10,000 UNIT/1 ML INJ ONE (16:44)
[2019-10-27] MEDS ORDERED: PHENYLEPHRINE/NS 1,000 MCG/10 ML SYRINGE (OR USE) IV ONE (16:49)
[2019-10-27] MEDS: VASOPRESSIN 20 UNIT in SODIUM CHLORIDE 0.9% 100 ML IV SCH (17:05)
--- NOTE | 2019-10-27 17:11 | Operative Report ---
PREOPERATIVE DIAGNOSES: 1. Recent perforated peptic ulcer. 2. Abnormal drainage from midline wound. POSTOPERATIVE DIAGNOSIS: Recent perforated peptic ulcer. PROCEDURE: 1. Reexploration of abdomen. 2. Abdominal washout. 3. ABThera placement. ATTENDING PHYSICIAN: Celeste Arambula MD ANESTHESIA: General. ESTIMATED BLOOD LOSS: Approximately 100 mL. FLUIDS: 500 mL. FINDINGS: No evidence of compartment syndrome. Abdomen was very soft. No evidence of distention once the patient was paralyzed. Upon opening the abdomen, the bowel was not swollen or dilated. There was no evidence of any increased pressure within the abdominal cavity. The repair site was completely intact, sutures could be seen, omental flap was in place, no evidence of any leak on multiple checks, some liquified fat necrosis was seen in the upper abdomen. No other abnormal fluid was seen. No signs of infection. Rest of the abdomen was clean. SPECIMENS: None. DRAINS: 1. Preexisting LOUIE drain. 2. ABThera drain. COMPLICATIONS: None. DISPOSITION: Stable transport to Recovery Room. INDICATIONS: This is a 74-year-old female whom we initially operated on emergently for a perforated peptic ulcer. The patient showed improvement in the ICU with aggressive intensive therapy today. Today, she was noted to have some abnormal drainage from the upper wound. I was concerned that there could be a leak at the repair site. Therefore, I spoke with family about taking her back for a washout. We would also evaluate the question of whether she had abdominal compartment syndrome, so I thought we could address many issues at the same time to make sure that she continued to progress in her care. Procedures, benefits were explained to the son and grandson. Risks include but were not limited to infection, bleeding, pain, injury to surrounding structures, possible need for further procedures in the future. They understood and consented. OPERATIVE NOTE: The patient was brought to the operating room and placed on the table in supine position. After adequate general anesthesia was established, the patient was prepped and draped in usual sterile fashion. The patient was already on antibiotics. Timeout was done. I began by removing the mattie. I examined the subcutaneous tissue. There appeared to be some fat necrosis, but otherwise no gross infection. The fascia was completely intact. There was no evidence of any disruption. PDS suture was removed. Once that was done, the fascia did not retract aggressively to the sides as would be expected with increased abdominal pressure. The bowel did not balloon out. Everything appeared normal. Please note that before the start of the case after she was paralyzed, I examined the abdomen. It was very soft. It was a normal appearing abdomen. There was no evidence of any increased pressure or distention. It may be that when she was in the ICU the concern about a tight abdomen may have been voluntary tightening because her abdomen was completely soft and nondistended after she was paralyzed and under general anesthesia. We opened up the abdomen, suctioned out the fluid, I opened the rest of the abdominal wall in the midline, so that we may place the ABThera as that was our plan. We suctioned out some fluid. We went to the area of the repair site. There was some liquified fat in that area; however, the rest of the surrounding tissue was completely normal. We thoroughly washed out the abdomen with 4 liters of warm saline. We examined the repair site 3 separate times, each time we could see the sutures. The Taco patch was in place. We compressed the surrounding tissue to see if we could cause a leak. We saw no evidence of any leak on any occasion. After we thoroughly washed out, everything we attempted to palpate where the nasogastric tube was, however, I think due to the tissue all being adhered together, I was unable to grasp the stomach by itself. I tried to push down on that area to see if I could feel the tube, but I was not able to. We left the NG tube in its current position. Anesthesiology felt that they had placed the tube fairly deep. We will check an x-ray at the end and see its location. Hopefully, if it is near the GE junction it may migrate into the stomach. As everything looked good, we had no concerns. ABThera was placed. I placed some fascial retention sutures prior to the final dressings being placed; to help minimize lateral retraction 3-0 Prolene sutures were placed. The rest of dressings were placed. We had a good seal on the ABThera. The patient tolerated the procedure well. There were no complications. All counts were correct. JOB# [id number] [facility]
--- NOTE | 2019-10-27 17:12 | Anesthesia Day of Surgery ---
Anesthesia Day of Surgery - Day of Surgery Patient Examined: Yes Patient H&P Reviewed: Yes Patient is NPO: Yes
--- NOTE | 2019-10-27 17:13 | XRay Report ---
ABDOMEN 1 VIEW(S) 10/27/2019 4:31 PM INDICATION / CLINICAL INFORMATION: NGT placement. COMPARISON: Abdomen radiograph from 10/05/2019 FINDINGS: The tip of an esophagogastric tube projects over the body of the stomach in expected position. Signer Name: Jose Roberson MD Signed: 10/27/2019 5:08 PM Workstation Name: [id number]
[2019-10-27] MEDS: NORepinephrine 8 MG in SODIUM CHLORIDE 0.9% 250ML 242 ML IV SCH ×2 (17:23→21:12)
[2019-10-27] MEDS ORDERED: SODIUM BICARB 8.4% 50 MEQ/50 ML SYRINGE IV ONE ×3 (17:42→18:50)
[2019-10-27] MEDS: PHENYLEPHRINE 100 MG in SODIUM CHLORIDE 0.9% 90 ML IV SCH ×2 (17:42→21:13)
--- NOTE | 2019-10-27 17:46 | Event Note ---
Date: 10/27/19 I was called to the bedside by the ICU nurse. Patient returned from the operating room hypotensive. He was concerned about bloody drainage from the wound VAC. I immediately proceeded up to her bedside. Her heart rate was the same as in the operating room. The blood pressure was lower. Drainage in the wound VAC was serosanguineous. This was not gross blood. LOUIE drain was serous. Abdomen was soft and nondistended. I spoke with Dr. Simpson who was on the phone at the time. I explained to him that we had no active bleeding in the operating room. There may have been some small points of oozing related to her thrombocytopenia. We did not encounter any significant vessels that we had to tie off. At this point, the best thing may be to give her additional volume including platelets. Repeat H&H are pending. If that is significantly lower, then a transfusion may be beneficial as well. She suffered some blood loss from the NG tube placement. We will be available as needed.
[2019-10-27] MEDS ORDERED: DESMOPRESSIN 4 MCG/ML VIAL SUB-Q ONE (18:00)
[2019-10-27 18:12] LABS: Hematocrit 25.1 % (30.3-42.9); Hemoglobin 8.4 gm/dl (10.1-14.3); Mean Corpuscular HGB Conc 33 % (30-34); Mean Corpuscular Volume 95 fl (79-97); Red Blood Count 2.64 M/mm3 (3.65-5.03); Red Cell Distribution Width 19.9 % (13.2-15.2)
[2019-10-27 18:13] LABS: Platelet Count 58 K/mm3 (140-440)
[2019-10-27] MEDS ORDERED: DESMOPRESSIN ACETATE 4 MCG/ML IV ONE (18:30)
[2019-10-27 18:37] LABS: Hepatitis C Virus Antibody Non-Reactive (NonReactive)
[2019-10-27] MEDS ORDERED: DEXTROSE IV SCH (19:00)
[2019-10-27] MEDS ORDERED: SODIUM CHLORIDE IV SCH (19:00)
[2019-10-27] MEDS ORDERED: SODIUM BICARBONATE IV SCH (19:00)
[2019-10-27] MEDS ORDERED: DESMOPRESSIN ACETATE 26 MCG in SODIUM CHLORIDE 0.9% 50 ML IV ONE (19:00)
[2019-10-27 19:09] LABS: ABG Base Excess -2.3 mmol/L (-2.0-3.0); ABG HCO3 22.9 mmol/L (20.0-26.0); ABG Methemoglobin 0.6 % (0.0-1.5); ABG Oxygen Saturation 94.5 % (95.0-99.0); ABG PCO2 41.1 mm Hg; ABG PH 7.364 pH Units (7.350-7.450); ABG PO2 74.4 mm Hg (80.0-90.0)
[2019-10-27 19:34] LABS: Hepatitis B Surface Antigen Non-Reactive (Negative)
--- NOTE | 2019-10-27 20:40 | Event Note ---
Date: 10/27/19 Went for routine recheck. Blood pressure is still on the lower side, but better than what it was. Heart rate remains elevated, but unchanged. Hemoglobin was essentially the same. The wound VAC output is becoming thinner and clearly more serosanguineous. The new issue now is hypothermia. I think overall this is a problem with her overall physiology. Perhaps she has very little physiologic reserve and is unable to mount a normal stress response. I do not believe what we are seeing is related to any active bleeding. We will continue to follow along. Please call with any questions. Discussed status with nurse and Dr. Garcia.
--- NOTE | 2019-10-27 21:43 | Progress Note ---
Assessment and Plan Imp: 1. Perforated ulcer/viscus 2. Peritonitis/Sepsis 3. Septic shock 4. Acute respiratory failure, hypoxia 5. KORY 6. UTI 7. Thrombocytopenia Rec: 1. Personally d/w Dr. Arambula -> no evidence of intra-op or post-op bleeding; monitor H/H closely; platelets are > 50K so hold off on transfusion 2. Bicarb drip ordered; bolus with NS prn 3. Cont. Merrem 4. Wean pressors to keep MAP > 65 5. Stress dose steroids to cont. 6. SCDs 7. PPI 8. Very poor prognosis; no family present CCt 31 minutes Subjective Date of service: 10/27/19 Principal diagnosis: Sepsis Interval history: Had abd washout, see surgery note. After arrival back to ICU noted to have hypotension and tachycardia. Back on Levophed, Vasopressin, and Neosynephrine. Unrepsonsive on ventilator. Active Medications Dextrose (D50w (25gm) Syringe) 50 ml IV Q30MIN PRN; Protocol PRN Reason: Hypoglycemia Epoetin Mansoor (Procrit) 10,000 unit SUB-Q CODIE PRN PRN Reason: hemodialysis Fentanyl (Sublimaze) 25 mcg IV Q2H PRN PRN Reason: Pain , Severe (7-10) Last Admin: 10/26/19 21:16 Dose: 25 mcg Documented by: Hydrocortisone Sodium Succinate (Solu-Cortef) 100 mg IV Q8H [facility] Last Admin: 10/27/19 13:35 Dose: 100 mg Documented by: Hydromorphone HCl (Dilaudid) 0.5 mg IV Q10MIN PRN PRN Reason: Pain , Severe (7-10) Stop: 10/27/19 23:59 Phenylephrine HCl 100 mg/ (Sodium Chloride) 100 mls @ 3 mls/hr IV TITR [facility]; Protocol Last Admin: 10/27/19 21:13 Dose: 380 mcg/min, 22.8 mls/hr Documented by: Vasopressin 20 unit/ Sodium (Chloride) 101 mls @ 9.09 mls/hr IV TITR [facility]; Protocol Last Admin: 10/27/19 17:05 Dose: 0.03 units/min, 9.09 mls/hr Documented by: Norepinephrine 8 mg/ Sodium (Chloride) 250 mls @ 3.75 mls/hr IV TITR [facility]; Protocol Last Admin: 10/27/19 21:12 Dose: 30 mcg/min, 56.25 mls/hr Documented by: Epinephrine 16 mg/ Sodium (Chloride) 250 mls @ 1.875 mls/hr IV TITR [facility]; Protocol Last Titration: 10/24/19 10:15 Dose: 0 mcg/min, 0 mls/hr Documented by: Meropenem (Merrem/Ns 500 Mg/50 Ml) 500 mg in 50 mls @ 50 mls/hr IV Q12HR [facility] Last Admin: 10/27/19 10:28 Dose: 50 mls/hr Documented by: Sodium Chloride (Nacl 0.9%) 100 mls @ 999 mls/hr IV CODIE PRN PRN Reason: Hypotension Sodium Bicarbonate 75 meq/ (Dextrose/Sodium Chloride) 1,075 mls @ 200 mls/hr IV DIRECT [facility] Last Admin: 10/27/19 21:16 Dose: 200 mls/hr Documented by: Insulin Human Lispro (Humalog) 0 unit SUB-Q Q6HR [facility]; Protocol Last Admin: 10/27/19 17:22 Dose: Not Given Documented by: Metoprolol Tartrate (Metoprolol) 5 mg IV Q8HR [facility] Last Admin: 10/27/19 13:30 Dose: 5 mg Documented by: Ondansetron HCl (Zofran) 4 mg IV ONCE PRN PRN Reason: Nausea And Vomiting Ondansetron HCl (Zofran) 4 mg IV ONCE PRN PRN Reason: Nausea And Vomiting Stop: 10/27/19 23:59 Pantoprazole Sodium (Protonix) 40 mg IV QDAY [facility] Last Admin: 10/27/19 10:27 Dose: 40 mg Documented by: Objective Vital Signs - 12hr 10/27/19 10/27/19 10/27/19 09:45 10:00 10:16 Temperature Pulse Rate 133 H 123 H 130 H Respiratory 20 22 25 H Rate Blood Pressure 107/38 100/25 88/30 O2 Sat by Pulse 82 L 81 L Oximetry O2 Sat by Pulse Oximetry [ Anterior Bilateral Throughout] O2 Sat by Pulse Oximetry [ Bilateral] 10/27/19 10/27/19 10/27/19 10:30 10:45 11:00 Temperature Pulse Rate 84 82 76 Respiratory 24 14 22 Rate Blood Pressure 88/39 114/42 104/35 O2 Sat by Pulse 100 98 100 Oximetry O2 Sat by Pulse Oximetry [ Anterior Bilateral Throughout] O2 Sat by Pulse Oximetry [ Bilateral] 10/27/19 10/27/19 10/27/19 11:15 11:30 11:41 Temperature Pulse Rate 79 78 79 Respiratory 16 21 Rate Blood Pressure 108/45 108/45 O2 Sat by Pulse 100 100 Oximetry O2 Sat by Pulse Oximetry [ Anterior Bilateral Throughout] O2 Sat by Pulse Oximetry [ Bilateral] 10/27/19 10/27/19 10/27/19 11:45 12:00 12:15 Temperature 96.7 F L Pulse Rate 77 130 H 134 H Respiratory 23 34 H 28 H Rate Blood Pressure 129/45 150/98 109/53 O2 Sat by Pulse 100 99 100 Oximetry O2 Sat by Pulse Oximetry [ Anterior Bilateral Throughout] O2 Sat by Pulse Oximetry [ Bilateral] 10/27/19 10/27/19 10/27/19 12:30 12:31 12:46 Temperature Pulse Rate 140 H 77 132 H Respiratory 27 H 18 Rate Blood Pressure 125/65 108/45 102/34 O2 Sat by Pulse 98 100 95 Oximetry O2 Sat by Pulse Oximetry [ Anterior Bilateral Throughout] O2 Sat by Pulse Oximetry [ Bilateral] 10/27/19 10/27/19 10/27/19 13:00 13:16 13:30 Temperature Pulse Rate 139 H 145 H 141 H Respiratory 22 21 14 Rate Blood Pressure 102/25 104/56 88/53 O2 Sat by Pulse 85 67 L Oximetry O2 Sat by Pulse Oximetry [ Anterior Bilateral Throughout] O2 Sat by Pulse Oximetry [ Bilateral] 10/27/19 10/27/19 10/27/19 13:46 14:00 14:16 Temperature Pulse Rate 117 H 129 H 119 H Respiratory 28 H 20 25 H Rate Blood Pressure 80/40 101/32 101/40 O2 Sat by Pulse 100 100 100 Oximetry O2 Sat by Pulse Oximetry [ Anterior Bilateral Throughout] O2 Sat by Pulse Oximetry [ Bilateral] 10/27/19 10/27/19 10/27/19 14:30 16:23 16:24 Temperature Pulse Rate 125 H 125 H 133 H Respiratory 26 H 25 H Rate Blood Pressure 98/47 72/28 O2 Sat by Pulse 100 98 100 Oximetry O2 Sat by Pulse Oximetry [ Anterior Bilateral Throughout] O2 Sat by Pulse Oximetry [ Bilateral] 10/27/19 10/27/19 10/27/19 16:30 16:35 16:40 Temperature Pulse Rate 138 H 126 H 123 H Respiratory 21 Rate Blood Pressure 140/79 121/56 125/34 O2 Sat by Pulse 99 98 97 Oximetry O2 Sat by Pulse Oximetry [ Anterior Bilateral Throughout] O2 Sat by Pulse Oximetry [ Bilateral] 10/27/19 10/27/19 10/27/19 16:45 16:48 16:50 Temperature Pulse Rate 132 H 126 H 124 H Respiratory 22 24 Rate Blood Pressure 105/34 105/34 O2 Sat by Pulse 97 Oximetry O2 Sat by Pulse 92 Oximetry [ Anterior Bilateral Throughout] O2 Sat by Pulse 92 Oximetry [ Bilateral] 10/27/19 10/27/19 10/27/19 17:00 17:15 17:30 Temperature Pulse Rate 141 H 135 H 140 H Respiratory 22 24 20 Rate Blood Pressure 68/46 57/31 84/47 O2 Sat by Pulse 96 96 97 Oximetry O2 Sat by Pulse Oximetry [ Anterior Bilateral Throughout] O2 Sat by Pulse Oximetry [ Bilateral] 10/27/19 10/27/19 10/27/19 17:46 18:00 18:07 Temperature 96.8 F L Pulse Rate 130 H 131 H Respiratory 23 16 Rate Blood Pressure 83/53 89/62 O2 Sat by Pulse 98 98 Oximetry O2 Sat by Pulse Oximetry [ Anterior Bilateral Throughout] O2 Sat by Pulse Oximetry [ Bilateral] 10/27/19 10/27/19 10/27/19 18:16 18:30 18:46 Temperature Pulse Rate 120 H 126 H 135 H Respiratory 16 18 15 Rate Blood Pressure 89/62 108/46 108/46 O2 Sat by Pulse 83 L 100 Oximetry O2 Sat by Pulse Oximetry [ Anterior Bilateral Throughout] O2 Sat by Pulse Oximetry [ Bilateral] 10/27/19 10/27/19 19:00 20:36 Temperature Pulse Rate 139 H 145 H Respiratory 16 Rate Blood Pressure 144/65 O2 Sat by Pulse 100 100 Oximetry O2 Sat by Pulse Oximetry [ Anterior Bilateral Throughout] O2 Sat by Pulse Oximetry [ Bilateral] Constitutional: lethargic, other (obese, intubated, critically ill) Eyes: non-icteric ENT: other (orally intubated) Neck: supple, other (large in circumference) Effort: mildly labored Ascultation: Bilateral: other (coarse BS bilaterally) Cardiovascular: other (tachy, RR; no mrg) Gastrointestinal: hypoactive bowel sounds (obese), other Extremities: no cyanosis, anasarca Neurologic: other (unresponsive) Psychiatric: other (unable to assess) CBC and BMP: 10/27/19 18:00 10/27/19 08:45 ABG, PT/INR, D-dimer: ABG ABG pH 7.364 pH Units (7.350-7.450) 10/27/19 19:05 ABG pCO2 41.1 mm Hg 10/27/19 19:05 ABG pO2 74.4 mm Hg (80.0-90.0) L 10/27/19 19:05 ABG O2 Saturation 94.5 % (95.0-99.0) L 10/27/19 19:05 PT/INR, D-dimer PT 16.6 Sec. (12.2-14.9) H 10/21/19 11:33 INR 1.33 (0.87-1.13) H 10/21/19 11:33 Abnormal lab findings: Abnormal Labs 10/21/19 10/21/19 10/21/19 05:10 11:33 11:33 WBC 14.8 H RBC 3.05 L Hgb Hct MCV 103 H MCH 34 H RDW 16.7 H Plt Count Seg Neuts % (Manual) Lymphocytes % (Manual) 3.0 L Monocytes % (Manual) Nucleated RBC % Seg Neutrophils # Man Lymphocytes # (Manual) 0.4 L Monocytes # (Manual) PT 16.6 H INR 1.33 H ABG pH ABG pO2 ABG HCO3 ABG O2 Saturation ABG Base Excess ABG Hemoglobin Oxyhemoglobin Sodium Potassium Chloride Carbon Dioxide BUN Creatinine Glucose POC Glucose Lactic Acid 8.50 H* Calcium Phosphorus Total Bilirubin Direct Bilirubin AST ALT Alkaline Phosphatase Total Creatine Kinase Total Protein Albumin Urine WBC (Auto) Crossmatch 10/21/19 10/21/19 10/21/19 11:33 11:33 13:30 WBC RBC Hgb Hct MCV MCH RDW Plt Count Seg Neuts % (Manual) Lymphocytes % (Manual) Monocytes % (Manual) Nucleated RBC % Seg Neutrophils # Man Lymphocytes # (Manual) Monocytes # (Manual) PT INR ABG pH ABG pO2 ABG HCO3 ABG O2 Saturation ABG Base Excess ABG Hemoglobin Oxyhemoglobin Sodium 129 L Potassium 6.8 H* Chloride 89.4 L Carbon Dioxide 19 L BUN 56 H Creatinine 3.0 H Glucose POC Glucose Lactic Acid 8.20 H* 7.50 H* Calcium 8.2 L Phosphorus Total Bilirubin Direct Bilirubin 0.3 H AST ALT Alkaline Phosphatase 159 H Total Creatine Kinase 233 H Total Protein Albumin 2.4 L Urine WBC (Auto) Crossmatch 10/21/19 10/21/19 10/21/19 13:30 15:05 16:15 WBC RBC Hgb Hct MCV MCH RDW Plt Count Seg Neuts % (Manual) Lymphocytes % (Manual) Monocytes % (Manual) Nucleated RBC % Seg Neutrophils # Man Lymphocytes # (Manual) Monocytes # (Manual) PT INR ABG pH ABG pO2 ABG HCO3 ABG O2 Saturation ABG Base Excess ABG Hemoglobin Oxyhemoglobin Sodium Potassium 6.3 H* Chloride Carbon Dioxide BUN Creatinine Glucose POC Glucose 52 L 131 H Lactic Acid Calcium Phosphorus Total Bilirubin Direct Bilirubin AST ALT Alkaline Phosphatase Total Creatine Kinase Total Protein Albumin Urine WBC (Auto) Crossmatch 10/21/19 10/21/19 10/21/19 17:09 17:09 17:09 WBC 12.4 H RBC 2.32 L Hgb 7.9 L Hct 24.9 L D MCV 107 H MCH 34 H RDW 17.2 H Plt Count Seg Neuts % (Manual) Lymphocytes % (Manual) Monocytes % (Manual) Nucleated RBC % Seg Neutrophils # Man Lymphocytes # (Manual) Monocytes # (Manual) PT INR ABG pH ABG pO2 ABG HCO3 ABG O2 Saturation ABG Base Excess ABG Hemoglobin Oxyhemoglobin Sodium 135 L Potassium Chloride Carbon Dioxide 15 L BUN 47 H Creatinine 2.6 H Glucose 106 H POC Glucose Lactic Acid 6.40 H* Calcium 7.2 L Phosphorus Total Bilirubin Direct Bilirubin AST 53 H ALT Alkaline Phosphatase Total Creatine Kinase Total Protein 6.0 L D Albumin 2.6 L Urine WBC (Auto) Crossmatch 10/21/19 10/22/19 10/22/19 21:05 05:10 05:10 WBC 15.8 H RBC 2.49 L Hgb 8.5 L Hct 27.0 L MCV 109 H MCH 34 H RDW 17.7 H Plt Count Seg Neuts % (Manual) Lymphocytes % (Manual) 6.0 L Monocytes % (Manual) 9.0 H Nucleated RBC % Seg Neutrophils # Man Lymphocytes # (Manual) 0.9 L Monocytes # (Manual) 1.4 H PT INR ABG pH 7.121 L* ABG pO2 481.5 H ABG HCO3 14.8 L ABG O2 Saturation 99.6 H ABG Base Excess -13.7 L ABG Hemoglobin 8.4 L Oxyhemoglobin Sodium Potassium 7.1 H* D Chloride Carbon Dioxide 11 L BUN 47 H Creatinine 2.8 H Glucose 8 L* POC Glucose Lactic Acid Calcium 6.7 L Phosphorus 6.20 H Total Bilirubin Direct Bilirubin AST 851 H ALT 350 H Alkaline Phosphatase Total Creatine Kinase Total Protein Albumin 2.5 L Urine WBC (Auto) Crossmatch 10/22/19 10/22/19 10/22/19 05:37 06:09 06:22 WBC RBC Hgb Hct MCV MCH RDW Plt Count Seg Neuts % (Manual) Lymphocytes % (Manual) Monocytes % (Manual) Nucleated RBC % Seg Neutrophils # Man Lymphocytes # (Manual) Monocytes # (Manual) PT INR ABG pH 7.096 L* ABG pO2 116.6 H ABG HCO3 10.3 L ABG O2 Saturation ABG Base Excess -18.0 L ABG Hemoglobin 8.1 L Oxyhemoglobin Sodium Potassium Chloride Carbon Dioxide BUN Creatinine Glucose POC Glucose < 40 L 63 L Lactic Acid Calcium Phosphorus Total Bilirubin Direct Bilirubin AST ALT Alkaline Phosphatase Total Creatine Kinase Total Protein Albumin Urine WBC (Auto) Crossmatch 10/22/19 10/22/19 10/22/19 08:11 09:00 09:00 WBC RBC Hgb Hct MCV MCH RDW Plt Count Seg Neuts % (Manual) Lymphocytes % (Manual) Monocytes % (Manual) Nucleated RBC % Seg Neutrophils # Man Lymphocytes # (Manual) Monocytes # (Manual) PT INR ABG pH ABG pO2 ABG HCO3 ABG O2 Saturation ABG Base Excess ABG Hemoglobin Oxyhemoglobin Sodium Potassium 6.0 H Chloride Carbon Dioxide 12 L BUN 43 H Creatinine 2.8 H Glucose 148 H POC Glucose 155 H Lactic Acid 10.10 H* Calcium 7.1 L Phosphorus Total Bilirubin Direct Bilirubin AST 2445 H ALT 898 H Alkaline Phosphatase Total Creatine Kinase Total Protein 5.3 L Albumin 2.5 L Urine WBC (Auto) Crossmatch 10/22/19 10/22/19 10/22/19 12:00 12:17 12:30 WBC RBC Hgb Hct MCV MCH RDW Plt Count Seg Neuts % (Manual) Lymphocytes % (Manual) Monocytes % (Manual) Nucleated RBC % Seg Neutrophils # Man Lymphocytes # (Manual) Monocytes # (Manual) PT INR ABG pH ABG pO2 ABG HCO3 ABG O2 Saturation ABG Base Excess ABG Hemoglobin Oxyhemoglobin Sodium 136 L Potassium 6.3 H* Chloride Carbon Dioxide 11 L BUN 42 H Creatinine 2.8 H Glucose 116 H POC Glucose 115 H Lactic Acid Calcium 7.6 L Phosphorus Total Bilirubin Direct Bilirubin AST ALT Alkaline Phosphatase Total Creatine Kinase Total Protein Albumin Urine WBC (Auto) Crossmatch See Detail 10/22/19 10/22/19 10/22/19 15:00 15:00 17:12 WBC RBC Hgb Hct MCV MCH RDW Plt Count Seg Neuts % (Manual) Lymphocytes % (Manual) Monocytes % (Manual) Nucleated RBC % Seg Neutrophils # Man Lymphocytes # (Manual) Monocytes # (Manual) PT INR ABG pH ABG pO2 ABG HCO3 ABG O2 Saturation ABG Base Excess ABG Hemoglobin Oxyhemoglobin Sodium Potassium 5.9 H Chloride Carbon Dioxide 13 L BUN 42 H Creatinine 2.7 H Glucose 303 H POC Glucose 224 H Lactic Acid 12.80 H* Calcium 7.5 L Phosphorus Total Bilirubin Direct Bilirubin AST ALT Alkaline Phosphatase Total Creatine Kinase Total Protein Albumin Urine WBC (Auto) Crossmatch 10/22/19 10/22/19 10/22/19 17:33 17:33 21:40 WBC 18.2 H RBC 2.21 L Hgb 7.6 L Hct 24.8 L MCV 112 H MCH 34 H RDW 17.5 H Plt Count Seg Neuts % (Manual) 72.0 H Lymphocytes % (Manual) 4.0 L Monocytes % (Manual) 14.0 H Nucleated RBC % Seg Neutrophils # Man 13.1 H Lymphocytes # (Manual) 0.7 L Monocytes # (Manual) 2.5 H PT INR ABG pH ABG pO2 ABG HCO3 ABG O2 Saturation ABG Base Excess ABG Hemoglobin Oxyhemoglobin Sodium Potassium 6.0 H Chloride Carbon Dioxide 13 L BUN 41 H Creatinine 2.9 H Glucose 239 H POC Glucose 284 H Lactic Acid Calcium 7.3 L Phosphorus Total Bilirubin Direct Bilirubin AST ALT Alkaline Phosphatase Total Creatine Kinase Total Protein Albumin Urine WBC (Auto) Crossmatch 10/23/19 10/23/19 10/23/19 01:55 04:00 04:00 WBC 17.4 H RBC 3.29 L Hgb Hct MCV 103 H MCH RDW 23.6 H Plt Count Seg Neuts % (Manual) Lymphocytes % (Manual) 1.0 L Monocytes % (Manual) Nucleated RBC % 1.0 H Seg Neutrophils # Man 9.6 H Lymphocytes # (Manual) 0.2 L Monocytes # (Manual) 1.0 H PT INR ABG pH 7.028 L* ABG pO2 155.2 H ABG HCO3 10.7 L ABG O2 Saturation ABG Base Excess -19.0 L ABG Hemoglobin 8.7 L Oxyhemoglobin Sodium 134 L Potassium 6.3 H* Chloride 95.8 L Carbon Dioxide 8 L* BUN 38 H Creatinine 2.6 H Glucose 288 H POC Glucose Lactic Acid Calcium 7.2 L Phosphorus Total Bilirubin 3.10 H Direct Bilirubin AST 11982 H ALT 2979 H Alkaline Phosphatase 425 H Total Creatine Kinase Total Protein Albumin 3.2 L Urine WBC (Auto) Crossmatch 10/23/19 10/23/19 10/23/19 05:55 08:15 11:02 WBC RBC Hgb Hct MCV MCH RDW Plt Count Seg Neuts % (Manual) Lymphocytes % (Manual) Monocytes % (Manual) Nucleated RBC % Seg Neutrophils # Man Lymphocytes # (Manual) Monocytes # (Manual) PT INR ABG pH ABG pO2 ABG HCO3 ABG O2 Saturation ABG Base Excess ABG Hemoglobin Oxyhemoglobin Sodium Potassium Chloride Carbon Dioxide BUN Creatinine Glucose POC Glucose 241 H 310 H 294 H Lactic Acid Calcium Phosphorus Total Bilirubin Direct Bilirubin AST ALT Alkaline Phosphatase Total Creatine Kinase Total Protein Albumin Urine WBC (Auto) Crossmatch 10/23/19 10/23/19 10/23/19 11:58 15:30 18:03 WBC RBC Hgb Hct MCV MCH RDW Plt Count Seg Neuts % (Manual) Lymphocytes % (Manual) Monocytes % (Manual) Nucleated RBC % Seg Neutrophils # Man Lymphocytes # (Manual) Monocytes # (Manual) PT INR ABG pH ABG pO2 ABG HCO3 ABG O2 Saturation ABG Base Excess ABG Hemoglobin Oxyhemoglobin Sodium Potassium 5.6 H Chloride 96.6 L Carbon Dioxide 15 L D BUN 36 H Creatinine 3.0 H Glucose 331 H POC Glucose 332 H 313 H Lactic Acid Calcium 7.7 L Phosphorus Total Bilirubin Direct Bilirubin AST ALT Alkaline Phosphatase Total Creatine Kinase Total Protein Albumin Urine WBC (Auto) Crossmatch 10/23/19 10/24/19 10/24/19 22:06 00:22 04:50 WBC 16.8 H RBC 2.79 L Hgb 8.8 L Hct 27.4 L D MCV 98 H MCH RDW 23.7 H Plt Count 100 L Seg Neuts % (Manual) 82.0 H Lymphocytes % (Manual) 7.0 L Monocytes % (Manual) 8.0 H Nucleated RBC % Seg Neutrophils # Man 13.8 H Lymphocytes # (Manual) Monocytes # (Manual) 1.3 H PT INR ABG pH ABG pO2 ABG HCO3 ABG O2 Saturation ABG Base Excess ABG Hemoglobin Oxyhemoglobin Sodium Potassium Chloride Carbon Dioxide BUN Creatinine Glucose POC Glucose 344 H 307 H Lactic Acid Calcium Phosphorus Total Bilirubin Direct Bilirubin AST ALT Alkaline Phosphatase Total Creatine Kinase Total Protein Albumin Urine WBC (Auto) Crossmatch 10/24/19 10/24/19 10/24/19 04:50 05:40 06:01 WBC RBC Hgb Hct MCV MCH RDW Plt Count Seg Neuts % (Manual) Lymphocytes % (Manual) Monocytes % (Manual) Nucleated RBC % Seg Neutrophils # Man Lymphocytes # (Manual) Monocytes # (Manual) PT INR ABG pH ABG pO2 ABG HCO3 ABG O2 Saturation ABG Base Excess ABG Hemoglobin Oxyhemoglobin Sodium Potassium Chloride 94.8 L Carbon Dioxide 16 L BUN 36 H Creatinine 2.9 H Glucose 298 H POC Glucose 318 H Lactic Acid Calcium 7.1 L Phosphorus Total Bilirubin 5.60 H Direct Bilirubin AST 5223 H ALT 2211 H Alkaline Phosphatase 477 H Total Creatine Kinase Total Protein 5.6 L Albumin 3.3 L Urine WBC (Auto) > 182.0 H Crossmatch 10/24/19 10/24/19 10/25/19 11:37 17:36 00:10 WBC RBC Hgb Hct MCV MCH RDW Plt Count Seg Neuts % (Manual) Lymphocytes % (Manual) Monocytes % (Manual) Nucleated RBC % Seg Neutrophils # Man Lymphocytes # (Manual) Monocytes # (Manual) PT INR ABG pH ABG pO2 ABG HCO3 ABG O2 Saturation ABG Base Excess ABG Hemoglobin Oxyhemoglobin Sodium Potassium Chloride Carbon Dioxide BUN Creatinine Glucose POC Glucose 317 H 280 H 297 H Lactic Acid Calcium Phosphorus Total Bilirubin Direct Bilirubin AST ALT Alkaline Phosphatase Total Creatine Kinase Total Protein Albumin Urine WBC (Auto) Crossmatch 10/25/19 10/25/19 10/25/19 04:30 05:00 05:39 WBC RBC Hgb Hct MCV MCH RDW Plt Count Seg Neuts % (Manual) Lymphocytes % (Manual) Monocytes % (Manual) Nucleated RBC % Seg Neutrophils # Man Lymphocytes # (Manual) Monocytes # (Manual) PT INR ABG pH 7.306 L ABG pO2 118.1 H ABG HCO3 ABG O2 Saturation ABG Base Excess -3.0 L ABG Hemoglobin 8.3 L Oxyhemoglobin Sodium 131 L D Potassium Chloride 87.8 L Carbon Dioxide BUN 37 H Creatinine 3.2 H Glucose 303 H POC Glucose 374 H Lactic Acid Calcium 7.0 L Phosphorus 4.70 H Total Bilirubin Direct Bilirubin AST ALT Alkaline Phosphatase Total Creatine Kinase Total Protein Albumin Urine WBC (Auto) Crossmatch 10/25/19 10/25/19 10/25/19 10:30 12:04 18:01 WBC RBC Hgb Hct MCV MCH RDW Plt Count Seg Neuts % (Manual) Lymphocytes % (Manual) Monocytes % (Manual) Nucleated RBC % Seg Neutrophils # Man Lymphocytes # (Manual) Monocytes # (Manual) PT INR ABG pH ABG pO2 94.9 H ABG HCO3 ABG O2 Saturation ABG Base Excess ABG Hemoglobin 8.7 L Oxyhemoglobin Sodium Potassium Chloride Carbon Dioxide BUN Creatinine Glucose POC Glucose 316 H 254 H Lactic Acid Calcium Phosphorus Total Bilirubin Direct Bilirubin AST ALT Alkaline Phosphatase Total Creatine Kinase Total Protein Albumin Urine WBC (Auto) Crossmatch 10/25/19 10/26/19 10/26/19 23:34 04:00 04:33 WBC RBC Hgb Hct MCV MCH RDW Plt Count Seg Neuts % (Manual) Lymphocytes % (Manual) Monocytes % (Manual) Nucleated RBC % Seg Neutrophils # Man Lymphocytes # (Manual) Monocytes # (Manual) PT INR ABG pH ABG pO2 69.6 L ABG HCO3 ABG O2 Saturation 94.9 L ABG Base Excess ABG Hemoglobin 8.5 L Oxyhemoglobin 93.0 L Sodium 131 L Potassium Chloride 88.4 L Carbon Dioxide BUN 41 H Creatinine 3.9 H Glucose 186 H POC Glucose 207 H Lactic Acid Calcium 7.4 L Phosphorus Total Bilirubin 7.60 H Direct Bilirubin AST 660 H ALT 765 H Alkaline Phosphatase 314 H Total Creatine Kinase Total Protein 4.8 L Albumin 3.6 L Urine WBC (Auto) Crossmatch 10/26/19 10/26/19 10/26/19 06:25 06:33 11:57 WBC 12.1 H RBC 2.82 L Hgb 8.8 L Hct 26.7 L MCV MCH RDW 20.5 H Plt Count 45 L Seg Neuts % (Manual) 88.0 H Lymphocytes % (Manual) 4.0 L Monocytes % (Manual) Nucleated RBC % 1.0 H Seg Neutrophils # Man 10.6 H Lymphocytes # (Manual) 0.5 L Monocytes # (Manual) PT INR ABG pH ABG pO2 ABG HCO3 ABG O2 Saturation ABG Base Excess ABG Hemoglobin Oxyhemoglobin Sodium Potassium Chloride Carbon Dioxide BUN Creatinine Glucose POC Glucose 180 H 192 H Lactic Acid Calcium Phosphorus Total Bilirubin Direct Bilirubin AST ALT Alkaline Phosphatase Total Creatine Kinase Total Protein Albumin Urine WBC (Auto) Crossmatch 10/26/19 10/26/19 10/26/19 16:30 17:50 23:42 WBC 14.0 H RBC 2.90 L Hgb 9.1 L Hct 27.4 L MCV MCH RDW 20.3 H Plt Count 43 L Seg Neuts % (Manual) Lymphocytes % (Manual) Monocytes % (Manual) Nucleated RBC % Seg Neutrophils # Man Lymphocytes # (Manual) Monocytes # (Manual) PT INR ABG pH ABG pO2 ABG HCO3 ABG O2 Saturation ABG Base Excess ABG Hemoglobin Oxyhemoglobin Sodium Potassium Chloride Carbon Dioxide BUN Creatinine Glucose POC Glucose 181 H 153 H Lactic Acid Calcium Phosphorus Total Bilirubin Direct Bilirubin AST ALT Alkaline Phosphatase Total Creatine Kinase Total Protein Albumin Urine WBC (Auto) Crossmatch 10/27/19 10/27/19 10/27/19 00:05 03:21 05:53 WBC 13.5 H RBC 2.72 L Hgb 8.6 L Hct 25.9 L MCV MCH RDW 20.2 H Plt Count 44 L Seg Neuts % (Manual) Lymphocytes % (Manual) Monocytes % (Manual) Nucleated RBC % Seg Neutrophils # Man Lymphocytes # (Manual) Monocytes # (Manual) PT INR ABG pH ABG pO2 79.3 L ABG HCO3 ABG O2 Saturation ABG Base Excess -4.1 L ABG Hemoglobin 7.6 L Oxyhemoglobin 94.4 L Sodium Potassium Chloride Carbon Dioxide BUN Creatinine Glucose POC Glucose 114 H Lactic Acid Calcium Phosphorus Total Bilirubin Direct Bilirubin AST ALT Alkaline Phosphatase Total Creatine Kinase Total Protein Albumin Urine WBC (Auto) Crossmatch 10/27/19 10/27/19 10/27/19 06:25 08:45 11:27 WBC RBC Hgb Hct MCV MCH RDW Plt Count Seg Neuts % (Manual) Lymphocytes % (Manual) Monocytes % (Manual) Nucleated RBC % Seg Neutrophils # Man Lymphocytes # (Manual) Monocytes # (Manual) PT INR ABG pH ABG pO2 ABG HCO3 ABG O2 Saturation ABG Base Excess ABG Hemoglobin Oxyhemoglobin Sodium 135 L 131 L Potassium Chloride 91.7 L 86.3 L Carbon Dioxide 35 H D 20 L D BUN 47 H Creatinine 0.5 L D 4.1 H D Glucose 116 H 135 H POC Glucose 133 H Lactic Acid Calcium 8.1 L 7.5 L Phosphorus Total Bilirubin Direct Bilirubin AST 68 H ALT Alkaline Phosphatase 420 H Total Creatine Kinase Total Protein 6.1 L D Albumin 2.1 L Urine WBC (Auto) Crossmatch 10/27/19 10/27/19 10/27/19 17:20 18:00 19:05 WBC 19.3 H RBC 2.64 L Hgb 8.4 L Hct 25.1 L MCV MCH RDW 19.9 H Plt Count 58 L Seg Neuts % (Manual) Lymphocytes % (Manual) Monocytes % (Manual) Nucleated RBC % Seg Neutrophils # Man Lymphocytes # (Manual) Monocytes # (Manual) PT INR ABG pH ABG pO2 74.4 L ABG HCO3 ABG O2 Saturation 94.5 L ABG Base Excess -2.3 L ABG Hemoglobin 8.9 L Oxyhemoglobin 92.5 L Sodium Potassium Chloride Carbon Dioxide BUN Creatinine Glucose POC Glucose 118 H Lactic Acid Calcium Phosphorus Total Bilirubin Direct Bilirubin AST ALT Alkaline Phosphatase Total Creatine Kinase Total Protein Albumin Urine WBC (Auto) Crossmatch Chest x-ray: report reviewed, image reviewed
[2019-10-28] MEDS: PHENYLEPHRINE 100 MG in SODIUM CHLORIDE 0.9% 90 ML IV SCH ×6 (01:06→21:35)
[2019-10-28 02:27] LABS: Hematocrit 30.5 % (30.3-42.9); Hemoglobin 9.7 gm/dl (10.1-14.3)
[2019-10-28] MEDS: METOPROLOL TARTRATE 5 MG/5 ML INJ IV SCH ×4 (02:49→22:11)
[2019-10-28] MEDS: HYDROCORTISONE SOD SUCC 100 MG/2 ML VIAL IV SCH ×4 (02:49→22:10)
[2019-10-28] MEDS: INSULIN LISPRO 100 UNIT/ML SUB-Q SCH ×4 (02:53→18:07)
[2019-10-28] MEDS ORDERED: SODIUM CHLORIDE 0.9% 1000 ML 1,000 ML ONE (03:54)
[2019-10-28 04:07] LABS: ABG Base Excess -9.9 mmol/L (-2.0-3.0); ABG HCO3 16.1 mmol/L (20.0-26.0); ABG Methemoglobin 0.6 % (0.0-1.5); ABG Oxygen Saturation 93.2 % (95.0-99.0); ABG PCO2 35.7 mm Hg; ABG PH 7.273 pH Units (7.350-7.450); ABG PO2 77.4 mm Hg (80.0-90.0)
[2019-10-28] MEDS ORDERED: SODIUM CHLORIDE 0.9% 1000 ML 1,000 ML IV SCH (04:45)
[2019-10-28] MEDS: VASOPRESSIN 20 UNIT in SODIUM CHLORIDE 0.9% 100 ML IV SCH ×2 (05:02→16:57)
[2019-10-28] MEDS: NORepinephrine 8 MG in SODIUM CHLORIDE 0.9% 250ML 242 ML IV SCH ×6 (05:09→22:08)
[2019-10-28 05:18] LABS: Hematocrit 29.3 % (30.3-42.9); Hemoglobin 9.3 gm/dl (10.1-14.3); Mean Corpuscular HGB Conc 32 % (30-34); Mean Corpuscular Volume 98 fl (79-97); Red Blood Count 2.99 M/mm3 (3.65-5.03)
[2019-10-28 05:25] LABS: Platelet Count 57 K/mm3 (140-440); Red Cell Distribution Width 20.4 % (13.2-15.2)
[2019-10-28 05:30] LABS: Calcium 7.1 mg/dL (8.4-10.2)
[2019-10-28 06:07] LABS: Anisocytosis 1+; Basophils % (Manual) 0 % (0.0-1.8); Eosinophils % (Manual) 0 % (0.0-4.3); Total Cells Counted 100
[2019-10-28 06:08] LABS: Burr Cells 1+; Platelet Estimate Consistent w Auto; Poikilocytosis 1+
[2019-10-28 06:09] LABS: Large Platelets Few
[2019-10-28] MEDS: EPINEPHrine 1 MG/1 ML 16 MG in SODIUM CHLORIDE 0.9% 250ML 234 ML IV SCH ×3 (06:51→22:01)
[2019-10-28] MEDS ORDERED: EPINEPHrine 1 MG/1 ML 8 MG in SODIUM CHLORIDE 0.9% 250ML 242 ML IV SCH (07:00)
[2019-10-28] MEDS ORDERED: LACTATED RINGERS 2,000 ML IV ONE (07:48)
[2019-10-28] MEDS ORDERED: SODIUM BICARB 8.4% 50 MEQ/50 ML SYRINGE IV ONE (08:00)
--- NOTE | 2019-10-28 08:26 | Progress Note ---
Assessment and Plan 1. Acute kidney injury: Likely vasomotor KORY in the setting of septic shock. Unclear what patient baseline creatinine is. Creatinine is 4.6 from 4.1 from 3.9 from 3.2 from 2.9 from [address] abd/pelvis revealed low lying right kidney with multiple stones of varying sizes and a large staghorn calculus, negative for hydro. IV fluids d/c. Patient is anuric / oliguric, has brewer. Monitor renal function. Renal prognosis is guarded. Avoid nephrotoxic agents. Meds dosage based on GFR. Unable to attempt HD 2/2 persistent hypotension and need for multiple pressors. Hemodialysis: 10/26 (not able to attempt 2/2 hypotension). 2. FEN: Hyponatremia, monitor. Hyperkalemia, recheck ordered, monitor K. Metabolic acidosis, s/p sodium bicarb drip, monitor. Hypocalcemia, replete ap as needed, monitor. Hypomagnesemia, replete mag, monitor. Anasarca. Monitor lytes and volume status. 3. Perforated viscus: S/p emergency exploratory lap w/ repair. Large amount of contamination in abdomen. S/p abdominal washout with placement of wound vac 10/26. Continues to have large amount of drainage to wound vac. Surgery following. 4. Septic shock: On IV abx. Currently back on four pressors. S/p albumin. 5. Acute respiratory failure: Currently intubated on vent. Pulmonology following. 6. Shock Liver. 7. Type 2 diabetes: Monitor blood glucose. 8. Anemia, POA. Monitor hgb. 9. H/o asthma. 10. Recent surgery to LLE. Subjective Date of service: 10/28/19 Principal diagnosis: Sepsis Interval history: Patient was seen and examined at the bedside. Unfortunately patient has been placed back on four pressors. Dialysis has not been a safe option for the patient and will not be attempted today. Plan of care discussed with primary RN. Objective - Exam Narrative Exam: General appearance: well-developed, appears stated age, obese, intubated, on vent, anasarca HEENT: facial plethora noted Neck: trachea midline Respiratory: mechanical vent sounds Heart: regular, S1S2, no murmurs Gastrointestinal: obese, distended, LOUIE drain, dressing noted, wound vac with substantial amount of drainage Integumentary: no rash, warm and dry Neurologic: sedated, intubated on vent, unable to assess Ext: L lower extremity wrapped in dressing and LYNDA bandage, bilateral LE edema noted : brewer catheter Hemodialysis access: R IJ temp catheter Psychiatric: unable to assess - Vital Signs Vital signs: Vital Signs - 12hr 10/27/19 10/27/19 10/27/19 20:30 20:36 20:46 Temperature Pulse Rate 140 H 145 H 145 H Pulse Rate [ From Monitor] Respiratory 15 14 Rate Blood Pressure 94/73 109/86 109/86 O2 Sat by Pulse 99 100 99 Oximetry 10/27/19 10/27/19 10/27/19 21:00 21:16 21:30 Temperature Pulse Rate 139 H 143 H 137 H Pulse Rate [ From Monitor] Respiratory 18 14 14 Rate Blood Pressure 109/86 92/39 83/57 O2 Sat by Pulse 98 99 100 Oximetry 10/27/19 10/27/19 10/27/19 21:46 22:00 22:16 Temperature Pulse Rate 147 H 147 H 144 H Pulse Rate [ From Monitor] Respiratory 14 15 17 Rate Blood Pressure 83/57 83/57 83/57 O2 Sat by Pulse 99 100 100 Oximetry 10/27/19 10/27/19 10/27/19 22:30 22:46 23:00 Temperature Pulse Rate 152 H 145 H 150 H Pulse Rate [ From Monitor] Respiratory 16 15 14 Rate Blood Pressure 83/57 130/91 130/91 O2 Sat by Pulse 100 100 100 Oximetry 10/27/19 10/27/19 10/27/19 23:12 23:16 23:30 Temperature Pulse Rate 149 H 153 H 149 H Pulse Rate [ From Monitor] Respiratory 18 17 18 Rate Blood Pressure 130/91 130/91 130/91 O2 Sat by Pulse 100 99 100 Oximetry 10/27/19 10/27/19 10/28/19 23:46 23:58 00:00 Temperature 98.1 F Pulse Rate 159 H 153 H 162 H Pulse Rate [ 153 H From Monitor] Respiratory 24 23 Rate Blood Pressure 130/91 130/91 O2 Sat by Pulse 99 99 99 Oximetry 10/28/19 10/28/19 10/28/19 00:16 00:30 00:46 Temperature Pulse Rate 159 H 148 H 156 H Pulse Rate [ From Monitor] Respiratory 22 22 25 H Rate Blood Pressure 119/69 119/69 110/87 O2 Sat by Pulse 97 96 Oximetry 10/28/19 10/28/19 10/28/19 01:00 01:16 01:30 Temperature Pulse Rate 148 H 154 H 156 H Pulse Rate [ From Monitor] Respiratory 22 23 23 Rate Blood Pressure 110/87 110/87 110/87 O2 Sat by Pulse 91 97 Oximetry 10/28/19 10/28/19 10/28/19 01:46 02:00 02:16 Temperature Pulse Rate 159 H 154 H 159 H Pulse Rate [ From Monitor] Respiratory 23 22 22 Rate Blood Pressure O2 Sat by Pulse Oximetry 10/28/19 10/28/19 10/28/19 02:30 02:46 02:49 Temperature Pulse Rate 152 H 158 H 150 H Pulse Rate [ From Monitor] Respiratory 25 H 25 H Rate Blood Pressure 143/112 96/60 O2 Sat by Pulse 99 Oximetry 10/28/19 10/28/19 10/28/19 03:00 03:16 03:30 Temperature Pulse Rate 153 H 160 H 156 H Pulse Rate [ From Monitor] Respiratory 23 26 H 24 Rate Blood Pressure 133/63 133/63 133/63 O2 Sat by Pulse Oximetry 10/28/19 10/28/19 10/28/19 03:46 04:00 04:16 Temperature 98.3 F Pulse Rate 158 H 151 H 164 H Pulse Rate [ 157 H From Monitor] Respiratory 24 25 H 25 H Rate Blood Pressure 88/17 88/17 88/17 O2 Sat by Pulse 99 85 Oximetry 10/28/19 10/28/19 10/28/19 04:30 04:46 05:00 Temperature Pulse Rate 157 H 162 H 155 H Pulse Rate [ From Monitor] Respiratory 25 H 25 H 25 H Rate Blood Pressure 139/116 139/116 139/116 O2 Sat by Pulse 95 97 Oximetry 10/28/19 10/28/19 10/28/19 05:16 05:30 05:46 Temperature Pulse Rate 154 H 151 H 155 H Pulse Rate [ From Monitor] Respiratory 25 H 25 H 26 H Rate Blood Pressure 139/116 139/116 139/116 O2 Sat by Pulse 82 L Oximetry 10/28/19 10/28/19 10/28/19 06:00 06:16 06:30 Temperature Pulse Rate 162 H 148 H 156 H Pulse Rate [ From Monitor] Respiratory 26 H 26 H 25 H Rate Blood Pressure 139/116 139/116 139/116 O2 Sat by Pulse 95 Oximetry 10/28/19 10/28/19 10/28/19 06:46 06:59 07:00 Temperature Pulse Rate 157 H 149 H 144 H Pulse Rate [ From Monitor] Respiratory 25 H 26 H Rate Blood Pressure 139/116 O2 Sat by Pulse 85 Oximetry 10/28/19 10/28/19 10/28/19 07:16 07:30 07:45 Temperature Pulse Rate 153 H 145 H 153 H Pulse Rate [ From Monitor] Respiratory 27 H 27 H Rate Blood Pressure 46/30 57/40 46/30 O2 Sat by Pulse 83 L 88 83 L Oximetry 10/28/19 10/28/19 07:46 08:00 Temperature 98.3 F Pulse Rate 143 H 143 H Pulse Rate [ From Monitor] Respiratory 26 H 25 H Rate Blood Pressure 55/16 55/16 O2 Sat by Pulse 75 L 84 Oximetry - Lab 10/28/19 05:00 10/28/19 05:00 Most recent lab results ABG pH 7.273 pH Units (7.350-7.450) L 10/28/19 04:00 ABG pCO2 35.7 mm Hg 10/28/19 04:00 ABG pO2 77.4 mm Hg (80.0-90.0) L 10/28/19 04:00 ABG HCO3 16.1 mmol/L (20.0-26.0) L 10/28/19 04:00 ABG O2 Saturation 93.2 % (95.0-99.0) L 10/28/19 04:00 Calcium 7.1 mg/dL (8.4-10.2) L 10/28/19 05:00 Phosphorus 6.90 mg/dL (2.5-4.5) H 10/28/19 05:00 Magnesium 1.50 mg/dL (1.7-2.3) L 10/28/19 05:00 Urine Creatinine 15.0 mg/dL (0.1-20.0) 10/24/19 05:40 Urine Sodium 124 mmol/L 10/24/19 05:40 Medications & Allergies - Medications Allergies/Adverse Reactions: Allergies No Known Allergies Allergy (Unverified 10/17/19 19:57) Home Medications: Home Medications Medication Instructions Recorded Confirmed Last Taken Type HYDROcodone/APAP 5-325 [Cypress 1 each PO Q6HR PRN #12 tablet 10/17/19 Unknown Rx 5/325] Ibuprofen [Motrin] 800 mg PO Q8HR #30 tablet 10/17/19 Unknown Rx Active Medications: Generic Name Dose Route Start Last Admin Trade Name Freq PRN Reason Stop Dose Admin Albumin Human 25 gm 10/28/19 09:00 Alburx 25% (Albumin) IV 10/30/19 14:00 Q8HR MICHI Dextrose 50 ml 10/26/19 13:25 D50w (25gm) Syringe IV Q30MIN PRN Hypoglycemia Protocol Epoetin Mansoor 10,000 unit 10/27/19 09:55 Procrit SUB-Q CODIE PRN hemodialysis Fentanyl 25 mcg 10/22/19 09:18 10/26/19 21:16 Sublimaze IV 25 mcg Q2H PRN Administration Pain , Severe (7-10) Hydrocortisone Sodium Succinate 100 mg 10/22/19 22:00 10/28/19 07:58 Solu-Cortef IV 100 mg Q8H MICHI Administration Phenylephrine HCl 100 mg/ 100 mls @ 3 mls/hr 10/21/19 17:00 10/28/19 07:00 Sodium Chloride IV 400 mcg/min TITR MICHI 24 mls/hr Titration Protocol 50 MCG/MIN Vasopressin 20 unit/ Sodium 101 mls @ 9.09 mls/hr 10/22/19 07:00 10/28/19 05:02 Chloride IV 0.03 units/min TITR MICHI 9.09 mls/hr Administration Protocol 0.03 UNITS/MIN Norepinephrine 8 mg/ Sodium 250 mls @ 3.75 mls/hr 10/22/19 12:00 10/28/19 05:09 Chloride IV 30 mcg/min TITR MICHI 56.25 mls/hr Administration Protocol 2 MCG/MIN Epinephrine 16 mg/ Sodium 250 mls @ 1.875 mls/hr 10/22/19 15:00 10/28/19 07:0 0 Chloride IV 10 mcg/min TITR MICHI 9.375 mls/hr Titration Protocol 2 MCG/MIN Meropenem 500 mg in 50 mls @ 50 mls/hr 10/26/19 12:00 10/27/19 23:00 Merrem/Ns 500 Mg/50 Ml IV 50 mls/hr Q12HR MICHI Administration Sodium Chloride 100 mls @ 999 mls/hr 10/27/19 10:18 Nacl 0.9% IV CODIE PRN Hypotension Sodium Bicarbonate 75 meq/ 1,075 mls @ 200 mls/hr 10/27/19 19:00 10/27/19 21:16 Dextrose/Sodium Chloride IV 200 mls/hr DIRECT MICHI Administration Sodium Chloride 1,000 mls @ 150 mls/hr 10/28/19 04:45 10/28/19 07:45 Nacl 0.9% 1000 Ml IV 150 mls/hr DIRECT MICHI Administration Lactated Ringer's 2,000 mls @ 999 mls/hr 10/28/19 07:48 10/28/19 07:57 Lactated Ringers IV 10/28/19 09:48 999 mls/hr BOLUS ONE Administration Insulin Human Lispro 0 unit 10/22/19 18:00 10/28/19 07:03 Humalog SUB-Q Not Given Q6HR [facility] Protocol Metoprolol Tartrate 5 mg 10/27/19 06:00 10/28/19 06:59 Metoprolol IV Not Given Q8HR [facility] Ondansetron HCl 4 mg 10/21/19 14:19 Zofran IV ONCE PRN Nausea And Vomiting Pantoprazole Sodium 40 mg 10/22/19 12:00 10/27/19 10:27 Protonix IV 40 mg QDAY MICHI Administration
--- NOTE | 2019-10-28 08:48 | Progress Note ---
Assessment and Plan 74 y/o female with perforated viscous and presumed acute renal failure, now intubated with severe sepsis with shock and volume depletion, now in cardiovascular collapse 1. Clinical status has worsened in the last 48 hours. Will attempt to replace the fluids that were removed from the wound vac and drains. Bolusing now and then will reassess. Has maintenance fluid going as well. Reordered Albumin q8. Bicarb drip was stopped last night, ok since pH is greater than 7.25. Unable to get HD at this time as she is maxed on 4 pressors and cuff is barely reading. HR is elevated, likely secondary to pressor requirement and volume depletion. 2. Continue vent at current settings, will consider dropping PEEP to see if this will help with Blood pressure but I doubt it. 3. Gave DDAVP again on yesterday 4. Mag is low and K is elevated, both likely functions of worsening renal failure. Will give Magnesium and order some kayexalate 5. Very very poor prognosis at this point. This is the second time she has been maxed on 4 pressors this week. Family is outside per report Poor Prognosis. CCT 31 minutes. Subjective Date of service: 10/28/19 Principal diagnosis: Sepsis Interval history: Went back to the OR on yesterday secondary to bubbles seen at the top of the site. Tolerated well but then became more and more hypotensive throughout the night. Also had large amounts of output from drain and wound vac. Still no urine output. No fever, no change in mental state. FiO2 remains at 40%. Still on 10 of PEEP. Objective Vital Signs - 12hr 10/27/19 10/27/19 10/27/19 20:46 21:00 21:16 Temperature Pulse Rate 145 H 139 H 143 H Pulse Rate [ From Monitor] Respiratory 14 18 14 Rate Blood Pressure 109/86 109/86 92/39 O2 Sat by Pulse 99 98 99 Oximetry 10/27/19 10/27/19 10/27/19 21:30 21:46 22:00 Temperature Pulse Rate 137 H 147 H 147 H Pulse Rate [ From Monitor] Respiratory 14 14 15 Rate Blood Pressure 83/57 83/57 83/57 O2 Sat by Pulse 100 99 100 Oximetry 10/27/19 10/27/19 10/27/19 22:16 22:30 22:46 Temperature Pulse Rate 144 H 152 H 145 H Pulse Rate [ From Monitor] Respiratory 17 16 15 Rate Blood Pressure 83/57 83/57 130/91 O2 Sat by Pulse 100 100 100 Oximetry 10/27/19 10/27/19 10/27/19 23:00 23:12 23:16 Temperature Pulse Rate 150 H 149 H 153 H Pulse Rate [ From Monitor] Respiratory 14 18 17 Rate Blood Pressure 130/91 130/91 130/91 O2 Sat by Pulse 100 100 99 Oximetry 10/27/19 10/27/19 10/27/19 23:30 23:46 23:58 Temperature Pulse Rate 149 H 159 H 153 H Pulse Rate [ From Monitor] Respiratory 18 24 Rate Blood Pressure 130/91 130/91 O2 Sat by Pulse 100 99 99 Oximetry 10/28/19 10/28/19 10/28/19 00:00 00:16 00:30 Temperature 98.1 F Pulse Rate 162 H 159 H 148 H Pulse Rate [ 153 H From Monitor] Respiratory 23 22 22 Rate Blood Pressure 130/91 119/69 119/69 O2 Sat by Pulse 99 97 Oximetry 10/28/19 10/28/19 10/28/19 00:46 01:00 01:16 Temperature Pulse Rate 156 H 148 H 154 H Pulse Rate [ From Monitor] Respiratory 25 H 22 23 Rate Blood Pressure 110/87 110/87 110/87 O2 Sat by Pulse 96 91 Oximetry 10/28/19 10/28/19 10/28/19 01:30 01:46 02:00 Temperature Pulse Rate 156 H 159 H 154 H Pulse Rate [ From Monitor] Respiratory 23 23 22 Rate Blood Pressure 110/87 O2 Sat by Pulse 97 Oximetry 10/28/19 10/28/19 10/28/19 02:16 02:30 02:46 Temperature Pulse Rate 159 H 152 H 158 H Pulse Rate [ From Monitor] Respiratory 22 25 H 25 H Rate Blood Pressure 143/112 O2 Sat by Pulse 99 Oximetry 10/28/19 10/28/19 10/28/19 02:49 03:00 03:16 Temperature Pulse Rate 150 H 153 H 160 H Pulse Rate [ From Monitor] Respiratory 23 26 H Rate Blood Pressure 96/60 133/63 133/63 O2 Sat by Pulse Oximetry 10/28/19 10/28/19 10/28/19 03:30 03:46 04:00 Temperature 98.3 F Pulse Rate 156 H 158 H 151 H Pulse Rate [ 157 H From Monitor] Respiratory 24 24 25 H Rate Blood Pressure 133/63 88/17 88/17 O2 Sat by Pulse 99 Oximetry 10/28/19 10/28/19 10/28/19 04:16 04:30 04:46 Temperature Pulse Rate 164 H 157 H 162 H Pulse Rate [ From Monitor] Respiratory 25 H 25 H 25 H Rate Blood Pressure 88/17 139/116 139/116 O2 Sat by Pulse 85 95 Oximetry 10/28/19 10/28/19 10/28/19 05:00 05:16 05:30 Temperature Pulse Rate 155 H 154 H 151 H Pulse Rate [ From Monitor] Respiratory 25 H 25 H 25 H Rate Blood Pressure 139/116 139/116 139/116 O2 Sat by Pulse 97 82 L Oximetry 10/28/19 10/28/19 10/28/19 05:46 06:00 06:16 Temperature Pulse Rate 155 H 162 H 148 H Pulse Rate [ From Monitor] Respiratory 26 H 26 H 26 H Rate Blood Pressure 139/116 139/116 139/116 O2 Sat by Pulse Oximetry 10/28/19 10/28/19 10/28/19 06:30 06:46 06:59 Temperature Pulse Rate 156 H 157 H 149 H Pulse Rate [ From Monitor] Respiratory 25 H 25 H Rate Blood Pressure 139/116 139/116 O2 Sat by Pulse 95 Oximetry 10/28/19 10/28/19 10/28/19 07:00 07:16 07:30 Temperature Pulse Rate 144 H 153 H 145 H Pulse Rate [ From Monitor] Respiratory 26 H 27 H 27 H Rate Blood Pressure 46/30 57/40 O2 Sat by Pulse 85 83 L 88 Oximetry 10/28/19 10/28/19 10/28/19 07:45 07:46 08:00 Temperature 98.3 F Pulse Rate 153 H 143 H 143 H Pulse Rate [ From Monitor] Respiratory 26 H 25 H Rate Blood Pressure 46/30 55/16 55/16 O2 Sat by Pulse 83 L 75 L 84 Oximetry Constitutional: other (obese, intubated, critically ill) Eyes: non-icteric ENT: other (orally intubated) Neck: supple, other (large in circumference) Effort: mildly labored Ascultation: Bilateral: diminished breath sounds (secondary to body habitus), other (coarse BS bilaterally) Cardiovascular: other (tachy, RR; no mrg) Gastrointestinal: hypoactive bowel sounds (obese), other Extremities: no cyanosis, anasarca Neurologic: other (unresponsive) Psychiatric: other (unable to assess) CBC and BMP: 10/28/19 05:00 10/28/19 05:00 ABG, PT/INR, D-dimer: ABG ABG pH 7.273 pH Units (7.350-7.450) L 10/28/19 04:00 ABG pCO2 35.7 mm Hg 10/28/19 04:00 ABG pO2 77.4 mm Hg (80.0-90.0) L 10/28/19 04:00 ABG O2 Saturation 93.2 % (95.0-99.0) L 10/28/19 04:00 PT/INR, D-dimer PT 16.6 Sec. (12.2-14.9) H 10/21/19 11:33 INR 1.33 (0.87-1.13) H 10/21/19 11:33 Abnormal lab findings: Abnormal Labs 10/21/19 10/21/19 10/21/19 05:10 11:33 11:33 WBC 14.8 H RBC 3.05 L Hgb Hct MCV 103 H MCH 34 H RDW 16.7 H Plt Count Seg Neuts % (Manual) Lymphocytes % (Manual) 3.0 L Monocytes % (Manual) Nucleated RBC % Seg Neutrophils # Man Lymphocytes # (Manual) 0.4 L Monocytes # (Manual) PT 16.6 H INR 1.33 H ABG pH ABG pO2 ABG HCO3 ABG O2 Saturation ABG Base Excess ABG Hemoglobin Oxyhemoglobin Sodium Potassium Chloride Carbon Dioxide BUN Creatinine Glucose POC Glucose Lactic Acid 8.50 H* Calcium Phosphorus Magnesium Total Bilirubin Direct Bilirubin AST ALT Alkaline Phosphatase Total Creatine Kinase Total Protein Albumin Urine WBC (Auto) Crossmatch 10/21/19 10/21/19 10/21/19 11:33 11:33 13:30 WBC RBC Hgb Hct MCV MCH RDW Plt Count Seg Neuts % (Manual) Lymphocytes % (Manual) Monocytes % (Manual) Nucleated RBC % Seg Neutrophils # Man Lymphocytes # (Manual) Monocytes # (Manual) PT INR ABG pH ABG pO2 ABG HCO3 ABG O2 Saturation ABG Base Excess ABG Hemoglobin Oxyhemoglobin Sodium 129 L Potassium 6.8 H* Chloride 89.4 L Carbon Dioxide 19 L BUN 56 H Creatinine 3.0 H Glucose POC Glucose Lactic Acid 8.20 H* 7.50 H* Calcium 8.2 L Phosphorus Magnesium Total Bilirubin Direct Bilirubin 0.3 H AST ALT Alkaline Phosphatase 159 H Total Creatine Kinase 233 H Total Protein Albumin 2.4 L Urine WBC (Auto) Crossmatch 10/21/19 10/21/19 10/21/19 13:30 15:05 16:15 WBC RBC Hgb Hct MCV MCH RDW Plt Count Seg Neuts % (Manual) Lymphocytes % (Manual) Monocytes % (Manual) Nucleated RBC % Seg Neutrophils # Man Lymphocytes # (Manual) Monocytes # (Manual) PT INR ABG pH ABG pO2 ABG HCO3 ABG O2 Saturation ABG Base Excess ABG Hemoglobin Oxyhemoglobin Sodium Potassium 6.3 H* Chloride Carbon Dioxide BUN Creatinine Glucose POC Glucose 52 L 131 H Lactic Acid Calcium Phosphorus Magnesium Total Bilirubin Direct Bilirubin AST ALT Alkaline Phosphatase Total Creatine Kinase Total Protein Albumin Urine WBC (Auto) Crossmatch 10/21/19 10/21/19 10/21/19 17:09 17:09 17:09 WBC 12.4 H RBC 2.32 L Hgb 7.9 L Hct 24.9 L D MCV 107 H MCH 34 H RDW 17.2 H Plt Count Seg Neuts % (Manual) Lymphocytes % (Manual) Monocytes % (Manual) Nucleated RBC % Seg Neutrophils # Man Lymphocytes # (Manual) Monocytes # (Manual) PT INR ABG pH ABG pO2 ABG HCO3 ABG O2 Saturation ABG Base Excess ABG Hemoglobin Oxyhemoglobin Sodium 135 L Potassium Chloride Carbon Dioxide 15 L BUN 47 H Creatinine 2.6 H Glucose 106 H POC Glucose Lactic Acid 6.40 H* Calcium 7.2 L Phosphorus Magnesium Total Bilirubin Direct Bilirubin AST 53 H ALT Alkaline Phosphatase Total Creatine Kinase Total Protein 6.0 L D Albumin 2.6 L Urine WBC (Auto) Crossmatch 10/21/19 10/22/19 10/22/19 21:05 05:10 05:10 WBC 15.8 H RBC 2.49 L Hgb 8.5 L Hct 27.0 L MCV 109 H MCH 34 H RDW 17.7 H Plt Count Seg Neuts % (Manual) Lymphocytes % (Manual) 6.0 L Monocytes % (Manual) 9.0 H Nucleated RBC % Seg Neutrophils # Man Lymphocytes # (Manual) 0.9 L Monocytes # (Manual) 1.4 H PT INR ABG pH 7.121 L* ABG pO2 481.5 H ABG HCO3 14.8 L ABG O2 Saturation 99.6 H ABG Base Excess -13.7 L ABG Hemoglobin 8.4 L Oxyhemoglobin Sodium Potassium 7.1 H* D Chloride Carbon Dioxide 11 L BUN 47 H Creatinine 2.8 H Glucose 8 L* POC Glucose Lactic Acid Calcium 6.7 L Phosphorus 6.20 H Magnesium Total Bilirubin Direct Bilirubin AST 851 H ALT 350 H Alkaline Phosphatase Total Creatine Kinase Total Protein Albumin 2.5 L Urine WBC (Auto) Crossmatch 10/22/19 10/22/19 10/22/19 05:37 06:09 06:22 WBC RBC Hgb Hct MCV MCH RDW Plt Count Seg Neuts % (Manual) Lymphocytes % (Manual) Monocytes % (Manual) Nucleated RBC % Seg Neutrophils # Man Lymphocytes # (Manual) Monocytes # (Manual) PT INR ABG pH 7.096 L* ABG pO2 116.6 H ABG HCO3 10.3 L ABG O2 Saturation ABG Base Excess -18.0 L ABG Hemoglobin 8.1 L Oxyhemoglobin Sodium Potassium Chloride Carbon Dioxide BUN Creatinine Glucose POC Glucose < 40 L 63 L Lactic Acid Calcium Phosphorus Magnesium Total Bilirubin Direct Bilirubin AST ALT Alkaline Phosphatase Total Creatine Kinase Total Protein Albumin Urine WBC (Auto) Crossmatch 10/22/19 10/22/19 10/22/19 08:11 09:00 09:00 WBC RBC Hgb Hct MCV MCH RDW Plt Count Seg Neuts % (Manual) Lymphocytes % (Manual) Monocytes % (Manual) Nucleated RBC % Seg Neutrophils # Man Lymphocytes # (Manual) Monocytes # (Manual) PT INR ABG pH ABG pO2 ABG HCO3 ABG O2 Saturation ABG Base Excess ABG Hemoglobin Oxyhemoglobin Sodium Potassium 6.0 H Chloride Carbon Dioxide 12 L BUN 43 H Creatinine 2.8 H Glucose 148 H POC Glucose 155 H Lactic Acid 10.10 H* Calcium 7.1 L Phosphorus Magnesium Total Bilirubin Direct Bilirubin AST 2445 H ALT 898 H Alkaline Phosphatase Total Creatine Kinase Total Protein 5.3 L Albumin 2.5 L Urine WBC (Auto) Crossmatch 10/22/19 10/22/19 10/22/19 12:00 12:17 12:30 WBC RBC Hgb Hct MCV MCH RDW Plt Count Seg Neuts % (Manual) Lymphocytes % (Manual) Monocytes % (Manual) Nucleated RBC % Seg Neutrophils # Man Lymphocytes # (Manual) Monocytes # (Manual) PT INR ABG pH ABG pO2 ABG HCO3 ABG O2 Saturation ABG Base Excess ABG Hemoglobin Oxyhemoglobin Sodium 136 L Potassium 6.3 H* Chloride Carbon Dioxide 11 L BUN 42 H Creatinine 2.8 H Glucose 116 H POC Glucose 115 H Lactic Acid Calcium 7.6 L Phosphorus Magnesium Total Bilirubin Direct Bilirubin AST ALT Alkaline Phosphatase Total Creatine Kinase Total Protein Albumin Urine WBC (Auto) Crossmatch See Detail 10/22/19 10/22/19 10/22/19 15:00 15:00 17:12 WBC RBC Hgb Hct MCV MCH RDW Plt Count Seg Neuts % (Manual) Lymphocytes % (Manual) Monocytes % (Manual) Nucleated RBC % Seg Neutrophils # Man Lymphocytes # (Manual) Monocytes # (Manual) PT INR ABG pH ABG pO2 ABG HCO3 ABG O2 Saturation ABG Base Excess ABG Hemoglobin Oxyhemoglobin Sodium Potassium 5.9 H Chloride Carbon Dioxide 13 L BUN 42 H Creatinine 2.7 H Glucose 303 H POC Glucose 224 H Lactic Acid 12.80 H* Calcium 7.5 L Phosphorus Magnesium Total Bilirubin Direct Bilirubin AST ALT Alkaline Phosphatase Total Creatine Kinase Total Protein Albumin Urine WBC (Auto) Crossmatch 10/22/19 10/22/19 10/22/19 17:33 17:33 21:40 WBC 18.2 H RBC 2.21 L Hgb 7.6 L Hct 24.8 L MCV 112 H MCH 34 H RDW 17.5 H Plt Count Seg Neuts % (Manual) 72.0 H Lymphocytes % (Manual) 4.0 L Monocytes % (Manual) 14.0 H Nucleated RBC % Seg Neutrophils # Man 13.1 H Lymphocytes # (Manual) 0.7 L Monocytes # (Manual) 2.5 H PT INR ABG pH ABG pO2 ABG HCO3 ABG O2 Saturation ABG Base Excess ABG Hemoglobin Oxyhemoglobin Sodium Potassium 6.0 H Chloride Carbon Dioxide 13 L BUN 41 H Creatinine 2.9 H Glucose 239 H POC Glucose 284 H Lactic Acid Calcium 7.3 L Phosphorus Magnesium Total Bilirubin Direct Bilirubin AST ALT Alkaline Phosphatase Total Creatine Kinase Total Protein Albumin Urine WBC (Auto) Crossmatch 10/23/19 10/23/19 10/23/19 01:55 04:00 04:00 WBC 17.4 H RBC 3.29 L Hgb Hct MCV 103 H MCH RDW 23.6 H Plt Count Seg Neuts % (Manual) Lymphocytes % (Manual) 1.0 L Monocytes % (Manual) Nucleated RBC % 1.0 H Seg Neutrophils # Man 9.6 H Lymphocytes # (Manual) 0.2 L Monocytes # (Manual) 1.0 H PT INR ABG pH 7.028 L* ABG pO2 155.2 H ABG HCO3 10.7 L ABG O2 Saturation ABG Base Excess -19.0 L ABG Hemoglobin 8.7 L Oxyhemoglobin Sodium 134 L Potassium 6.3 H* Chloride 95.8 L Carbon Dioxide 8 L* BUN 38 H Creatinine 2.6 H Glucose 288 H POC Glucose Lactic Acid Calcium 7.2 L Phosphorus Magnesium Total Bilirubin 3.10 H Direct Bilirubin AST 39789 H ALT 2979 H Alkaline Phosphatase 425 H Total Creatine Kinase Total Protein Albumin 3.2 L Urine WBC (Auto) Crossmatch 10/23/19 10/23/19 10/23/19 05:55 08:15 11:02 WBC RBC Hgb Hct MCV MCH RDW Plt Count Seg Neuts % (Manual) Lymphocytes % (Manual) Monocytes % (Manual) Nucleated RBC % Seg Neutrophils # Man Lymphocytes # (Manual) Monocytes # (Manual) PT INR ABG pH ABG pO2 ABG HCO3 ABG O2 Saturation ABG Base Excess ABG Hemoglobin Oxyhemoglobin Sodium Potassium Chloride Carbon Dioxide BUN Creatinine Glucose POC Glucose 241 H 310 H 294 H Lactic Acid Calcium Phosphorus Magnesium Total Bilirubin Direct Bilirubin AST ALT Alkaline Phosphatase Total Creatine Kinase Total Protein Albumin Urine WBC (Auto) Crossmatch 10/23/19 10/23/19 10/23/19 11:58 15:30 18:03 WBC RBC Hgb Hct MCV MCH RDW Plt Count Seg Neuts % (Manual) Lymphocytes % (Manual) Monocytes % (Manual) Nucleated RBC % Seg Neutrophils # Man Lymphocytes # (Manual) Monocytes # (Manual) PT INR ABG pH ABG pO2 ABG HCO3 ABG O2 Saturation ABG Base Excess ABG Hemoglobin Oxyhemoglobin Sodium Potassium 5.6 H Chloride 96.6 L Carbon Dioxide 15 L D BUN 36 H Creatinine 3.0 H Glucose 331 H POC Glucose 332 H 313 H Lactic Acid Calcium 7.7 L Phosphorus Magnesium Total Bilirubin Direct Bilirubin AST ALT Alkaline Phosphatase Total Creatine Kinase Total Protein Albumin Urine WBC (Auto) Crossmatch 10/23/19 10/24/1910/23/20 22:06 00:22 04:50 WBC 16.8 H RBC 2.79 L Hgb 8.8 L Hct 27.4 L D MCV 98 H MCH RDW 23.7 H Plt Count 100 L Seg Neuts % (Manual) 82.0 H Lymphocytes % (Manual) 7.0 L Monocytes % (Manual) 8.0 H Nucleated RBC % Seg Neutrophils # Man 13.8 H Lymphocytes # (Manual) Monocytes # (Manual) 1.3 H PT INR ABG pH ABG pO2 ABG HCO3 ABG O2 Saturation ABG Base Excess ABG Hemoglobin Oxyhemoglobin Sodium Potassium Chloride Carbon Dioxide BUN Creatinine Glucose POC Glucose 344 H 307 H Lactic Acid Calcium Phosphorus Magnesium Total Bilirubin Direct Bilirubin AST ALT Alkaline Phosphatase Total Creatine Kinase Total Protein Albumin Urine WBC (Auto) Crossmatch 10/24/19 10/24/19 10/24/19 04:50 05:40 06:01 WBC RBC Hgb Hct MCV MCH RDW Plt Count Seg Neuts % (Manual) Lymphocytes % (Manual) Monocytes % (Manual) Nucleated RBC % Seg Neutrophils # Man Lymphocytes # (Manual) Monocytes # (Manual) PT INR ABG pH ABG pO2 ABG HCO3 ABG O2 Saturation ABG Base Excess ABG Hemoglobin Oxyhemoglobin Sodium Potassium Chloride 94.8 L Carbon Dioxide 16 L BUN 36 H Creatinine 2.9 H Glucose 298 H POC Glucose 318 H Lactic Acid Calcium 7.1 L Phosphorus Magnesium Total Bilirubin 5.60 H Direct Bilirubin AST 5223 H ALT 2211 H Alkaline Phosphatase 477 H Total Creatine Kinase Total Protein 5.6 L Albumin 3.3 L Urine WBC (Auto) > 182.0 H Crossmatch 10/24/19 10/24/19 10/25/19 11:37 17:36 00:10 WBC RBC Hgb Hct MCV MCH RDW Plt Count Seg Neuts % (Manual) Lymphocytes % (Manual) Monocytes % (Manual) Nucleated RBC % Seg Neutrophils # Man Lymphocytes # (Manual) Monocytes # (Manual) PT INR ABG pH ABG pO2 ABG HCO3 ABG O2 Saturation ABG Base Excess ABG Hemoglobin Oxyhemoglobin Sodium Potassium Chloride Carbon Dioxide BUN Creatinine Glucose POC Glucose 317 H 280 H 297 H Lactic Acid Calcium Phosphorus Magnesium Total Bilirubin Direct Bilirubin AST ALT Alkaline Phosphatase Total Creatine Kinase Total Protein Albumin Urine WBC (Auto) Crossmatch 10/25/19 10/25/19 10/25/19 04:30 05:00 05:39 WBC RBC Hgb Hct MCV MCH RDW Plt Count Seg Neuts % (Manual) Lymphocytes % (Manual) Monocytes % (Manual) Nucleated RBC % Seg Neutrophils # Man Lymphocytes # (Manual) Monocytes # (Manual) PT INR ABG pH 7.306 L ABG pO2 118.1 H ABG HCO3 ABG O2 Saturation ABG Base Excess -3.0 L ABG Hemoglobin 8.3 L Oxyhemoglobin Sodium 131 L D Potassium Chloride 87.8 L Carbon Dioxide BUN 37 H Creatinine 3.2 H Glucose 303 H POC Glucose 374 H Lactic Acid Calcium 7.0 L Phosphorus 4.70 H Magnesium Total Bilirubin Direct Bilirubin AST ALT Alkaline Phosphatase Total Creatine Kinase Total Protein Albumin Urine WBC (Auto) Crossmatch 10/25/19 10/25/19 10/25/19 10:30 12:04 18:01 WBC RBC Hgb Hct MCV MCH RDW Plt Count Seg Neuts % (Manual) Lymphocytes % (Manual) Monocytes % (Manual) Nucleated RBC % Seg Neutrophils # Man Lymphocytes # (Manual) Monocytes # (Manual) PT INR ABG pH ABG pO2 94.9 H ABG HCO3 ABG O2 Saturation ABG Base Excess ABG Hemoglobin 8.7 L Oxyhemoglobin Sodium Potassium Chloride Carbon Dioxide BUN Creatinine Glucose POC Glucose 316 H 254 H Lactic Acid Calcium Phosphorus Magnesium Total Bilirubin Direct Bilirubin AST ALT Alkaline Phosphatase Total Creatine Kinase Total Protein Albumin Urine WBC (Auto) Crossmatch 10/25/19 10/26/19 10/26/19 23:34 04:00 04:33 WBC RBC Hgb Hct MCV MCH RDW Plt Count Seg Neuts % (Manual) Lymphocytes % (Manual) Monocytes % (Manual) Nucleated RBC % Seg Neutrophils # Man Lymphocytes # (Manual) Monocytes # (Manual) PT INR ABG pH ABG pO2 69.6 L ABG HCO3 ABG O2 Saturation 94.9 L ABG Base Excess ABG Hemoglobin 8.5 L Oxyhemoglobin 93.0 L Sodium 131 L Potassium Chloride 88.4 L Carbon Dioxide BUN 41 H Creatinine 3.9 H Glucose 186 H POC Glucose 207 H Lactic Acid Calcium 7.4 L Phosphorus Magnesium Total Bilirubin 7.60 H Direct Bilirubin AST 660 H ALT 765 H Alkaline Phosphatase 314 H Total Creatine Kinase Total Protein 4.8 L Albumin 3.6 L Urine WBC (Auto) Crossmatch 10/26/19 10/26/19 10/26/19 06:25 06:33 11:57 WBC 12.1 H RBC 2.82 L Hgb 8.8 L Hct 26.7 L MCV MCH RDW 20.5 H Plt Count 45 L Seg Neuts % (Manual) 88.0 H Lymphocytes % (Manual) 4.0 L Monocytes % (Manual) Nucleated RBC % 1.0 H Seg Neutrophils # Man 10.6 H Lymphocytes # (Manual) 0.5 L Monocytes # (Manual) PT INR ABG pH ABG pO2 ABG HCO3 ABG O2 Saturation ABG Base Excess ABG Hemoglobin Oxyhemoglobin Sodium Potassium Chloride Carbon Dioxide BUN Creatinine Glucose POC Glucose 180 H 192 H Lactic Acid Calcium Phosphorus Magnesium Total Bilirubin Direct Bilirubin AST ALT Alkaline Phosphatase Total Creatine Kinase Total Protein Albumin Urine WBC (Auto) Crossmatch 10/26/19 10/26/19 10/26/19 16:30 17:50 23:42 WBC 14.0 H RBC 2.90 L Hgb 9.1 L Hct 27.4 L MCV MCH RDW 20.3 H Plt Count 43 L Seg Neuts % (Manual) Lymphocytes % (Manual) Monocytes % (Manual) Nucleated RBC % Seg Neutrophils # Man Lymphocytes # (Manual) Monocytes # (Manual) PT INR ABG pH ABG pO2 ABG HCO3 ABG O2 Saturation ABG Base Excess ABG Hemoglobin Oxyhemoglobin Sodium Potassium Chloride Carbon Dioxide BUN Creatinine Glucose POC Glucose 181 H 153 H Lactic Acid Calcium Phosphorus Magnesium Total Bilirubin Direct Bilirubin AST ALT Alkaline Phosphatase Total Creatine Kinase Total Protein Albumin Urine WBC (Auto) Crossmatch 10/27/19 10/27/19 10/27/19 00:05 03:21 05:53 WBC 13.5 H RBC 2.72 L Hgb 8.6 L Hct 25.9 L MCV MCH RDW 20.2 H Plt Count 44 L Seg Neuts % (Manual) Lymphocytes % (Manual) Monocytes % (Manual) Nucleated RBC % Seg Neutrophils # Man Lymphocytes # (Manual) Monocytes # (Manual) PT INR ABG pH ABG pO2 79.3 L ABG HCO3 ABG O2 Saturation ABG Base Excess -4.1 L ABG Hemoglobin 7.6 L Oxyhemoglobin 94.4 L Sodium Potassium Chloride Carbon Dioxide BUN Creatinine Glucose POC Glucose 114 H Lactic Acid Calcium Phosphorus Magnesium Total Bilirubin Direct Bilirubin AST ALT Alkaline Phosphatase Total Creatine Kinase Total Protein Albumin Urine WBC (Auto) Crossmatch 0510/27/19 10/27/19 06:25 08:45 11:27 WBC RBC Hgb Hct MCV MCH RDW Plt Count Seg Neuts % (Manual) Lymphocytes % (Manual) Monocytes % (Manual) Nucleated RBC % Seg Neutrophils # Man Lymphocytes # (Manual) Monocytes # (Manual) PT INR ABG pH ABG pO2 ABG HCO3 ABG O2 Saturation ABG Base Excess ABG Hemoglobin Oxyhemoglobin Sodium 135 L 131 L Potassium Chloride 91.7 L 86.3 L Carbon Dioxide 35 H D 20 L D BUN 47 H Creatinine 0.5 L D 4.1 H D Glucose 116 H 135 H POC Glucose 133 H Lactic Acid Calcium 8.1 L 7.5 L Phosphorus Magnesium Total Bilirubin Direct Bilirubin AST 68 H ALT Alkaline Phosphatase 420 H Total Creatine Kinase Total Protein 6.1 L D Albumin 2.1 L Urine WBC (Auto) Crossmatch 10/27/19 10/27/19 10/27/19 17:20 18:00 19:05 WBC 19.3 H RBC 2.64 L Hgb 8.4 L Hct 25.1 L MCV MCH RDW 19.9 H Plt Count 58 L Seg Neuts % (Manual) Lymphocytes % (Manual) Monocytes % (Manual) Nucleated RBC % Seg Neutrophils # Man Lymphocytes # (Manual) Monocytes # (Manual) PT INR ABG pH ABG pO2 74.4 L ABG HCO3 ABG O2 Saturation 94.5 L ABG Base Excess -2.3 L ABG Hemoglobin 8.9 L Oxyhemoglobin 92.5 L Sodium Potassium Chloride Carbon Dioxide BUN Creatinine Glucose POC Glucose 118 H Lactic Acid Calcium Phosphorus Magnesium Total Bilirubin Direct Bilirubin AST ALT Alkaline Phosphatase Total Creatine Kinase Total Protein Albumin Urine WBC (Auto) Crossmatch 10/27/19 10/28/19 10/28/19 23:52 02:00 04:00 WBC RBC Hgb 9.7 L Hct MCV MCH RDW Plt Count Seg Neuts % (Manual) Lymphocytes % (Manual) Monocytes % (Manual) Nucleated RBC % Seg Neutrophils # Man Lymphocytes # (Manual) Monocytes # (Manual) PT INR ABG pH 7.273 L ABG pO2 77.4 L ABG HCO3 16.1 L ABG O2 Saturation 93.2 L ABG Base Excess -9.9 L ABG Hemoglobin 9.3 L Oxyhemoglobin 91.4 L Sodium Potassium Chloride Carbon Dioxide BUN Creatinine Glucose POC Glucose 117 H Lactic Acid Calcium Phosphorus Magnesium Total Bilirubin Direct Bilirubin AST ALT Alkaline Phosphatase Total Creatine Kinase Total Protein Albumin Urine WBC (Auto) Crossmatch 10/28/19 10/28/19 10/28/19 05:00 05:00 05:21 WBC 24.0 H RBC 2.99 L Hgb 9.3 L Hct 29.3 L MCV 98 H MCH RDW 20.4 H Plt Count 57 L Seg Neuts % (Manual) 89.0 H Lymphocytes % (Manual) 1.0 L Monocytes % (Manual) 10.0 H Nucleated RBC % 5.0 H Seg Neutrophils # Man 21.4 H Lymphocytes # (Manual) 0.2 L Monocytes # (Manual) 2.4 H PT INR ABG pH ABG pO2 ABG HCO3 ABG O2 Saturation ABG Base Excess ABG Hemoglobin Oxyhemoglobin Sodium 133 L Potassium 5.1 H Chloride 86.1 L Carbon Dioxide 16 L BUN 50 H Creatinine 4.6 H Glucose 104 H POC Glucose 125 H Lactic Acid Calcium 7.1 L Phosphorus 6.90 H Magnesium 1.50 L Total Bilirubin Direct Bilirubin AST ALT Alkaline Phosphatase Total Creatine Kinase Total Protein Albumin Urine WBC (Auto) Crossmatch 10/28/19 Unknown WBC RBC Hgb Hct MCV MCH RDW Plt Count Seg Neuts % (Manual) Lymphocytes % (Manual) Monocytes % (Manual) Nucleated RBC % Seg Neutrophils # Man Lymphocytes # (Manual) Monocytes # (Manual) PT INR ABG pH ABG pO2 ABG HCO3 ABG O2 Saturation ABG Base Excess ABG Hemoglobin Oxyhemoglobin Sodium Potassium Chloride Carbon Dioxide BUN Creatinine Glucose POC Glucose Lactic Acid 16.40 H* Calcium Phosphorus Magnesium Total Bilirubin Direct Bilirubin AST ALT Alkaline Phosphatase Total Creatine Kinase Total Protein Albumin Urine WBC (Auto) Crossmatch
[2019-10-28] MEDS ORDERED: ALBUMIN HUMAN 5% (12.5 GM/250 ML) INJ IV SCH (09:00)
[2019-10-28] MEDS ORDERED: MAGNESIUM SULFATE 4 GM/100 ML BAG IV ONE (09:00)
[2019-10-28] MEDS ORDERED: ALBUMIN HUMAN 25% (25 GM/100 ML) INJ IV SCH (09:00)
[2019-10-28] MEDS ORDERED: SODIUM POLYSTYRENE 15 GM/60 ML ORAL LIQD PO ONE (09:00)
--- NOTE | 2019-10-28 09:15 | Progress Note ---
Assessment and Plan - Patient Problems (1) Perforated viscus Current Visit: Yes Status: Acute Plan to address problem: Pt in critical condition. s/p ex lap and repair of perforated peptic ulcer - (10/20) - POD#7; s/p re-exploration, washout, AbThera Placement - (10/26) - POD#1. Patient appears to be in multisystem organ failure. Her overall prognosis is still grave at this point. She probably had chronic issues with multiple organs prior to this emergency. She may not have had the physiologic reserve needed to overcome such an emergency. There was no evidence of any repair disruption. Abdomen was relatively clean. I think her current hemodynamics may partly be related to intravascular depletion. The amount of drainage from the wound VAC strongly suggests significant third spacing. I do not believe that we have kept up with her fluid losses. The appearance of the drainage is not concerning. At this point, would recommend bolusing her with fluids and keeping up with her continued abdominal fluid losses. She will eventually need to go back to the operating room for wound VAC change. Based on her response to yesterday's procedure, we will have to make sure that she is in as good a condition as possible. We will tentatively plan for this Sunday. NG tube is in good position. Repair is intact. Whenever the critical care team feels it is appropriate, I think it would be fine to start trickle tube feeds. Would not advance until pressor requirements have decreased. Discussed with Dr. Simpson. We will follow along. Please call with any questions. Time=15min Subjective Date of service: 10/28/19 Patient Reports: Positive: other (hypotensive o/n) Objective Vital Signs - 12hr 10/27/19 10/27/19 10/27/19 21:16 21:30 21:46 Temperature Pulse Rate 143 H 137 H 147 H Pulse Rate [ From Monitor] Respiratory 14 14 14 Rate Blood Pressure 92/39 83/57 83/57 O2 Sat by Pulse 99 100 99 Oximetry 10/27/19 10/27/19 10/27/19 22:00 22:16 22:30 Temperature Pulse Rate 147 H 144 H 152 H Pulse Rate [ From Monitor] Respiratory 15 17 16 Rate Blood Pressure 83/57 83/57 83/57 O2 Sat by Pulse 100 100 100 Oximetry 10/27/19 10/27/19 10/27/19 22:46 23:00 23:12 Temperature Pulse Rate 145 H 150 H 149 H Pulse Rate [ From Monitor] Respiratory 15 14 18 Rate Blood Pressure 130/91 130/91 130/91 O2 Sat by Pulse 100 100 100 Oximetry 10/27/19 10/27/19 10/27/19 23:16 23:30 23:46 Temperature Pulse Rate 153 H 149 H 159 H Pulse Rate [ From Monitor] Respiratory 17 18 24 Rate Blood Pressure 130/91 130/91 130/91 O2 Sat by Pulse 99 100 99 Oximetry 10/27/19 10/28/19 10/28/19 23:58 00:00 00:16 Temperature 98.1 F Pulse Rate 153 H 162 H 159 H Pulse Rate [ 153 H From Monitor] Respiratory 23 22 Rate Blood Pressure 130/91 119/69 O2 Sat by Pulse 99 99 97 Oximetry 10/28/19 10/28/19 10/28/19 00:30 00:46 01:00 Temperature Pulse Rate 148 H 156 H 148 H Pulse Rate [ From Monitor] Respiratory 22 25 H 22 Rate Blood Pressure 119/69 110/87 110/87 O2 Sat by Pulse 96 91 Oximetry 10/28/19 10/28/19 10/28/19 01:16 01:30 01:46 Temperature Pulse Rate 154 H 156 H 159 H Pulse Rate [ From Monitor] Respiratory 23 23 23 Rate Blood Pressure 110/87 110/87 O2 Sat by Pulse 97 Oximetry 10/28/19 10/28/19 10/28/19 02:00 02:16 02:30 Temperature Pulse Rate 154 H 159 H 152 H Pulse Rate [ From Monitor] Respiratory 22 22 25 H Rate Blood Pressure O2 Sat by Pulse 99 Oximetry 10/28/19 10/28/19 10/28/19 02:46 02:49 03:00 Temperature Pulse Rate 158 H 150 H 153 H Pulse Rate [ From Monitor] Respiratory 25 H 23 Rate Blood Pressure 143/112 96/60 133/63 O2 Sat by Pulse Oximetry 10/28/19 10/28/19 10/28/19 03:16 03:30 03:46 Temperature Pulse Rate 160 H 156 H 158 H Pulse Rate [ From Monitor] Respiratory 26 H 24 24 Rate Blood Pressure 133/63 133/63 88/17 O2 Sat by Pulse Oximetry 10/28/19 10/28/19 10/28/19 04:00 04:16 04:30 Temperature 98.3 F Pulse Rate 151 H 164 H 157 H Pulse Rate [ 157 H From Monitor] Respiratory 25 H 25 H 25 H Rate Blood Pressure 88/17 88/17 139/116 O2 Sat by Pulse 99 85 95 Oximetry 10/28/19 10/28/19 10/28/19 04:46 05:00 05:16 Temperature Pulse Rate 162 H 155 H 154 H Pulse Rate [ From Monitor] Respiratory 25 H 25 H 25 H Rate Blood Pressure 139/116 139/116 139/116 O2 Sat by Pulse 97 82 L Oximetry 10/28/19 10/28/19 10/28/19 05:30 05:46 06:00 Temperature Pulse Rate 151 H 155 H 162 H Pulse Rate [ From Monitor] Respiratory 25 H 26 H 26 H Rate Blood Pressure 139/116 139/116 139/116 O2 Sat by Pulse Oximetry 10/28/19 10/28/19 10/28/19 06:16 06:30 06:46 Temperature Pulse Rate 148 H 156 H 157 H Pulse Rate [ From Monitor] Respiratory 26 H 25 H 25 H Rate Blood Pressure 139/116 139/116 139/116 O2 Sat by Pulse 95 Oximetry 10/28/19 10/28/19 10/28/19 06:59 07:00 07:16 Temperature Pulse Rate 149 H 144 H 153 H Pulse Rate [ From Monitor] Respiratory 26 H 27 H Rate Blood Pressure 46/30 O2 Sat by Pulse 85 83 L Oximetry 10/28/19 10/28/19 10/28/19 07:30 07:45 07:46 Temperature Pulse Rate 145 H 153 H 143 H Pulse Rate [ From Monitor] Respiratory 27 H 26 H Rate Blood Pressure 57/40 46/30 55/16 O2 Sat by Pulse 88 83 L 75 L Oximetry 10/28/19 08:00 Temperature 98.3 F Pulse Rate 143 H Pulse Rate [ From Monitor] Respiratory 25 H Rate Blood Pressure 55/16 O2 Sat by Pulse 84 Oximetry - General physical appearance no distress, no pain, obese, other (swollen) - Respiratory normal expansion, normal respiratory effort - Abdomen soft, other (wound vac intact with no underlying collection. serosang drainage. LOUIE with serous drainage.) - Labs 10/28/19 05:00 10/28/19 05:00 Diabetes panel 10/27/19 10/28/19 Range/Units 08:45 05:00 Sodium 131 L 133 L (137-145) mmol/L Potassium 4.7 5.1 H (3.6-5.0) mmol/L Chloride 86.3 L 86.1 L (98-107) mmol/L Carbon Dioxide 20 L D 16 L (22-30) mmol/L BUN 47 H 50 H (7-17) mg/dL Creatinine 4.1 H D 4.6 H (0.7-1.2) mg/dL Glucose 135 H 104 H (65-100) mg/dL Calcium 7.5 L 7.1 L (8.4-10.2) mg/dL Calcium panel 10/27/19 10/28/19 Range/Units 08:45 05:00 Calcium 7.5 L 7.1 L (8.4-10.2) mg/dL Phosphorus 6.90 H (2.5-4.5) mg/dL Pituitary panel 10/27/19 10/28/19 Range/Units 08:45 05:00 Sodium 131 L 133 L (137-145) mmol/L Potassium 4.7 5.1 H (3.6-5.0) mmol/L Chloride 86.3 L 86.1 L (98-107) mmol/L Carbon Dioxide 20 L D 16 L (22-30) mmol/L BUN 47 H 50 H (7-17) mg/dL Creatinine 4.1 H D 4.6 H (0.7-1.2) mg/dL Glucose 135 H 104 H (65-100) mg/dL Calcium 7.5 L 7.1 L (8.4-10.2) mg/dL Adrenal panel 10/27/19 10/28/19 Range/Units 08:45 05:00 Sodium 131 L 133 L (137-145) mmol/L Potassium 4.7 5.1 H (3.6-5.0) mmol/L Chloride 86.3 L 86.1 L (98-107) mmol/L Carbon Dioxide 20 L D 16 L (22-30) mmol/L BUN 47 H 50 H (7-17) mg/dL Creatinine 4.1 H D 4.6 H (0.7-1.2) mg/dL Glucose 135 H 104 H (65-100) mg/dL Calcium 7.5 L 7.1 L (8.4-10.2) mg/dL
[2019-10-28] MEDS: PANTOPRAZOLE 40 MG INJ IV SCH (09:30)
[2019-10-28] MEDS: MEROPENEM/NS 500 MG/50 ML 500 MG/50 ML BAG IV SCH ×2 (09:30→22:12)
--- NOTE | 2019-10-28 09:45 | Progress Note ---
Assessment and Plan Assessment and plan: Patient remains critical status post exploratory lap for perforated viscus and repair. Postop day 6. Continues with multiorgan failure. Still has extremely poor prognosis. Hospital course complicated by continued worsening of renal function. Renal to consider hemodialysis. Did also appreciate surgical note about potential for compartment syndrome. * Patient now on 4 pressors. Grave prognosis. I have discussed with family updated them on the poor prognosis. We will continue current management replace electrolytes as needed. Unfortunately patient cannot be dialyzed due to pressors. Understand that the patient went back for washout and decompensated following that. - Patient Problems (1) Acute respiratory failure Current Visit: Yes Status: Acute Plan to address problem: Patient remains intubated septic multiorgan failure. Overall prognosis extremely poor. Difficult to wean patient from vent secondary to obesity sepsis unresponsiveness. Continue vent management wean as appropriate. Pulmonology following. (2) Perforated viscus Current Visit: Yes Status: Acute Plan to address problem: Perforated viscus status post exploratory lap postop day 4. Surgery following. No new changes. Continue electrolyte supportive care. Patient currently with LOUIE drain serosanguineous drainage. Did appreciate note about potential for compartment syndrome. Reintroduction of surgical option at this time will be very difficult. Given fluid shifts, sepsis oxygenation status surgery would be extremely high risk. Right now patient seems to have had minimal gains and although will most likely not affect the overall outcome will think more conservative approach. (3) SIRS (systemic inflammatory response syndrome) Current Visit: Yes Status: Acute Plan to address problem: Patient septic secondary to bowel perforation. Supportive care continue Zosyn Flagyl. (4) T2DM (type 2 diabetes mellitus) Current Visit: Yes Status: Chronic Qualifiers: Diabetes mellitus long term care social worker insulin use: unspecified jail insulin use status Plan to address problem: Patient currently not requiring any insulin coverage. We will continue to follow prevent hypoglycemia. Accu-Cheks remained stable. (5) Septic shock Current Visit: Yes Status: Acute Plan to address problem: Patient on epi and levo fed. Able to wean down to 2 pressors that is evidence of improvement however physically patient has marked ascites facial ascites lower extremity ascites with extensive abdominal wound. Continue present antibiotic coverage. Patient also has yeast will add Diflucan. (6) Thrombocytopenia Current Visit: Yes Status: Acute Plan to address problem: Platelets down to 45. No new episodes of bleeding at this time. Heparin discontinued yesterday. Patient received 1 dose DD VAP this a.m. Follow-up labs. Follow-up platelets in a.m. Bleeding seems to have stopped for now. The high probability of a clinically significant, sudden or life threatening deterioration of the [multipl] system(s) required my full and direct attention, intervention and personal management. The aggregate critical care time was [55] minutes. This time is in addition to time spent performing reported procedures but includes the following: [x] Data Review and interpretation [x] Patient assessment and monitoring of vital signs [x]x Documentation [x] Medication orders and management History Interval history: Patient seen and examined, discussed patients condition with Nurse and upholstery auto trimmer. Remains in poor prognosis. Also discussed with family Hospitalist Physical - Physical exam Narrative exam: General appearance: Present: no acute distress, well-nourished, obese, other (Intubated edematous with ascites face chest upper and lower extremities. Abdomen.) - EENT ENT: other (Edematous ) - Neck Neck: Present: other (Large neck) - Respiratory Respiratory: bilateral: diminished, rhonchi - Cardiovascular Rhythm: regular - Extremities Extremity abnormal: edema, pulses diminished - Abdominal General gastrointestinal: other (Abdomen with marked ascites. Surgical drain still with serosanguineous drainage agree with color changes noted. Hypoactive bowel sounds.) - Constitutional Vitals: Temp Pulse Resp BP Pulse Ox 98.3 F 145 H 25 H 55/16 84 10/28/19 08:00 10/28/19 08:00 10/28/19 08:00 10/28/19 08:00 10/28/19 08:00 General appearance: Present: no acute distress, well-nourished, obese, other (Intubated edematous with ascites face chest upper and lower extremities. Abdomen.) Results - Labs CBC & Chem 7: 10/28/19 05:00 10/29/19 Unknown Labs: Laboratory Last Values WBC 24.0 K/mm3 (4.5-11.0) H 10/28/19 05:00 RBC 2.99 M/mm3 (3.65-5.03) L 10/28/19 05:00 Hgb 9.3 gm/dl (10.1-14.3) L 10/28/19 05:00 Hct 29.3 % (30.3-42.9) L 05/26/20 05:00 MCV 98 fl (79-97) H 10/28/19 05:00 MCH 31 pg (28-32) 10/28/19 05:00 MCHC 32 % (30-34) 10/28/19 05:00 RDW 20.4 % (13.2-15.2) H 10/28/19 05:00 Plt Count 57 K/mm3 (140-440) L 10/28/19 05:00 Add Manual Diff Complete 10/28/19 05:00 Total Counted 100 10/28/19 05:00 Seg Neutrophils % Flower Pot Press Operator 10/28/19 05:00 Seg Neuts % (Manual) 89.0 % (40.0-70.0) H 10/28/19 05:00 Band Neutrophils % 0 % 10/28/19 05:00 Lymphocytes % (Manual) 1.0 % (13.4-35.0) L 10/28/19 05:00 Reactive Lymphs % (Man) 0 % 10/28/19 05:00 Monocytes % (Manual) 10.0 % (0.0-7.3) H 10/28/19 05:00 Eosinophils % (Manual) 0 % (0.0-4.3) 10/28/19 05:00 Basophils % (Manual) 0 % (0.0-1.8) 10/28/19 05:00 Metamyelocytes % 0 % 10/28/19 05:00 Myelocytes % 0 % 10/28/19 05:00 Promyelocytes % 0 % 10/28/19 05:00 Blast Cells % 0 % 10/28/19 05:00 Nucleated RBC % 5.0 % (0.0-0.9) H 10/28/19 05:00 Seg Neutrophils # Man 21.4 K/mm3 (1.8-7.7) H 10/28/19 05:00 Band Neutrophils # 0.0 K/mm3 10/28/19 05:00 Lymphocytes # (Manual) 0.2 K/mm3 (1.2-5.4) L 10/28/19 05:00 Abs React Lymphs (Man) 0.0 K/mm3 10/28/19 05:00 Monocytes # (Manual) 2.4 K/mm3 (0.0-0.8) H 10/28/19 05:00 Eosinophils # (Manual) 0.0 K/mm3 (0.0-0.4) 10/28/19 05:00 Basophils # (Manual) 0.0 K/mm3 (0.0-0.1) 10/28/19 05:00 Metamyelocytes # 0.0 K/mm3 10/28/19 05:00 Myelocytes # 0.0 K/mm3 10/28/19 05:00 Promyelocytes # 0.0 K/mm3 10/28/19 05:00 Blast Cells # 0.0 K/mm3 10/28/19 05:00 WBC Morphology Not Reportable 10/28/19 05:00 Hypersegmented Neuts Not Reportable 10/28/19 05:00 Hyposegmented Neuts Not Reportable 10/28/19 05:00 Hypogranular Neuts Not Reportable 10/28/19 05:00 Smudge Cells Not Reportable 10/28/19 05:00 Toxic Granulation Not Reportable 10/28/19 05:00 Toxic Vacuolation Not Reportable 10/28/19 05:00 Dohle Bodies Not Reportable 10/28/19 05:00 Pelger-Huet Anomaly Not Reportable 10/28/19 05:00 Amanda Rods Not Reportable 10/28/19 05:00 Platelet Estimate Consistent w auto 10/28/19 05:00 Clumped Platelets Not Reportable 10/28/19 05:00 Plt Clumps, EDTA Not Reportable 10/28/19 05:00 Large Platelets Few 10/28/19 05:00 Giant Platelets Not Reportable 10/28/19 05:00 Platelet Satelliting Not Reportable 10/28/19 05:00 Plt Morphology Comment Not Reportable 10/28/19 05:00 RBC Morphology Not Reportable 10/28/19 05:00 Dimorphic RBCs Not Reportable 10/28/19 05:00 Polychromasia Not Reportable 10/28/19 05:00 Hypochromasia Not Reportable 10/28/19 05:00 Poikilocytosis 1+ 10/28/19 05:00 Anisocytosis 1+ 10/28/19 05:00 Microcytosis Not Reportable 10/28/19 05:00 Macrocytosis Not Reportable 10/28/19 05:00 Spherocytes Not Reportable 10/28/19 05:00 Pappenheimer Bodies Not Reportable 10/28/19 05:00 Sickle Cells Not Reportable 10/28/19 05:00 Target Cells Not Reportable 10/28/19 05:00 Tear Drop Cells Not Reportable 10/28/19 05:00 Ovalocytes Not Reportable 10/28/19 05:00 Helmet Cells Not Reportable 10/28/19 05:00 [place] Bodies Not Reportable 10/28/19 05:00 Burton Rings Not Reportable 10/28/19 05:00 Carisa Cells 1+ 10/28/19 05:00 Bite Cells Not Reportable 10/28/19 05:00 Crenated Cell Not Reportable 10/28/19 05:00 Elliptocytes Not Reportable 10/28/19 05:00 Acanthocytes (Spur) Not Reportable 10/28/19 05:00 Rouleaux Not Reportable 10/28/19 05:00 Hemoglobin C Crystals Not Reportable 10/28/19 05:00 Schistocytes Not Reportable 10/28/19 05:00 Malaria parasites Not Reportable 10/28/19 05:00 Ciro Bodies Not Reportable 10/28/19 05:00 Hem Pathologist Commnt No 10/28/19 05:00 PT 16.6 Sec. (12.2-14.9) H 10/21/19 11:33 INR 1.33 (0.87-1.13) H 10/21/19 11:33 ABG pH 7.273 pH Units (7.350-7.450) L 10/28/19 04:00 ABG pCO2 35.7 mm Hg 10/28/19 04:00 ABG pO2 77.4 mm Hg (80.0-90.0) L 10/28/19 04:00 ABG HCO3 16.1 mmol/L (20.0-26.0) L 10/28/19 04:00 ABG O2 Saturation 93.2 % (95.0-99.0) L 10/28/19 04:00 ABG O2 Content 12.0 (0.0-44) 10/28/19 04:00 ABG Base Excess -9.9 mmol/L (-2.0-3.0) L 10/28/19 04:00 ABG Hemoglobin 9.3 gm/dl (12.0-16.0) L 10/28/19 04:00 ABG Carboxyhemoglobin 1.4 % (0.0-5.0) 10/28/19 04:00 ABG Methemoglobin 0.6 % (0.0-1.5) 10/28/19 04:00 Oxyhemoglobin 91.4 % (95.0-99.0) L 10/28/19 04:00 FiO2 40 % 10/28/19 04:00 Sodium 133 mmol/L (137-145) L 10/28/19 05:00 Potassium 5.1 mmol/L (3.6-5.0) H 10/28/19 05:00 Chloride 86.1 mmol/L (98-107) L 10/28/19 05:00 Carbon Dioxide 16 mmol/L (22-30) L 10/28/19 05:00 Anion Gap 36 mmol/L 10/28/19 05:00 BUN 50 mg/dL (7-17) H 10/28/19 05:00 Creatinine 4.6 mg/dL (0.7-1.2) H 10/28/19 05:00 Estimated GFR 9 ml/min 10/28/19 05:00 BUN/Creatinine Ratio 11 % 10/28/19 05:00 Glucose 104 mg/dL (65-100) H 10/28/19 05:00 POC Glucose 125 (70-105) H 10/28/19 05:21 Lactic Acid 16.40 mmol/L (0.7-2.0) H* 10/28/19 Unknown Calcium 7.1 mg/dL (8.4-10.2) L 10/28/19 05:00 Phosphorus 6.90 mg/dL (2.5-4.5) H 10/28/19 05:00 Magnesium 1.50 mg/dL (1.7-2.3) L 10/28/19 05:00 Total Bilirubin 0.30 mg/dL (0.1-1.2) 10/27/19 06:25 Direct Bilirubin 0.3 mg/dL (0-0.2) H 10/21/19 11:33 Indirect Bilirubin 0.4 mg/dL 10/21/19 11:33 AST 68 units/L (5-40) H 10/27/19 06:25 ALT 24 units/L (7-56) 10/27/19 06:25 Alkaline Phosphatase 420 units/L (35-129) H 10/27/19 06:25 Total Creatine Kinase 233 units/L (30-135) H 10/21/19 11:33 Total Protein 6.1 g/dL (6.3-8.2) L D 10/27/19 06:25 Albumin 2.1 g/dL (3.9-5) L 10/27/19 06:25 Albumin/Globulin Ratio 0.5 % 10/27/19 06:25 Lipase 15 units/L (13-60) 10/21/19 11:33 Urine Color Taya (Yellow) 10/24/19 05:40 Urine Turbidity Cloudy (Clear) 10/24/19 05:40 Urine pH 7.0 (5.0-7.0) 10/24/19 05:40 Ur Specific Grimes 1.015 (1.003-1.030) 10/24/19 05:40 Urine Protein >500 mg/dL (Negative) 10/24/19 05:40 Urine Glucose (UA) >=500 mg/dL (Negative) 10/24/19 05:40 Urine Ketones Neg mg/dL (Negative) 10/24/19 05:40 Urine Blood Lg (Negative) 10/24/19 05:40 Urine Nitrite Neg (Negative) 10/24/19 05:40 Urine Bilirubin Neg (Negative) 10/24/19 05:40 Urine Urobilinogen < 2.0 mg/dL (<2.0) 10/24/19 05:40 Ur Leukocyte Esterase Lg (Negative) 10/24/19 05:40 Urine WBC (Auto) > 182.0 /HPF (0.0-6.0) H 10/24/19 05:40 Urine RBC (Auto) > 182.0 /HPF (0.0-6.0) 10/24/19 05:40 U Epithel Cells (Auto) 2.0 /HPF (0-13.0) 10/24/19 05:40 Urine WBC Clumps 3+ /HPF 10/24/19 05:40 Urine Eosinophils None seen (None Seen) 10/24/19 05:40 Urine Creatinine 15.0 mg/dL (0.1-20.0) 10/24/19 05:40 Urine Sodium 124 mmol/L 10/24/19 05:40 Hepatitis A IgM Ab Non-reactive (NonReactive) 10/27/19 18:00 Hep Bs Antigen Non-reactive (Negative) 10/27/19 18:00 Hep B Core IgM Ab Non-reactive (NonReactive) 10/27/19 18:00 Hepatitis C Antibody Non-reactive (NonReactive) 10/27/19 18:00 Blood Type A POSITIVE 10/24/19 03:44 Antibody Screen Negative 10/24/19 03:44 Crossmatch See Detail 10/22/19 12:30 Gottlieb/IV: Voiding Method Indwelling Catheter IV Catheter Type [Right NECK] Triple Lumen Cath IV Catheter Type [Right INT / Saline Lock Antecubital] IV Catheter Type [Right VAS Cath Internal Jugular] Active Medications - Current Medications Current Medications: Generic Name Dose Route Start Last Admin Trade Name Freq PRN Reason Stop Dose Admin Albumin Human 25 gm 10/28/19 09:00 10/28/19 09:31 Alburx 25% (Albumin) IV 10/30/19 14:00 Not Given Q8HR MICHI Dextrose 50 ml 10/26/19 13:25 D50w (25gm) Syringe IV Q30MIN PRN Hypoglycemia Protocol Epoetin Mansoor 10,000 unit 10/27/19 09:55 Procrit SUB-Q CODIE PRN hemodialysis Fentanyl 25 mcg 10/22/19 09:18 10/26/19 21:16 Sublimaze IV 25 mcg Q2H PRN Administration Pain , Severe (7-10) Hydrocortisone Sodium Succinate 100 mg 10/22/19 22:00 10/28/19 07:58 Solu-Cortef IV 100 mg Q8H MICHI Administration Phenylephrine HCl 100 mg/ 100 mls @ 3 mls/hr 10/21/19 17:00 10/28/19 09:31 Sodium Chloride IV 400 mcg/min TITR MICHI 24 mls/hr Administration Protocol 50 MCG/MIN Vasopressin 20 unit/ Sodium 101 mls @ 9.09 mls/hr 10/22/19 07:00 10/28/19 05:02 Chloride IV 0.03 units/min TITR MICHI 9.09 mls/hr Administration Protocol 0.03 UNITS/MIN Norepinephrine 8 mg/ Sodium 250 mls @ 3.75 mls/hr 10/22/19 12:00 10/28/19 09:31 Chloride IV 30 mcg/min TITR MICHI 56.25 mls/hr Administration Protocol 2 MCG/MIN Epinephrine 16 mg/ Sodium 250 mls @ 1.875 mls/hr 10/22/19 15:00 10/28/19 07:00 Chloride IV 10 mcg/min TITR MICHI 9.375 mls/hr Titration Protocol 2 MCG/MIN Meropenem 500 mg in 50 mls @ 50 mls/hr 10/26/19 12:00 10/28/19 09:30 Merrem/Ns 500 Mg/50 Ml IV 50 mls/hr Q12HR MICHI Administration Sodium Chloride 100 mls @ 999 mls/hr 10/27/19 10:18 Nacl 0.9% IV CODIE PRN Hypotension Sodium Bicarbonate 75 meq/ 1,075 mls @ 200 mls/hr 10/27/19 19:00 10/27/19 21:16 Dextrose/Sodium Chloride IV 200 mls/hr DIRECT MICHI Administration Sodium Chloride 1,000 mls @ 150 mls/hr 10/28/19 04:45 10/28/19 07:45 Nacl 0.9% 1000 Ml IV 150 mls/hr DIRECT MICHI Administration Lactated Ringer's 2,000 mls @ 999 mls/hr 10/28/19 07:48 10/28/19 07:57 Lactated Ringers IV 10/28/19 09:48 999 mls/hr BOLUS ONE Administration Magnesium Sulfate 4 gm in 100 mls @ 25 mls/hr 10/28/19 09:00 10/28/19 09:30 Magnesium Sulfate 4gm/100ml IV 10/28/19 12:59 25 mls/hr ONCE ONE Administration Insulin Human Lispro 0 unit 10/22/19 18:00 10/28/19 07:03 Humalog SUB-Q Not Given Q6HR [facility] Protocol Metoprolol Tartrate 5 mg 10/27/19 06:00 10/28/19 06:59 Metoprolol IV Not Given Q8HR [facility] Ondansetron HCl 4 mg 10/21/19 14:19 Zofran IV ONCE PRN Nausea And Vomiting Pantoprazole Sodium 40 mg 10/22/19 12:00 10/28/19 09:30 Protonix IV 40 mg QDAY MICHI Administration
[2019-10-28] MEDS: DEXTROSE 50% IN WATER (25GM) 50 ML SYRINGE IV PRN ×3 (12:30→20:42)
[2019-10-28] MEDS: SODIUM BICARBONATE 75 MEQ in DEXTROSE 5% IN WATER 1,000 ML IV SCH ×3 (12:57→23:40)
[2019-10-28 16:32] VITALS: BP 65/46
[2019-10-28 21:36] LABS: Calcium 6.1 mg/dL (8.4-10.2)
[2019-10-28] MEDS ORDERED: INSULIN REGULAR, HUMAN 100 UNITS/1 ML IV ONE (22:44)
[2019-10-28] MEDS ORDERED: DEXTROSE 50% IN WATER (25GM) 50 ML SYRINGE IV ONE (22:44)
[2019-10-28] MEDS ORDERED: CALCIUM GLUCONATE 2,000 MG in SODIUM CHLORIDE 0.9% 100 ML IV ONE (22:44)
[2019-10-29] MEDS ORDERED: EPINEPHrine 1 MG/10 ML SYRINGE ONE (02:15)
[2019-10-29] MEDS: PHENYLEPHRINE 100 MG in SODIUM CHLORIDE 0.9% 90 ML IV SCH ×3 (02:40→06:09)
[2019-10-29] MEDS: VASOPRESSIN 20 UNIT in SODIUM CHLORIDE 0.9% 100 ML IV SCH (02:42)
[2019-10-29] MEDS: NORepinephrine 8 MG in SODIUM CHLORIDE 0.9% 250ML 242 ML IV SCH ×3 (02:43→06:10)
[2019-10-29] MEDS: METOPROLOL TARTRATE 5 MG/5 ML INJ IV SCH (05:00)
[2019-10-29] MEDS: SODIUM BICARBONATE 75 MEQ in DEXTROSE 5% IN WATER 1,000 ML IV SCH (05:00)
[2019-10-29] MEDS: HYDROCORTISONE SOD SUCC 100 MG/2 ML VIAL IV SCH (05:01)
[2019-10-29] MEDS: EPINEPHrine 1 MG/1 ML 16 MG in SODIUM CHLORIDE 0.9% 250ML 234 ML IV SCH (05:04)
[2019-10-29] MEDS: INSULIN LISPRO 100 UNIT/ML SUB-Q SCH ×2 (05:09)
[2019-10-29] MEDS: DEXTROSE 50% IN WATER (25GM) 50 ML SYRINGE IV PRN (05:50)
--- NOTE | 2019-10-29 08:14 | Progress Note ---
Assessment and Plan 1. Acute kidney injury: Likely vasomotor KORY in the setting of septic shock. Unclear what patient baseline creatinine is. Creatinine is 4.6 from 4.1 from 3.9 from 3.2 from 2.9 from 2[address] abd/pelvis revealed low lying right kidney with multiple stones of varying sizes and a large staghorn calculus, negative for hydro. IV fluids d/c. Patient is anuric / oliguric, has brewer. Monitor renal function. Renal prognosis is guarded. Avoid nephrotoxic agents. Meds dosage based on GFR. Unable to attempt HD 2/2 persistent hypotension and need for multiple pressors. Hemodialysis: 10/26 (not able to attempt 2/2 hypotension). 2. FEN: No new labs at time of exam. Primary RN drawing labs at time of exam. Will monitor for any new results. Hyponatremia, monitor. Hyperkalemia, Insulin-D50 and Calcium IV given 10/27, monitor K. Metabolic acidosis, on sodium bicarb drip, monitor. Hypocalcemia, replete ap as needed, monitor. Hypomagnesemia, replete mag as needed, monitor. Anasarca. Monitor lytes and volume status. 3. Perforated viscus: S/p emergency exploratory lap w/ repair. Large amount of contamination in abdomen. S/p abdominal washout with placement of wound vac 10/26. Continues to have large amount of drainage to wound vac. Surgery following. 4. Septic shock: On IV abx. Currently back on four pressors. S/p albumin. 5. Acute respiratory failure: Currently intubated on vent. Pulmonology following. 6. Shock Liver. 7. Type 2 diabetes: Monitor blood glucose. 8. Anemia, POA. Monitor hgb. 9. H/o asthma. 10. Recent surgery to LLE. Subjective Date of service: 10/29/19 Principal diagnosis: Sepsis Interval history: Patient was seen and examined at the bedside. She remains on four pressors. Awaiting lab results from this am. Plan of care discussed with primary RN. Objective - Exam Narrative Exam: General appearance: well-developed, appears stated age, obese, intubated, on vent, NG tube present, anasarca HEENT: facial plethora noted Neck: trachea midline Respiratory: mechanical vent sounds Heart: regular, S1S2, no murmurs Gastrointestinal: obese, distended, LOUIE drain, dressing noted, wound vac with substantial amount of drainage Integumentary: no rash, warm and dry Neurologic: sedated, intubated on vent, unable to assess Ext: L lower extremity wrapped in dressing and LYNDA bandage, bilateral LE edema noted : brewer catheter Hemodialysis access: R IJ temp catheter Psychiatric: unable to assess - Vital Signs Vital signs: Vital Signs - 12hr 10/28/19 10/28/19 10/28/19 20:15 20:31 20:45 Temperature Pulse Rate 113 H 107 H 95 H Pulse Rate [ From Monitor] Respiratory 15 23 15 Rate Blood Pressure O2 Sat by Pulse 84 98 Oximetry 10/28/19 10/28/19 10/28/19 21:01 21:15 21:31 Temperature Pulse Rate 101 H 98 H 96 H Pulse Rate [ From Monitor] Respiratory 14 18 21 Rate Blood Pressure O2 Sat by Pulse 94 Oximetry 10/28/19 10/28/19 10/28/19 21:45 21:48 22:01 Temperature Pulse Rate 94 H 95 H 94 H Pulse Rate [ From Monitor] Respiratory 19 27 H Rate Blood Pressure O2 Sat by Pulse 98 Oximetry 10/28/19 10/28/19 10/28/19 22:11 22:15 22:31 Temperature Pulse Rate 94 H 94 H 95 H Pulse Rate [ From Monitor] Respiratory 14 22 Rate Blood Pressure O2 Sat by Pulse 97 Oximetry 10/28/19 10/28/19 10/28/19 22:45 23:01 23:15 Temperature Pulse Rate 94 H 93 H 95 H Pulse Rate [ From Monitor] Respiratory 15 18 18 Rate Blood Pressure O2 Sat by Pulse Oximetry 10/28/19 10/28/19 10/28/19 23:31 23:45 23:53 Temperature Pulse Rate 93 H 94 H 98 H Pulse Rate [ From Monitor] Respiratory 13 21 20 Rate Blood Pressure O2 Sat by Pulse 100 Oximetry 10/28/19 10/28/19 10/29/19 23:54 23:59 00:00 Temperature 97.2 F L Pulse Rate 97 H Pulse Rate [ 96 H From Monitor] Respiratory Rate Blood Pressure O2 Sat by Pulse 97 Oximetry 10/29/19 10/29/19 10/29/19 00:01 00:11 00:15 Temperature Pulse Rate 96 H 97 H 97 H Pulse Rate [ From Monitor] Respiratory 15 15 Rate Blood Pressure O2 Sat by Pulse 77 L Oximetry 10/29/19 10/29/19 10/29/19 00:31 00:45 01:01 Temperature Pulse Rate 98 H 98 H 97 H Pulse Rate [ From Monitor] Respiratory 15 26 H 19 Rate Blood Pressure O2 Sat by Pulse Oximetry 10/29/19 10/29/19 10/29/19 01:15 01:31 01:45 Temperature Pulse Rate 95 H 92 H 95 H Pulse Rate [ From Monitor] Respiratory 19 14 14 Rate Blood Pressure O2 Sat by Pulse Oximetry 10/29/19 10/29/19 10/29/19 02:01 02:15 02:31 Temperature Pulse Rate 95 H 95 H 95 H Pulse Rate [ From Monitor] Respiratory 14 12 19 Rate Blood Pressure O2 Sat by Pulse 99 Oximetry 10/29/19 10/29/19 10/29/19 02:45 03:00 03:15 Temperature Pulse Rate 95 H 95 H 95 H Pulse Rate [ From Monitor] Respiratory 16 25 H 14 Rate Blood Pressure O2 Sat by Pulse Oximetry 10/29/19 10/29/19 10/29/19 03:30 03:45 04:00 Temperature Pulse Rate 95 H 95 H Pulse Rate [ 95 H From Monitor] Respiratory 25 H 14 Rate Blood Pressure O2 Sat by Pulse 97 Oximetry 10/29/19 10/29/19 10/29/19 04:01 04:15 04:31 Temperature Pulse Rate 95 H 94 H 94 H Pulse Rate [ From Monitor] Respiratory 15 20 16 Rate Blood Pressure O2 Sat by Pulse Oximetry 10/29/19 10/29/19 10/29/19 04:33 04:45 05:00 Temperature Pulse Rate 94 H 94 H 93 H Pulse Rate [ From Monitor] Respiratory 15 Rate Blood Pressure O2 Sat by Pulse 100 Oximetry 10/29/19 10/29/19 10/29/19 05:01 05:15 05:31 Temperature Pulse Rate 93 H 93 H 93 H Pulse Rate [ From Monitor] Respiratory 17 25 H 16 Rate Blood Pressure O2 Sat by Pulse 77 L 37 L Oximetry 10/29/19 10/29/19 10/29/19 05:45 06:01 07:30 Temperature Pulse Rate 94 H 94 H 94 H Pulse Rate [ From Monitor] Respiratory 26 H 25 H Rate Blood Pressure 65/46 O2 Sat by Pulse 37 L Oximetry - Lab 10/28/19 05:00 10/28/19 20:30 Most recent lab results ABG pH 7.273 pH Units (7.350-7.450) L 10/28/19 04:00 ABG pCO2 35.7 mm Hg 10/28/19 04:00 ABG pO2 77.4 mm Hg (80.0-90.0) L 10/28/19 04:00 ABG HCO3 16.1 mmol/L (20.0-26.0) L 10/28/19 04:00 ABG O2 Saturation 93.2 % (95.0-99.0) L 10/28/19 04:00 Calcium 6.1 mg/dL (8.4-10.2) L 10/28/19 20:30 Phosphorus 6.90 mg/dL (2.5-4.5) H 10/28/19 05:00 Magnesium 1.50 mg/dL (1.7-2.3) L 10/28/19 05:00 Urine Creatinine 15.0 mg/dL (0.1-20.0) 10/24/19 05:40 Urine Sodium 124 mmol/L 10/24/19 05:40 Medications & Allergies - Medications Allergies/Adverse Reactions: Allergies No Known Allergies Allergy (Unverified 10/17/19 19:57) Home Medications: Home Medications Medication Instructions Recorded Confirmed Last Taken Type HYDROcodone/APAP 5-325 [[place] 1 each PO Q6HR PRN #12 tablet 10/17/19 Unknown Rx 5/325] Ibuprofen [Motrin] 800 mg PO Q8HR #30 tablet 10/17/19 Unknown Rx Active Medications: Generic Name Dose Route Start Last Admin Trade Name Chrisq PRN Reason Stop Dose Admin Albumin Human 25 gm 10/28/19 09:00 10/28/19 09:31 Alburx 25% (Albumin) IV 10/30/19 14:00 Not Given Q8HR MICHI Dextrose 50 ml 10/26/19 13:25 10/29/19 05:50 D50w (25gm) Syringe IV 50 ml Q30MIN PRN Administration Hypoglycemia Protocol Fentanyl 25 mcg 10/22/19 09:18 10/26/19 21:16 Sublimaze IV 25 mcg Q2H PRN Administration Pain , Severe (7-10) Hydrocortisone Sodium Succinate 100 mg 10/22/19 22:00 10/29/19 05:01 Solu-Cortef IV 100 mg Q8H MICHI Administration Phenylephrine HCl 100 mg/ 100 mls @ 3 mls/hr 10/21/19 17:00 10/29/19 06:09 Sodium Chloride IV 400 mcg/min TITR MICHI 24 mls/hr Administration Protocol 50 MCG/MIN Vasopressin 20 unit/ Sodium 101 mls @ 9.09 mls/hr 10/22/19 07:00 10/29/19 02:42 Chloride IV 0.03 units/min TITR MICHI 9.09 mls/hr Administration Protocol 0.03 UNITS/MIN Norepinephrine 8 mg/ Sodium 250 mls @ 3.75 mls/hr 10/22/19 12:00 10/29/19 06:10 Chloride IV 30 mcg/min TITR MICHI 56.25 mls/hr Administration Protocol 2 MCG/MIN Epinephrine 16 mg/ Sodium 250 mls @ 1.875 mls/hr 10/22/19 15:00 10/29/19 05:04 Chloride IV 10 mcg/min TITR MICHI 9.375 mls/hr Administration Protocol 2 MCG/MIN Meropenem 500 mg in 50 mls @ 50 mls/hr 10/26/19 12:00 10/28/19 22:12 Merrem/Ns 500 Mg/50 Ml IV 50 mls/hr Q12HR MICHI Administration Sodium Bicarbonate 75 meq/ 1,075 mls @ 200 mls/hr 10/28/19 13:00 10/29/19 05:00 Dextrose IV 200 mls/hr DIRECT MICHI Administration Insulin Human Lispro 0 unit 10/22/19 18:00 10/29/19 05:09 Humalog SUB-Q Not Given Q6HR [facility] Protocol Metoprolol Tartrate 5 mg 10/27/19 06:00 10/29/19 05:00 Metoprolol IV Not Given Q8HR MICHI Ondansetron HCl 4 mg 10/21/19 14:19 Zofran IV ONCE PRN Nausea And Vomiting Pantoprazole Sodium 40 mg 10/22/19 12:00 10/28/19 09:30 Protonix IV 40 mg QDAY MICHI Administration
--- NOTE | 2019-10-29 08:20 | Progress Note ---
Assessment and Plan - Patient Problems (1) Perforated viscus Current Visit: Yes Status: Acute Plan to address problem: Pt in critical condition. s/p ex lap and repair of perforated peptic ulcer - (10/20) - POD#8; s/p re-exploration, washout, AbThera Placement - (10/26) - POD#2. Patient appears to be in multisystem organ failure. Her overall prognosis is still grave at this point. She probably had chronic issues with multiple organs prior to this emergency. She may not have had the physiologic reserve needed to overcome such an emergency. There was no evidence of any repair disruption. Abdomen was relatively clean. I think her current hemodynamics may partly be related to intravascular depletion. The amount of drainage from the wound VAC strongly suggests significant third spacing. I do not believe that we have kept up with her fluid losses. I think this is reflected in her rising lactate. The appearance of the drainage is not concerning. At this point, would recommend bolusing her with fluids and keeping up with her continued abdominal fluid losses. As a side note, due to the frequent canister changes and limited supply of canisters, we decreased the vacuum pressure to 100mm Hg last night. She will eventually need to go back to the operating room for wound VAC change. Based on her response to Sunday's procedure, we will have to make sure that she is in as good a condition as possible. We will tentatively plan for this Sunday. NG tube is in good position. Repair is intact. Whenever the critical care team feels it is appropriate, I think it would be fine to start trickle tube feeds. Would not advance until pressor requirements have decreased. We will follow along. Please call with any questions. Time=15min Subjective Date of service: 10/29/19 Patient Reports: Positive: other (remains hypotensive) Objective Vital Signs - 12hr 10/28/19 10/28/19 10/28/19 20:31 20:45 21:01 Temperature Pulse Rate 107 H 95 H 101 H Pulse Rate [ From Monitor] Respiratory 23 15 14 Rate Blood Pressure O2 Sat by Pulse 98 Oximetry 10/28/19 10/28/19 10/28/19 21:15 21:31 21:45 Temperature Pulse Rate 98 H 96 H 94 H Pulse Rate [ From Monitor] Respiratory 18 21 19 Rate Blood Pressure O2 Sat by Pulse 94 Oximetry 05/10/28/19 10/28/19 21:48 22:01 22:11 Temperature Pulse Rate 95 H 94 H 94 H Pulse Rate [ From Monitor] Respiratory 27 H Rate Blood Pressure O2 Sat by Pulse 98 Oximetry 10/28/19 10/28/19 10/28/19 22:15 22:31 22:45 Temperature Pulse Rate 94 H 95 H 94 H Pulse Rate [ From Monitor] Respiratory 14 22 15 Rate Blood Pressure O2 Sat by Pulse 97 Oximetry 10/28/19 10/28/19 10/28/19 23:01 23:15 23:31 Temperature Pulse Rate 93 H 95 H 93 H Pulse Rate [ From Monitor] Respiratory 18 18 13 Rate Blood Pressure O2 Sat by Pulse Oximetry 10/28/19 10/28/19 10/28/19 23:45 23:53 23:54 Temperature Pulse Rate 94 H 98 H Pulse Rate [ 96 H From Monitor] Respiratory 21 20 Rate Blood Pressure O2 Sat by Pulse 100 97 Oximetry 10/28/19 10/29/19 10/29/19 23:59 00:00 00:01 Temperature 97.2 F L Pulse Rate 97 H 96 H Pulse Rate [ From Monitor] Respiratory 15 Rate Blood Pressure O2 Sat by Pulse 77 L Oximetry 10/29/19 10/29/19 10/29/19 00:11 00:15 00:31 Temperature Pulse Rate 97 H 97 H 98 H Pulse Rate [ From Monitor] Respiratory 15 15 Rate Blood Pressure O2 Sat by Pulse Oximetry 10/29/19 10/29/19 10/29/19 00:45 01:01 01:15 Temperature Pulse Rate 98 H 97 H 95 H Pulse Rate [ From Monitor] Respiratory 26 H 19 19 Rate Blood Pressure O2 Sat by Pulse Oximetry 10/29/19 10/29/19 10/29/19 01:31 01:45 02:01 Temperature Pulse Rate 92 H 95 H 95 H Pulse Rate [ From Monitor] Respiratory 14 14 14 Rate Blood Pressure O2 Sat by Pulse Oximetry 10/29/19 10/29/19 10/29/19 02:15 02:31 02:45 Temperature Pulse Rate 95 H 95 H 95 H Pulse Rate [ From Monitor] Respiratory 12 19 16 Rate Blood Pressure O2 Sat by Pulse 99 Oximetry 10/29/19 10/29/19 10/29/19 03:00 03:15 03:30 Temperature Pulse Rate 95 H 95 H 95 H Pulse Rate [ From Monitor] Respiratory 25 H 14 25 H Rate Blood Pressure O2 Sat by Pulse Oximetry 10/29/19 10/29/19 10/29/19 03:45 04:00 04:01 Temperature Pulse Rate 95 H 95 H Pulse Rate [ 95 H From Monitor] Respiratory 14 15 Rate Blood Pressure O2 Sat by Pulse 97 Oximetry 10/29/19 10/29/19 10/29/19 04:15 04:31 04:33 Temperature Pulse Rate 94 H 94 H 94 H Pulse Rate [ From Monitor] Respiratory 20 16 Rate Blood Pressure O2 Sat by Pulse 100 Oximetry 10/29/19 10/29/19 10/29/19 04:45 05:00 05:01 Temperature Pulse Rate 94 H 93 H 93 H Pulse Rate [ From Monitor] Respiratory 15 17 Rate Blood Pressure O2 Sat by Pulse Oximetry 10/29/19 10/29/19 10/29/19 05:15 05:31 05:45 Temperature Pulse Rate 93 H 93 H 94 H Pulse Rate [ From Monitor] Respiratory 25 H 16 26 H Rate Blood Pressure O2 Sat by Pulse 77 L 37 L Oximetry 10/29/19 10/29/19 06:01 07:30 Temperature Pulse Rate 94 H 94 H Pulse Rate [ From Monitor] Respiratory 25 H Rate Blood Pressure 65/46 O2 Sat by Pulse 37 L Oximetry - General physical appearance no distress, no pain, obese, other (significant swelling) - Respiratory normal expansion, normal respiratory effort - Abdomen soft, other (AbThera in place - serosang drainage. LOUIE with serous drainage) - Labs 10/28/19 05:00 10/28/19 20:30 Diabetes panel 10/28/19 Range/Units 20:30 Sodium 130 L (137-145) mmol/L Potassium 5.7 H (3.6-5.0) mmol/L Chloride 85.9 L (98-107) mmol/L Carbon Dioxide 12 L (22-30) mmol/L BUN 47 H (7-17) mg/dL Creatinine 4.4 H (0.7-1.2) mg/dL Glucose 242 H (65-100) mg/dL Calcium 6.1 L (8.4-10.2) mg/dL Calcium panel 10/28/19 Range/Units 20:30 Calcium 6.1 L (8.4-10.2) mg/dL Pituitary panel 10/28/19 Range/Units 20:30 Sodium 130 L (137-145) mmol/L Potassium 5.7 H (3.6-5.0) mmol/L Chloride 85.9 L (98-107) mmol/L Carbon Dioxide 12 L (22-30) mmol/L BUN 47 H (7-17) mg/dL Creatinine 4.4 H (0.7-1.2) mg/dL Glucose 242 H (65-100) mg/dL Calcium 6.1 L (8.4-10.2) mg/dL Adrenal panel 10/28/19 Range/Units 20:30 Sodium 130 L (137-145) mmol/L Potassium 5.7 H (3.6-5.0) mmol/L Chloride 85.9 L (98-107) mmol/L Carbon Dioxide 12 L (22-30) mmol/L BUN 47 H (7-17) mg/dL Creatinine 4.4 H (0.7-1.2) mg/dL Glucose 242 H (65-100) mg/dL Calcium 6.1 L (8.4-10.2) mg/dL
[2019-10-29 08:58] LABS: Albumin 1.8 g/dL (3.9-5); Calcium 6.5 mg/dL (8.4-10.2)
[2019-10-29] MEDS ORDERED: INSULIN REGULAR, HUMAN 100 UNITS/1 ML ONE (08:58)
--- NOTE | 2019-10-29 09:05 | Death Summary ---
Summary - Providers Date of service: 10/29/19 Consults: 10/21/19 12:26 Consult to Physician [CONS] Urgent Comment: Dr. Borden notified @ 13:04- [facility] Consulting Provider: NEHA HERCULES Physician Instructions: Reason For Exam: nathanael 10/21/19 12:53 Consult to Physician [CONS] Urgent Comment: Dr. Simpson notified @ 13:08- [facility] Consulting Provider: JASON SIMPSON Physician Instructions: Reason For Exam: perf viscus Consult to Physician [CONS] Urgent Comment: Dr. Arambula notified @ 13:16- [facility] Consulting Provider: RADHA ARAMBULA Physician Instructions: Reason For Exam: perf viscus 10/22/19 13:48 Consult to Physician [CONS] Urgent Comment: Consulting Provider: JAYSON VASQUEZ Physician Instructions: Reason For Exam: Vas Cath Access 10/26/19 14:58 Consult to Wound/ET Nurse [CONS] Routine Reason For Exam: wound eval abdominal incision. Attending: SONIA SANTACRUZ MD - summary Date of admission: 10/21/19 13:52 Date of : 10/29/19 Significant findings: Time of 8:59am Called placed to family but no response on their number, I was able to locate the number established with Dr Simpson, Victoria Cornejo are sharing this phone number [phone]. And spoke to Victoria and also the patients granddaughter. Patient remains critical status post exploratory lap for perforated viscus and repair. Postop day 6. Continues with multiorgan failure. Still has extremely poor prognosis. Hospital course complicated by continued worsening of renal function. Renal to consider hemodialysis. Did also appreciate surgical note about potential for compartment syndrome. * Patient was started on pressors and underwent emergent surgery, eventually pressors was weaned down but unfortunately was noted to have possible free air requiring wash out and needed more pressors as decribed in treatment plan below. family was notified of Grave prognosis. Due to pressors, she was unable to be dialyzed, she went into cardiac arrest and was not able to wean off. * (1) Acute respiratory failure Current Visit: Yes Status: Acute Plan to address problem: Patient remains intubated septic multiorgan failure. Overall prognosis extremely poor. Difficult to wean patient from vent secondary to obesity sepsis unresponsiveness. Continue vent management wean as appropriate. Pulmonology following. (2) Perforated viscus Current Visit: Yes Status: Acute Plan to address problem: Perforated viscus status post exploratory lap postop day 4. Surgery following. No new changes. Continue electrolyte supportive care. Patient currently with LOUIE drain serosanguineous drainage. Did appreciate note about potential for compartment syndrome. Reintroduction of surgical option at this time will be very difficult. Given fluid shifts, sepsis oxygenation status surgery would be extremely high risk. Right now patient seems to have had minimal gains and although will most likely not affect the overall outcome will think more c onservative approach. (3) SIRS (systemic inflammatory response syndrome) Current Visit: Yes Status: Acute Plan to address problem: Patient septic secondary to bowel perforation. Supportive care continue Zosyn Flagyl. (4) T2DM (type 2 diabetes mellitus) Current Visit: Yes Status: Chronic Qualifiers: Diabetes mellitus rn long term care insulin use: unspecified care home insulin use status Plan to address problem: Patient currently not requiring any insulin coverage. We will continue to follow prevent hypoglycemia. Accu-Cheks remained stable. (5) Septic shock Current Visit: Yes Status: Acute Plan to address problem: Patient on epi and levo fed. Able to wean down to 2 pressors that is evidence of improvement however physically patient has marked ascites facial ascites lower extremity ascites with extensive abdominal wound. Continue present antibiotic coverage. Patient also has yeast will add Diflucan. (6) Thrombocytopenia Current Visit: Yes Status: Acute Plan to address problem: Platelets down to 45. No new episodes of bleeding at this time. Heparin discontinued yesterday. Patient received 1 dose DD VAP this a.m. Follow-up labs. Follow-up platelets in a.m. Bleeding seems to have stopped for now.
[2019-10-29] MEDS ORDERED: INSULIN REGULAR, HUMAN 100 UNITS/1 ML IV ONE ×2 (10:00)
== END 2019-10-29 12:45 | DRG 853 ==
LOC: ED 10:26 → CC1 13:52
PROVIDERS: ADMIT Internal Medicine; ATTEND Internal Medicine
PROC: 0DJ00ZZ Inspection of Upper Intestinal Tract, Open Approach (ICD-10-PCS; principal; 2019-10-21)
PROC: 0DU647Z Supplement Stomach with Autologous Tissue Substitute, Percutaneous Endoscopic Approach (ICD-10-PCS; 2019-10-21)
PROC: 0BH17EZ Insertion of Endotracheal Airway into Trachea, Via Natural or Artificial Opening (ICD-10-PCS; 2019-10-21)
PROC: 5A1955Z Respiratory Ventilation, Greater than 96 Consecutive Hours (ICD-10-PCS; 2019-10-21)
PROC: 4A033R1 Measurement of Arterial Saturation, Peripheral, Percutaneous Approach (ICD-10-PCS; 2019-10-21)
PROC: 06HY33Z Insertion of Infusion Device into Lower Vein, Percutaneous Approach (ICD-10-PCS; 2019-10-21)
PROC: 30233N1 Transfusion of Nonautologous Red Blood Cells into Peripheral Vein, Percutaneous Approach (ICD-10-PCS; 2019-10-22)
PROC: 02HV33Z Insertion of Infusion Device into Superior Vena Cava, Percutaneous Approach (ICD-10-PCS; 2019-10-22)
PROC: B548ZZA Ultrasonography of Superior Vena Cava, Guidance (ICD-10-PCS; 2019-10-22)
PROC: 5A1D70Z Performance of Urinary Filtration, Intermittent, Less than 6 Hours Per Day (ICD-10-PCS; 2019-10-27)
DX: A41.9 Sepsis, unspecified organism (principal); K27.1 Acute peptic ulcer, site unspecified, with perforation; N17.0 Acute kidney failure with tubular necrosis; R65.21 Severe sepsis with septic shock; K72.00 Acute and subacute hepatic failure without coma; J96.01 Acute respiratory failure with hypoxia; E87.2 Acidosis; N39.0 Urinary tract infection, site not specified; E87.5 Hyperkalemia; J45.909 Unspecified asthma, uncomplicated; E11.9 Type 2 diabetes mellitus without complications; I95.9 Hypotension, unspecified; M19.90 Unspecified osteoarthritis, unspecified site; R65.20 Severe sepsis without septic shock; E83.51 Hypocalcemia; D64.9 Anemia, unspecified; D69.6 Thrombocytopenia, unspecified; Z79.4 Long term (current) use of insulin
CPT/HCPCS: 36415; 36600; 71045; 74018; 74176; 80048; 80053; 80074; 80076; 81001; 82140; 82550; 82570; 82803; 82962; 83690; 83735; 84100; 84132; 84300; 85007; 85014; 85018; 85025; 85027; 85610; 86850; 86900; 86901; 86920; 87040; 87070; 87205; 89050; 93005; 94002; 94003; G0378; C9113; J0171; J0330; J0610; J0885; J1170; J1450; J1644; J1720; J1815; J1940; J2185; J2250; J2370; J2405; J2543; J2597; J2704; J2920; J3010; J3475; J7030; J7040; J7050; J7070; J7120; P9016; P9045; P9047